=== PATIENT | female | born 1950 | race Caucasian/White ===

== ENCOUNTER 2020-05-22 14:35 | Inpatient (IN) | payer MEDICARE, BC ==
[2020-05-22] MEDS ORDERED: BENZOCAINE BUCCAL PRN (15:21)
[2020-05-22] MEDS ORDERED: Magnesium Hydroxide 400 MG/5 ML Susp 30 ML Cup PO PRN (15:21)
[2020-05-22] MEDS ORDERED: Bisacodyl 10 MG Supp RECTAL PRN (15:21)
[2020-05-22] MEDS ORDERED: LORazepam 0.5 MG Tab PO PRN (15:21)
[2020-05-22] MEDS ORDERED: MENTHOL BUCCAL PRN (15:21)
[2020-05-22] MEDS ORDERED: Cyclobenzaprine 10 MG Tab PO PRN (15:21)
[2020-05-22] MEDS ORDERED: Erythromycin Base 0.5% Ophth Oint 3.5 GM Tube EYEBOTH PRN (15:21)
[2020-05-22] MEDS ORDERED: Clobetasol 0.05% Crm 15 GM Tube TOP PRN (15:21)
[2020-05-22] MEDS ORDERED: oxyCODONE 5 MG Tab PO PRN (15:21)
[2020-05-22] MEDS ORDERED: Ondansetron 4 MG Tab.DIS PO PRN (15:21)
[2020-05-22] MEDS ORDERED: BETAMETHASONE DIPROPIONATE TOP PRN (15:21)
--- NOTE | 2020-05-22 17:13 | PCM.HP.2 ---
H&P History of Present Illness - General Date of Service: 05/22/20 Admit Problem/Dx: Admission Diagnosis/Problem Admission Diagnosis/Problem Weakness Source of Information: Patient, Old Records ([facility] chart/EMR), Other ([facility] EMR) History Limitations: Reports: Other (Severe presbycusis) - History of Present Illness Initial Comments - Free Text/Narative: The patient was brought to this facility by her daughter via private automobile for direct admission into our swing bed unit [facility] [place]. 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 Patient is an extremely poor historian secondary to her severe presbycusis. She denies any significant pain at this time. The patient denies any chest pain/pressure, heart flutter, dizziness, orthostasis, orthopnea, diaphoresis, paresthesias, recent decreased exercise tolerance, or any other anginal-type symptoms. No recent history of abdominal pain, heartburn, nausea, diarrhea, melena, gross hematochezia, or any food intolerance, including fatty foods, etc.. The patient also denies any recent fever, cough, wheezing, dyspnea, etc.. She denies any gross hematuria, colic, or other current UTI symptoms. No significant pain at this time. Onset of Symptoms: Reports: Other (As above) Duration of Symptoms: Reports: Other (No significant pain) Location: Reports: Lower Extremity, Left. Denies: Head, Face, Neck, Chest, Abdomen, Back, Pelvis, Upper Extremity, Left, Upper Extremity, Right, Radiates to Quality: Reports: Same as Previous Episode Improves with: Reports: Rest Worsens with: Reports: Movement Context: Reports: Trauma (As above) Associated Symptoms: Reports: Weakness (Mild postoperative). Denies: Confusion, Chest Pain, Cough, Diaphoresis, Fever/Chills, Headaches, Loss of Appetite, Malaise, Nausea/Vomiting, Shortness of Breath, Syncope - Related Data Allergies/Adverse Reactions: Allergies Allergy/AdvReac Type Severity Reaction Status Date / Time No Known Allergies Allergy Verified 05/22/20 11:25 Home Medications: Home Meds Lisinopril [Prinivil] 5 mg PO DAILY #30 tablet 10/15/15 [Rx] Acetaminophen [Tylenol Arthritis Pain] 650 mg PO BID PRN 01/31/20 [History] Betamethasone Dipropionate [Diprosone 0.05% Crm] 0 gm TOP BID PRN 01/31/20 [History] Calcium Carbonate/Vitamin D3 [Caltrate 600 Plus D3 Tablet] 1 tab PO DAILY 01/31/20 [History] Cholecalciferol (Vitamin D3) [Vitamin D3] 2,000 unit PO DAILY 01/31/20 [History] Cyclobenzaprine [Flexeril] 10 mg PO TID PRN 01/31/20 [History] Erythromycin Base [Erythromycin] 1 dose EYEBOTH QID PRN 01/31/20 [History] Multivitamin with Minerals [Multiple Vitamin] 1 each PO DAILY 01/31/20 [History] Gervais-3/DHA/Epa/Fish Oil [Fish Oil 1,000 mg Softgel] 1,000 mg PO DAILY 01/31/20 [History] Sodium Chloride 3 gm PO TID 01/31/20 [History] Urea [Urea 20% Crm] 85 gm .XX BID 01/31/20 [History] cephALEXin [Cephalexin] 500 mg PO TID 01/31/20 [History] Docusate Sodium/Sennosides [Senna Plus] 2 tab PO BID PRN tablet 03/02/20 [Rx] Aspirin 81 mg PO BID 05/22/20 [History] Benzocaine/Menthol [Cepacol Sore Throat Lozenge] 1 each MM Q4HR PRN 05/22/20 [History] Bisacodyl [Laxative Suppository] 10 mg RC DAILY PRN 05/22/20 [History] Clobetasol [Clobetasol Propionate 0.05%] 1 applic TOP BID PRN 05/22/20 [History] Enoxaparin [Lovenox] 40 mg SUBCUT DAILY 05/22/20 [History] LORazepam [Ativan] 0.5 mg PO Q6HR PRN 05/22/20 [History] Magnesium Hydroxide [Dulcolax] 30 ml PO BID PRN 05/22/20 [History] Nicotine [Nicotine Patch] 21 mg TD DAILY 05/22/20 [History] Ondansetron [Zofran ODT] 4 mg PO QID PRN 05/22/20 [History] Polyethylene Glycol [Polyox Wsr-301] 17 gm MC DAILY 05/22/20 [History] oxyCODONE 5 mg PO Q4HR PRN 05/22/20 [History] Past Medical History HEENT History: Reports: Hard of Hearing, Other (See Below) Other HEENT History: Severe bilateral presbycusis with no hearing aid therapy. 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 Cardiovascular History: Reports: High Cholesterol, Hypertension Gastrointestinal History: Reports: Chronic Constipation Musculoskeletal History: Reports: Arthritis, Fracture, Osteoarthritis, Other (See Below) Other Musculoskeletal History: Left pubic ramus fracture on 08/28/2015 with history of recurrent left hip TEP dislocations including in April 2020 with surgeries required as below. Psychiatric History: Reports: Addiction, Anxiety, Depression, Other (See Below) Other Psychiatric History: History of alcohol abuse. Endocrine/Metabolic History: Reports: Hypokalemia, Hypomagnesemia Other Endocrine/Metabolic History: Hyponatremia. Hematologic History: Reports: Anemia, Other (See Below) Other Hematologic History: Thiamine deficiency. 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 Multiple teeth extractions. Musculoskeletal Surgical History: Reports: Hip Replacement, Other (See Below) Other Musculoskeletal Surgeries/Procedures:: Left hip TEP with subsequent multiple left hip TEP revisions on 05/19/2020, 05/11/2020, and 01/28/2020 secondary to recurrent dislocations. Oncologic Surgical History: Reports: Other (See Below) Other Oncologic Surgeries/Procedures: Post ethmoid sinus reconstruction - Past Imaging History Past Imaging History: Reports: CAT Scan (CT of the head on 08/09/2019 and 10/07/2015. CT of the sinuses on 04/20/2018. CT of the left leg on 08/28/2015.), Mammogram (Last on 04/20/2018), MRI (MRI of the brain in 2019.) - History Comment History Comment: The patient is an extremely poor historian secondary to her severe presbycusis. Social & Family History - Family History Family Medical History: No Pertinent Family History (Also unobtainable secondary to her severe presbycusis) - Tobacco Use Tobacco Use Status *Q: Current Some Day Tobacco User Years of Tobacco use: 20 Packs/Tins Daily: 0.5 Used Tobacco, but Quit: No Second Hand Smoke Exposure: No - Caffeine Use Caffeine Use: Reports: Coffee Other Caffeine Use: 1 cup - Recreational Drug Use Recreational Drug Use: No H&P Review of Systems - Review of Systems: Review Of Systems: Comprehensive ROS is negative, except as noted in HPI. Exam - Exam Exam: See Below - Vital Signs Vital Signs: Last Vital Signs Temp 36.7 C 05/22/20 14:40 Pulse 80 05/22/20 14:40 Resp 18 05/22/20 14:40 BP 142/80 H 05/22/20 14:40 Pulse Ox 93 L 05/22/20 14:40 Weight: 67.132 kg - Exam Quality Assessment: DVT Prophylaxis (Lovenox). No: Supplemental Oxygen, Urinary Catheter, Skin Breakdown, Restraints HEENT: EACs Clear, EOMI, Mucosa Moist & [place], Posterior Pharynx Clear, TMs Clear, Other (Moderate to severe midface superior defect secondary to previous ethmoid sinus carcinoma resection involving the nasal region), PERRLA. No: Hearing Intact (Severe presbycusis bilaterally), Nares Patent (Moderate nasal deformity secondary to previous surgery) Neck: Supple, Trachea Midline, Full Range of Motion, Carotid Bruit (Mild bilateral carotid bruits). No: Lymphadenopathy, Thyromegaly Lungs: Clear to Auscultation, Normal Respiratory Effort. No: Rub Cardiovascular: Regular Rate, Regular Rhythm, Normal S1, Normal S2. No: Systolic Murmur, Rubs, Gallop/S3, Gallop/S4 GI/Abdominal Exam: Normal Bowel Sounds, Soft, Non-Tender, No Organomegaly, No Distention, No Abnormal Bruit, No Mass. No: Guarding (Female) Exam: Deferred Rectal (Female) Exam: Deferred Back Exam: Normal Inspection, Full Range of Motion. No: CVA Tenderness (L), CVA Tenderness (R), Muscle Spasm Extremities: No Pedal Edema, Normal Capillary Refill. No: Non-Tender (Normal postoperative pain in the left hip/leg with left leg brace noted), Suzy's Sign Peripheral Pulses: 2+: Radial (L), Radial (R), Dorsalis Pedis (L), Dorsalis Pedis (R) Skin: Wound, Incision (Postoperative with humberto) Neurological: Reflexes Equal Bilateral Neuro Extensive - Mental Status: Alert, Oriented x3, Normal Mood/Affect, Normal Cognition Psychiatric: Alert, Normal Affect, Normal Mood - Patient Data Lab Results Last 24 hrs: To be conducted in the a.m. of 05/23 Sepsis Event Note - Evaluation Sepsis Screening Result: No Definite Risk - Focused Exam Vital Signs: Vital Signs Temp Pulse Resp BP Pulse Ox 05/22/20 14:40 36.7 C 80 18 142/80 H 93 L - Problem List (1) Recurrent dislocation, left hip SNOMED Code(s): 421552153 ICD Code: M24.452 - RECURRENT DISLOCATION, LEFT HIP Status: Acute Priority: High Current Visit: Yes Problem Details: Recurrent dislocation of the left hip with required repeat revision on 05/19/20 as above with surgery complicated by postoperative anemia. PT and OT have been ordered with initiation of standard swing bed orders. Blood work to be updated on 05/23. Note current subcutaneous Lovenox therapy as DVT prophylaxis per transfer orders from [facility]. (2) Osteoarthritis SNOMED Code(s): 899467428 ICD Code: M19.90 - UNSPECIFIED OSTEOARTHRITIS, UNSPECIFIED SITE Status: [facility] Priority: Medium Current Visit: Yes Problem Details: Otherwise stable by history Qualifiers: Osteoarthritis location: multiple joints Osteoarthritis type: primary Qualified Code(s): M89.49 - Other hypertrophic osteoarthropathy, multiple sites (3) Hypertension SNOMED Code(s): 59897027 ICD Code: I10 - ESSENTIAL (PRIMARY) HYPERTENSION Status: Chronic Priority: Medium Current Visit: Yes Problem Details: Continue to observe closely through swing bed care. Qualifiers: Hypertension type: essential hypertension Qualified Code(s): I10 - Essential (primary) hypertension (4) Postoperative anemia SNOMED Code(s): 614155263, 764235651 ICD Code: D64.9 - ANEMIA, UNSPECIFIED Status: Acute Priority: Medium Current Visit: Yes Onset Date: ~05/21/20 Problem Details: Hemoglobin [facility] 8.3 on 05/[facility] at [facility] [place]. Consider iron supplementation depending on her clinical course. (5) Hyperlipidemia SNOMED Code(s): 95004310 ICD Code: E78.5 - HYPERLIPIDEMIA, UNSPECIFIED Status: Chronic Priority: Medium Current Visit: Yes Problem Details: Continue to observe closely by regular providers. Qualifiers: Hyperlipidemia type: other hyperlipidemia Qualified Code(s): E78.49 - Other hyperlipidemia; E78.4 - Other hyperlipidemia (6) Hypomagnesemia SNOMED Code(s): 949269066 ICD Code: E83.42 - HYPOMAGNESEMIA Status: Acute Priority: Medium Current Visit: Yes Problem Details: Blood work on 05/23/2020. (7) Osteomyelitis SNOMED Code(s): 70971200 ICD Code: M86.9 - OSTEOMYELITIS, UNSPECIFIED Status: Chronic Priority: Medium Current Visit: Yes Problem Details: Continue long-term chronic Keflex therapy for chronic osteomyelitis of the facial regions after recent extensive surgery for carcinoma excision. Qualifiers: Osteomyelitis type: other chronic Osteomyelitis location: unspecified site Qualified Code(s): M86.60 - Other chronic osteomyelitis, unspecified site (8) Mixed anxiety depressive disorder SNOMED Code(s): 368433673 ICD Code: F41.8 - OTHER SPECIFIED ANXIETY DISORDERS Status: Chronic Priority: Medium Current Visit: Yes Problem Details: Note history of alcohol abuse. Stable by history. Problem List Initiated/Reviewed/Updated: Yes Orders Last 24hrs: Active Orders 24 hr Category Date Time Status Patient Status [ADT] Routine ADT 05/22/20 15:16 Active Communication Order [RC] ROUTINE Care 05/22/20 15:26 Active Communication Order [RC] ROUTINE Care 05/22/20 15:26 Active Height and Weight [RC] Fr@08 Care 05/22/20 15:18 Active Intake and Output [RC] Care 05/22/20 15:16 Active Notify Provider Vital Signs [RC] PRN Care 05/22/20 15:18 Active Oxygen Therapy [RC] PRN Care 05/22/20 15:16 Active Up With Assistance [RC] ASDIRECTED Care 05/22/20 15:16 Active VTE/DVT Education [RC] PER UNIT ROUTINE Care 05/22/20 15:16 Active Vital Signs [RC] Care 05/22/20 15:16 Active Consult to Case Management/Embedded Case Manager [CONS] Cons 05/22/20 15:16 Active Routine OT Evaluation and Treatment [CONS] Routine Cons 12/04/20 15:16 Active PT Evaluation and Treatment [CONS] Routine Cons 05/22/20 15:16 Active Heart Healthy Diet [DIET] Diet 05/22/20 Lunch Active Acetaminophen [Tylenol Arthritis Pain] Med 05/22/20 15:21 Active 650 mg PO BID PRN Aspirin Med 05/22/20 18:00 Active 81 mg PO BID Benzocaine/Menthol [Cepacol Sore Throat Lozenge] Med 05/22/20 15:21 Pending 1 each MM Q4HR PRN Betamethasone Dipropionate [Diprosone 0.05% Crm] Med 05/22/20 15:21 Pending 1 gm TOP BID PRN Calcium Carbonate/Vitamin D3 [Caltrate 600+D 1500 MG- Med 05/23/20 08:00 Active 400 Units] 1 tab PO DAILY Cholecalciferol (Vitamin D3) [Vitamin D3] Med 05/23/20 08:00 Active 50 mcg PO DAILY Clobetasol [Clobetasol Propionate 0.05%] Med 05/22/20 15:21 Active 0 gm TOP BID PRN Cyclobenzaprine [Flexeril] Med 05/22/20 15:21 Active 10 mg PO TID PRN Docusate Sodium/Sennosides [Senna Plus] Med 05/22/20 15:21 Active 2 tab PO BID PRN Enoxaparin [Lovenox] Med 05/23/20 08:00 Pending 40 mg SUBCUT DAILY Erythromycin Base [Erythromycin 0.5% Ophth Oint] Med 05/22/20 15:21 Pending DOSE gm EYEBOTH QID PRN Fish Oil/Gervais-3 Fatty Acids [Fish Oil] Med 05/23/20 08:00 Active 1 gm PO DAILY LORazepam [Ativan] Med 05/22/20 15:21 Active 0.5 mg PO Q6HR PRN Magnesium Hydroxide [Milk of Magnesia] Med 05/22/20 15:21 Active 30 ml PO BID PRN Multivitamins [Tab-A-Kayla] Med 05/23/20 08:00 Active 1 tab PO DAILY Nicotine [Habitrol] Med 05/23/20 08:00 Active 21 mg TOP DAILY Ondansetron [Zofran ODT] Med 05/22/20 15:21 Active 4 mg PO QID PRN Polyethylene Glycol [Polyox Wsr-301] Med 05/23/20 08:00 Pending 17 gm MC DAILY Sodium Chloride Med 05/22/20 18:00 Active 3 gm PO TID Urea [Urea 20% Crm] Med 05/22/20 18:00 Pending 85 gm .XX BID bisacodyL [Dulcolax] Med 05/22/20 15:21 Active 10 mg RECTAL DAILY PRN cephALEXin [Keflex] Med 05/22/20 18:00 Active 500 mg PO TID lisinopriL [Prinivil] Med 05/23/20 08:00 Active 5 mg PO DAILY oxyCODONE Med 05/22/20 15:21 Active 5 mg PO Q4HR PRN Patient May Not [OM.PC] Click to Edit Oth 05/22/20 15:16 Ordered Resuscitation Status Routine Resus Stat 05/22/20 15:16 Ordered Medication Orders Acetaminophen (Tylenol Arthritis Pain) 650 mg PO BID PRN PRN Reason: Pain Aspirin (Aspirin) 81 mg PO BID [facility] Bisacodyl (Dulcolax) 10 mg RECTAL DAILY PRN PRN Reason: Constipation Calcium Carbonate (Caltrate 600+D 1500 Mg-400 Units) 1 tab PO DAILY [facility] Cephalexin (Keflex) 500 mg PO TID [facility] Cholecalciferol (Vitamin D3) 50 mcg PO DAILY [facility] Clobetasol Propionate (Clobetasol Propionate 0.05%) 0 gm TOP BID PRN PRN Reason: Itching Cyclobenzaprine HCl (Flexeril) 10 mg PO TID PRN PRN Reason: Spasms Enoxaparin Sodium (Lovenox) 40 mg SUBCUT DAILY [facility] Erythromycin (Erythromycin 0.5% Ophth Oint) gm EYEBOTH QID PRN PRN Reason: Other Fish Oil (Fish Oil) 1 gm PO DAILY [facility] Lisinopril (Prinivil) 5 mg PO DAILY [facility] Lorazepam (Ativan) 0.5 mg PO Q6HR PRN PRN Reason: Anxiety Magnesium Hydroxide (Milk Of Magnesia) 30 ml PO BID PRN PRN Reason: Constipation Multivitamins/Minerals/Vitamin C (Tab-A-Kayla) 1 tab PO DAILY [facility] Nicotine (Habitrol) 21 mg TOP DAILY [facility] Non-Formulary Medication (Benzocaine/Menthol [Cepacol Sore Throat Lozenge]) 1 each MM Q4HR PRN PRN Reason: Sore Throat Non-Formulary Medication (Betamethasone Dipropionate [Diprosone 0.05% Crm]) 1 gm TOP BID PRN PRN Reason: Other Non-Formulary Medication (Polyethylene Glycol [Polyox Wsr-301]) 17 gm MC DAILY [facility] Non-Formulary Medication (Urea [Urea 20% Crm]) 85 gm .XX BID [facility] Ondansetron HCl (Zofran Odt) 4 mg PO QID PRN PRN Reason: Nausea Oxycodone HCl (Oxycodone) 5 mg PO Q4HR PRN PRN Reason: Pain Senna/Docusate Sodium (Senna Plus) 2 tab PO BID PRN PRN Reason: Constipation Sodium Chloride (Sodium Chloride) 3 gm PO TID [facility] Assessment/Plan Comment:: As above. Extensive precautions were given to the patient, who is in agreement with the treatment plan. - Mortality Measure Prognosis:: Good
[2020-05-22] MEDS: Acetaminophen 650 MG Tab.ER PO PRN (17:37)
[2020-05-22] MEDS: Cephalexin 250 MG Cap PO SCH (17:37)
[2020-05-22] MEDS: Aspirin 81 MG Tab.Chew PO SCH (17:38)
[2020-05-22] MEDS: Sodium Chloride 1 GM Tab PO SCH (17:38)
[2020-05-22] MEDS ORDERED: UREA SCH (18:00)
[2020-05-23] MEDS: Sodium Chloride 1 GM Tab PO SCH ×3 (07:50→17:54)
[2020-05-23] MEDS: Fish Oil/Omega-3 Fatty Acids 1 Gm Cap PO SCH (07:51)
[2020-05-23] MEDS: Cholecalciferol (Vitamin D3) 25 MCG Tab PO SCH (07:51)
[2020-05-23] MEDS: Cephalexin 250 MG Cap PO SCH ×3 (07:52→17:53)
[2020-05-23] MEDS: Aspirin 81 MG Tab.Chew PO SCH ×2 (07:52→17:53)
[2020-05-23] MEDS: Calcium Carbonate/Vitamin D3 1500 MG-400 Units Tab PO SCH (07:52)
[2020-05-23] MEDS: Multivitamin Tab PO SCH (07:52)
[2020-05-23] MEDS: Enoxaparin 40 MG/0.4 ML Syringe SUBCUT SCH (07:58)
[2020-05-23] MEDS: Lisinopril 5 MG Tab PO SCH (07:58)
[2020-05-23] MEDS: Polyethylene Glycol 3350 Powder 17 GM Packet PO SCH (07:59)
[2020-05-23] MEDS: Nicotine 21 MG/24 Hr Patch TOP SCH (07:59)
[2020-05-23 08:01] LABS: PTT,PARTIAL THROMBOPLSTIN TIME 30.1 SEC (24.5-32.8)
[2020-05-23 09:23] LABS: CHLORIDE,CL 97 mmol/L (98-107); SODIUM,NA 132 mmol/L (136-145)
--- NOTE | 2020-05-23 10:37 | PCM.SN.2 ---
- Free Text/Narrative Note: Blood work and EKG reviewed today. EKG shows a normal sinus rhythm of 84, FL interval of 0.16 seconds, and QRS interval of 0.08 seconds. T wave inversion lead V1 with mild diffuse biphasic P waves consistent with possible left atrial enlargement. No acute ischemic changes. Blood work shows improvement of patient's previous postoperative anemia with hemoglobin of 9.3 on 05/23 in comparison to 8.3 on 05/[address] [facility]. Iron sulfate therapy initiated on 05/23 with consideration of iron studies, vitamin B12 level, etc. in about 4 weeks. Note history of thiamine deficiency, which is currently under therapy. Persistent hyponatremia with elevated BNP likely secondary to some CHF. Initiate oral Lasix and potassium therapy with additional lisinopril therapy secondary to her elevated blood pressures during initial phases of her swing bed care. Note artifactually elevated CK index with mild change in troponin secondary to her CHF as above. Mild hypocalcemia and hypoalbuminemia, which will be observed for now. Chest x-ray and repeat blood work on 05/25. Vital signs are stable. Consider echocardiogram, cardiology referral/work-up, etc. on an outpatient basis after discharge.
[2020-05-23] MEDS: Potassium Chloride 20 MEQ Tab.ER PO SCH ×2 (11:46→17:53)
[2020-05-23] MEDS: Furosemide 20 MG Tab PO SCH ×2 (11:47→13:29)
[2020-05-23] MEDS: Acetaminophen 650 MG Tab.ER PO PRN ×2 (15:08→19:17)
[2020-05-23] MEDS: Ferrous Sulfate 325 MG Tab PO SCH (17:53)
[2020-05-24] MEDS: Lisinopril 5 MG Tab PO SCH (08:04)
[2020-05-24] MEDS: Cephalexin 250 MG Cap PO SCH ×3 (08:04→17:34)
[2020-05-24] MEDS: Aspirin 81 MG Tab.Chew PO SCH ×2 (08:04→17:34)
[2020-05-24] MEDS: Citalopram 20 MG Tab PO SCH (08:04)
[2020-05-24] MEDS: Fish Oil/Omega-3 Fatty Acids 1 Gm Cap PO SCH (08:04)
[2020-05-24] MEDS: Calcium Carbonate/Vitamin D3 1500 MG-400 Units Tab PO SCH (08:04)
[2020-05-24] MEDS: Sodium Chloride 1 GM Tab PO SCH ×3 (08:04→17:34)
[2020-05-24] MEDS: Ferrous Sulfate 325 MG Tab PO SCH ×2 (08:04→17:34)
[2020-05-24] MEDS: Cholecalciferol (Vitamin D3) 25 MCG Tab PO SCH (08:04)
[2020-05-24] MEDS: Potassium Chloride 20 MEQ Tab.ER PO SCH ×2 (08:07→17:34)
[2020-05-24] MEDS: Multivitamin Tab PO SCH (08:07)
[2020-05-24] MEDS: Furosemide 20 MG Tab PO SCH ×2 (08:07→11:53)
[2020-05-24] MEDS: Nicotine 21 MG/24 Hr Patch TOP SCH (08:08)
[2020-05-24] MEDS: Enoxaparin 40 MG/0.4 ML Syringe SUBCUT SCH (08:08)
[2020-05-24] MEDS: Polyethylene Glycol 3350 Powder 17 GM Packet PO SCH (08:09)
[2020-05-25] MEDS: Ferrous Sulfate 325 MG Tab PO SCH ×2 (08:36→18:21)
[2020-05-25] MEDS: Potassium Chloride 20 MEQ Tab.ER PO SCH ×2 (08:36→18:21)
[2020-05-25] MEDS: Aspirin 81 MG Tab.Chew PO SCH ×2 (08:37→18:21)
[2020-05-25] MEDS: Acetaminophen 650 MG Tab.ER PO PRN (08:37)
[2020-05-25] MEDS: Calcium Carbonate/Vitamin D3 1500 MG-400 Units Tab PO SCH (08:37)
[2020-05-25 08:38] LABS: CHLORIDE,CL 92 mmol/L (98-107); SODIUM,NA 127 mmol/L (136-145)
[2020-05-25] MEDS: Furosemide 20 MG Tab PO SCH ×2 (08:38→13:17)
[2020-05-25] MEDS: Lisinopril 5 MG Tab PO SCH (08:40)
[2020-05-25] MEDS: Multivitamin Tab PO SCH (08:41)
[2020-05-25] MEDS: Citalopram 20 MG Tab PO SCH (08:41)
[2020-05-25] MEDS: Sodium Chloride 1 GM Tab PO SCH ×3 (08:42→18:20)
[2020-05-25] MEDS: Cephalexin 250 MG Cap PO SCH ×3 (08:42→18:21)
[2020-05-25] MEDS: Fish Oil/Omega-3 Fatty Acids 1 Gm Cap PO SCH (08:43)
[2020-05-25] MEDS: Cholecalciferol (Vitamin D3) 25 MCG Tab PO SCH (08:43)
[2020-05-25] MEDS: Nicotine 21 MG/24 Hr Patch TOP SCH (08:44)
[2020-05-25] MEDS: Enoxaparin 40 MG/0.4 ML Syringe SUBCUT SCH (08:44)
[2020-05-25] MEDS: Polyethylene Glycol 3350 Powder 17 GM Packet PO SCH (08:45)
[2020-05-25] MEDS ORDERED: Iopamidol 612 MG/ML 100 ML Bottle IVPUSH ONE (11:14)
--- OUTSIDE RECORDS SUMMARY | 2020-05-25 11:14 | XMSREPORT ---
:1950 Author Organization [facility] and [facility] s Address [address] [place] [address] [address] [place] [address] Care Team Providers Name Role Phone LOLIS Bonilla Unavailable HUI Huynh Primary Care Provider MD Verónica Unavailable MD Aidan Unavailable MED Huynh-MILENA Attributed Provider Reason for Visit Reason Comments Auth/Cert Status Reason Specialty Diagnoses / Procedures Referred By Geo prakash Referred To Contact Encounter Details Date Type Department Care Team Description 05/15/2020 [facility] [address] [place], [place] [phone] Recurrent 05/22/2020 [facility] Param Engle MD [address] [place], [place] [phone] dislocation of hip [address] [place], [place] [id number] Allergies Active Allergy Reactions Severity Noted Date Comments Adhesives Unknown/Not Verified 06/13/2013 Metals Unknown/Not Verified 06/13/2013 Nickel Rash 03/18/2020 documented as of this encounter (statuses as of 05/22/2020) Medications Medication Sig Dispensed Refills Start Date End Date Status vitamin D3, Take 2 tablets 30 tablet 0 09/01/2015 Ac tive cholecalciferol, 1000 (2,000 Units unit tablet total) by mouth 1 time per day Additional Information Patient taking differently: 1,000 Units Oral DAILY, Reported on 02/22/2017 11:16 AM Calcium Carbonate-Vit Take 1 tablet by 0 Active D-Min (CALTRATE PLUS mouth 1 time per day PO) ondansetron (ZOFRAN Take 1 tablet (4 mg) 20 tablet 0 25/ Active ODT) 4 mg dispersible by mouth 4 times a 2019 tabletIndications: day as needed for S/P revision of total nausea or vomiting hip aspirin 81 mg Take 1 tablet (81 84 tablet 0 05/13/ Active chewable mg) by mouth 2 times 2019 tabletIndications: a day S/P revision of total hip senna-docusate sodium Take 2 tablets by 0 05/13/ Active (SENOKOT-S;PERICOLACE mouth 2 times a day 2019 ) 8.6-50 MG Dx: constipation tabletIndications: Dislocation of internal left hip prosthesis, initial encounter (FORMERLY [facility] [place]), S/P revision of total hip polyethylene glycol Take 1 packet by 0 05/13/ Active (MIRALAX) 17 g mouth 1 time per day 2019 packetIndications: Dissolve in 4 to 8 Dislocation of ounces of water, internal left hip juice, soda, coffee, prosthesis, initial tea. encounter (FORM[facility]LY [facility] [place]), S/P revision of total hip cephalexin (KEFLEX) Take 1 capsule (500 0 05/13/ Active 500 mg mg) by mouth 3 times 2019 capsuleIndications: a day History of sinus cancer acetaminophen Take 2 tablets (650 0 05/13/ Active (TYLENOL) 325 mg mg) by mouth Every 4 2019 tabletIndications: hours as needed for Dislocation of mild pain (fever internal left hip >99F) Dx: left hip prosthesis, initial pain encounter (FORM[facility]LY [facility] [place]), S/P revision of total hip LORazepam (ATIVAN) Take 1 tablet (0.5 30 tablet 0 05/13/ Active 0.5 mg mg) by mouth every 6 2019 tabletIndications: hours as needed for Dislocation of anxiety internal left hip prosthesis, initial encounter ([facility] [place]), S/P revision of total hip nicotine (NICODERM) Apply 1 patch (21 90 patch 4 05/13/ Active 21 mg/24hr mg) to the skin 2019 [id number]: time per day Tobacco use omega-3 fatty acids Take 1 capsule 100 capsule 0 05/13/ Active (FISH OIL) 1000 mg (1,000 mg) by mouth 2020 capsule 1 time per day Multiple Take 1 tablet by 30 tablet 0 05/13/ Act colt Vitamins-Minerals mouth 1 time per day 2020 (MULTIVITAMIN THERAPEUTIC WITH MINERALS) tablet lisinopril (PRINIVIL, Take 1 tablet (5 mg) 0 05/13/ Active ZESTRIL) 5 mg by mouth 1 time per 2020 tabletIndications: day Essential hypertension with goal blood pressure less than 140/90 cyclobenzaprine Take 1 tablet (10 0 05/13/ Active (FLEXERIL) 10 mg mg) by mouth 3 times 2020 tabletIndications: a day as needed Back muscle spasm betamethasone Apply to affected 0 05/13/ Active dipropionate area 2 times a day 2019 (DIPROSONE) 0.05 % as needed for creamIndications: itching or rash Dermatitis Apply twice daily for up to 2 weeks to affected skin clobetasol propionate Apply to affected 0 05/13/ Active (TEMOVATE) 0.05 % area 2 times a day 2019 creamIndications: as needed for Rash itching or rash erythromycin 5 mg/gm Place into both eyes 0 05/13/ Active ophthalmic 4 times a day as 2020 ointmentIndications: needed Eye infection, bilateral urea (CARMOL-20) 20 % Apply to affected 0 05/13/ Active creamIndications: Dry area 2 times a day 2020 skin as needed for itching sodium chloride 1 gm Take 3 tablets (3 g) 180 tablet 1 05/13/ Active tabletIndications: by mouth 3 times a 2019 Hyponatremia day Dx: chronic hyponatremia oxyCODONE (OXY-IR) 5 Take 1 tablet (5 mg) 30 tablet 0 05/22/ Active mg tablet (immediate by mouth Every 4 2019 release)Indications: hours as needed for S/P revision of total moderate pain or hip severe pain enoxaparin (LOVENOX) Inject 40 mg 10 mL 0 05/23/ 06/15 Active 40 mg syringe (100 subcutaneously 1 2019 0 mg/mL) subcutaneous time per day for 23 injection days solutionIndications: S/P revision of total hip bisacodyl (DULCOLAX) Insert 1 suppository 5 suppository 0 / Active 10 mg (10 mg) rectally 2019 suppositoryIndication time a day as needed s: Constipation, for constipation unspecified Unwrap before constipation type inserting. Do not swallow. magnesium hydroxide Take 30 mL by mouth 118 mL 0 05/22/ Active (MILK OF MAGNESIA) 2 times a day as 2019 400 mg/5 mL oral needed for suspensionIndications constipation : Constipation, unspecified constipation type benzocaine-menthol Place 1 lozenge into 30 lozenge 0 05/22/ Active (CEPACOL W/ mouth Every 4 hours 2019 BENZOCAINE) 15-3.6 MG as needed for sore LOZGIndications: throat or other Sorethroat (Specify) (throat irritation) HYDROcodone-acetamino Take 1 tablet by 42 tablet 0 07/23 Discontinued phen (NORCO) 5-325 mg mouth Every 4 hours 2019 (Stop Taking at tabletIndications: as needed for Discharge) S/P revision of total moderate pain hip documented as of this encounter (statuses as of 05/22/2020) Active Problems Problem Noted Date Recurrent dislocation of hip 05/15/2020 History of general anesthesia 05/11/2020 History of cancer 05/11/2020 Hip dislocation, left, initial encounter 05/07/2020 Combined forms of age-related cataract 03/20/2020 Overview: Added automatically from request for tristen scott [id number] Postoperative visit 02/28/2020 S/P revision of total hip 02/28/2020 Overview: Left DREW revision 02/03/[address] Vaishnavi page Closed dislocation of left hip 01/26/2020 Benign hypertension 07/28/2016 Hyponatremia 02/28/2012 Overview: with poor followup and pt. refusing cons ultations Hearing loss Visual disturbance Overview: Related to prior surgery Psoriasis Nicotine addiction Lesion of skin of face Rhinitis, chronic Overview: Related to pts. 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 documented as of this encounter (statuses as of 05/22/2020) Resolved Problems Problem Noted Date Resolved Date Left hip pain 02/28/2020 05/08/2020 Altered mental status 07/28/2016 05/08/2020 Fracture of single pubic ramus 07/28/2016 0 Hypokalemia 07/28/2016 05/08/2020 Hypomagnesemia 07/28/2016 05/08/2020 Pelvis fracture 08/28/2015 05/08/2020 Menopause 04/01/2015 Fatigue 04/01/2015 Overview: Chronic Osteomyelitis 04/01/2015 Overview: chronic Hyperlipidemia 04/01/2015 documented as of this encounter (statuses as of 05/22/2020) Immunizations Name Administration Dates Next Due FLU VACCINE HIGH DOSE 65YR+(Fluzone) 05/31/2018, 04/01/2015 Influenza Vaccine 03/14/2013 Influenza Vaccine,unspecified 03/14/2013, 06/20/2012 Pneumococcal Conj PCV13 04/01/2015 Zoster Live(Zostavax) 06/20/2012 documented as of this encounter Social History Tobacco Use Types Packs/Day Years Used Date Current Every Day Smoker Cigarettes 0.25 45 Smokeless Tobacco: Never Used Comments: Pt states it's been "not quite a year" since she has quit. Alcohol Use Drinks/Week oz/Week Comments Yes 0-2 Glasses of wine 0.0 - 4.0 0-2 Cans of beer Financial Resource Strain Answer Date Recorded How hard is it for you to pay for the very basics like Not h adrien at all 08/28/2019 food, housing, medical care, and heating? Food Insecurity Answer Date Recorded Within the past 12 months, you worried that your food would Never true 08/28/2019 run out before you got money to buy more. Within the past 12 months, the food you bought just didn't N ever true 08/28/2019 last and you didn't have money to get more. Transportation Needs Answer Date Recorded In the past 12 months, has lack of transportation kept you f rom No 08/28/2019 medical appointments or from getting medications? In the past 12 months, has lack of transportation kept you f rom No 08/28/2019 meetings, work, or getting things needed for daily living? Sexually Active Control Partners Comments Never Sex Assigned at Date Recorded Not on file documented as of this encounter Last Filed Vital Signs Vital Sign Reading Time Taken Comments Blood Pressure 138/87 05/22/2020 7:48 AM PLAYGROUND DIRECTOR Pulse 79 05/22/2020 7:48 AM PLAYGROUND DIRECTOR Temperature 36.7 C (98.1 F) 05/22/2020 7:48 AM PLAYGROUND DIRECTOR Respiratory Rate 16 05/22/2020 7:48 AM PLAYGROUND DIRECTOR Oxygen Saturation 94% 05/22/2020 7:48 AM PLAYGROUND DIRECTOR Inhaled Oxygen Concentration - - Weight 65.8 kg (145 lb) 05/15/2020 9:00 PM PLAYGROUND DIRECTOR Height 162.6 cm (5' 4") 05/15/2020 9:00 PM PLAYGROUND DIRECTOR Body Mass Index 24.89 05/15/2020 9:00 PM PLAYGROUND DIRECTOR documented in this encounter Functional Status Functional Status Response Date of Assessment Is the person deaf or does he/she have serious difficulty Ye s 01/26/2020 hearing? Do you have difficulty with walking, balance, climbing No 01/26/2020 stairs, or had a fall in the last 3 months? Does the patient have difficulty dressing or bathing? Yes 01/26/2020 Because of a physical, mental, or emotional condition; Yes 01/26/2020 does this person have difficulty doing errands alone such as visiting a doctor's office or shopping? Cognitive Status Response Date of Assessment Because of a physical, mental, or emotional condition; No 01/26/2020 does this person have serious difficulty concentrating, remembering, or making decisions? documented as of this encounter Discharge Summaries Not on filedocumented in this encounter Discharge Instructions Eli Dey PA - 05/20/2020 documented in this encounter Medications at Time of Discharge Medication Sig Dispensed Refills Start Date End Date oxyCODONE (OXY-IR) 5 Take 1 tablet (5 mg) 30 tablet 0 05/22 mg tablet (immediate by mouth Every 4 release)Indications: hours as needed for S/P revision of total moderate pain or hip severe pain enoxaparin (LOVENOX) Inject 40 mg 10 mL 0 05/23/2020 40 mg syringe (100 subcutaneously 1 mg/mL) subcutaneous time per day for 23 injection days solutionIndications: S/P revision of total hip bisacodyl (DULCOLAX) Insert 1 suppository 5 suppository 0 10 mg (10 mg) rectally 1 suppositoryIndications time a day as needed : Constipation, for constipation unspecified Unwrap before constipation type inserting. Do not swallow. magnesium hydroxide Take 30 mL by mouth 118 mL 0 020 (MILK OF MAGNESIA) 400 2 times a day as mg/5 mL oral needed for suspensionIndications: constipation Constipation, unspecified constipation type benzocaine-menthol Place 1 lozenge into 30 lozenge 0 05/22/ 020 (CEPACOL W/ mouth Every 4 hours BENZOCAINE) 15-3.6 MG as needed for sore LOZGIndications: throat or other Sorethroat (Specify) (throat irritation) ondansetron (ZOFRAN Take 1 tablet (4 mg) 20 tablet 0 2019 ODT) 4 mg dispersible by mouth 4 times a tabletIndications: S/P day as needed for revision of total hip nausea or vomiting aspirin 81 mg chewable Take 1 tablet (81 84 tablet 0 2019 tabletIndications: S/P mg) by mouth 2 times revision of total hip a day senna-docusate sodium Take 2 tablets by 0 020 (SENOKOT-S;PERICOLACE) mouth 2 times a day 8.6-50 MG Dx: constipation tabletIndications: Dislocation of internal left hip prosthesis, initial encounter (FORM[facility] [place]), S/P revision of total hip polyethylene glycol Take 1 packet by 0 05/13/2020 (MIRALAX) 17 g mouth 1 time per day packetIndications: Dissolve in 4 to 8 Dislocation of ounces of water, internal left hip juice, soda, coffee, prosthesis, initial tea. encounter ([facility] [place]), S/P revision of total hip cephalexin (KEFLEX) Take 1 capsule (500 0 020 500 mg mg) by mouth 3 times capsuleIndications: a day History of sinus cancer acetaminophen Take 2 tablets (650 0 05/13/2020 (TYLENOL) 325 mg mg) by mouth Every 4 tabletIndications: hours as needed for Dislocation of mild pain (fever internal left hip >99F) Dx: left hip prosthesis, initial pain encounter ([facility] [place]), S/P revision of total hip LORazepam (ATIVAN) 0.5 Take 1 tablet (0.5 30 tablet 0 05/13 mg tabletIndications: mg) by mouth every 6 Dislocation of hours as needed for internal left hip anxiety prosthesis, initial encounter ([facility] [place]), S/P revision of total hip nicotine (NICODERM) 21 Apply 1 patch (21 90 patch 4 2019 mg/24hr mg) to the skin 1 [id number]: time per day Tobacco use omega-3 fatty acids Take 1 capsule 100 capsule 0 05/13/2020 (FISH OIL) 1000 mg (1,000 mg) by mouth capsule 1 time per day Multiple Take 1 tablet by 30 tablet 0 05/13/2020 Vitamins-Minerals mouth 1 time per day (MULTIVITAMIN THERAPEUTIC WITH MINERALS) tablet lisinopril (PRINIVIL, Take 1 tablet (5 mg) 0 04/20 ZESTRIL) 5 mg by mouth 1 time per tabletIndications: day Essential hypertension with goal blood pressure less than 140/90 cyclobenzaprine Take 1 tablet (10 0 05/13/2020 (FLEXERIL) 10 mg mg) by mouth 3 times tabletIndications: a day as needed Back muscle spasm betamethasone Apply to affected 0 05/13/2020 dipropionate area 2 times a day (DIPROSONE) 0.05 % as needed for creamIndications: itching or rash Dermatitis Apply twice daily for up to 2 weeks to affected skin clobetasol propionate Apply to affected 0 020 (TEMOVATE) 0.05 % area 2 times a day creamIndications: Rash as needed for itching or rash erythromycin 5 mg/gm Place into both eyes 0 05/13 ophthalmic 4 times a day as ointmentIndications: needed Eye infection, bilateral urea (CARMOL-20) 20 % Apply to affected 0 020 creamIndications: Dry area 2 times a day skin as needed for itching sodium chloride 1 gm Take 3 tablets (3 g) 180 tablet 1 05/13 tabletIndications: by mouth 3 times a Hyponatremia day Dx: chronic hyponatremia Calcium Carbonate-Vit Take 1 tablet by 0 D-Min (CALTRATE PLUS mouth 1 time per day PO) vitamin D3, Take 2 tablets 30 tablet 0 09/01/2015 cholecalciferol, 1000 (2,000 Units total) unit tablet by mouth 1 time per day documented as of this encounter Progress Notes Damian Hill PA - 05/21/2020 1:24 PM CST Orthopedic Progress Note Magda D Shawnee is a 69yr old female admitted on 05/15/2020 8:08 PM. S: continues to do well, pain has been controlled. Ambulating 25' with PT. Awaiting NH placement { Lab Results Component Value Date HEMOGLOBIN 8.3 (L) 05/21/2020 O: Vital Signs: Temp: 97.1 F (36.2 C) | BP: 119/67 | Pulse: 87 | Resp: 18 | Pain Ratin (out of 10) | Weight: 65.8 kg (145 lb) | O2 Device: Room Air | SpO2: 96 % Maximum Temperatures (last 24 hours) Temperature Maximum Max Temp 98.7 F (37.1 C) Exam: alert up to chair Bandage is dry, moderate thigh swelling Immobilizer in place, able to DF/PF ankle Distal NVI A: 2 Days Post-Op Status Post: Procedure(s): LEFT TOTAL HIP ARTHROPLASTY REVISION P: continue medical management, therapies, awaiting SNF placement, on lovenox for DVT prophylaxis Damian Hill PA-C ' Param Islas MD - 05/21/2020 12:46 PM CST DAILY PROGRESS NOTE Magda Reyes is a 69yr old female admitted on 05/15/2020 8:08 PM. Impression / Plan Active Problems: Recurrent dislocation of hip Resolved Problems: * No resolved hospital problems. * Plan: # Recurrent left hip dislocation s/p complex left DREW revision (05/11/20) now with recurrent dislocation (05/15/20) Underwent Left total hip arthroplasty revision (05/19/2020) - Continue pain management - Continue bowel regimen; add on lactulose as there has been no BM since surgery though she had someprior to surgery - ct PT/OT - recommend dc to rehab # Chronic hyponatremia, secondary to SIADH Na 134 (baseline Na 125-130 since 2013). Urine studies completed 01/2020 suggestive of SIADH - Continue NaCl tablets (3 gm TID) # Acute on chronic anemia, secondary to recent operative blood loss - Hgb stable. No evidence of further blood loss. Continue to monitor. # Dysphagia - SLT input appreciated. No concerns for now Chronic Conditions - HTN:ct to hold Lisinopril as BP is acceptable - Anxiety: continue Ativan prn - h/o facial squamous cell carcinoma: continue chronic Keflex prophylaxis, PO benadryl PRN for itching. Daughter voiced concerns of increased drainage from facial wound to RN yesterday but patient at bedside today does not share those concerns and says she wants no intervention as wound is stable. WBCis normal and there is no evidence of infection DVT Prophylaxis - sq Lovenox on hold for surgery, SCDs Code status - FC Discharge planning - Patient is medically stable to be discharged to rehab when placement is found. CM following Interval History HPI Admitted for spontaneous recurrent left hip dislocation. S/p surgery. Seen at bedside in no distresson room air. Says pain is controlled. Review of Systems Constitutional: Negative for fatigue and fever. HENT: Negative. Eyes: Negative for discharge and redness. Respiratory: Negative for cough, chest tightness, shortness of breath, wheezing and stridor. Cardiovascular: Negative for chest pain, palpitations and leg swelling. Gastrointestinal: Negative for abdominal distention, abdominal pain and diarrhea. Endocrine: Negative. Genitourinary: Negative. Musculoskeletal: Negative for back pain, joint swelling or gait problem Neurological: Negative for dizziness and headaches. Physical Exam Vital Signs: Temp: 97.1 F (36.2 C) | BP: 119/67 | Pulse: 87 | Resp: 18 | Pain Ratin (out of 10) | Weight: 65.8 kg (145 lb) | O2 Device: Room Air | SpO2: 96 % Maximum Temperatures (last 24 hours) Temperature Maximum Max Temp 98.7 F (37.1 C) Intake and Output: / 0700 - 05/21 0659 In: 800 [Oral:800] Out: 350 [Urine:350] Physical Exam Constitutional: Patient is oriented to person, place, and time. Patient appears well-developed and well-nourished. No obvious distress Head: Normocephalic and atraumatic. Eyes: Pupils are equal, round, and reactive to light. Conjunctivae and EOM are normal. Neck: Normal range of motion. Neck supple. Cardiovascular: Regular rhythm, rate, normal heart sounds and intact distal pulses. Pulmonary/Chest: Effort normal and breath sounds normal. Abdominal: Soft. Bowel sounds are normal. Musculoskeletal: clean dressing on L hip Neurological: Patient is alert and oriented to person, place, and time. Skin: Deep clean chronic lesion on center of face Psychiatric: Patient has a normal mood and affect. Labs Labs (Last day) 05/21/20545 - 05/21/20545 CBC 05/21/20545 CBC WBC 4.0-11.0 (K/uL) 10.1 RBC 3.80-5.30 (M/uL) 3.01 Hemoglobin 11.5-15.8 (g/dL) 8.3 Hematocrit 35.0-45.0 (%) 26.6 MCV 80.0-98.0 (fL) 88.4 MCH 25.5-34.0 (pg) 27.6 MCHC 31.5-36.5 (g/dL) 31.2 RDW-CV 11.5-15.5 (%) 14.4 RDW-SD 35.5-50.0 (fl) 45.1 Platelet Count 140-400 (K/uL) 681 MPV 8.5-12.0 (fL) 8.3 05/21/20545 - 05/21/20545 CHEMISTRY 05/21/20545 CHEMISTRY Glucose 70-100 (mg/dL) 72 Sodium 135-145 (meq/L) 134 Potassium 3.5-5.3 (meq/L) 4.6 Chloride 99-110 (meq/L) 101 CO2 20-29 (meq/L) 26 Anion Gap with K 6-20 (meq/L) 12 BUN 6-22 (mg/dL) 25 Creatinine 0.60-1.10 (mg/dL) 0.72 BUN/Creatinine Ratio 10.0-25.0 34.7 Calcium 8.5-10.5 (mg/dL) 8.0 eGFR >=60 (mL/min/1.73m2) >90 eGFR Non- >=60 (mL/min/1.73m2) 80 05/21/20545 - 05/21/20545 DIFFERENTIAL 05/21/20545 DIFFERENTIAL Seg Neut Absolute 1.8-8.0 (K/uL) 5.9 Lymphocytes Absolute 0.8-4.1 (K/uL) 2.9 Monocytes Absolute 0.0-1.0 (K/uL) 1.1 Eosinophils Absolute 0.0-0.7 (K/uL) 0.1 Basophil Absolute 0.0-0.2 (K/uL) 0.0 Neutrophils Percent (%) 58.5 Neutrophils Abs. (Segs and Bands) (/uL) 5,900 Lymphocytes Percent (%) 28.9 Monocytes Percent (%) 10.6 Eosinophils Percent (%) 1.4 Basophil Percent (%) 0.4 05/21/20 0546 - 05/21/20 0546 OTHER 05/21/20 0546 OTHER Age (Years) 69 Medical Decision making Medical Decision Making aram Engle MD - 05/20/2020 4:33 PM CST DAILY PROGRESS NOTE Magda Reyes is a 69yr old female admitted on 05/15/2020 8:08 PM. Impression / Plan Active Problems: Recurrent dislocation of hip Resolved Problems: * No resolved hospital problems. * Plan: # Recurrent left hip dislocation s/p complex left DREW revision (05/11/20) now with recurrent dislocation (05/15/20) Underwent Left total hip arthroplasty revision (05/19/2020) - Continue pain management - Continue bowel regimen - PT/OT following surgical intervention # Chronic hyponatremia, secondary to SIADH Na 130 (baseline Na 125-130 since 2013). Urine studies completed 01/2020 suggestive of SIADH - Continue NaCl tablets (3 gm TID) - dc LR # Acute on chronic anemia, secondary to recent operative blood loss - Hgb stable. No evidence of further blood loss. Continue to monitor. # Dysphagia - SLT input appreciated. No concerns for now Chronic Conditions - HTN:ct to hold Lisinopril as BP is acceptable - Anxiety: continue Ativan prn - h/o facial squamous cell carcinoma: continue chronic Keflex prophylaxis, PO benadryl PRN for ithcing DVT Prophylaxis - sq Lovenox on hold for surgery, SCDs Code status - FC Discharge planning - pending OT eval. Likely to rehab when cleared Interval History HPI Admitted for spontaneous recurrent left hip dislocation. S/p surgery. Seen at bedside in no distresson room air. Says pain is controlled. 1 BM noted since surgery Review of Systems Constitutional: Negative for fatigue and fever. HENT: Negative. Eyes: Negative for discharge and redness. Respiratory: Negative for cough, chest tightness, shortness of breath, wheezing and stridor. Cardiovascular: Negative for chest pain, palpitations and leg swelling. Gastrointestinal: Negative for abdominal distention, abdominal pain and diarrhea. Endocrine: Negative. Genitourinary: Negative. Musculoskeletal: Negative for back pain, joint swelling or gait problem Neurological: Negative for dizziness and headaches. Physical Exam Vital Signs: Temp: 98.2 F (36.8 C) | BP: 118/71 | Pulse: 88 | Resp: 16 | Pain Ratin (out of 10) | Weight: 65.8 kg (145 lb) | O2 Device: Room Air | SpO2: 96 % Maximum Temperatures (last 24 hours) Temperature Maximum Max Temp 98.2 F (36.8 C) Intake and Output: 05/19 0700 - 05/20 0659 In: 2350 [Oral:510] Out: 850 [Urine:800] Physical Exam Constitutional: Patient is oriented to person, place, and time. Patient appears well-developed and well-nourished. No obvious distress Head: Normocephalic and atraumatic. Eyes: Pupils are equal, round, and reactive to light. Conjunctivae and EOM are normal. Neck: Normal range of motion. Neck supple. Cardiovascular: Regular rhythm, rate, normal heart sounds and intact distal pulses. Pulmonary/Chest: Effort normal and breath sounds normal. Abdominal: Soft. Bowel sounds are normal. Musculoskeletal: clean dressing on L hip Neurological: Patient is alert and oriented to person, place, and time. Skin: Deep chronic lesion on center of face Psychiatric: Patient has a normal mood and affect. Labs Labs (Last day) 05/20/20531 - 05/20/20 05 CBC 05/20/20531 CBC Hemoglobin 11.5-15.8 (g/dL) 9.0 05/20/20531 - 05/20/20 05 CHEMISTRY 05/20/20531 CHEMISTRY Glucose 70-100 (mg/dL) 103 Sodium 135-145 (meq/L) 130 Potassium 3.5-5.3 (meq/L) 4.2 Chloride 99-110 (meq/L) 97 CO2 20-29 (meq/L) 24 Anion Gap with K 6-20 (meq/L) 13 BUN 6-22 (mg/dL) 14 Creatinine 0.60-1.10 (mg/dL) 0.65 BUN/Creatinine Ratio 10.0-25.0 21.5 Calcium 8.5-10.5 (mg/dL) 8.6 eGFR >=60 (mL/min/1.73m2) >90 eGFR Non- >=60 (mL/min/1.73m2) 90 05/20/20 0532 - 05/20/20 0532 OTHER 05/20/20 0532 OTHER Age (Years) 69 Medical Decision making Medical Decision Making amian Hill PA - 05/20/2020 2:38 PM CST Orthopedic Progress Note Magda Reyes is a 69yr old female admitted on 05/15/2020 8:08 PM. S: stable overnight, pain has been controlled. Up to chair { Lab Results Component Value Date HEMOGLOBIN 9.0 (L) 05/20/2020 O: Vital Signs: Temp: 97.4 F (36.3 C) | BP: 125/72 | Pulse: 84 | Resp: 16 | Pain Ratin (out of 10) | Weight: 65.8 kg (145 lb) | O2 Device: Room Air | SpO2: 95 % Maximum Temperatures (last 24 hours) Temperature Maximum Max Temp 98 F (36.7 C) Exam: alert, hard of hearing Bandage is dry, no significant thigh swelling Knee immobilizer in place and tolerating No calf pain, distal NVI A: 1 Day Post-Op Status Post: Procedure(s): LEFT TOTAL HIP ARTHROPLASTY REVISION P: continue therapies, october d/c to SNF when medically stable. Damian Hill PA-C Param Islas MD - 05/19/2020 7:43 PM CST DAILY PROGRESS NOTE Magda Reyes is a 69yr old female admitted on 05/15/2020 8:08 PM. Impression / Plan Active Problems: Recurrent dislocation of hip Resolved Problems: * No resolved hospital problems. * Plan: # Recurrent left hip dislocation s/p complex left DREW revision (05/11/20) now with recurrent dislocation (05/15/20) Underwent Left total hip arthroplasty revision (05/19/2020) - Continue pain management - Continue bowel regimen - PT/OT following surgical intervention # Chronic hyponatremia, secondary to SIADH Na stable at 133 (baseline Na 125-130 since 2013). Urine studies completed 01/2020 suggestive of SIADH - Continue NaCl tablets (3 gm TID) # Acute on chronic anemia, secondary to recent operative blood loss - Hgb stable. No evidence of further blood loss. Continue to monitor. # Dysphagia - SLT consulted Chronic Conditions - HTN:ct to hold Lisinopril as BP is acceptable - Anxiety: continue Ativan prn - h/o facial squamous cell carcinoma: continue chronic Keflex prophylaxis DVT Prophylaxis - sq Lovenox on hold for surgery, SCDs Code status - FC Discharge planning - pending PT/OT eval Interval History HPI Admitted for spontaneous recurrent left hip dislocation. S/p surgery. Seen at bedside in no distresson room air. Says pain is controlled Review of Systems Constitutional: Negative for fatigue and fever. HENT: Negative. Eyes: Negative for discharge and redness. Respiratory: Negative for cough, chest tightness, shortness of breath, wheezing and stridor. Cardiovascular: Negative for chest pain, palpitations and leg swelling. Gastrointestinal: Negative for abdominal distention, abdominal pain and diarrhea. Endocrine: Negative. Genitourinary: Negative. Musculoskeletal: Negative for back pain, joint swelling or gait problem Neurological: Negative for dizziness and headaches. Physical Exam Vital Signs: Temp: 98 F (36.7 C) | BP: 135/76 | Pulse: 100 | Resp: 16 | Pain Ratin (out of 10) | Weight: 65.8 kg (145 lb) | O2 Device: Room Air | SpO2: 91 % Maximum Temperatures (last 24 hours) Temperature Maximum Max Temp 98.8 F (37.1 C) Intake and Output: 05/18 0700 - 05/19 0659 In: 180 [Oral:180] Out: 1200 [Urine:1200] Physical Exam Constitutional: Patient is oriented to person, place, and time. Patient appears well-developed and well-nourished. No obvious distress Head: Normocephalic and atraumatic. Eyes: Pupils are equal, round, and reactive to light. Conjunctivae and EOM are normal. Neck: Normal range of motion. Neck supple. Cardiovascular: Regular rhythm, rate, normal heart sounds and intact distal pulses. Pulmonary/Chest: Effort normal and breath sounds normal. Abdominal: Soft. Bowel sounds are normal. Musculoskeletal: clean dressing on L hip Neurological: Patient is alert and oriented to person, place, and time. Skin: Deep chronic lesion on center of face Psychiatric: Patient has a normal mood and affect. Labs Labs (Last day) 05/19/20 0934 - 05/19/20 0934 MISCELLANEOUS MICRO 05/19/20 0934 05/19/20 0934 05/19/20 0934 MISCELLANEOUS MICRO Gram Stain Moderate (10 to 25/LPF) WBC's No epithelial cells seen No organisms seen Medical Decision making Medical Decision Making aram Engle MD - 05/18/2020 4:36 PM CST DAILY PROGRESS NOTE Magda Reyes is a 69yr old female admitted on 05/15/2020 8:08 PM. Impression / Plan Active Problems: Recurrent dislocation of hip Resolved Problems: * No resolved hospital problems. * Plan: # Recurrent left hip dislocation s/p complex left DREW revision (05/11/20) now with recurrent dislocation (05/15/20) Pending surgical treatment - Continue pain management - Continue bowel regimen - Changed plan for OR tomorrow; surgery by Dr. Cruz - NPO after midnight. - PT/OT following surgical intervention # Chronic hyponatremia, secondary to SIADH Na stable at 133 (baseline Na 125-130 since 2013). Urine studies completed 01/2020 suggestive of SIADH - Continue NaCl tablets (3 gm TID) # Acute on chronic anemia, secondary to recent operative blood loss - Hgb stable. No evidence of further blood loss. Continue to monitor. Chronic Conditions - HTN:hold Lisinopril in anticipation of orthopedic intervention - Anxiety: continue Ativan prn - h/o facial squamous cell carcinoma: continue chronic Keflex prophylaxis DVT Prophylaxis - sq Lovenox on hold for surgery, SCDs Code status - FC Discharge planning - pending Interval History HPI Admitted for spontaneous recurrent left hip dislocation No acute events overnight. Seen at bedside in no distress on room air. Reports hunger. Says pain is controlled Review of Systems Constitutional: Negative for fatigue and fever. HENT: Negative. Eyes: Negative for discharge and redness. Respiratory: Negative for cough, chest tightness, shortness of breath, wheezing and stridor. Cardiovascular: Negative for chest pain, palpitations and leg swelling. Gastrointestinal: Negative for abdominal distention, abdominal pain and diarrhea. Endocrine: Negative. Genitourinary: Negative. Musculoskeletal: Negative for back pain, joint swelling or gait problem Neurological: Negative for dizziness and headaches. Physical Exam Vital Signs: Temp: 98 F (36.7 C) | BP: 144/99 | Pulse: 94 | Resp: 16 | Pain Ratin (out of 10) | Weight: 65.8 kg (145 lb) | O2 Device: Room Air | SpO2: 95 % Maximum Temperatures (last 24 hours) Temperature Maximum Max Temp 99.2 F (37.3 C) Intake and Output: 05/17 0700 - 05/18 0659 In: 1180 [Oral:1180] Out: 900 [Urine:900] Physical Exam Constitutional: Patient is oriented to person, place, and time. Patient appears well-developed and well-nourished. No obvious distress Head: Normocephalic and atraumatic. Eyes: Pupils are equal, round, and reactive to light. Conjunctivae and EOM are normal. Neck: Normal range of motion. Neck supple. Cardiovascular: Regular rhythm, rate, normal heart sounds and intact distal pulses. Pulmonary/Chest: Effort normal and breath sounds normal. Abdominal: Soft. Bowel sounds are normal. Musculoskeletal: Normal range of motion, no edema or tenderness Neurological: Patient is alert and oriented to person, place, and time. Skin: Deep chronic lesion on center of face Psychiatric: Patient has a normal mood and affect. Labs Labs (Last day) 05/18/20 1206 - 05/18/20 1206 BLOOD BANK 05/18/20 1206 BLOOD BANK ABO Type O Rh Type Positive Antibody Screen Negative Expiration Date 05/21/2020 23:59 05/18/20 0532 - 05/18/20 0532 CHEMISTRY 05/18/20 0532 CHEMISTRY Glucose 70-100 (mg/dL) 77 Sodium 135-145 (meq/L) 133 Potassium 3.5-5.3 (meq/L) 3.8 Chloride 99-110 (meq/L) 98 CO2 20-29 (meq/L) 27 Anion Gap with K 6-20 (meq/L) 12 BUN 6-22 (mg/dL) 10 Creatinine 0.60-1.10 (mg/dL) 0.62 BUN/Creatinine Ratio 10.0-25.0 16.1 Calcium 8.5-10.5 (mg/dL) 8.2 Corrected Calcium 8.5-10.5 (mg/dL) 9.2 Phosphorus 2.5-4.5 (mg/dL) 3.6 Albumin 3.5-5.0 (g/dL) 2.7 eGFR >=60 (mL/min/1.73m2) >90 eGFR Non- >=60 (mL/min/1.73m2) >90 05/18/20 0532 - 05/18/20 0532 OTHER 05/18/20 0532 OTHER Age (Years) 69 Medical Decision making Medical Decision Making li Snowden PA - 05/17/2020 4:38 PM CST Orthopedic Daily Progress Note Assessment: Magda Reyes is a 69yr old female 1. Recurrent dislocation left hip 2.Status post left total hip arthroplasty revision secondary to recurrent left hip dislocations/failed left DREW revision 05/11/2020, status post complex left DREW revision 02/03/[address] Alegre secondary to failed/unstable left total hip arthroplasty with chronic non-union/displaced left acetabular fracture 3. PMH elective left DREW 09/20/[address] Mariano Bermudez 4. 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 Takes oral suppressive Keflex for chronic osteo 6. Chronic hyponatremia, baseline ~125 7. HTN 8. Physical deconditioning, mostly mobilizes with a wheelchair at home (lives alone, ). Stands for pivot transfers 9. Chronic left hip adductor contracture 10. Chronic tobacco abuse, smokes 3-4 cigarettes/day 11. Presbycusis, L worse than R 12. Cataract 13. Acute post-op blood loss anemia 14. Osteopenia/osteoporosis Plan: 1. Pain control 2. DVT Chemoprophylaxis: Lovenox 40mg SQ daily, on hold for OR Monday. 3. PT/OT: NWB left LE 4. Surgical plans per Dr. Cruz who will see Magda tomorrow. Subjective: Patient is comfortable at rest. I discussed potential surgical plans with Magda and her daughter. No acute overnight events. Objective: BP 141/82 | Pulse 83 | Temp 99.3 F (37.4 C) | Resp 16 | Ht 1.626 m (5' 4") | Wt 65.8 kg (145 lb) | SpO2 95% | BMI 24.89 kg/m Maximum Temperatures (last 24 hours) Temperature Maximum Max Temp 99.3 F (37.4 C) Intake and Output: 05/16 0700 - 05/17 0659 In: 540 [Oral:540] Out: 100 [Urine:100] General: AOx3, NAD. Respirations unlabored. Exam: left lower extremity. Left hip dressing remains C/D/I. left leg is shortened and rotated. Wound was dry. Dressing was not changed. Neurovascular intact. No calf tenderness noted in left lower extremity. EHL/FHL 10/21. Lab Results Component Value Date WBC 9.1 05/16/2020 NUCRBC 0 01/26/2020 RBC 3.37 (L) 05/16/2020 HEMOGLOBIN 9.3 (L) 05/16/2020 HEMATOCRIT 29.0 (L) 05/16/2020 MCV 86.1 05/16/2020 MCH 27.6 05/16/2020 MCHC 32.1 05/16/2020 PLTCOUNT 715 (H) 05/16/2020 NEUTROPCT 60.0 05/16/2020 LYMPHSPCT 20.9 05/16/2020 MONOSPCT 15.4 05/16/2020 EOSPCT 3.2 05/16/2020 BASOPHILPCT 0.2 05/16/2020 Lab Results Component Value Date PT 14.1 05/07/2020 INR 1.1 (L) 05/07/2020 Micro: 05/11/2020 OR cx: NGTD Labs and xrays were reviewed. erKatie mccall MD - 05/17/2020 8:12 AM PLAYGROUND DIRECTOR Hospital Progress Note Magda Reyes is a 69yr old female admitted on 05/15/2020. Assessment / Plan 1. Recurrent left hip dislocation s/p complex left DREW revision (05/11/20) now with recurrent dislocation (05/15/20) - Continue pain management - Continue bowel regimen - Orthopedics consulted; plan for Dr. Cruz to evaluate patient on Monday (as Dr. Alegre is out oftown). NPO after midnight. - PT/OT following surgical intervention 2. Chronic hyponatremia, secondary to SIADH - Na stable at 133 yesterday; baseline Na 125-130 since 2013 - Urine studies completed 01/2020 suggestive of SIADH - Continue NaCl tablets (3 gm TID) 3. Acute on chronic anemia, secondary to recent operative blood loss - Hgb stable. No evidence of further blood loss. Continue to monitor. Chronic Conditions - HTN: hold Lisinopril in anticipation of orthopedic intervention - Anxiety: continue Ativan prn - h/o facial squamous cell carcinoma: continue chronic Keflex prophylaxis Health Maintenance - Code status: Full - DVT prophylaxis: hold Lovenox tonight in anticipation of possible surgery tomorrow. Start SCDs - Disposition: awaiting medical stability following surgery and further recommendations from PT/OT HPI / History / ROS HPI No acute events overnight. Afebrile. Vital signs stable. Room air. Today, patient reports that she is feeling pretty good. She is satisfied with current pain regimen. Denies any acute complaints. Review of Systems Respiratory: Negative for shortness of breath. Cardiovascular: Negative for chest pain and leg swelling. Gastrointestinal: Negative for constipation. Genitourinary: Negative for difficulty urinating. Musculoskeletal: Positive for arthralgias. Psychiatric/Behavioral: Negative for confusion. Physical / Results Current Vital Signs Temp: 98.7 F (37.1 C) BP: 145/93 Pulse: 85 O2 Device: Room Air Resp: 16 Pain Ratin (out of 10) Weight: 65.8 kg (145 lb) SpO2: 92 % Physical Exam Vitals signs reviewed. Constitutional: General: She is not in acute distress. Appearance: She is not diaphoretic. HENT: Head: Comments: Large central defect from previous resection of squamous cell carcinoma - no surrounding erythema Cardiovascular: Rate and Rhythm: Normal rate and regular rhythm. Pulmonary: Effort: Pulmonary effort is normal. No respiratory distress. Breath sounds: No wheezing or rales. Musculoskeletal: Right lower leg: No edema. Left lower leg: No edema. Skin: General: Skin is warm and dry. Neurological: Mental Status: She is alert and oriented to person, place, and time. Katie Portillo MD, MPH Internal Medicine - Hospitalist Pager [phone] GROUND DIRECTOR Tarah Cee APRN-PAIRER INSPECTOR - 05/16/2020 11:24 AM CST ORTHOPEDIC PROGRESS NOTE May 16, 2020 Recurrent left prosthetic hip dislocation s/p left hip arthroplasty revision on 05/11/[address] Alegre S: Magda Reyes is a 69yr female recovering from surgery with Dr. Alegre. She was previouslyadmitted on 05/07/2020 for a left total hip arthroplasty revision that was done on 05/11/[address] Alegre due to a recurrent left prosthetic hip dislocation. She was doing well post-operatively a nd subsequently discharged to a facility on post-op day #2. She was re-admitted last night for a left hip dislocation at the facility she was staying at post- operatively. The mechanism of dislocation at the facility is unknown and the patient denies any falls or injuries at this time. Pain: Minimal pain per patient O: Temp Readings from Last 1 Encounters: 05/16/20 98 F (36.7 C) BP Readings from Last 1 Encounters: 05/16/20 152/86 Pulse Readings from Last 1 Encounters: 05/16/20 87 Gen: Sitting up in bed, alert and orientated, no apparent distress Incision: no drainage. Dressing clean, dry, and intact. left HIP: Dislocation noted on x-ray. Warm, well perfused. Brisk capillary refill noted. Sensation intact to light touch distally. Homans negative, no calf pain bilaterally. Compartments soft and compressible. DP and PT pulses are palpable. Motor grossly intact, able to PF/DF ankle and wiggle to es. Lab Results Component Value Date WBC 9.1 05/16/2020 NUCRBC 0 01/26/2020 RBC 3.37 (L) 05/16/2020 HEMOGLOBIN 9.3 (L) 05/16/2020 HEMATOCRIT 29.0 (L) 05/16/2020 MCV 86.1 05/16/2020 MCH 27.6 05/16/2020 MCHC 32.1 05/16/2020 PLTCOUNT 715 (H) 05/16/2020 NEUTROPCT 60.0 05/16/2020 LYMPHSPCT 20.9 05/16/2020 MONOSPCT 15.4 05/16/2020 EOSPCT 3.2 05/16/2020 BASOPHILPCT 0.2 05/16/2020 Lab Results Component Value Date INR 1.1 (L) 05/07/2020 A/P: 1. Recurrent left prosthetic hip dislocation s/p left hip arthroplasty revision DVT prophylaxis: Lovenox managed per primary Pain control: Continue current regimen Activity: as tolerated; NWB to LLE Disposition/planning: continue cares; Dr. Cruz plans to evaluate patient on Monday Tarah Cee APRN, AUTOMATION QA ANALYST-C Orthopedic Surgery GROUND DIRECTOR Katie Portillo MD - 05/16/2020 8:28 AM CST Hospital Progress Note Magda Reyes is a 69yr old female admitted on 05/15/2020. Assessment / Plan 1. Recurrent left hip dislocation s/p complex left DREW revision (05/11/20) now with recurrent dislocation (05/15/20) - Continue pain management - Continue bowel regimen - Orthopedics consulted; plan for Dr. Cruz to evaluate patient on Monday (as Dr. Alegre is out [facility]). Case reviewed with on-call ortho PA. - PT/OT following surgical intervention 2. Chronic hyponatremia, secondary to SIADH - Na stable at 133; baseline Na 125-130 since 2013 - Urine studies completed 01/2020 suggestive of SIADH - Continue NaCl tablets (3 gm TID) 3. Acute on chronic anemia, secondary to recent operative blood loss - Hgb stable at 9.3. No evidence of further blood loss. Continue to monitor. Chronic Conditions - HTN: hold Lisinopril in anticipation of orthopedic intervention - Anxiety: continue Ativan prn - h/o facial squamous cell carcinoma: continue chronic Keflex prophylaxis Health Maintenance - Code status: Full - DVT prophylaxis: Lovenox - Disposition: awaiting medical stability and further recommendations from PT/OT HPI / History / ROS HPI No acute events overnight. Afebrile. Vital signs stable. Hemoglobin low, but stable, at 9.3. Sodium has improved to 133. Serum creatinine stable at 0.56. Today, patient reports pain in her left hip, but states that it is tolerable with current regimen. She denies any other acute complaints. Review of Systems Constitutional: Negative for fever. Respiratory: Negative for shortness of breath. Cardiovascular: Negative for chest pain and leg swelling. Genitourinary: Negative for difficulty urinating. Musculoskeletal: Positive for arthralgias. Physical / Results Current Vital Signs Temp: 98.3 F (36.8 C) BP: 141/85 Pulse: 97 O2 Device: Room Air Resp: 16 Pain Ratin (out of 10) Weight: 65.8 kg (145 lb) SpO2: 97 % Physical Exam Vitals signs reviewed. Constitutional: General: She is not in acute distress. Appearance: She is not diaphoretic. HENT: Head: Comments: Large central defect from previous resection of squamous cell carcinoma - no surrounding erythema, no purulent discharge Cardiovascular: Rate and Rhythm: Normal rate and regular rhythm. Pulmonary: Effort: Pulmonary effort is normal. No respiratory distress. Breath sounds: No wheezing or rales. Musculoskeletal: Right lower leg: No edema. Left lower leg: No edema. Skin: General: Skin is warm and dry. Neurological: Mental Status: She is alert and oriented to person, place, and time. Katie Portillo MD, MPH Internal Medicine - Hospitalist Pager [phone] GROUND DIRECTOR documented in this encounter H&P Notes Darwin Donato MD - 05/15/2020 8:17 PM CST ADMISSION HISTORY AND PHYSICAL NOTE Patient ID: Magda Reyes is a 69yr female. PCP: Viridiana Huynh APRN-PAIRER INSPECTOR Attending Provider: Katie Portillo MD ESTRADA: [phone] Impression / Plan 1.Status post left total hip arthroplasty revision secondary to recurrent dislocation on 05/11 now with further dislocation. She endorsing pain with movement. At this time will continue pain medication. Orthopedic likely will do surgery on Monday. Will place Lovenox in form of DVT prophylaxis. 2.Chronic hyponatremia secondary to SIADH. Continue sodium tablets. Will do labs tomorrow. 3.Hypertension.continue lisinopril with holding parameters in place 4.Anxiety continue as needed Ativan 5.History of SCC of face. Continue chronic Keflex prophylaxis. 6.CODE STATUS. Full code 7.DVT prophylaxis. Lovenox Plan of care was discussed with patient. She verbalized understanding and agree with plan. All question answered. Chief Complaint / HPI HPI 69-year-old female with past medical history of recurrent left hip dislocation who was recently admitted to hospital and underwent arthroplasty revision on 05/[address] Valencia. [facility] Today she heard popping sound and she started complaining of hip pain with movement. She denies history of fall or trauma. No GI or genitourinary symptoms. No dizziness lightheadedness and syncopal episode. She presented to outside facility in [place].She was afebrile and blood pressure holding okay. She was slightly tachycardic with pulse around 100. X-ray revealed increased distraction of the acetabular fracture. Femoral component of prosthesis dislocated. Case was discussed with orthopedic surgeon and patient was transferred here. On my evaluation patient is resting comfortably in the bed. She is saturating well on room air. She denies any other symptoms. Medications Prior to Admission Medications Prescriptions Last Dose Informant Patient Reported? Taking? Calcium Carbonate-Vit D-Min (CALTRATE PLUS PO) Yes No Sig: Take 1 tablet by mouth 1 time per day HYDROcodone-acetaminophen (NORCO) 5-325 mg tablet No No Sig: Take 1 tablet by mouth Every 4 hours as needed for moderate pain LORazepam (ATIVAN) 0.5 mg tablet Yes No Sig: Take 1 tablet (0.5 mg) by mouth every 6 hours as needed for anxiety Multiple Vitamins-Minerals (MULTIVITAMIN THERAPEUTIC WITH MINERALS) tablet Yes No Sig: Take 1 tablet by mouth 1 time per day acetaminophen (TYLENOL) 325 mg tablet Yes No Sig: Take 2 tablets (650 mg) by mouth Every 4 hours as needed for mild pain (fever >99F) Dx: lefthip pain aspirin 81 mg chewable tablet No No Sig: Take 1 tablet (81 mg) by mouth 2 times a day betamethasone dipropionate (DIPROSONE) 0.05 % cream Yes No Sig: Apply to affected area 2 times a day as needed for itching or rash Apply twice daily for up to 2 weeks to affected skin cephalexin (KEFLEX) 500 mg capsule Yes No Sig: Take 1 capsule (500 mg) by mouth 3 times a day clobetasol propionate (TEMOVATE) 0.05 % cream Yes No Sig: Apply to affected area 2 times a day as needed for itching or rash cyclobenzaprine (FLEXERIL) 10 mg tablet Yes No Sig: Take 1 tablet (10 mg) by mouth 3 times a day as needed erythromycin 5 mg/gm ophthalmic ointment Yes No Sig: Place into both eyes 4 times a day as needed lisinopril (PRINIVIL, ZESTRIL) 5 mg tablet Yes No Sig: Take 1 tablet (5 mg) by mouth 1 time per day nicotine (NICODERM) 21 mg/24hr PT24 Yes No Sig: Apply 1 patch (21 mg) to the skin 1 time per day omega-3 fatty acids (FISH OIL) 1000 mg capsule Yes No Sig: Take 1 capsule (1,000 mg) by mouth 1 time per day ondansetron (ZOFRAN ODT) 4 mg dispersible tablet No No Sig: Take 1 tablet (4 mg) by mouth 4 times a day as needed for nausea or vomiting polyethylene glycol (MIRALAX) 17 g packet Yes No Sig: Take 1 packet by mouth 1 time per day Dissolve in 4 to 8 ounces of water, juice, soda, coffee, tea. senna-docusate sodium (SENOKOT-S;PERICOLACE) 8.6-50 MG tablet Yes No Sig: Take 2 tablets by mouth 2 times a day Dx: constipation sodium chloride 1 gm tablet No No Sig: Take 3 tablets (3 g) by mouth 3 times a day Dx: chronic hyponatremia urea (CARMOL-20) 20 % cream Yes No Sig: Apply to affected area 2 times a day as needed for itching vitamin D3, cholecalciferol, 1000 unit tablet No No Sig: Take 2 tablets (2,000 Units total) by mouth 1 time per day Patient taking differently: Take 1,000 Units by mouth 1 time per day Facility-Administered Medications: None Allergies Allergies Allergen Reactions Adhesives Unknown/Not Verified Metals Unknown/Not Verified Nickel Rash Medical / Surgical / Family History Past Medical History: Diagnosis Date Cancer of sinus (HCC) DX 04/1998 with status post resection. This carcinoma involved the ethmoid sinus. Fatigue Chronic Hearing loss Left ear Hyperlipidemia Hyponatremia 02/28/12 with poor followup and pt. refusing consultations Lesion of skin of face Menopause Nicotine addiction Osteomyelitis (HCC) chronic Psoriasis Rhinitis, chronic Related to pts. altered nasal passage Visual disturbance Related to prior surgery Past Surgical History: Procedure Laterality Date SINUS SURGERY 04/1998 resection of squamous cell carcinoma of the ethmoid sinus TONSILLECTOMY & ADENOIDECTOMY < AGE 10 At age 5 TOTAL HIP Left TOTAL HIP REVISION Left 01/28/2020 Procedure: COMPLEX LEFT TOTAL HIP REVISION, POSSIBLE LEFT ADDUCTOR HIP TENOTOMY;; Surgeon: Juanjose Alegre MD TOTAL HIP REVISION Left 05/11/2020 Procedure: LEFT TOTAL HIP ARTHROPLASTY REVISION;; Surgeon: Juanjose Alegre MD Family History Problem Relation Age of Onset Lung Cancer Mother Diabetes Mother Heart Mother CABG x3 Arthritis Mother Negative Daughter Negative Grandchild x4 Social History Social History Tobacco Use Smoking status: Current Every Day Smoker Packs/day: 0.25 Years: 45.00 Pack years: 11.25 Types: Cigarettes Smokeless tobacco: Never Used Tobacco comment: Pt states it's been "not quite a year" since she has quit. Substance Use Topics Alcohol use: Yes Alcohol/week: 0.0 - 4.0 standard drinks Drug use: No ROS Review of Systems Constitutional: Negative for chills and fever. HENT: Negative for congestion, drooling and ear discharge. Respiratory: Negative for cough and shortness of breath. Cardiovascular: Negative for chest pain and leg swelling. Gastrointestinal: Negative for abdominal distention, abdominal pain, nausea and vomiting. Genitourinary: Negative for difficulty urinating, dysuria, flank pain and frequency. Musculoskeletal: Positive for arthralgias and gait problem. Neurological: Negative for dizziness, light-headedness and headaches. Psychiatric/Behavioral: Negative for agitation, behavioral problems and confusion. Physical Exam BP 143/88 | Pulse 99 | Temp 98.9 F (37.2 C) | Resp 16 | SpO2 94% Physical Exam Constitutional: General: She is not in acute distress. Appearance: She is not ill-appearing. HENT: Head: Normocephalic and atraumatic. 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 Cardiovascular: Rate and Rhythm: Normal rate. Pulmonary: Effort: Pulmonary effort is normal. Breath sounds: Normal breath sounds. Abdominal: General: Abdomen is flat. Bowel sounds are normal. Palpations: Abdomen is soft. Musculoskeletal: Comments: ROM limited at hip joint Skin: General: Skin is warm and dry. Neurological: General: No focal deficit present. Psychiatric: Mood and Affect: Mood normal. Labs Labs (Last day) No results found within the past day. Procedures Procedures Medical Decision Making Medical Decision Making documented in this encounter Consult Notes Deric Cruz MD - 05/18/2020 4:08 PM CSTAssociated Order(s): CONSULT ORTHOPEDICSCHIEF COMPLAINT: Dislocation of the left hip. 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 Last surgery was done on 05/[address] Alegre and [facility] Patient heard a popping sound while she was trying to get up from a low chair and started having pain in the hip with movement. The patient was shifted to emergency room and x-rays obtained which shows the dislocation of the hip, along with the constrained liner. The patient was referred for further management. PHYSICAL EXAMINATION: GENERAL: The patient is alert, awake, oriented to time, place and person. She is in no apparent distress. Patient is well built and fairly nourished. MUSCULOSKELETAL: Examination of the left hip, the incision is clean, dry, and intact. The hip joint range of movement was not assessed due to presence of dislocation. No distal neurovascular deficit. Negative calf tenderness. Negative Homans' sign. IMAGING: X-rays obtained were reviewed, show a dislocation of the head and liner along with the [place] constrained liner. The dislocation is posterior in nature. There is also a fracture in the acetabulum, which was present during the last postoperative x-ray as well. ASSESSMENT AND PLAN: I discussed clinical and radiological features and diagnosis with the patient. I also discussed the treatment plan with her daughter on the phone. Patient has a dislocation of the constrained liner and at this point the best treatment option is to replace the constrained liner with another constrained liner and cement the liner inside the cup in order to provide better stability. The goal of the procedure is to reduce the hip and prevent further dislocations. Complications of the procedure include, but are not limited to anemia, blood loss, infection, wound dehiscence, rare cardiopulmonary anesthesia related complications, deep vein thrombosis, pulmonary embolism or even . I also explained to the patient and daughter that there are chances of further dislocations, failure of hip replacement, requirement of future surgical procedures including revision hip replacement. The patient and daughter understood and agreed with the plan. I will put the patient on schedule and perform the necessary work. Receipt: [id number] Trans ID: [id number]/[facility] PLAYGROUND DIRECTOR PLAYGROUND DIRECTOR documented in this encounter Miscellaneous Notes Care Planning - Debbie Garibay RN - 05/22/2020 11:16 AM PLAYGROUND DIRECTOR Problem: RISK FOR FALLS Goal: FALL PREVENTION BEHAVIOR Description: DEFINITION: Personal or family rn wound care actions to minimize risk factors that might precipitate falls in the personal environment. 1=Never demonstrated, 2=Rarely demonstrated, 3=Sometimes demonstrated, 4=Often demonstrated, 5=Consistently demonstrated. Outcome: Outcome acceptable for discharge Problem: IMPAIRED PHYSICAL MOBILITY Goal: MOBILITY Description: DEFINITION: Ability to move purposefully in own environment independently with or without assistive device. 1=Severely compromised / Total assistance: Performs less than 25% of activity; 2=Substantially compromised / Maximal assistance: Performs 25-49% of activity; 3=Moderately compromised / Moderate assistance: Performs 50-74% of activity; 4=Mildly compromised / Modified independence: Needs assistive device, supervision, minimal contact,or safety is a concern; 5=Not compromised / Complete independence. Outcome: Outcome acceptable for discharge Problem: ACUTE PAIN Goal: CLIENT SATISFACTION: PAIN MANAGEMENT Description: DEFINITION: Extent of positive perception of nursing care to relieve pain. 1=Not at all satisfied, 2=Somewhat satisfied, 3=Moderately satisfied, 4=Very satisfied, 5=Completely satisfied. Outcome: Outcome acceptable for discharge Problem: SPIRITUAL DISTRESS Goal: SPIRITUAL HEALTH Description: DEFINITION: Connectedness with self, others, higher power, all life, nature, and the universe that transcends and empowers the self. 1=Severely compromised, 2= Substantially compromised, 3=Moderately compromised, 4=Mildly compromised, 5=Not compromised. Outcome: Outcome acceptable for discharge Problem: IMPAIRED SKIN INTEGRITY Goal: WOUND HEALING: PRIMARY INTENTION Description: DEFINITION: Extent of regeneration of cells and tissues following intentional closure. 1=None, 2=Limited, 3=Moderate, 4=Substantial, 5=Extensive (rate granulation, scar formation, decreased wound size). Outcome: Outcome acceptable for [facility] Sh[facility] Jaimes LSW - 05/22/2020 8:16 AM [facility] MANAGEMENT / SOCIAL SERVICE FINAL TRANSITION PLAN TRANSITION DATE: 05/22/2020 TRANSITION TIME: 1100 INTENDED PAYER SOURCE FOR AGENCY: Medicare TRANSITION DESTINATION: Where: [facility] Swing Bed When: 05/22/2020 Time: 1100 Nurse to Nurse: [phone] Fax for Orders: [phone] DOES ACCEPTING FACILITY REQUIRE COVID TESTING BEFORE DISCHARGE: Needs one negative test within 24-48 hours TRANSITION TRANSPORTATION: Family Car TRANSPORTATION PAYMENT: Not applicable TRANSITION CHOICES OFFERED: Home Health: Home Safety Evaluation, Occupational Therapy and Physical Therapy Home: Family/Friend Support Outpatient Therapy: Occupational Therapy and Physical Therapy Swing Bed Transitional Care All discharge options were discussed. DOES THE PATIENT HAVE A PRIMARY CARE PHYSICIAN? Yes HUI Strange PATIENT / SUBSTITUTE DECISION MAKER GOAL UPON TRANSITION: First Choice: Swing Bed PATIENT CHOICE EDUCATION: Choice form completed in Case Management note and copy given to patient/family MEDICARE 3 IP MIDNIGHT CRITERIA MET: Yes: Admitted on 05/15/2020 RESOURCE(S) PROVIDED: Placement DOES PATIENT HAVE CLOTHING TO WEAR AT DISCHARGE? Yes ANTICIPATED MODE OF TRANSPORT TO AND FROM FOLLOW UP APPOINTMENTS: As arranged by accepting facility VERIFIED CORRECT PHARMACY IS ENTERED FOR DISCHARGE: Reconcile medications as Patient Transfer ("65 button") METHOD OF PRESCRIBING MEDICATIONS: Reconcile medications as Patient Transfer ("65 button") TRANSITION ROUNDING COMPLETED WITH THE FOLLOWING: Event Executive coating and baking operator Discussed in person COMMENTS / PATIENT AND FAMILY RESPONSE TO PLAN: Chart review was completed. Director Of Manufacturing met with patient at bedside; introduced self, case management role and discharge planning. Patient stated that she is comfortable discharging on this date and going to [facility] Swing Bed. Patient's daughter will be her source of transportation. Director Of Manufacturing was told that she did not need to contact family at this time. Patient did not have any other questions or concerns at this time. Director Of Manufacturing will continue to follow to ensure a safe discharge plan and assess any needs that may arise. SPECIAL TRANSITION DAY INSTRUCTIONS TO NURSE / MD: Discharge to swing bed. Please place interagency orders per unit policy. Bedside RN: please call report to: [phone] DISSOLVER OPERATOR: please fax interagency orders to: [phone] Pharmacy: medication reconciliation/hospital transfer (swing bed will order all medications through their pharmacy) CURRENT READMISSION RISK SCORE / HANDOFF: Predictive Risk Score Risk of Unplanned Readmission: 25.5 Handoff given: N/A SIGNED: JUANJO Coley Case Management P: [phone] F: [phone] signed by Shanna Jaimes LSW at 05/22/2020 8:22 AM CSTCare Planning - Annmarie Cooper RN - 05/22/2020 4:37 AM PLAYGROUND DIRECTOR Problem: IMPAIRED PHYSICAL MOBILITY Goal: MOBILITY Description: DEFINITION: Ability to move purposefully in own environment independently with or without assistive device. 1=Severely compromised / Total assistance: Performs less than 25% of activity; 2=Substantially compromised / Maximal assistance: Performs 25-49% of activity; 3=Moderately compromised / Moderate assistance: Performs 50-74% of activity; 4=Mildly compromised / Modified independence: Needs assistive device, supervision, minimal contact,or safety is a concern; 5=Not compromised / Complete independence. Outcome: NOC Rating 2 Flowsheets (Taken 05/22/2020430) Patient Progress: On bedrest for noc. Turn, boost and repos with TAPS and 2 assist. Resume PT in am. Problem: RISK FOR FALLS Goal: FALL PREVENTION BEHAVIOR Description: DEFINITION: Personal or family rn wound care actions to minimize risk factors that might precipitate falls in the personal environment. 1=Never demonstrated, 2=Rarely demonstrated, 3=Sometimes demonstrated, 4=Often demonstrated, 5=Consistently demonstrated. 05/22/2020430 by Annmarie Cooper RN Outcome: NOC Rating 3 Flowsheets (Taken 05/22/2020430) Patient Progress: Bed in lowest pos. Siderails up X2. Call light within reach. Room is near ns station. Cont care rounding, frequent checks. SAVOONGA-allowed extra time to voice any needs. 05/22/2020427 by Annmarie Cooper RN Outcome: NOC Rating 3 Flowsheets (Taken 05/22/2020427) Patient Progress: Bed in lowest pos. Siderails up X2. Call light within reach. Room is near ns station. Cont care rounding, frequent checks. SAVOONGA-allowed exta time to voice any needs. Problem: ACUTE PAIN Goal: CLIENT SATISFACTION: PAIN MANAGEMENT Description: DEFINITION: Extent of positive perception of nursing care to relieve pain. 1=Not at all satisfied, 2=Somewhat satisfied, 3=Moderately satisfied, 4=Very satisfied, 5=Completely satisfied. Outcome: NOC Rating 3 Flowsheets (Taken 05/22/2020430) Patient Progress: Declines offer for additional analgesics. See MAR. Noted increased pain with repos then resolves with rest. Resting quietly upon hourly checks. are Planning - Annette Castañeda RN - 05/21/2020 10:30 PM PLAYGROUND DIRECTOR Problem: RISK FOR FALLS Goal: FALL PREVENTION BEHAVIOR Description: DEFINITION: Personal or family rn wound care actions to minimize risk factors that might precipitate falls in the personal environment. 1=Never demonstrated, 2=Rarely demonstrated, 3=Sometimes demonstrated, 4=Often demonstrated, 5=Consistently demonstrated. 05/21/20202234 by Annette Castañeda RN Outcome: NOC Rating 3 Flowsheets (Taken 05/21/20202234) Plan of care reviewed with: Patient Patient specific goal for the day: Patient will use call light appropriately. Patient specific goal for the stay: Patient will have no falls this hospitalization. Achieve goal for stay: By discharge Patient Progress: Patient has been using call light appropriately. Patient is ambulating with assistx2, gait belt, and platform walker to the commode. No falls this shift. Problem: IMPAIRED PHYSICAL MOBILITY Goal: MOBILITY Description: DEFINITION: Ability to move purposefully in own environment independently with or without assistive device. 1=Severely compromised / Total assistance: Performs less than 25% of activity; 2=Substantially compromised / Maximal assistance: Performs 25-49% of activity; 3=Moderately compromised / Moderate assistance: Performs 50-74% of activity; 4=Mildly compromised / Modified independence: Needs assistive device, supervision, minimal contact,or safety is a concern; 5=Not compromised / Complete independence. Outcome: NOC Rating 3 Flowsheets (Taken 05/21/20202234) Plan of care reviewed with: Patient Patient specific goal for the day: Patient will ambulate with staff. Patient specific goal for the stay: Patient will physical and occupational therapy goals for mobility safe for discharge. Achieve goal for stay: By discharge Patient Progress: Patient is ambulating with assist x2, gait belt, and platform walker. Patient ambulated with PT during this shift and got up to the commode x3. Patient repositioned every 2 hours withTAPS system. Problem: ACUTE PAIN Goal: CLIENT SATISFACTION: PAIN MANAGEMENT Description: DEFINITION: Extent of positive perception of nursing care to relieve pain. 1=Not at all satisfied, 2=Somewhat satisfied, 3=Moderately satisfied, 4=Very satisfied, 5=Completely satisfied. Outcome: NOC Rating 3 Flowsheets (Taken 05/21/20202234) Plan of care reviewed with: Patient Patient specific goal for the day: Patient will maintain a tolerable pain level with scheduled and PRN pain medications and nursing interventions. Patient specific goal for the stay: Patient will maintain a tolerbale pain level with oral pain medications. Achieve goal for stay: By discharge Patient Progress: Patient is rating pain a 0/10 on a scale of 0 to 10. Patient received scheduled pain medications. See MAR. Ice is applied to left hip. Patient was able to transfer to commode and ambulate with therapy today. GROUND DIRECTOR Physical Therapy - Magi Sim, PT - 05/21/2020 4:18 PM CSTPhysical Therapy Orthopedic Treatment Note Date: 05/21/2020 PM Assessment: Patient tolerated treatment fairly well. Patient ambulated 50" with platform FWW min assist of 1 plus recliner follow. Patient's mobility is improving. Does well with encouragement. Anticipate that patient will be ready to go to Swing Bed when medically stable. Subjective: Alert and Oriented. Very hard of hearing. Pt agreeable to PT. Objective: Supine to/from sit: NA Sit to/from stand: Min assist 2 from commode up to platform FWW. Patient able to maintain standing with platform walker with contact guard assist while getting cleaned up after BM. Sitting Balance: Fair Standing Balance: Fair -- steadiness much improved, less anxiety with moving Gait: Pt amb 50" With platform FWW, min assist of 1 and recliner follow. Improved activity tolerance noted. Observation: L knee immobilizer Exercises: Held as patient preferred to remain seated on EOB at end of PT session. Education: Reviewed precautions, exercise progression, transfer techniques, gait and mobility progression. Plan: Continue with PT Plan of Care. Time Treatment Occurred: 1520 Gait: 10 minutes Exercise: 0 minutes Therapeutic Activity: 10 minutes TOTAL TIMED CODES:20 minutes TREATMENT TOTAL TIME: 20 Minutes are Planning - Erendira Jiménez CHAPLAIN - 05/21/2020 3:19 PM CSTChaplain follow-up with Rosy from Environmental [employer]ist Chase This filing writer introduced self and role of electric motor control assembler to Rosy, who was just taking pain medication. Chase talked about her family. She also identified herself as wanting to remain as independent as possible. Rosy gave brief medical history and stated this was the fourth surgery on the same hip. She stated her daughter, Blaine, wants her to go into a transitional type care setting in order for her toget help and heal. Rosy expressed concern about this as she "wants to do things for herself and not on other people's schedules". Rosy identified her family and their support as main source of spiritual support. She requested prayer. This filing writer provided spiritual support through non-anxious presence, active listening and prayer. Please page #[phone] for electric motor control assembler as spiritual needs/concerns are identified. GROUND DIRECTOR Case Mgmt - Shanna Jaimes Homero, SOCIAL MEDIA INTERN - 05/21/2020 3:14 PM CSTCASE MANAGEMENT / SOCIAL SERVICE TRANSITION PLAN - PROGRESS NOTE PLAN: [facility] Bed on 05/22/20 at 1100 Awaiting Medical Doctor Recommendations for Transition Transition Options Being Explored Will Continue to Follow for Support and Progression Towards Final Transition Plan BARRIERS TO TRANSITION: Awaiting Placement: [facility]/Swing Bed/TCU Awaiting Therapy Recommendations Discharge Needs to be Determined DOES ACCEPTING FACILITY REQUIRE COVID TESTING BEFORE DISCHARGE: Needs one negative test within 24-48 hours COMMENTS / PATIENT AND FAMILY RESPONSE TO PLAN: Chart review was completed. Director Of Manufacturing met with patient at bedside; introduced self, case management role and discharge planning. Director Of Manufacturing explained to patient that there was a bed offer from [facility] (filing writer was given permission to reach out). Patient stated that she would like to accept the bed offer. Director Of Manufacturing also spoke with patient's daughter via phone call who stated that she is agreeable with the discharge plan and will transport patient to the facility. Patient and patient's daughter did not have any other questions or concerns at this time. Director Of Manufacturing will continue to follow to ensure a safe discharge plan and assess any needs that may arise. Where: [facility] Bed When: 05/22/2020 Time: 1100 Nurse to Nurse: [phone] Fax for Orders: [phone] IS PATIENT'S ADMISSION ASSOCIATED WITH TIA, ISCHEMIC, OR HEMORRHAGIC STROKE?: No PATIENT / SUBSTITUTE DECISION MAKER GOAL UPON TRANSITION: First Choice: [facility] Facility ANTICIPATED NEEDS UPON TRANSITION: Home Health: Home Safety Evaluation, Occupational Therapy and Physical Therapy Home: Family/Friend Support Outpatient Therapy: Occupational Therapy and Physical Therapy Swing Bed Transitional Care All discharge options were discussed. RESOURCE(S) PROVIDED: Placement ANTICIPATED MODE OF TRANSPORT UPON TRANSITION: Family Car ANTICIPATED MODE OF TRANSPORT TO AND FROM FOLLOW UP APPOINTMENTS: As arranged by accepting facility VERIFIED CORRECT PHARMACY IS ENTERED FOR DISCHARGE: "65" Button TRANSITION ROUNDING COMPLETED WITH THE FOLLOWING: Event Executive coating and baking operator Discussed in person SIGNED: JUANJO Coley Case Management P: [phone] F: [phone] signed by Shanna Jaimes LSW at 05/21/2020 3:59 PM CSTPhysical Therapy - Lana Silva, SPT - 05/21/2020 11:29 AM PLAYGROUND DIRECTOR Physical Therapy Orthopedic Treatment Note Date: 05/21/2020 AM Assessment: Patient tolerated treatment fairly. Patient ambulated 25" with platform FWW min assist of 2. Patient's mobility is improving -- patient anxiety with moving very much improved. Patient performs better with a lot of encouragement to move. Anticipate that patient will be ready to go to [facility] Bed when medically stable and placement is found. Subjective: Alert and Oriented. Very hard of hearing. Pt agreeable to PT. Objective: Supine to/from sit: Mod-max assist 2 for supine in bed to sitting EOB. Sit to/from stand: Min assist 2 from recliner up to platform FWW. Sitting Balance: Fair Standing Balance: Fair -- steadiness much improved, less anxiety with moving Gait: Pt amb 25" in room with FWW min assist of 2, WBAT on L side. Recliner behind for safety. Tolerated fairly. Observation: L knee immobilizer Exercises: Patient completes ankle pumps, quad/ham sets exercises times 10 repetitions each on L side with no assistance. Also completed SLR, hip abd, and SAQ 10 repetitions each on R side with steadying/contact assist for strengthening. Fair strength with L side isometric exercises, Good with R side active exercises. Education: Reviewed precautions, exercise progression, transfer techniques, gait and mobility progression. Plan: Continue with PT Plan of Care. Time Treatment Occurred: 1030 Gait: 15 minutes Exercise: 20 minutes Therapeutic Activity: 0 minutes TOTAL TIMED CODES: 35 minutes TREATMENT TOTAL TIME: 35 Minutes GROUND DIRECTOR Occupational Therapy - Emily Hernandez OTR/L - 05/21/2020 11:06 AM CSTOccupational Therapy Orthopedic Progress Note Treatment Today's Treatment Therapeutic exercise: 15 minutes Start Time: 0930 Total for time-based codes: 15 minutes Total treatment time: 15 minutes Impression/Plan: Patient showing a decrease in ADL/transfer performance and will benefit from continued OT See daily M-F for ADL/transfer training/education, assess adpative equipment needs. Recommend: Short term SNF Pt is slowly progressing towards goals Pain: Pt did not give number on pain scale during session however reports no OOB activity this session due to discomfort. Treatment provided: Pt participated in dowel warmup exercises tolerating 10 reps in all planes with rest between each set. Pt reports "more stiffness in my right shoulder" and unable to tolerate use ofweight for right shoulder flexion this date. Pt completed elbow distal bilateral with 1# and much encouragement. Pt declined all out of bed activity this session. Nursing aware. Adaptive Equipment Recommended: To further assess. Assessment: Patient showing a decrease in ADL/transfer performance and will benefit from continued OT. Goals by discharge: Patient will be min assist with bed, chair, toilet, car transfers with adaptive equipment as needed. Patient will be min assist with tub/shower transfer with adaptive equipment as needed. Patient will be min assist with self care skills with adaptive equipment as needed. Therapist pager #: [phone] Certification Dates: 05/20/2020 to 06/20/2020 CERTIFICATION I certify that the services as described in the above note are furnished while the patient is under my care; a plan for furnishing these services has been established and will be periodically reviewed;the services are required for the patient; and the services are subject to established guidelines utrition Team - Marta Silva RD - 05/21/2020 9:57 AM CST Nutrition Note Patient admitted on 05/15/2020 8:08 PM for Active Problems: Recurrent dislocation of hip Per EMR Malnutrition Screening Tool completed at admission, pt does not meet screening criteria for an increased potential for developing malnutrition with an MST Score of 0 (Score > 2 considered positive for nutrition risk). Nutrition screening revealed no difficulty eating or significant unintentional weight loss prior to admission. Past medical history noted and is not currently placing pt at increased nutrition risk. Height: 162.6 cm (5' 4") Weight: 65.8 kg (145 lb) BMI: Body mass index is 24.89 kg/m. Nutrition (From admission, onward) Start Ordered 05/19/20 1255 ADVANCE DIET TOLERATED ONCE 05/19/20 1254 05/19/20 1255 Diet - Regular Now Question: Standard Diets Answer: Regular 05/19/20 1254 Pt has been ordering, consuming po and tolerating well. Consuming 75-100% of meals/snacks. Plan to monitor po intake adequacy during admission. If provider feels pt has nutritional concerns,please send Inpatient Dietitian consult with indication for referral. Kady Silva RDN, LRD [facility] Pager #[phone] are Planning - Vika Rivas RN - 05/21/2020 9:32 AM PLAYGROUND DIRECTOR Problem: ACUTE PAIN Goal: CLIENT SATISFACTION: PAIN MANAGEMENT Description: DEFINITION: Extent of positive perception of nursing care to relieve pain. 1=Not at all satisfied, 2=Somewhat satisfied, 3=Moderately satisfied, 4=Very satisfied, 5=Completely satisfied. Outcome: NOC Rating 3 Flowsheets (Taken 05/21/2020925) Initial Score: 2 Target Score: 4 Plan of care reviewed with: Patient Patient specific goal for the day: Pt will have tolerable pain throughout the shift and manage theirpain with PO pain medications. Patient Progress: Pt rates their pain 0-1/10 to the L) hip. Patient's pain is controled with PRN andSchedule pain PO meds (see MAR). Ice is applied to the L) hip. Repositioning is tolerated well. Problem: IMPAIRED SKIN INTEGRITY Goal: WOUND HEALING: PRIMARY INTENTION Description: DEFINITION: Extent of regeneration of cells and tissues following intentional closure. 1=None, 2=Limited, 3=Moderate, 4=Substantial, 5=Extensive (rate granulation, scar formation, decreased wound size). Outcome: NOC Rating 3 Flowsheets (Taken 05/21/2020925) Initial Score: 2 Target Score: 4 Plan of care reviewed with: Patient Patient specific goal for the day: Pt will not have any new open areas or areas of concern to their skin. Patient specific goal for the stay: Throughout the patient's stay at the hospital the pt will not have any new open cathryn of the skin. Achieve goal for stay: By discharge Patient Progress: Dryness noted to the L) heel. Lotion applied to both heels. Prevalon boots were applied. Pt has sacral mepilex on for prevention. Pt is turned every 2 hours. Will continue to monitor skin integrity. OCN / Skin Team - Daniela Frias RN - 05/21/2020 8:37 AM CSTWound nurse consult regarding left heel. Documentation says blanchable redness. Reached out to bedside nurse and there was a small spot that was blanchable, and she has dry feet. They will ensure she has prevalon boots on. Wound care will sign off. peech Therapy - Melvi Almonte SLP - 05/21/2020 8:28 AM CSTSLP f/u for diet tolerance completed via chart review. Per EMR, oxygen needs, lung sounds and temps are stable, suggesting diet tolerance. No concerns with tolerance per nsg documentation. CROZE MACHINE OPERATOR will continue to f/u for diet tolerance. Contact dept with concerns. Melvi Almonte M.S., [facility]CROZE MACHINE OPERATOR Speech Language Pathology [phone] are Planning - Lion Flores RN - 05/20/2020 10:57 PM PLAYGROUND DIRECTOR Problem: ACUTE PAIN Goal: CLIENT SATISFACTION: PAIN MANAGEMENT Description: DEFINITION: Extent of positive perception of nursing care to relieve pain. 1=Not at all satisfied, 2=Somewhat satisfied, 3=Moderately satisfied, 4=Very satisfied, 5=Completely satisfied. Outcome: NOC Rating 3 Flowsheets (Taken 05/20/2020 0270) Plan of care reviewed with: Patient Patient specific goal for the day: Pt will have tolerable pain throughout the shift and manage theirpain with PO pain medications. Patient specific goal for the stay: Pt pain will be controlled with oral medications only Achieve goal for stay: By discharge Patient Progress: pt rates pain minimal. see mar are Planning - Betty Trejo RN - 05/20/2020 5:10 PM PLAYGROUND DIRECTOR Problem: RISK FOR FALLS Goal: FALL PREVENTION BEHAVIOR Description: DEFINITION: Personal or family rn wound care actions to minimize risk factors that might precipitate falls in the personal environment. 1=Never demonstrated, 2=Rarely demonstrated, 3=Sometimes demonstrated, 4=Often demonstrated, 5=Consistently demonstrated. Outcome: NOC Rating 3 Flowsheets (Taken 05/20/20201707) Patient specific goal for the day: use call light appropriately Patient specific goal for the stay: no falls Patient Progress: pt uses call light appropriately and has not tried to get up by herself. chair locked. will cont to monitor Problem: ACUTE PAIN Goal: CLIENT SATISFACTION: PAIN MANAGEMENT Description: DEFINITION: Extent of positive perception of nursing care to relieve pain. 1=Not at all satisfied, 2=Somewhat satisfied, 3=Moderately satisfied, 4=Very satisfied, 5=Completely satisfied. Outcome: NOC Rating 3 Flowsheets (Taken 05/20/20201707) Patient specific goal for the day: Pt will have tolerable pain throughout the shift and manage theirpain with PO pain medications. Patient specific goal for the stay: Pt pain will be controlled with oral medications only Patient Progress: pt rating pain 5/10. ice packs to left hip and resting for comfort. see MAR. will cont to monitor linical Team - Elizabeth Mcneal RN - 05/20/2020 4:51 PM CSTPt's daughter reported that the area around her ethmoid sinus has a crack opened. She voiced concernabout infection. Dr. Engle notified and will evaluate later. No order received at this time. This filing writer checked with the pt and the pt is aware of it and has no concern at this time. The pt stated that "you are not going to do anything. I am fine. Just leave it alone". The pt also touched an opened area with her bare hand and said "It's just a little of blood. I clean it at home all the time. " ccupational Therapy - Pura Rodriguez OTR/L - 05/20/2020 3:15 PM CST Occupational Therapy Orthopedic Evaluation Admitting Diagnosis: ICD-10-CM 1. 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 Fatigue Chronic Hearing loss Left ear Hyperlipidemia Hyponatremia 02/28/12 with poor followup and pt. refusing consultations Lesion of skin of face Menopause Nicotine addiction Osteomyelitis (HCC) chronic Psoriasis Rhinitis, chronic Related to pts. altered nasal passage Visual disturbance Related to prior surgery Precautions: Standard DREW, L knee immobilizer, no hip abduction strengthening Weight bearing status: WBAT SOCIAL/HOME ENVIRONMENT House: Pt arrives from SNF at [place], [place] Lives Alone: 09/01 staff available at SNF Prior Level of Functioning: max assist for ADLs. Adaptive Equipment Available: Pt was using a FWW and wheelchair at SNF ADLs Dressing: total assist for LE dressing without AE TRANSFERS Chair: moderate assist of 2 with platform walker UE FUNCTION: WFL COGNITION: Alert and orientated, Pt is very [place], requires frequent repetition Pain Level at Rest: 1/10 Pain Level with Activity: /10 PATIENT/FAMILY EDUCATION: Transfers Self Halfway safety Role of OT Adaptive Equipment Recommended: to further assess at next level of care Plan to obtain adaptive equipment: To further assess. Assessment: Patient showing a decrease in ADL/transfer performance and will benefit from continued OT. Plan: See daily 2-3 days a week for ADL/transfer training/education, assess adpative equipment needs. Recommend: Short term SNF via wheelchair Goals by discharge: Patient will be min assist with bed, chair, toilet, car transfers with adaptive equipment as needed. Patient will be min assist with tub/shower transfer with adaptive equipment as needed. Patient will be min assist with self care skills with adaptive equipment as needed. Occupational Therapy Orthopedic Progress Note Treatment Today's Treatment Evaluation Therapeutic exercise: 10 minutes Total for time-based codes: 10 minutes Total treatment time: 20 minutes Evaluation Complexity PMH/Comorbidities that affect Occupational Performance: see PMH up above Occupational Profile/Medical and Therapy History: LOW - Brief history relating to presenting problem Patient Assessment: LOW - 1-3 performance deficits relating to physical, cognitive, psychosocial limitations/restrictions Clinical Decision Making: LOW - Low complexity, limited amount of treatment options, no assessment modification, no comorbidities Evaluation Complexity: Low Treatment provided: TE: performed bilateral UE strengthening exercises using 1lb weight. Performed exercises in all planes, 1 set of 10. Then performed AROM exercises with bilateral UE to build endurance, 2 sets of 10 forshoulder flexion and rows. Tolerated well with frequent rest breaks and encouragement. Therapist pager #: [phone] Certification Dates: 05/20/2020 to 06/20/2020 CERTIFICATION I certify that the services as described in the above note are furnished while the patient is under my care; a plan for furnishing these services has been established and will be periodically reviewed;the services are required for the patient; and the services are subject to established guidelines ase Mgmt - Shanna Jaimes LSW - 05/20/2020 2:51 PM CSTCASE MANAGEMENT / SOCIAL SERVICE TRANSITION PLAN - PROGRESS NOTE PLAN: Awaiting Medical Doctor Recommendations for Transition Transition Options Being Explored Will Continue to Follow for Support and Progression Towards Final Transition Plan BARRIERS TO TRANSITION: Awaiting Placement: [facility]/Swing Bed/TCU Awaiting Therapy Recommendations Discharge Needs to be Determined DOES ACCEPTING FACILITY REQUIRE COVID TESTING BEFORE DISCHARGE: Needs one negative test within 24-48 hours COMMENTS / PATIENT AND FAMILY RESPONSE TO PLAN: Chart review was completed. Director Of Manufacturing met with patient at bedside; introduced self, case management role and discharge planning. Patient gave filing writer permission to profile her to the [facility], but expressed that it was the only place she would be agreeable to. Patient stated that she is unsure of any other place at this time. Director Of Manufacturing profiled patient via [employer] to the approved of facility. Patient did not have any other questions or concerns at this time. Director Of Manufacturing will continue to follow to ensure a safe discharge plan and assess any needs that may arise. IS PATIENT'S ADMISSION ASSOCIATED WITH TIA, ISCHEMIC, OR HEMORRHAGIC STROKE?: No PATIENT / SUBSTITUTE DECISION MAKER GOAL UPON TRANSITION: First Choice: [facility] Facility ANTICIPATED NEEDS UPON TRANSITION: Home Health: Home Safety Evaluation, Occupational Therapy and Physical Therapy Home: Family/Friend Support Outpatient Therapy: Occupational Therapy and Physical Therapy Swing Bed Transitional Care All discharge options were discussed. RESOURCE(S) PROVIDED: 24 hour supervision ANTICIPATED MODE OF TRANSPORT UPON TRANSITION: Family Car ANTICIPATED MODE OF TRANSPORT TO AND FROM FOLLOW UP APPOINTMENTS: As arranged by accepting facility VERIFIED CORRECT PHARMACY IS ENTERED FOR DISCHARGE: No TRANSITION ROUNDING COMPLETED WITH THE FOLLOWING: Event Executive coating and baking operator Discussed in person SIGNED: JUANJO Coley Case Management P: [phone] F: [phone] signed by Shanna Jaimes LSW at 05/20/2020 2:55 PM CSTPhysical Therapy - Lana Silva, KAITLIN - 05/20/2020 2:36 PM PLAYGROUND DIRECTOR Physical Therapy Orthopedic Treatment Note Date: 05/20/2020 PM Assessment: Patient tolerated treatment fairly. Patient ambulated 15" with FWW min-mod assist of 2. Patient's mobility is improving -- patient is still very anxious about moving. Requires a lot of encouragement to move. Anticipate that patient will be ready to go to [facility] when medically stable and placement is found. Subjective: Alert and Oriented. Very hard of hearing. Anxious about getting up and moving. Objective: Supine to/from sit: NA. Arrived to find pt sitting in recliner, just finished lunch. Sit to/from stand: Mod assist 2 from recliner up to platform FWW. Sitting Balance: Fair Standing Balance: Poor -- anxiety with movement and bearing weight on L side causes some shakiness Gait: Pt amb 15" in room with FWW min-mod assist of 2, WBAT on L side. Recliner behind for safety. Daughter observed. Tolerated fairly. Pt was very hard on self about quality of movement with up and walking, but was encouraged by PT that she had done well and is showing improvement. Observation: L knee immobilizer Exercises: Patient completes ankle pumps, quad/ham sets exercises times 5 repetitions each with no assistance. Fair strength with isometric exercises. Education: Reviewed precautions, exercise progression, transfer techniques, gait and mobility progression. Plan: Continue with PT Plan of Care. Time Treatment Occurred: 1330 Gait: 15 minutes Exercise: 15 minutes Therapeutic Activity: 0 minutes TOTAL TIMED CODES: 30 minutes TREATMENT TOTAL TIME: 30 Minutes GROUND DIRECTOR Occupational Therapy - Gabbi Castellanos OTR/Patricia - 05/20/2020 12:22 PM CSTOT orders received and acknowledged. Attempted x 3, patient declined on first attempts despite encouragement and then busy with other disciplines. Will follow up as able/ appropriate. SU Severino Alpha pager: [phone] peech Therapy - Fartun Everett, CROZE MACHINE OPERATOR - 05/20/2020 11:18 AM CST Speech Therapy Acute Care Clinical Dysphagia/ Swallow Evaluation Assessment/ Impression Patient was seen today for a dysphagia evaluation due to concerns from pt's daughter. Her daughter reported that sometimes pt coughs heavily after drinking liquids (coffee/water) and she "thinks she isaspirating". Pt appeared to be impulsive with bite speed and size unless verbally cued by CROZE MACHINE OPERATOR. Despite these concerns, pt did not show any overt signs of aspiration and may be kept on a regular diet with thin liquids with monitoring. If ongoing concerns are noted, VFSS may be indicated to further assess. Oral phase of swallow: Within functional limits characterized by timely coordination of bolus, rotary pattern of mastication, and no significant oral stasis post-swallow. Pharyngeal phase of swallow: Within functional limits characterized by single swallows, appropriatelaryngeal elevation/excursion on digital palpation. No overt s/s of aspiration noted. Clear vocal quality without coughing or throat clearing swallowing trials. Plan/ Recommendations Diet textures: regular solids as tolerated and thin Liquids Feeding: self feed Positioning: sitting upright 90 degrees, chair is preferable Strategies: small bites/sips, straws are ok, reduce distractions Medications: whole with 4 Pureed (Dysphagia Pureed NDD1) Problems signs to watch for: throat clearing, coughing, choking and pneumonia Speech-Language Pathology will follow the patient 3-5 times a week for dysphagia treatment as needed. Speech-Language Pathology will follow up for: diet tolerance/adjustments as needed; VFSS if pt is not tolerating diet to further assess. These recommendations are based upon todays assessment and may reduce, but cannot entirely eliminate this patients risk of aspiration. 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 History of cancer Recurrent dislocation of hip Social History: Social History Socioeconomic History Marital status: Spouse name: Not on file Number of children: Not on file Years of education: Not on file Highest education level: Not on file Occupational History Occupation: disabled due to open facial area-increased chance of infection 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 Substance and Sexual Activity Alcohol use: Yes Alcohol/week: 0.0 - 4.0 standard drinks Drug use: No Sexual activity: Never Lifestyle Physical activity Days per week: Not on file Minutes per session: Not on file Stress: Not on file Relationships Social connections Talks on phone: Not on file Gets together: Not on file Attends episcopal service: Not on file Active member of club or organization: Not on file Attends meetings of clubs or organizations: Not on file Relationship status: Not on file Intimate partner violence Fear of current or ex partner: Not on file Emotionally abused: Not on file Physically abused: Not on file Forced sexual activity: Not on file Other Topics Concern Service No Blood Transfusions No Caffeine Concern No Occupational Exposure No Hobby Hazards Not Asked Sleep Concern No Stress Concern No Weight Concern Not Asked Special Diet Yes Comment: attempts healthy diet Back Care Not Asked Exercise Yes Bike Helmet Not Asked Seat Belt Yes Self-Exams Yes Transportation Not Asked Stress in your marriage Not Asked Stress with your relationship Not Asked Stress with your family Not Asked Parenting/Being a parent Not Asked Daycare concerns Not Asked Not enough social support Not Asked Housing problems Not Asked Financial stress Not Asked Safety/danger Not Asked Work/job stress Not Asked Legal stress Not Asked Time conflicts (feeling too busy) Yes Academic/school stress Not Asked Language difficulties Not Asked Spiritual concerns Not Asked Insurance problems Not Asked The cost of having to take medication Not Asked The costs of buying food/groceries Not Asked Illness of family member/friend/relative Not Asked of a family member/friend/relative Not Asked Violence in your relationship Not Asked Abuse/neglect Not Asked Community stress Not Asked Cultural barriers Not Asked Ability to do self cares Yes Social History Narrative with one daughterBlaine Villafana- [phone] Disabled Four grandchildren Spouse within one yr/07/2019/ck Deaf in left ear. Declines further investigation into her sinus cavity site that is deepened and gapping more each time she comes into clinic.11/2019 Patient lives: [id number] [address] [facility] [address] CROZE MACHINE OPERATOR Diagnosis: Referred for dysphagia concerns Indication/reason for referral: frequent coughing during swallowing per family (liquids) Dysphagia history: Pt denies significant changes with swallowing however, her daughter reports that she has frequent coughing with liquids I.e. coffee, water. She is worried about her aspirating. Shedenies any hx of aspiration pneumonia. She has a hx of sinus cancer with a large defect noted in her forehead (~20 years ago had surgery to remove sinuses) with radiation. Subjective Patient was admitted for a hip dislocation on 05/15/2020. She underwent surgery for this problem on 05/11/2020 and it went back out of place. MD planning additional surgery. PLOF: Pt denies issues with swallowing prior to admittance into the hospital; however, her daughter reported that she frequently coughs after swallowing and that it has been worsening over the years. She lives alone with her dog and gets meals from the senior center. Pt was seen while sitting upright in her chair with her daughter present. Her daughter reported thatpt was becoming "ornery" due to frustration with her health. Patient reported pain on her hand whileshe was icing it at the beginning of the evalution; however, she voluntarily used the hand to eat throughout the session. Objective CURRENT NUTRITION: Regular/Thin Liquids RESPIRATORY: Pt tolerating RA with no SOB noted, she is also afebrile CONTEXTUAL FACTORS (POSITIONING, ENVIRONMENT, ETC): Pt was upright in her chair for the duration ofthe evaluation. Her daughter was present. ORAL MOTOR EXAMINATION: Dentition: natural Lips: WFL Tongue: WFL Facies: Pt has a large defect in between her eyes due to radiation/prior surgery; however, this doesnot appear to affect swallowing significantly Speech is somewhat hypernasal which would be expected given large defect. TEXTURES TRIALED: Thin water, puree, mixed fruit, and rashad cracker ORAL PHASE: Lip seal: within functional limits Mastication: within functional limits Bolus formation: within functional limits Bolus transit: within functional limits Oral clearance: within normal lmits PHARYNGEAL PHASE: Pharyngeal swallow: timely Laryngeal elevation/excursion: within functional limits Pharyngeal clearance: single swallow Vocal quality: clear and strong Aspiration: none suspected Laryngeal sensation: Could not be assessed per clinical exam Pt did well during this exam however is frustrated as she "just wants to go home." She required encouragement and support as she feels the ongoing effects of radiation and that she has had so many issues. Pt/daughter updated on plan to monitor for tolerance of current diet. Goals/Education Patient/family goal: To go home Goals: Caramel Coloring Operator Goals: Patient will tolerate the least restrictive diet with no signs/symptoms of aspiration. Short Term Goals: Patient will participate in instrumental swallow assessment (FEES exam or VFSS) if clinically indicated or as recommended by CROZE MACHINE OPERATOR. VFSS and FEES not recommended at this time. Education: Education regarding the results and recommendations of todays evaluation provided to: patient andfamily Understanding and agreement expressed by: patient and family Education Interventions: Results were documented in the patient care notes section of the patient's inpatient chart and nursing updated. Charges Total Time: 30 minutes Dysphagia Evaluation Alpha Pager [phone] Thelma: [facility]: [phone] signed by Fartun Everett, TONYA at 05/20/2020 12:07 PM PLAYGROUND DIRECTOR Physical Therapy - Lana Silva SPT - 05/20/2020 11:00 AM CSTPhysical Therapy Orthopedic Evaluation Date: 05/20/2020 AM Referring Physician: Anthony Diagnosis/Surgical Procedure and Date: L hip dislocation (05/15) -- L DREW revision (05/19) Significant PMH: L DREW revision (05/11) by Dr. Alegre Physician Orders: Evaluate and treat Weight Bearing Status: WBAT Precautions: Standard DREW, L knee immobilizer, no hip abduction strengthening Status Prior to Hospitalization/Surgical Procedure: Current Living Environment: [facility] in [place], [place] Stairs to Enter Home: NA Railing: NA Stairs to Bedroom or Bathroom: NA Railing: NA Lives: With assistance from staff at SNF Ambulation Status: One week ago when last saw pt observed her walk 90" with FWW CGA. Per patient states while at SNF she was using a wheelchair and FWW. Equipment Owned: Wheelchair Patient/Family Concerns: Daughter was concerned about dark purple coloring on L hand of patient --Zaria PT explained most likely due to IV yesterday Patient Goals: Pt prefers to go home, however while daughter was present at session and pt stated she open to [facility] and also open to [facility] (per daughter's suggestion). Other: None Current Status: Cognition: Alert and Orientated. Very hard of hearing. Patient anxious about moving, requiring a lot of encouragement to move, but agreed to PT. Mentioned that her scalp, back, and eyes were very itchy -- kept scratching skin and rubbing eyes (daughter applied tear drops and eye itchiness resolved). Observation: Immobilizer: Left knee (to assist with alignment) ROM: NM Transfers: Supine to/from Sit: Max assist 2 from supine to sitting EOB. Pt told PT to "let go of my leg!" so she could bring it down independently to the floor Sit to/from Stand: Mod assist 2 from sitting elevated EOB up to platform FWW Balance: Sitting: Fair Standing: Fair Gait: Pt pivoted from standing EOB to recliner with FWW Min assist 2, WBAT on L side. Tolerated fairly. Very anxious about loose platforms on platform FWW -- PT and PT student tightened and patient was still very anxious. Stairs: NA Exercises: Patient completes 10 repetitions of Ankle pumps, quad/ham sets exercises with cuing to continue movement but performed with no assistance. Fair strength with isometric exercises. Pain Level: (0-10 scale) At rest: 5 With Activity: Patient did not report a number, but moved without expressing pain during exercises and ambulation. Comments: Patient/Family Education: Reviewed precautions, role of the physical therapist, and discussed anticipated outcome goals. Other: Discussed SNF discharge location with daughter Ella Family Present during Evaluation: Ella (daughter) Treatment: Time Treatment Occurred: 1014 Evaluation: X Gait: 0 minutes Exercise: 15 minutes Therapeutic Activity: 20 minutes TOTAL TIMED CODES: 35 minutes TREATMENT TOTAL TIME: 45 minutes Assessment: Patient may require post acute inpatient recovery at: [place], [place], [facility]. Plan: Follow daily for gait traning, therapeutic exercise, therapeutic activity, and education. Goals: By hospital discharge or within 2-3 days. Patient involved in developing/progressing goals and treatment plan. Supine to sit with mod assist. Sit to stand with min assist. Ambulate 20 feet on level surfaces with min assist and appropriate assistive device. Follow precautions during functional mobility. are Planning - Vika Rivas RN - 05/20/2020 10:58 AM PLAYGROUND DIRECTOR Problem: IMPAIRED PHYSICAL MOBILITY Goal: MOBILITY Description: DEFINITION: Ability to move purposefully in own environment independently with or without assistive device. 1=Severely compromised / Total assistance: Performs less than 25% of activity; 2=Substantially compromised / Maximal assistance: Performs 25-49% of activity; 3=Moderately compromised / Moderate assistance: Performs 50-74% of activity; 4=Mildly compromised / Modified independence: Needs assistive device, supervision, minimal contact,or safety is a concern; 5=Not compromised / Complete independence. Outcome: NOC Rating 3 Flowsheets (Taken 05/20/2020 1053) Initial Score: 2 Target Score: 4 Plan of care reviewed with: Patient Patient specific goal for the day: Pt will ambulate to the chair with staff and therapy during the shift. Patient Progress: Pt is up with 2 assist, gait belt and FWW. Pt refused OT today. q2 turns completedwith refusels at times. Problem: ACUTE PAIN Goal: CLIENT SATISFACTION: PAIN MANAGEMENT Description: DEFINITION: Extent of positive perception of nursing care to relieve pain. 1=Not at all satisfied, 2=Somewhat satisfied, 3=Moderately satisfied, 4=Very satisfied, 5=Completely satisfied. Outcome: NOC Rating 4 Flowsheets (Taken 05/20/2020 1053) Initial Score: 3 Target Score: 4 Plan of care reviewed with: Patient Patient specific goal for the day: Pt will have tolerable pain throughout the shift and manage theirpain with PO pain medications. Patient Progress: Pt has pain control with schedule pain meds. Ice is applied to the L) hip. Pt was educated to on letting staff know when pain increases. are Planning - Annette Cool RN - 05/20/2020 4:28 AM PLAYGROUND DIRECTOR Problem: IMPAIRED PHYSICAL MOBILITY Goal: MOBILITY Description: DEFINITION: Ability to move purposefully in own environment independently with or without assistive device. 1=Severely compromised / Total assistance: Performs less than 25% of activity; 2=Substantially compromised / Maximal assistance: Performs 25-49% of activity; 3=Moderately compromised / Moderate assistance: Performs 50-74% of activity; 4=Mildly compromised / Modified independence: Needs assistive device, supervision, minimal contact,or safety is a concern; 5=Not compromised / Complete independence. Outcome: NOC Rating 2 Flowsheets (Taken 05/20/2020425) Initial Score: 2 Target Score: 4 Plan of care reviewed with: Patient Patient specific goal for the day: Pt will dangle within four hours of arriving back to unit from surgery Patient specific goal for the stay: Pt will meet criteria for safe d/c Achieve goal for stay: By discharge Patient Progress: Patient refusing to get out of bed, refused therapies yestrday. Turn q2h- sometimes refuses. Problem: ACUTE PAIN Goal: CLIENT SATISFACTION: PAIN MANAGEMENT Description: DEFINITION: Extent of positive perception of nursing care to relieve pain. 1=Not at all satisfied, 2=Somewhat satisfied, 3=Moderately satisfied, 4=Very satisfied, 5=Completely satisfied. Outcome: NOC Rating 3 Flowsheets (Taken 05/20/2020425) Initial Score: 3 Target Score: 4 Plan of care reviewed with: Patient Patient specific goal for the day: Pt pain will be controlled well enough to participate in therapies and ADLs Patient specific goal for the stay: Pt pain will be controlled with oral medications only Patient Progress: Patients pain has been well controlled with scheduled pain meds. also repositioning for comfort. are Planning - Kenya Alves RN - 05/19/2020 7:31 PM PLAYGROUND DIRECTOR Problem: IMPAIRED PHYSICAL MOBILITY Goal: MOBILITY Description: DEFINITION: Ability to move purposefully in own environment independently with or without assistive device. 1=Severely compromised / Total assistance: Performs less than 25% of activity; 2=Substantially compromised / Maximal assistance: Performs 25-49% of activity; 3=Moderately compromised / Moderate assistance: Performs 50-74% of activity; 4=Mildly compromised / Modified independence: Needs assistive device, supervision, minimal contact,or safety is a concern; 5=Not compromised / Complete independence. Flowsheets (Taken 05/19/2020 1925) Initial Score: 2 Target Score: 4 Plan of care reviewed with: Patient Patient specific goal for the day: Pt will dangle within four hours of arriving back to unit from surgery Patient specific goal for the stay: Pt will meet criteria for safe d/c Achieve goal for stay: By discharge Patient Progress: Patient refused to dangle with staff and also refused to work with therapies aftersurgery today. currently on turn Q2 hour repo schedule d/t poor mobility and risk for skin breakdown. tolerating turns well. Problem: ACUTE PAIN Goal: CLIENT SATISFACTION: PAIN MANAGEMENT Description: DEFINITION: Extent of positive perception of nursing care to relieve pain. 1=Not at all satisfied, 2=Somewhat satisfied, 3=Moderately satisfied, 4=Very satisfied, 5=Completely satisfied. Flowsheets (Taken 05/19/20201924) Initial Score: 2 Target Score: 4 Plan of care reviewed with: Patient Patient specific goal for the day: Pt pain will be controlled well enough to participate in therapies and ADLs Patient specific goal for the stay: Pt pain will be controlled with oral medications only Achieve goal for stay: By discharge Patient Progress: Pt has rated pain this shift 8/10 at worst. PRN and scheduled medications administered as ordered, see MAR. repositioned for comfort following Q2 hour turn schedule. hysical Therapy - Lana Silva SPT - 05/19/2020 4:23 PM CSTAttempted to see pt this PM. Pt declined due to fear of moving too soon (dislocated following revision last week). Tito 05/19/2020 ase Mgmt - Shanna Jaimes LSW - 05/19/2020 2:07 PM CSTCASE MANAGEMENT / SOCIAL SERVICE TRANSITION PLAN - PROGRESS NOTE PLAN: Awaiting Medical Doctor Recommendations for Transition Transition Options Being Explored Will Continue to Follow for Support and Progression Towards Final Transition Plan BARRIERS TO TRANSITION: Awaiting Placement: [facility]/Swing Bed/TCU Awaiting Therapy Recommendations Discharge Needs to be Determined DOES ACCEPTING FACILITY REQUIRE COVID TESTING BEFORE DISCHARGE: Needs one negative test within 24-48 hours COMMENTS / PATIENT AND FAMILY RESPONSE TO PLAN: Chart review was completed. Director Of Manufacturing met with patient and patient's daughter at bedside; introduced self, case management role anddischarge planning. Patient stated that she would like to work with therapy before making a decision on placement or other options for discharge. Patient's daughter stated that they have been discussing returning to [facility]. Patient and patient's daughter did not have any other questions or concerns at this time. Director Of Manufacturing will continue to follow to ensure a safe discharge plan and assess any needs that may arise. IS PATIENT'S ADMISSION ASSOCIATED WITH TIA, ISCHEMIC, OR HEMORRHAGIC STROKE?: No PATIENT / SUBSTITUTE DECISION MAKER GOAL UPON TRANSITION: First Choice: [facility] Facility ANTICIPATED NEEDS UPON TRANSITION: Home Health: Home Safety Evaluation, Occupational Therapy and Physical Therapy Home: Family/Friend Support Outpatient Therapy: Occupational Therapy and Physical Therapy Swing Bed Transitional Care All discharge options were discussed. 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 Cruz. Report received. VSS on RA upon arrival, see flowsheets. Four eyes on skin completed with RNMónica. No new skin issues noted, see flowsheets from previous admission. Pt is AOx4. Orientated to call light, room, pain scale, diet, and phone. Pt verbalized understanding; aware of limitations at this time . Denies chest pain/SOB and pain at this time. Case management involved for D/C planning. Will monitor. are Planning - Mar Silva RN - 05/19/2020 11:36 AM PLAYGROUND DIRECTOR Problem: RISK FOR INJURY Goal: SURGICAL RECOVERY: IMMEDIATE POST-OPERATIVE Description: DEFINITION: Extent to which an individual achieves physiological baseline function following major surgery requiring anesthesia. 1=Severe deviation from normal range, 2=Substantial deviation from normal range, 3=Moderate deviation from normal range, 4=Mild deviation from normal range, 5=No deviation from normal range. 05/19/2020 1135 by Mar Silva RN Outcome: NOC Rating 4 Flowsheets (Taken 05/19/2020 1135) Patient Progress: Patient doing well in PACU. VSS. Denies pain or nausea. Spinal L2. Patient appropriate to transfer to floor. 05/19/2020 1038 by Mar Silva RN Outcome: NOC Rating 3 Flowsheets (Taken 05/19/2020 1038) Patient Progress: Patient admitted to PACU from OR. Denies pain. Spinal level T11. Hypotensive at this time. RA. Appropriate fluids infusing. Will continue to monitor. are Planning - Mar Silva RN - 05/19/2020 10:38 AM PLAYGROUND DIRECTOR Problem: RISK FOR INJURY Goal: SURGICAL RECOVERY: IMMEDIATE POST-OPERATIVE Description: DEFINITION: Extent to which an individual achieves physiological baseline function following major surgery requiring anesthesia. 1=Severe deviation from normal range, 2=Substantial deviation from normal range, 3=Moderate deviation from normal range, 4=Mild deviation from normal range, 5=No deviation from normal range. Outcome: NOC Rating 3 Flowsheets (Taken 05/19/2020 1038) Patient Progress: Patient admitted to PACU from OR. Denies pain. Spinal level T11. Hypotensive at this time. RA. Appropriate fluids infusing. Will continue to monitor. ostOp Progress Note - Deric Cruz MD - 05/19/2020 10:14 AM CST Immediate Post-Operative / Post Procedure Progress Note Att. Phys: Param Engle MD Pt. Type: Inpatient Operative Date: 05/19/2020 Surgeon: Surgeon(s) and Role: * Deric Cruz MD - Primary Chief Reservoir Engineering: Food And Beverage Operations Manager : Natividad Garzon RN; Pamela Jaffe RN; Jen Brantley RN Scrub Person : Lana Bender CST; Jennifer Johnson CST; Kenneth Pena, PLAYGROUND DIRECTOR Peer Financial Counselor: Hero Cole PA; Damian Hill PA The skilled assistance of the PA damian Hill was necessary for the successful completion of thiscase. He/She was essential for proper positioning, manipulation of instruments, proper exposure, manipulation of tissue and wound closure. Due to schedule rotations, a qualified resident was not available to assist me in this case. Pre-Operative Diagnosis: Pre-Op Diagnosis Codes: * Dislocated hip, left, initial encounter ([facility]) [S73.005A] Post-Operative Diagnosis: same Anesthesia Type: spinal Operative Procedure: Procedure(s): LEFT TOTAL HIP ARTHROPLASTY REVISION - Wound Class: Clean ID Type Source Tests Collected by Time 1 : left hip synovial fluid Fluid Hip CULTURE, ACID FAST BACILLUS WITH STAIN, CULTURE FUNGAL, OTHER,CULTURE BACTERIAL, ORTHOPEDIC EXTENDED INCUBATION WITH GRAM STAIN Deric Cruz MD 05/19/2020 0934 Implant Name Type Inv. Item Serial No. Talent Acquisition Specialist Lot No. LRB No. Used Action HIP LNR FREEDOM CNSTND 10D 36G N [id number] EA1 - [id number] Total Jt Hip HIP LNR FREEDOM CNSTND 10D 36G N [id number] JUNE [id number] Left 1 Explanted HIP HD FREEDOM MTL12/14 36MM+0 N [id number] EA1 - [id number] Total Jt Hip HIP HD FREEDOM MTL12/14 36MM+0 N [id number] JUNE [id number] Left 1 Explanted Fluids Given: See Anesthesia Record Urine Output: See Anesthesia Record Estimated Blood Loss: 50 mL Drains: none Findings: Hip dislocation Complications: none Postoperative Condition: stable linical Team - Kenya Alves RN - 05/19/2020 8:50 AM CSTPatient left unit for OR at 0848. Consents sent with pt and report given. SCDs sent. No other belongings sent. GROUND DIRECTOR Operative Note - Deric Cruz MD - 05/19/2020 1:00 AM [facility] PATIENT NAME: MAGDA REYES DATE OF SERVICE: 05/19/2020 ESTRADA: [id number] NAME OF OPERATING PHYSICIAN: Deric Cruz MD. NAME OF FLOOR WINDER: Damian Hill PA-C. The skilled assistance of Damian Hill was necessary for the completion of this case because this case required help with positioning, retraction, wound closure and dressing application. Help of a resident doctor was not available due to scheduled rotation elsewhere. PREOPERATIVE DIAGNOSIS: Left hip dislocation. POSTOPERATIVE DIAGNOSIS: Left hip dislocation. ANESTHESIA: Spinal. APPROXIMATE BLOOD LOSS: 50 mL. FLUID GIVEN: Please see anesthesia record. PROCEDURE PERFORMED: Left total hip replacement revision, partial revision of the acetabular component. SPECIMEN SENT FOR CULTURE AND SENSITIVITY: Left hip synovial fluid. IMPLANT USED: Ahmeek constrained liner, 36-mm inner diameter, 10-degree face changing, hip Freedomfemoral head 36 mm -3.5. One batch of June cement with antibiotic. EXPLANTS USED: The liner and head, which were in position. COMPLICATIONS: None. POSTOPERATIVE CONDITION: Stable. INDICATIONS FOR THE PROCEDURE: Ms. Reyes is a 69-year-old female patient who presented with a dislocated hip. 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 The patient had a Ahmeek constrained liner in position and the hip dislocated with the liner along with it.We decided to perform one of the procedures wherein to cement the new liner and reduce the hip again. I explained to the patient that complications of the procedure include but are not limited to anemia, blood loss, infection, wound dehiscence, rare cardiopulmonary anesthesia-related complications, deep vein thrombosis, pulmonary embolism or even . I also explained to the patient that there are chances of damage to surrounding structures, blood vessels, nerves, iatrogenic periprosthetic fracture, requirement of future surgical procedure including revision hip replacement. Recurrent dislocation can also be an issue. The patient understood and agreed with the plan. Duly signed written consents were obtained. DESCRIPTION OF THE PROCEDURE: After identifying the patient in the preoperative waiting area, the operative site was marked with indelible ink in accordance to guideline by [employer]. The patient was taken to the OR. The patient was placed on the operating table inlateral position with the left side up. Painting and draping was performed in the usual manner. Formal timeout was conducted. Ancef was used as preoperative antibiotic prophylaxis. A single 15 cm incision was placed overlying the previous surgical incision. Skin and subcutaneous tissue were divided in the line of incision. Deep fascia was divided. A Charnley retractor was placed deep to the gluteus roni muscle and the hip was internally rotated. The previous head liner was removed with a tamp and mallet. After that, the anterior acetabular retractor was placed. The acetabulum was thoroughly washed and, after that, we took a size 50 outer diameter Ahmeek constrained liner. The backside of the liner was scored with a high-speed bur and made the posterior surface rough for better cement bonding, and then we mixed the cement and we put the cement in the socket and the liner was placedover the cement in appropriate position and it was impacted with a liner impacter. The excessive cement was removed and, once cement was set, we performed a trial reduction with -3.5 head, which had appropriate leg length. After that, the Ahmeek constrained head was applied and impacted in appropriate position and the hip was reduced. Once the hip was reduced, range of movement was assessed again. The liner was stable. We assessed the stability of the liner with a Mara and, after that, thorough wash was given and a gram of vancomycin was sprinkled inside the joint. Closure was done using #1 Vicryl for deep fascia, 2-0 Vicryl for subcutaneous tissue, humberto for skin. A sterile dressing was applied. The patient was shifted out of the OR in stable condition. Deric Cruz MD Receipt: [id number] Trans ID: [id number] PLAYGROUND DIRECTOR CST are Planning - Lisa Miller RN - 05/18/2020 6:35 PM PLAYGROUND DIRECTOR Problem: ACUTE PAIN Goal: CLIENT SATISFACTION: PAIN MANAGEMENT Description: DEFINITION: Extent of positive perception of nursing care to relieve pain. 1=Not at all satisfied, 2=Somewhat satisfied, 3=Moderately satisfied, 4=Very satisfied, 5=Completely satisfied. Flowsheets (Taken 05/18/2020 4286) Plan of care reviewed with: Patient Patient specific goal for the day: Patient will have the understanding to request for PRN pain medications to keep pain under control that is tolerable for the patient. Patient specific goal for the stay: Maintain a tolerable pain level at or below "5"/10 on 0/10 pain scale with the use of PRN pain medications. Patient Progress: Patient rated pain 3-7/10 on Oxycodone given as needed per MD order. Repositioningfor comfort. Patient stated that they were satisfied with pain management. are Planning - Chase Ferrera CHAPLAIN - 05/18/2020 2:56 PM CSTChaplain visited with Magda via referral from RN. Magda shared about her rescheduled surgery, and some of her history of past surgeries. Her daughter was with her for support. She is [place] and has a good relationship with her convenience store manager, a woman. listened and offered empathy. Magda asked for a prayer. said a brief prayer for her. ase Mgmt - Shanna Jaimes LSW - 05/18/2020 1:36 PM CSTCASE MANAGEMENT / SOCIAL SERVICE TRANSITION PLAN - INITIAL ASSESSMENT TRANSITION PLAN: SNF Awaiting Medical Doctor Recommendations for Transition Transition Options Being Explored Will Continue to Follow for Support and Progression Towards Final Transition Plan BARRIERS TO TRANSITION: Awaiting Placement: [facility]ci/Swing Bed/TCU Awaiting Therapy Recommendations Discharge Needs to be Determined Medical barriers:surgery on 05/19/2020 COMMENTS / PATIENT AND FAMILY RESPONSE TO PLAN: Chart review was completed. Director Of Manufacturing met with patient, patient's daughter and granddaughter at bedside; introduced self, case management role and discharge planning. Patient lives at home alone on [address] [facility] in [place], [place]. Patient was receiving home health services through [facility] out of [place]. Patient's daughter stated that prior to admission she was working on getting patient placed to a facility in [place], [place]. Director Of Manufacturing discussed all discharge options per recommendations, possible insurance coverage and other criteria. Patient was understandable to this. Patient stated that she does not want to discuss options for discharge at this time as she has not even had surgery yet. Director Of Manufacturing expressed understanding. Patient and patient's daughter explained that they would discuss options for placement. Patient and patient's daughter did not have any other questions or concerns at this time. Director Of Manufacturing will continue to follow to ensure a safe discharge plan and assess any needs that may arise. ADMISSION DX: No admission diagnoses are documented for this encounter. PATIENT STATUS: Inpatient RELEASE OF INFORMATION: Yes -- verbal for: discharge planning SOURCES OF INFORMATION (See demographics for contact information): Family: Daughter Medical Doctor Medical Record Nurse: Bedside Patient CURRENT LIVING SITUATION / LEVEL OF ASSISTANCE: Lives alone Bath / bedroom on main floor Manual wheelchair Patient was at [facility] prior to this admission COMMUNITY SERVICES: None HEALTHCARE DIRECTIVE: No POWER OF HUMAN RESOURCES BENEFITS ADMINISTRATOR: None FINANCIAL CONCERNS: No Concerns PRIMARY CARE PHYSICIAN: Yes HUI Strange : No IS PATIENT'S ADMISSION ASSOCIATED WITH TIA, ISCHEMIC, OR HEMORRHAGIC STROKE?: No LANGUAGE / COMMUNICATION BARRIERS: No PATIENT / SUBSTITUTE DECISION MAKER GOAL UPON TRANSITION: First Choice: [facility] Facility ANTICIPATED NEEDS, TRANSITION CHOICES OFFERED: Home Health: Home Safety Evaluation, Occupational Therapy and Physical Therapy Home: Family/Friend Support Outpatient Therapy: Occupational Therapy and Physical Therapy Swing Bed Transitional Care All discharge options were discussed. RESOURCE(S) PROVIDED: nothing needed at this time DOES PATIENT HAVE CLOTHING TO WEAR AT DISCHARGE? Yes ANTICIPATED MODE OF TRANSPORT UPON DISCHARGE: [facility] Wheelchair (P:[phone]) Family Car VERIFIED CORRECT PHARMACY IS ENTERED FOR DISCHARGE: No CURRENT READMISSION RISK SCORE Predictive Risk Score Risk of Unplanned Readmission: 24.6 Please refer to readmission risk assessment flowsheet for further details. SIGNED: JUANJO Coley Case Management P: [phone] F: [phone] signed by Shanna Jaimes LSW at 05/18/2020 1:38 PM CSTClinical Team - Roxanne Mas, RN - 05/18/2020 1:30 AM CSTI have read and validate the accuracy of the student nurse Kina Guevara's documentation for Abigail Reyes for 05/18/2020. are Planning - Kian Guevara STUDENT - 05/17/2020 11:08 PM PLAYGROUND DIRECTOR Problem: IMPAIRED PHYSICAL MOBILITY Goal: MOBILITY Description: DEFINITION: Ability to move purposefully in own environment independently with or without assistive device. 1=Severely compromised / Total assistance: Performs less than 25% of activity; 2=Substantially compromised / Maximal assistance: Performs 25-49% of activity; 3=Moderately compromised / Moderate assistance: Performs 50-74% of activity; 4=Mildly compromised / Modified independence: Needs assistive device, supervision, minimal contact,or safety is a concern; 5=Not compromised / Complete independence. Outcome: NOC Rating 3 Flowsheets (Taken 05/17/20202258) Initial Score: 3 Target Score: 4 Plan of care reviewed with: Patient Patient specific goal for the day: Pt will tolerate being turned and repositioned every 2 hrs. Patient specific goal for the stay: Pt will eventually assist in turning and repositioning. Achieve goal for stay: By discharge Patient Progress: Pt tolerated being repositioned fairly well. Currently, pt has prevalon boots and a sacral mepilex on. Pt has also been able to shift their own weight. Problem: ACUTE PAIN Goal: CLIENT SATISFACTION: PAIN MANAGEMENT Description: DEFINITION: Extent of positive perception of nursing care to relieve pain. 1=Not at all satisfied, 2=Somewhat satisfied, 3=Moderately satisfied, 4=Very satisfied, 5=Completely satisfied. Outcome: NOC Rating 3 Flowsheets (Taken 05/17/20202258) Initial Score: 4 Target Score: 5 Plan of care reviewed with: Patient Patient specific goal for the day: Pt will report having less pain throughout the shift. Patient specific goal for the stay: Pts pain will be managed with PRN meds. Achieve goal for stay: By discharge Patient Progress: Pt reported having no pain. Pt did show discomfort with putting pillow inbetween legs. Pt recieved pain meds at night and had no further complaints. Will continue to monitor. GROUND DIRECTOR Clinical Team - Kina Guevara STUDENT - 05/17/2020 10:48 PM CSTPt is vitally stable on RA. Pt is A&O x4. Pt reported having no pain except for when repositioned. Pt was given PRN pain medication. Pt was repositioned every 2 hrs. NPO since midnight for surgicalconsult in morning. External catheter is in place. Call light is within reach. Will continue to monitor. are Planning - Raven Gomes RN - 05/17/2020 11:27 AM PLAYGROUND DIRECTOR Problem: RISK FOR FALLS Goal: FALL PREVENTION BEHAVIOR Description: DEFINITION: Personal or family rn wound care actions to minimize risk factors that might precipitate falls in the personal environment. 1=Never demonstrated, 2=Rarely demonstrated, 3=Sometimes demonstrated, 4=Often demonstrated, 5=Consistently demonstrated. Outcome: NOC Rating 4 Problem: IMPAIRED PHYSICAL MOBILITY Goal: MOBILITY Description: DEFINITION: Ability to move purposefully in own environment independently with or without assistive device. 1=Severely compromised / Total assistance: Performs less than 25% of activity; 2=Substantially compromised / Maximal assistance: Performs 25-49% of activity; 3=Moderately compromised / Moderate assistance: Performs 50-74% of activity; 4=Mildly compromised / Modified independence: Needs assistive device, supervision, minimal contact,or safety is a concern; 5=Not compromised / Complete independence. Outcome: NOC Rating 4 Flowsheets (Taken 05/17/2020 1126) Initial Score: 3 Target Score: 4 Plan of care reviewed with: Patient Patient specific goal for the day: Pt will tolerate turns and repositioning every 2 hours. Patient specific goal for the stay: Throughout the pt stay the pt will tolerate repositioning. Achieve goal for stay: By discharge Patient Progress: pt remains on NWB to LLE. pt repositioned when awake but requested not to be awakened. pt is able to shift weight to relieve pressure. has prevalon boots & sacral mepilex. Problem: ACUTE PAIN Goal: CLIENT SATISFACTION: PAIN MANAGEMENT Description: DEFINITION: Extent of positive perception of nursing care to relieve pain. 1=Not at all satisfied, 2=Somewhat satisfied, 3=Moderately satisfied, 4=Very satisfied, 5=Completely satisfied. Outcome: NOC Rating 4 Flowsheets (Taken 05/17/2020 112) Initial Score: 4 Target Score: 4 Plan of care reviewed with: Patient Patient specific goal for the day: Pt will have tolerable pain throughout the shift. Patient specific goal for the stay: Throughout the patient's stay the pt will manage their pain withPO pain meds. Achieve goal for stay: By discharge Patient Progress: pt reports zero pain to hip but having arthritic pain to L wrist. pain relieved using prn analgesia & elevate Lt arm. will continue to monitor. are Planning - Marielle Fuentes RN - 05/17/2020 2:34 AM PLAYGROUND DIRECTOR Problem: IMPAIRED PHYSICAL MOBILITY Goal: MOBILITY Description: DEFINITION: Ability to move purposefully in own environment independently with or without assistive device. 1=Severely compromised / Total assistance: Performs less than 25% of activity; 2=Substantially compromised / Maximal assistance: Performs 25-49% of activity; 3=Moderately compromised / Moderate assistance: Performs 50-74% of activity; 4=Mildly compromised / Modified independence: Needs assistive device, supervision, minimal contact,or safety is a concern; 5=Not compromised / Complete independence. Flowsheets (Taken 05/17/2020 0231) Patient Progress: pt remains on NWB to LLE. pt repositioned when awake but requested not to be awakened. pt is able to shift weight to relieve pressure. has prevalon boots & sacral mepilex. Problem: ACUTE PAIN Goal: CLIENT SATISFACTION: PAIN MANAGEMENT Description: DEFINITION: Extent of positive perception of nursing care to relieve pain. 1=Not at all satisfied, 2=Somewhat satisfied, 3=Moderately satisfied, 4=Very satisfied, 5=Completely satisfied. Flowsheets (Taken 05/17/2020 0232) Patient Progress: pt reports zero pain to hip but having arthritic pain to L wrist. pain relieved using prn analgesia & elevate Lt arm. will continue to monitor. linical Team - Marielle Fuentes RN - 05/16/2020 10:19 PM CSTPt refused to reposition. Pt reports is very comfortable & does not want to be awakened for repos itioning. Reminded pt on pressure reduction. Pt has sacral mepilex for preventative & prevalon boots. Pt able to shift weight in bed. Will continue to monitor. are Planning - Derrick Haas RN - 05/16/2020 4:40 PM PLAYGROUND DIRECTOR Problem: IMPAIRED PHYSICAL MOBILITY Goal: MOBILITY Description: DEFINITION: Ability to move purposefully in own environment independently with or without assistive device. 1=Severely compromised / Total assistance: Performs less than 25% of activity; 2=Substantially compromised / Maximal assistance: Performs 25-49% of activity; 3=Moderately compromised / Moderate assistance: Performs 50-74% of activity; 4=Mildly compromised / Modified independence: Needs assistive device, supervision, minimal contact,or safety is a concern; 5=Not compromised / Complete independence. Flowsheets (Taken 05/16/2020 5974) Initial Score: 2 Target Score: 4 Plan of care reviewed with: Patient Patient specific goal for the day: Pt will tolerate turns and repositioning every 2 hours. Patient specific goal for the stay: Throughout the pt stay the pt will tolerate repositioning. Achieve goal for stay: By discharge Patient Progress: Pt has TAPS positioned under the pt. Pt tolerates repos fairly well. Bed alarm is on as a precaution. Will continue to monitor. Problem: ACUTE PAIN Goal: CLIENT SATISFACTION: PAIN MANAGEMENT Description: DEFINITION: Extent of positive perception of nursing care to relieve pain. 1=Not at all satisfied, 2=Somewhat satisfied, 3=Moderately satisfied, 4=Very satisfied, 5=Completely satisfied. Flowsheets (Taken 05/16/2020 4001) Initial Score: 3 Target Score: 4 Plan of care reviewed with: Patient Patient specific goal for the day: Pt will have tolerable pain throughout the shift. Patient specific goal for the stay: Throughout the patient's stay the pt will manage their pain withPO pain meds. Achieve goal for stay: By discharge Patient Progress: Pt reports no pain with rest. Pain increased with movment. Pt resting in bed comfortably. Will continue to monitor and assess. linical Team - Mary Hui RN - 05/16/2020 3:17 PM CSTPt A/O x4, pleasant. Pt has refused repositioning this shift. Pt stated 'I am comfortable.' This filing writer educated pt the importance of repositioning. Pt did request to be repositioned at 1500. Pt c/omod pain to LLE. Oral analgesics given, refer to MAR for specifics. Pt repositioned on right side.TAPS system in place. Side rails up x3. Bed alarm on. are Planning - Mary Hui RN - 05/16/2020 3:00 PM PLAYGROUND DIRECTOR Problem: IMPAIRED PHYSICAL MOBILITY Goal: MOBILITY Description: DEFINITION: Ability to move purposefully in own environment independently with or without assistive device. 1=Severely compromised / Total assistance: Performs less than 25% of activity; 2=Substantially compromised / Maximal assistance: Performs 25-49% of activity; 3=Moderately compromised / Moderate assistance: Performs 50-74% of activity; 4=Mildly compromised / Modified independence: Needs assistive device, supervision, minimal contact,or safety is a concern; 5=Not compromised / Complete independence. Outcome: NOC Rating 3 Flowsheets (Taken 05/16/2020 1524) Plan of care reviewed with: Patient Patient Progress: Pt has TAPS positioned under the pt. Pt tolerates repos fairly well. Bed alarm is on as a precaution. Will continue to monitor. Problem: ACUTE PAIN Goal: CLIENT SATISFACTION: PAIN MANAGEMENT Description: DEFINITION: Extent of positive perception of nursing care to relieve pain. 1=Not at all satisfied, 2=Somewhat satisfied, 3=Moderately satisfied, 4=Very satisfied, 5=Completely satisfied. Outcome: NOC Rating 3 Flowsheets (Taken 05/16/2020 1524) Plan of care reviewed with: Patient Achieve goal for stay: By discharge Patient Progress: Pt reports no pain with rest. Pain increased with movment. Oxy given x1 (see MAR).Pt resting in bed comfortably. Will continue to monitor and assess. GROUND DIRECTOR Supplemental Progress Note - Eli Snowden PA - 05/16/2020 11:40 AM CSTI spoke with Magda Valladares's daughter, to inform her on the dislocation and surgical plan. I did inform her that Dr. Alegre is out of the office at this time. Dr. Cruz is one of Dr. Alegre's partner who will be seeing Magda Monday to discuss revision left hip arthroplasty plans further. I noted Magda is comfortable and I will plan to see her again tomorrow. are Planning - Vika Rivas RN - 05/15/2020 10:24 PM PLAYGROUND DIRECTOR Problem: IMPAIRED PHYSICAL MOBILITY Goal: MOBILITY Description: DEFINITION: Ability to move purposefully in own environment independently with or without assistive device. 1=Severely compromised / Total assistance: Performs less than 25% of activity; 2=Substantially compromised / Maximal assistance: Performs 25-49% of activity; 3=Moderately compromised / Moderate assistance: Performs 50-74% of activity; 4=Mildly compromised / Modified independence: Needs assistive device, supervision, minimal contact,or safety is a concern; 5=Not compromised / Complete independence. Outcome: NOC Rating 3 Flowsheets (Taken 05/15/20202219) Initial Score: 2 Target Score: 4 Plan of care reviewed with: Patient Patient specific goal for the day: Pt will tolerate turns and repositioning every 2 hours. Patient specific goal for the stay: Throughout the pt stay the pt will tolerate repositioning. Achieve goal for stay: By discharge Patient Progress: Pt has TAPS positioned under the pt. Pt tolerates repos fairly well. Bed alarm is on as a precaution. Will continue to monitor. Problem: ACUTE PAIN Goal: CLIENT SATISFACTION: PAIN MANAGEMENT Description: DEFINITION: Extent of positive perception of nursing care to relieve pain. 1=Not at all satisfied, 2=Somewhat satisfied, 3=Moderately satisfied, 4=Very satisfied, 5=Completely satisfied. Outcome: NOC Rating 3 Flowsheets (Taken 05/15/20202219) Initial Score: 2 Target Score: 4 Plan of care reviewed with: Patient Patient specific goal for the day: Pt will have tolerable pain throughout the shift. Patient specific goal for the stay: Throughout the patient's stay the pt will manage their pain withPO pain meds. Achieve goal for stay: By discharge Patient Progress: Pt reports no pain with rest. Pain increased with movment. Oxy given x1 (see MAR).Pt resting in bed comfortably. Will continue to monitor and assess. GROUND DIRECTOR Clinical Team - Tequila Delgado RN - 05/15/2020 9:07 PM CSTDual skin assessment completed with Sherwin Rivas RN. All pressure points and skin folds assessed. Pt has small scabs to her left escoto, as well as a large scab and area of abrasion to her forehead. She has an incision to her left hip which is currently Clean, dry, and intact. No other areas of redness noted. Interventions: External Catheter in place to manage moisture. Preventative sacral mepliex and Turn Assist Positionin place for Pressure Injury Prevention. linical Team - Vika Rivas RN - 05/15/2020 9:00 PM CSTReport received from Raya Person RN. Pt arrived via EMS. Pt is alert and orientated X4. Pain increased with movement to the L) hip. Pt orientated to room and educated to the call light. Bed alarm is on as a precaution. Will continue to monitor and assess. documented in this encounter Plan of Treatment Date Type Specialty Care Team Description 06/15/2020 Office Visit Orthopedics Deric Cruz M D [address] [place] [address] [id number] Name Type Priority Associated Date/Time Diagnoses CULTURE, ACID FAST MICROBIOLOGY REPORT Routine Dislocated hip, 05/19/2020 9:34 BACILLUS WITH STAIN left, initial AM PLAYGROUND DIRECTOR encounter ([facility]) CULTURE FUNGAL, MICROBIOLOGY REPORT Routine Dislocated hip, 9:34 OTHER left, initial AM PLAYGROUND DIRECTOR encounter ([facility]) CULTURE BACTERIAL, MICROBIOLOGY REPORT Routine Dislocated hip, 05/19/2020 9:34 ORTHOPEDIC EXTENDED left, initial AM PLAYGROUND DIRECTOR INCUBATION WITH encounter ([facility]) GRAM STAIN Name Type Priority Associated Order Schedule Diagnoses CULTURE FUNGAL, MICROBIOLOGY REPORT Routine Dislocated hip, Re lease Upon OTHER left, initial Ordering for 1 encounter ([facility]) Occurrences starting 05/19/2020 documented as of this encounter Implants Implanted Type Area Talent Acquisition Specialist Device Shelf Model / Identifier Expiration Serial / Lot Date Cmnt Bone Cmnt-R W Gentamicin N [id number] Ea1 - [id number] Tissue Left: JUNE 10/16/2021 [id number] / Implanted: Qty: 1 on 05/19/2020 by Deric Cruz MD at [facility] Synthetic HIP / [id number] Hip Shell [place]se[place] Mult G 58mm N [id number] Ea1 - [id number] Total Jt Hip Left: JUNE 09/04/2029 [id number] / Implanted: 01/28/2020 by Juanjose Alegre MD at [facility] (Quantity not on file) HIP / [id number] Hip Aug Col Btrs Lftpstr Rtant N [id number] Ea1 - [id number] Total Jt Hip Left: JUNE 04/18/202410-6813-700- / Implanted: 01/28/2020 by Juanjose Alegre MD at [facility] (Quantity not on file) HIP / [id number] Hip Screw G7 Loprodome6.5x60mm N [id number] Ea1 - [id number] Tota l Jt Hip Left: JUNE 03/19/2023156805893 / Implanted: 01/28/2020 by Juanjose Alegre MD at [facility] (Quantity not on file) HIP / [id number] Hip Screw G7 Loprodome6.5x60mm N [id number] Ea1 - [id number] Tota l Jt Hip Left: JUNE 01/17/2023081213101 / Implanted: 01/28/2020 by Juanjose Alegre MD at [facility] (Quantity not on file) HIP / [id number] Hip Screw Bone Hgpii 6.5x35mm N [id number] Ea1 - [id number] Total Jt Hip Left: JUNE 09/16/202953-5108-331-35 / Implanted: 01/28/2020 by Juanjose Alegre MD at [facility] (Quantity not on file) HIP / [id number] Hip Screw Bone Hgpii 6.5x40mm N [id number] Ea1 - [id number] Total Jt Hip Left: JUNE 12/16/202829-2006-175-40 / Implanted: 01/28/2020 by Juanjose Alegre MD at [facility] (Quantity not on file) HIP / [id number] Hip Hd Ahmeek Mtl12/14 36mm-3 N [id number] Ea1 - [id number] Tota l Jt Hip Left: JUNE 11/16/2029 [id number] / Implanted: Qty: 1 on 05/19/2020 by Deric Cruz MD at [facility] HIP / [id number] Hip Lnr Ahmeek G7 10d D *Nlu* N [id number] Ea1 - [id number] Tota l Jt Hip Left: JUNE 08/21/2023 [id number] / Implanted: Qty: 1 on 05/19/2020 by Deric Cruz MD at [facility] HIP / [id number] Cmnt Bone Cmnt-R W Gentamicin N [id number] Ea1 - [id number] Left: JUNE 09/16/2021 [id number] / Implanted: 01/28/2020 by Juanjose Alegre MD at [facility] (Quantity not on file) HIP / [id number] Explanted Type Area Talent Acquisition Specialist Device Shelf Model / Identifier Expiration Serial / Lot Date Hip Hd Ahmeek Mtl/14 36mm+0 N [id number] Ea1 - [id number] Tota l Jt Left: JUNE 11/16/2029 [id number] / Implanted: Qty: 1 on 05/11/2020 by Juanjose Gould MD at [facility] Hip HIP / Explanted: Qty: 1 on 05/19/2020 by Deric Cruz MD at [facility] [id number] Hip Lnr Ahmeek Cnstnd 10d 36g N [id number] Ea1 - [id number] To katy Jt Left: JUNE 08/21/2023 [id number] / Implanted: Qty: 1 on 05/11/2020 by Juanjose Gould MD at [facility] Hip HIP / Explanted: Qty: 1 on 05/19/2020 by Deric Cruz MD at [facility] [id number] documented as of this encounter Procedures Procedure Name Priority Date/Time Associated Comments Diagnosis SARS-COV-2, INFLUENZA STAT 05/21/2020 4:19 Re sults for this A+B, AND/OR RSV PM PLAYGROUND DIRECTOR procedure ar e in NUCLEIC ACID TESTING the res ults PANEL section. LAB ONLY-COMPLETE Routine 05/21/2020 5:46 Result s for this BLOOD COUNT WITH AM PLAYGROUND DIRECTOR procedure a re in DIFFERENTIAL the results section. BASIC METABOLIC PANEL Routine 05/21/2020 5:46 Re sults for this AM PLAYGROUND DIRECTOR procedure are i n the results section. LAB ONLY-COMPLETE Routine 05/21/2020 5:46 Result s for this BLOOD COUNT WITH AM PLAYGROUND DIRECTOR procedure a re in DIFFERENTIAL the results section. HEMOGLOBIN Routine 05/20/2020 5:32 Results for this AM PLAYGROUND DIRECTOR procedure are i n the results section. BASIC METABOLIC PANEL Routine 05/20/2020 5:32 Re sults for this AM PLAYGROUND DIRECTOR procedure are i n the results section. XRAY PELVIS 1 OR 2 Routine 05/19/2020 11:12 Resul ts for this VIEWS AM PLAYGROUND DIRECTOR procedure are i n the results section. CULTURE BACTERIAL, Routine 05/19/2020 9:34 Dislocated hip, ORTHOPEDIC EXTENDED AM PLAYGROUND DIRECTOR left, initial INCUBATION WITH GRAM encounter ([facility]) STAIN CULTURE, ACID FAST Routine 05/19/2020 9:34 Dislocated hip, BACILLUS WITH STAIN AM PLAYGROUND DIRECTOR left, initial encounter ([facility]) ARTHROPLASTY HIP 05/19/2020 8:28 Dislocated hip, REVISION AM PLAYGROUND DIRECTOR left, initial encounter ([facility]) Special Needs *X* Hero said he would cont act June rep/ Cell Saver TYPE AND SCREEN STAT 05/18/2020 12:06 PM PLAYGROUND DIRECTOR R esults for this procedure are i n the results section . RENAL FUNCTION PANEL Routine 05/18/2020 5:32 AM PLAYGROUND DIRECTOR Results for this procedure are i n the results section . LAB ONLY-COMPLETE BLOOD Routine 05/16/2020 6:00 AM PLAYGROUND DIRECTOR Results for this COUNT WITH DIFFERENTIAL proc edure are in the results section . BASIC METABOLIC PANEL Routine 05/16/2020 6:00 AM PLAYGROUND DIRECTOR Results for this procedure are i n the results section . LAB ONLY-COMPLETE BLOOD Routine 05/16/2020 6:00 AM PLAYGROUND DIRECTOR Results for this COUNT WITH DIFFERENTIAL proc edure are in the results section . documented in this encounter Results SARS-COV-2, INFLUENZA A+B, AND/OR RSV NUCLEIC ACID TESTING PANEL (05/21/2020 4:19 PM PLAYGROUND DIRECTOR) Pathologist Sig nature SARS-CoV-2 Not Detected Not Detected [facility] Specimen Respiratory - Entire nasopharynx (body s tructure) Narrative Performed At Please read entire report. Results for Influenza A and B or [facility] RSV may also be available depending on which viruses y our provider selected for testing. Your Covid-19 test is negative: 1)Avoiding close contact is s till recommended. 2)Cover your coughs and snee zes. 3)Wash your hands often with soap and wate r for at least 20 seconds or use an alcohol-based ending machine operator containing over 60% alcohol. Avoid touch ing your face. 4)Avoid sharing personal household items, including dishes, cups, utensils, towels, clothing, or bedding. These items should be cleaned thoroughly with soap and water after use. Clean all "high touch" surfaces i n your home daily. 5) Monitor your symptoms. Contact your provider if you are feeling worse. If you have shortness of breath or difficulty breathing, call 911. This assay is for in vitro diagnostic use under FDA Emergency Use Authorization only. Optimal performance of this test requires appropriate specimen collection, storage, and transport to the [facility]. Detection of SARS-CoV-2 RNA may be affected by sample collection methods, patient factors (eg, presence of symptoms), and/or stage of infection. False-negative results may arise from degradation of v iral RNA during shipping/storage. Results should be interpreted by a trained professiona l in conjunction with the patient s history and clinical signs and symptoms, and epidemiological risk factors. Negative (Not Detected) results do not preclude infect ion with the SARS-CoV-2 virus and should not be the sole b asis of patient treatment/management or public health decis ion. Follow up testing should be performed according to the current CDC recommendations. This test was performed by polymerase chain reaction ( PCR) on the GeneXpert instrument. Performing Organization Address City/State/Zipcode Phone Number [facility] [address] [place] [address] [phone] LAB ONLY-COMPLETE BLOOD COUNT WITH DIFFERENTIAL (05/21/2020 5:46 AM PLAYGROUND DIRECTOR) WBC 10.1 4.0 - 11.0 K/uL [facility] RBC 3.01 (L) 3.80 - 5.30 [facility] Hemoglobin 8.3 (L) 11.5 - 15.8 [facility] g/dL [place] Hematocrit 26.6 (L) 35.0 - 45.0 % [facility] MCV 88.4 80.0 - 98.0 fL [facility] MCH 27.6 25.5 - 34.0 pg [facility] MCHC 31.2 (L) 31.5 - 36.5 [facility] g/dL [place] RDW-CV 14.4 11.5 - 15.5 % [facility] RDW-SD 45.1 35.5 - 50.0 fl [facility] Platelet Count 681 (H) 140 - 400 K/uL [facility] MPV 8.3 (L) 8.5 - 12.0 fL [facility] Seg Neut Absolute 5.9 1.8 - 8.0 K/uL [facility] Lymphocytes Absolute 2.9 0.8 - 4.1 K/uL [facility] Monocytes Absolute 1.1 (H) 0.0 - 1.0 K/uL [facility] Eosinophils Absolute 0.1 0.0 - 0.7 K/uL [facility] Basophil Absolute 0.0 0.0 - 0.2 K/uL [facility] Neutrophils Abs. 5,900 /uL [facility] (Segs and Bands) [place] Neutrophils Percent 58.5 % [facility] Lymphocytes Percent 28.9 % [facility] Monocytes Percent 10.6 % [facility] Eosinophils Percent 1.4 % [facility] Basophil Percent 0.4 % [facility] Specimen Blood - Blood specimen (specimen) Performing Organization Address City/State/Zipcode Phone Number [facility] [address] [place] [address] [phone] BASIC METABOLIC PANEL (05/21/2020 5:46 AM PLAYGROUND DIRECTOR) [facility] Glucose 72 70 - 100 mg/dL [facility] BUN 25 (H) 6 - 22 mg/dL [facility] Creatinine 0.72 0.60 - 1.10 [facility]/dL [place] BUN/Creatinine Ratio 34.7 (H) 10.0 - 25.0 [facility] Sodium 134 (L) 135 - 145 meq/L [facility] Potassium 4.6 3.5 - 5.3 meq/L [facility] Chloride 101 99 - 110 meq/L [facility] CO2 26 20 - 29 meq/L [facility] Anion Gap with K 12 6 - 20 meq/L [facility] Calcium 8.0 (L) 8.5 - 10.5 [facility] mg/dL [place] Age 69 Years [facility] eGFR Non- 80 >=60 [place] mL/min/1.73m2 [place] eGFR >90 >=60 [place] mL/min/1.73m2 [place] Specimen Blood - Blood specimen (specimen) Performing Organization Address [facility] Phone Number [facility] [address] [place] [address] HEMOGLOBIN (05/20/2020 5:32 AM PLAYGROUND DIRECTOR) Pathologist Sig nature Hemoglobin 9.0 (L) 11.5 - 15.8 g/dL [facility] Specimen Blood - Blood specimen (specimen) Performing Organization Address [facility] Phone Number [facility] [address] [place] [address] BASIC METABOLIC PANEL (05/20/2020 5:32 AM PLAYGROUND DIRECTOR) Pathologist Sig [facility] Glucose 103 (H) 70 - 100 mg/dL [facility] BUN 14 6 - 22 mg/dL [facility] Creatinine 0.65 0.60 - 1.10 [facility] mg/[facility] BUN/Creatinine Ratio 21.5 10.0 - 25.0 [facility] Sodium 130 (L) 135 - 145 meq/L [facility] Potassium 4.2 3.5 - 5.3 meq/L [facility] Chloride 97 (L) 99 - 110 meq/L [facility] CO2 24 20 - 29 meq/L [facility] Anion Gap with K 13 6 - 20 meq/L [facility] Calcium 8.6 8.5 - 10.5 [facility] mg/dL [place] Age 69 Years [facility] eGFR Non- 90 >=60 [place] mL/min/1.73m2 [place] eGFR >90 >=60 [place] mL/min/1.73m2 [place] Specimen Blood - Blood specimen (specimen) Performing Organization Address [facility] Phone Number [facility] [address] [place] [phone] XRAY PELVIS 1 OR 2 VIEWS (05/19/2020 11:12 AM PLAYGROUND DIRECTOR) Specimen Narrative Performed At [facility] Patient Name: MAGDA REYES Date of : 1950 Procedure: XRAY PELVIS 1 OR 2 VIEWS Date of Service: 05/19/2020 EXAM: XRAY PELVIS 1 OR 2 VIEWS INDICATION: s/p drew revision COMPARISON(S): X-ray of the pelvis from 05/15/2020 FINDINGS/IMPRESSION: There has been relocation of the femoral component of the left hip arthroplasty into the acetabular compo nent with postoperative changes in the surrounding soft tissues. 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 Finalized by: Yaw Falcon MD on 0 12:19 PM PLAYGROUND DIRECTOR Patient/Procedure Information: [facility] MRN/ESTRADA: [id number] Order Number: [id number] Accession Number: [id number] Ordering Provider: DAMIAN HILL Authorizing Provider: DAMIAN HILL Procedure Note Interface, [facility] - 05/19/2020 12:21 PM PLAYGROUND DIRECTOR Patient Name: MAGDA REYES Date of : 1950 Procedure: XRAY PELVIS 1 OR 2 VIEWS Date of Service: 05/19/2020 EXAM: XRAY PELVIS 1 OR 2 VIEWS INDICATION: s/p drew revision COMPARISON(S): X-ray of the pelvis from 05/15/2020 FINDINGS/IMPRESSION: There has been relo cation of the femoral component of the left hip arthroplasty into the acetabular component with postoperative changes in the surrounding soft tissues. There remains chronic post traumatic deformities of the left acetab ulum as well as chronic widening of the left SI joint and remote fracture deformities of the right obturator ring. Finalized by: Yaw Falcon MD on 0 12:19 PM PLAYGROUND DIRECTOR Patient/Procedure Information: [facility] MRN/ESTRADA: [id number] Order Number: [id number] Accession Number: [id number] Ordering Provider: DAMIAN HILL Authorizing Provider: DAMIAN HILL Performing Organization Address City/State/Zipcode Phone Number [id number] TYPE AND SCREEN (05/18/2020 12:06 PM PLAYGROUND DIRECTOR) Pathologist Sig nature ABO Type O [facility] Rh Type Positive [facility] Antibody Screen Negative [facility] Comment: [facility] 05/19/20 Allogenic Red Cells Available Expiration Date 05/21/2020 23:59 [facility] Specimen Blood - Blood specimen (specimen) Performing Organization Address City/[facility] Phone Number [facility] [phone], [place] [phone] RENAL FUNCTION PANEL (05/18/2020 5:32 AM PLAYGROUND DIRECTOR) Pathologist Sig nature Glucose 77 70 - 100 mg/dL [facility] BUN 10 6 - 22 mg/dL [facility] Creatinine 0.62 0.60 - 1.10 [facility] mg/[facility] BUN/Creatinine Ratio 16.1 10.0 - 25.0 [facility] Sodium 133 (L) 135 - 145 meq/L [facility] Potassium 3.8 3.5 - 5.3 meq/L [facility] Chloride 98 (L) 99 - 110 meq/L [facility] CO2 27 20 - 29 meq/L [facility] Anion Gap with K 12 6 - 20 meq/L [facility] Calcium 8.2 (L) 8.5 - 10.5 [facility] mg/dL [place] Phosphorus 3.6 2.5 - 4.5 mg/dL [facility] Albumin 2.7 (L) 3.5 - 5.0 g/dL [facility] Corrected Calcium 9.2 8.5 - 10.5 [facility] mg/dL [place] Age 69 Years [facility] eGFR Non- >90 >=60 [facility] [place] mL/min/1.73m2 [place] eGFR >90 >=60 [facility] mL/min/1.73m2 [place] Specimen Blood - Blood specimen (specimen) Performing Organization Address City/[facility]/Zipcode Phone Number [facility] [phone] [facility] [place] [address] [phone] LAB ONLY-COMPLETE BLOOD COUNT WITH DIFFERENTIAL (05/16/2020 6:00 AM PLAYGROUND DIRECTOR) WBC 9.1 4.0 - 11.0 K/uL [facility] RBC 3.37 (L) 3.80 - 5.30 [facility] M/uL [place] Hemoglobin 9.3 (L) 11.5 - 15.8 [facility] g/dL [place] Hematocrit 29.0 (L) 35.0 - 45.0 % [facility] MCV 86.1 80.0 - 98.0 fL [facility] MCH 27.6 25.5 - 34.0 pg [facility] MCHC 32.1 31.5 - 36.5 [facility] g/dL [place] RDW-CV 14.9 11.5 - 15.5 % [facility] RDW-SD 45.4 35.5 - 50.0 fl [facility] Platelet Count 715 (H) 140 - 400 K/uL [facility] MPV 8.4 (L) 8.5 - 12.0 fL [facility] Seg Neut Absolute 5.5 1.8 - 8.0 K/uL [facility] Lymphocytes Absolute 1.9 0.8 - 4.1 K/uL [facility] Monocytes Absolute 1.4 (H) 0.0 - 1.0 K/uL [facility] Eosinophils Absolute 0.3 0.0 - 0.7 K/uL [facility] Basophil Absolute 0.0 0.0 - 0.2 K/uL [facility] Neutrophils Abs. 5,500 /uL [facility] (Segs and Bands) [place] Neutrophils Percent 60.0 % [facility] Lymphocytes Percent 20.9 % [facility] Monocytes Percent 15.4 % [facility] Eosinophils Percent 3.2 % [facility] Basophil Percent 0.2 % [facility] Specimen Blood - Blood specimen (specimen) Performing Organization Address City/State/Zipcode Phone Number [facility] [phone] [facility] [place] [address] BASIC METABOLIC PANEL (05/16/2020 6:00 AM PLAYGROUND DIRECTOR) Pathologist [facility] Glucose 80 70 - 100 mg/dL [facility] BUN 11 6 - 22 mg/dL [facility] Creatinine 0.56 (L) 0.60 - 1.10 [facility] mg/dL [place] BUN/Creatinine Ratio 19.6 10.0 - 25.0 [facility] Sodium 133 (L) 135 - 145 meq/L [facility] Potassium 3.9 3.5 - 5.3 meq/L [facility] Chloride 96 (L) 99 - 110 meq/L [facility] CO2 28 20 - 29 meq/L [facility] Anion Gap with K 13 6 - 20 meq/L [facility] Calcium 8.2 (L) 8.5 - 10.5 [facility] mg/dL [place] Age 69 Years [facility] eGFR Non- >90 >=60 [facility] [place] mL/min/1.73m2 [place] eGFR >90 >=60 [facility] [place] mL/min/1.73m2 [place] Specimen Blood - Blood specimen (specimen) Performing Organization Address City/State/Zipcode Phone Number [facility] [phone] [place], [place] [phone] documented in this encounter Visit Diagnoses Diagnosis 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 If i nadequate response in 60 minutes, may proceed to next choice option or if no ot her options, contact provider. Adult patients: Total dose of acetaminophen from all acetaminophen containing products should not exceed 4 grams (4000 mg) per day. Pediatric Patients 0 - 3 months: Maximum of 60 mg/kg/24 ho urs of acetaminophen. Pediatric Patients older than 3 months: Maximum of 75 mg/kg/24 hours of acetaminophen (Never exceeding 4 grams/day)., acetaminophen (TYLENOL) tablet 650 mg Given 05/22/2020 5:56 AM PLAYGROUND DIRECTOR 650 mg 650 mg, Oral, Every six hours, First dose on Mon05/19/20 at 1800, Until Discontinued, Post - Op, Alternate with tramadol (ULTRAM); Adult patients: Total dose of acetaminophen from all acetaminophen containing products should not exceed 4 grams (4000 mg) per day. Pediatric Patients 0 - 3 months: Maximum of 60 mg/kg/24 hours of acetaminophen. Pediatric Patients older than 3 months: Maximum of 75 mg/kg/24 hours of acetaminophen (Never exceeding 4 grams/day)., Given 05/22/2020 12:43 AM PLAYGROUND DIRECTOR 650 mg Given 05/21/2020 6:21 PM PLAYGROUND DIRECTOR 650 mg celecoxib (celeBREX) capsule 200 mg Given 05/22/2020 8:43 AM PLAYGROUND DIRECTOR 200 mg 200 mg, Oral, Two times a day, 20 doses, First dose on Mon05/20/20 at 2100, Last dose on Mon05/30/20 at 0900, Post - Op Given 05/21/2020 9:11 PM PLAYGROUND DIRECTOR 200 mg Given 05/21/2020 8:45 AM PLAYGROUND DIRECTOR 200 mg cephalexin (KEFLEX) capsule 500 mg Given 05/22/2020 8:43 AM PLAYGROUND DIRECTOR 500 mg 500 mg, Oral, Three times a day, First dose (after last reorder) on Mon05/16/20 at 1500, Until Discontinued Given 05/21/2020 9:11 PM PLAYGROUND DIRECTOR 500 mg Given 05/21/2020 2:40 PM PLAYGROUND DIRECTOR 500 mg diphenhydrAMINE (BENADRYL) capsule 25 mg Given 05/21/2020 6:21 PM PLAYGROUND DIRECTOR 25 mg 25 mg, Oral, Every six hours prn, Starting Mon05/20/20 at 0928, Until Discontinued, insomnia, itching Given 05/21/2020 11:36 AM PLAYGROUND DIRECTOR 25 mg Given 05/21/2020 1:18 AM PLAYGROUND DIRECTOR 25 mg enoxaparin (LOVENOX) subcutaneous injection Given 05/22/2020 8:42 AM PLAYGROUND DIRECTOR 40 mg solution 40 mg 40 mg, Subcutaneous, Daily, 28 doses, First dose on Mon05/20/20 at 0800, Last dose on Mon06/16/20 at 0800, Post - Op, Begin 0800 on first postop day. To avoid the loss of drug when using the 30 mg and 40 mg prefilled syringes, do not expel the air bubble from the syringe before the injection. For ADULT patients: Administration should be alternated between the left and right anterolateral and left and right posterolateral abdominal wall. The whole length of the needle should be introduced into a skin fold held between the thumb and forefinger; the skin fold should be held throughout the injection. To minimize bruising, do not rub the injection site after completion of the injection. For PEDIATRIC patients: Administration should be alternated between appropriate sites for patient age/weight (infants/small children = upper thigh; older children/adolescents = left and right anterolateral and left and right posterolateral abdominal wall). During administration to infants/smaller children sometimes the whole length of the needle is not "introduced" during the injection. Administer injection into a skin fold held between the thumb and forefinger; the skin fold should be held throughout the injection. To minimize bruising, do not rub the injection site after completion of the injection., Given 05/21/2020 8:42 AM PLAYGROUND DIRECTOR 40 mg Given 05/20/2020 8:40 AM PLAYGROUND DIRECTOR 40 mg lactulose oral solution (10 gm/15 mL) 30 mL Given 05/21/2020 1:32 PM PLAYGROUND DIRECTOR 30 mL 30 mL, Oral, Daily, 2 doses, First dose on Mon05/21/20 at 1250, Last dose on Mon05/22/20 at 0900, 30 mL lisinopril (PRINIVIL, ZESTRIL) tablet 5 mg Given 05/22/2020 8:43 AM PLAYGROUND DIRECTOR 5 mg 5 mg, Oral, DAILY, First dose (after last reorder) on Mon05/21/20 at 1015, Until Discontinued, Hold for SBP less than 100, Given 05/21/2020 11:36 AM PLAYGROUND DIRECTOR 5 mg melatonin tablet 3 mg Given 05/19/2020 8:23 PM PLAYGROUND DIRECTOR 3 mg 3 mg, Oral, Bedtime prn, Starting Mon05/15/20 at 2104, Until Discontinued, other (Specify), insomnia, Use FIRST for insomnia. If inadequate response in 60 minutes, may proceed to next choice option or, if no other options, contact provider., metoclopramide (REGLAN) inj soln 5 mg 5 mg, IV, Every six hours prn, Starting Mon05/15/20 at 2011, Until Discontinued, nausea, vomiting, 1 mL, Use SECOND. If ineffective and ondansetron used, call physician for alternative If preference is to further dilute for IV administration: First draw up patient-specific dose, then dilute to 10 mL with 0.9% sodium chloride., oxyCODONE (OXY-IR) tablet 5-10 mg Given 05/19/2020 5:10 PM PLAYGROUND DIRECTOR 10 mg 5-10 mg, Oral, Every four hours prn, Starting Mon05/19/20 at 1254, Until Discontinued, moderate pain, severe pain, Post - Op, For patients with moderate pain, pain rating of 4-6, give Oxycodone 5mg PO every 4 hours PRN. For patients with severe pain, pain rating of 7-10, give Oxycodone 10mg PO every 4 hours PRN., polyethylene glycol (MIRALAX) packet 1 Given 05/21/2020 8:42 AM PLAYGROUND DIRECTOR 1 packet packet 1 packet, Oral, Daily, First dose on Mon05/20/20 at 0900, Until Discontinued, Post - Op, Hold if 2 loose stools occur in the last 24 hours., Given 05/20/2020 8:39 AM PLAYGROUND DIRECTOR 1 packet senna-docusate sodium Given 05/21/2020 8:45 AM PLAYGROUND DIRECTOR 1 tablet (SENOKOT-S;PERICOLACE) tablet 1 tablet 1 tablet, Oral, Two times a day, First dose on Mon05/19/20 at 2100, Until Discontinued, Post - Op, Hold if 2 loose stools occur in the last 24 hours., Given 05/20/2020 8:15 PM PLAYGROUND DIRECTOR 1 tablet Given 05/20/2020 8:41 AM PLAYGROUND DIRECTOR 1 tablet sodium chloride 0.9% flush (adult) 10 mL Given 05/22/2020 8:46 AM PLAYGROUND DIRECTOR 10 mL 10 mL, IV, Two times a day and prn, First dose on Mon05/19/20 at 2100, Until Discontinued, 10 mL, Post - Op, Flush IV line as scheduled and as often as necessary before and after meds., Given 05/21/2020 9:08 PM PLAYGROUND DIRECTOR 10 mL Given 05/21/2020 8:46 AM PLAYGROUND DIRECTOR 10 mL sodium chloride tablet 3 g Given 05/22/2020 8:44 AM PLAYGROUND DIRECTOR 3 g 3 g, Oral, Three times a day, First dose on Mon05/15/20 at 2100, Until Discontinued Given 05/21/2020 9:11 PM PLAYGROUND DIRECTOR 3 g Given 05/21/2020 2:40 PM PLAYGROUND DIRECTOR 3 g traMADol (ULTRAM) tablet 100 mg Given 05/22/2020 8:45 AM PLAYGROUND DIRECTOR 100 mg 100 mg, Oral, Every six hours, First dose on Mon05/19/20 at 1500, Until Discontinued, Post - Op, Alternate with acetaminophen (TYLENOL). Recommended maximum daily dose of traMADol = 400 mg. Recommended maximum daily dose in patients greater than 75 years of age = 300 mg, Given 05/22/2020 3:05 AM PLAYGROUND DIRECTOR 100 mg Given 05/21/2020 9:11 PM PLAYGROUND DIRECTOR 100 mg Medication Order MAR Action Action Date Dose Rate Site acetaminophen (TYLENOL) tablet Given 05/19/2020 7:48 AM PLAYGROUND DIRECTOR 1,0 00 mg 1,000 mg 1,000 mg, Oral, Pre-op, 1 dose, Mon05/19/20 at 0800, Pre - Op, Adult patients: Total dose of acetaminophen from all acetaminophen containing products should not exceed 4 grams (4000 mg) per day. Pediatric Patients 0 - 3 months: Maximum of 60 mg/kg/24 hours of acetaminophen. Pediatric Patients older than 3 months: Maximum of 75 mg/kg/24 hours of acetaminophen (Never exceeding 4 grams/day). , ceFAZolin (ANCEF) 2000 mg/20 mL sterile Given 05/20/2020 12:25 A M PLAYGROUND DIRECTOR 2,000 mg water IV syringe 2,000 mg, IV, Every eight hours, 2 doses, First dose on Mon05/19/20 at 1700, Last dose on Mon05/20/20 at 0100, 20 mL, PACU - Continue Post-Op, Administer as IV push over 4 minutes., Given 05/19/2020 5:08 PM PLAYGROUND DIRECTOR 2,000 mg enoxaparin (LOVENOX) Given 05/16/2020 8:04 PM 40 mg Abdomen Left Lower subcutaneous injection solution PLAYGROUND DIRECTOR TD 40 mg 40 mg, Subcutaneous, Bedtime, First dose on Mon05/15/20 at 2105, Until Discontinued, To avoid the loss of drug when using the 30 mg and 40 mg prefilled syringes, do not expel the air bubble from the syringe before the injection. For ADULT patients: Administration should be alternated between the left and right anterolateral and left and right posterolateral abdominal wall. The whole length of the needle should be introduced into a skin fold held between the thumb and forefinger; the skin fold should be held throughout the injection. To minimize bruising, do not rub the injection site after completion of the injection. For PEDIATRIC patients: Administration should be alternated between appropriate sites for patient age/weight (infants/small children = upper thigh; older children/adolescents = left and right anterolateral and left and right posterolateral abdominal wall). During administration to infants/smaller children sometimes the whole length of the needle is not "introduced" during the injection. Administer injection into a skin fold held between the thumb and forefinger; the skin fold should be held throughout the injection. To minimize bruising, do not rub the injection site after completion of the injection., Given 05/15/2020 9:58 PM PLAYGROUND DIRECTOR 40 mg lactated ringers IV solution Already Infusing 05/19/2020 10:37 AM PLAYGROUND DIRECTOR 125 mL/hr IV, at 125 mL/hr, Continuous, Starting Mon05/19/20 at 1045, Until Mon05/19/20 at 1202, 1,000 mL, PACU, TKO current fluids if patient is going to Day Unit / ARU and tolerating PO fluids without nausea., lactated ringers IV solution New Bag 05/20/2020 3:46 AM PLAYGROUND DIRECTOR 75 mL/hr IV, at 75 mL/hr, Continuous, Starting Mon05/19/20 at 1300, Until Mon05/20/20 at 0928, 1,000 mL, Post - Op New Bag 05/19/2020 2:58 PM PLAYGROUND DIRECTOR 75 mL/hr omega-3 fatty acids (FISH OIL) capsule Given 05/18/2020 9:55 AM PLAYGROUND DIRECTOR 1,000 mg 1,000 mg 1,000 mg, Oral, DAILY, First dose on 05/16/20 at 0900, Until Discontinued Given 05/17/2020 7:46 AM PLAYGROUND DIRECTOR 1,000 mg Given 05/16/2020 9:25 AM PLAYGROUND DIRECTOR 1,000 mg oxyCODONE (OXY-IR) tablet 5 mg Given 05/19/2020 12:33 AM PLAYGROUND DIRECTOR 5 mg 5 mg, Oral, Every four hours prn, Starting Mon05/15/20 at 2011, Until Mon05/19/20 at 1302, moderate pain, for pain Scale 4 to 6 or pain not relieved by medications for Pain Scale 1 - 3, Pain stratification is defined as follows for either analog scale (0-10) or critical care pain observation tool (CPOT, 0-8). a. No pain (0) b. Mild pain level (1-3) c. Moderate pain level (4-6) d. Severe pain level (greater than or equal to 7), Given 05/18/2020 5:49 PM PLAYGROUND DIRECTOR 5 mg Given 05/18/2020 3:07 AM PLAYGROUND DIRECTOR 5 mg polyethylene glycol (MIRALAX) packet 1 Given 05/19/2020 1:07 PM PLAYGROUND DIRECTOR 1 packet packet 1 packet, Oral, DAILY, First dose on 05/16/20 at 0900, Until Discontinued, Dissolve in 8 ounces of water, juice, soda, coffee, tea Do NOT give if patient on thickened liquids. Contact provider for alternative if needed. , Given 05/18/2020 9:55 AM PLAYGROUND DIRECTOR 1 packet Given 05/17/2020 7:46 AM PLAYGROUND DIRECTOR 1 packet senna-docusate sodium Given 05/19/2020 1:06 PM PLAYGROUND DIRECTOR 2 tablets (SENOKOT-S;PERICOLACE) tablet 2 tablet 2 tablet, Oral, Two times a day, First dose on Mon05/15/20 at 2100, Until Discontinued Given 05/17/2020 8:22 PM PLAYGROUND DIRECTOR 2 tablets Given 05/17/2020 7:46 AM PLAYGROUND DIRECTOR 2 tablets sodium chloride 0.9% flush (adult) 10 mL Given 05/18/2020 9:17 PM PLAYGROUND DIRECTOR 10 mL 10 mL, IV, Two times a day and prn, First dose on Mon05/15/20 at 2100, Until Discontinued, 10 mL, Flush IV line as scheduled and as often as necessary before and after meds., Given 05/18/2020 9:55 AM PLAYGROUND DIRECTOR 10 mL Given 05/17/2020 8:31 PM PLAYGROUND DIRECTOR 10 mL documented in this encounter
--- NOTE | 2020-05-25 20:34 | PCM.SN.2 ---
- Free Text/Narrative Note: Consultation with the patient today. Today's blood work was reviewed. Her anemia is stable at this time although somewhat increased leukocytosis. Chest x-ray did indicate some moderate bilateral perihilar prominence with CT scan of the chest recommended. Subsequent CT of the chest with IV contrast did show moderate COPD with additional probable 17 mm left upper lobe pulmonary nodule consistent with possible carcinoma. Various therapeutic options were discussed with the patient, who wishes to delay further referral to oncology for possible biopsy, etc. until she recovers from her recent hip surgery. At a minimum a 3- month CT/PET evaluation of the chest should be conducted. Note mild decrease of her sodium with known previous history of hyponatremia and current oral sodium chloride therapy. No clinical evidence of CHF. Blood work to be repeated on 05/29 with cardiac enzymes, including BNP to be conducted at that time.
[2020-05-26] MEDS: Enoxaparin 40 MG/0.4 ML Syringe SUBCUT SCH (09:05)
[2020-05-26] MEDS: Polyethylene Glycol 3350 Powder 17 GM Packet PO SCH (09:05)
[2020-05-26] MEDS: Sodium Chloride 1 GM Tab PO SCH ×3 (09:06→18:03)
[2020-05-26] MEDS: Ferrous Sulfate 325 MG Tab PO SCH ×2 (09:06→18:04)
[2020-05-26] MEDS: Potassium Chloride 20 MEQ Tab.ER PO SCH ×2 (09:06→18:04)
[2020-05-26] MEDS: Multivitamin Tab PO SCH (09:07)
[2020-05-26] MEDS: Cholecalciferol (Vitamin D3) 25 MCG Tab PO SCH (09:07)
[2020-05-26] MEDS: Cephalexin 250 MG Cap PO SCH ×3 (09:07→18:04)
[2020-05-26] MEDS: Calcium Carbonate/Vitamin D3 1500 MG-400 Units Tab PO SCH (09:07)
[2020-05-26] MEDS: Lisinopril 5 MG Tab PO SCH (09:08)
[2020-05-26] MEDS: Citalopram 20 MG Tab PO SCH (09:08)
[2020-05-26] MEDS: Aspirin 81 MG Tab.Chew PO SCH ×2 (09:09→18:04)
[2020-05-26] MEDS: Furosemide 20 MG Tab PO SCH ×2 (09:09→12:54)
[2020-05-26] MEDS: Fish Oil/Omega-3 Fatty Acids 1 Gm Cap PO SCH (09:09)
[2020-05-26] MEDS: Acetaminophen 650 MG Tab.ER PO PRN (09:10)
[2020-05-26] MEDS: Nicotine 21 MG/24 Hr Patch TOP SCH (10:19)
[2020-05-26 13:54] LABS: CHLORIDE,CL 90 mmol/L (98-107)
[2020-05-26 13:56] LABS: SODIUM,NA 124 mmol/L (136-145)
[2020-05-26] MEDS: Sodium Chloride 3% 500 ML IV SCH (14:18)
--- NOTE | 2020-05-26 17:53 | PCM.SN.2 ---
- Free Text/Narrative Note: Na noted to be 124 this morning. Patient more fatigued today. IV NS hypertonic saline ordered for replacement of NA levels. Diuretics discontinued. Recheck level in AM
[2020-05-27 07:44] LABS: CHLORIDE,CL 99 mmol/L (98-107); SODIUM,NA 132 mmol/L (136-145)
[2020-05-27] MEDS: Sodium Chloride 3% 500 ML IV SCH (09:02)
[2020-05-27] MEDS: Enoxaparin 40 MG/0.4 ML Syringe SUBCUT SCH (09:04)
[2020-05-27] MEDS: Cephalexin 250 MG Cap PO SCH ×3 (09:06→17:55)
[2020-05-27] MEDS: Sodium Chloride 1 GM Tab PO SCH ×3 (09:06→17:56)
[2020-05-27] MEDS: Fish Oil/Omega-3 Fatty Acids 1 Gm Cap PO SCH (09:06)
[2020-05-27] MEDS: Cholecalciferol (Vitamin D3) 25 MCG Tab PO SCH (09:06)
[2020-05-27] MEDS: Calcium Carbonate/Vitamin D3 1500 MG-400 Units Tab PO SCH (09:07)
[2020-05-27] MEDS: Multivitamin Tab PO SCH (09:07)
[2020-05-27] MEDS: Potassium Chloride 20 MEQ Tab.ER PO SCH ×2 (09:07→17:55)
[2020-05-27] MEDS: Lisinopril 5 MG Tab PO SCH (09:07)
[2020-05-27] MEDS: Aspirin 81 MG Tab.Chew PO SCH ×2 (09:07→17:55)
[2020-05-27] MEDS: Ferrous Sulfate 325 MG Tab PO SCH ×2 (09:08→17:55)
[2020-05-27] MEDS: Citalopram 20 MG Tab PO SCH (09:08)
[2020-05-27] MEDS: Polyethylene Glycol 3350 Powder 17 GM Packet PO SCH (09:09)
[2020-05-27] MEDS: Nicotine 21 MG/24 Hr Patch TOP SCH (09:09)
[2020-05-27] MEDS ORDERED: Sodium Chloride 3% 500 ML IV SCH (16:34)
[2020-05-28 08:01] LABS: CHLORIDE,CL 101 mmol/L (98-107); SODIUM,NA 132 mmol/L (136-145)
[2020-05-28] MEDS: Fish Oil/Omega-3 Fatty Acids 1 Gm Cap PO SCH (08:02)
[2020-05-28] MEDS: Lisinopril 5 MG Tab PO SCH (08:02)
[2020-05-28] MEDS: Calcium Carbonate/Vitamin D3 1500 MG-400 Units Tab PO SCH (08:02)
[2020-05-28] MEDS: Citalopram 20 MG Tab PO SCH (08:03)
[2020-05-28] MEDS: Multivitamin Tab PO SCH (08:03)
[2020-05-28] MEDS: Cholecalciferol (Vitamin D3) 25 MCG Tab PO SCH (08:03)
[2020-05-28] MEDS: Aspirin 81 MG Tab.Chew PO SCH ×2 (08:04→17:30)
[2020-05-28] MEDS: Ferrous Sulfate 325 MG Tab PO SCH ×2 (08:04→17:32)
[2020-05-28] MEDS: Cephalexin 250 MG Cap PO SCH ×3 (08:04→17:30)
[2020-05-28] MEDS: Sodium Chloride 1 GM Tab PO SCH ×3 (08:04→17:32)
[2020-05-28] MEDS: Potassium Chloride 20 MEQ Tab.ER PO SCH ×2 (08:04→17:31)
[2020-05-28] MEDS: Nicotine 21 MG/24 Hr Patch TOP SCH (08:05)
[2020-05-28] MEDS: Enoxaparin 40 MG/0.4 ML Syringe SUBCUT SCH (08:06)
[2020-05-28] MEDS: Polyethylene Glycol 3350 Powder 17 GM Packet PO SCH (08:12)
--- NOTE | 2020-05-28 10:54 | PCM.SN.2 ---
- Free Text/Narrative Note: Sodium level has improved to 132. Patient's level of interaction has normalized per family/staff. IV hypertonic saline will be discontinued after current bag has been infused. TID NaCL orally to be continued.
[2020-05-28] MEDS: Oxybutynin 5 MG Tab.ER PO SCH (11:58)
[2020-05-28] MEDS: Acetaminophen 650 MG Tab.ER PO PRN (17:30)
[2020-05-29] MEDS: Acetaminophen 650 MG Tab.ER PO PRN (01:10)
[2020-05-29 07:49] LABS: CHLORIDE,CL 95 mmol/L (98-107); SODIUM,NA 127 mmol/L (136-145)
[2020-05-29] MEDS: Polyethylene Glycol 3350 Powder 17 GM Packet PO SCH (08:43)
[2020-05-29] MEDS: Cephalexin 250 MG Cap PO SCH ×3 (08:44→17:10)
[2020-05-29] MEDS: Cholecalciferol (Vitamin D3) 25 MCG Tab PO SCH (08:44)
[2020-05-29] MEDS: Sodium Chloride 1 GM Tab PO SCH ×3 (08:44→17:09)
[2020-05-29] MEDS: Fish Oil/Omega-3 Fatty Acids 1 Gm Cap PO SCH (08:44)
[2020-05-29] MEDS: Ferrous Sulfate 325 MG Tab PO SCH ×2 (08:45→17:09)
[2020-05-29] MEDS: Potassium Chloride 20 MEQ Tab.ER PO SCH ×2 (08:45→17:10)
[2020-05-29] MEDS: Multivitamin Tab PO SCH (08:45)
[2020-05-29] MEDS: Calcium Carbonate/Vitamin D3 1500 MG-400 Units Tab PO SCH (08:45)
[2020-05-29] MEDS: Citalopram 20 MG Tab PO SCH (08:46)
[2020-05-29] MEDS: Aspirin 81 MG Tab.Chew PO SCH ×2 (08:46→17:10)
[2020-05-29] MEDS: Enoxaparin 40 MG/0.4 ML Syringe SUBCUT SCH (08:46)
[2020-05-29] MEDS: Lisinopril 5 MG Tab PO SCH (08:48)
[2020-05-29] MEDS: Nicotine 21 MG/24 Hr Patch TOP SCH (08:55)
[2020-05-29] MEDS: Oxybutynin 5 MG Tab.ER PO SCH ×2 (09:36→11:44)
--- NOTE | 2020-05-29 14:37 | PCM.PN ---
- General Info Date of Service: 05/29/20 Admission Dx/Problem (Free Text): Admission Diagnosis/Problem Admission Diagnosis/Problem Weakness Functional Status: Reports: Pain Controlled, Tolerating Diet, Ambulating (With assist per PT/OT). Denies: Urinating, New Symptoms, Incentive Spirometry Pain Score: 0 - Review of Systems General: Reports: Weakness (Slowly improving). Denies: Fatigue, Malaise, Chil ls, Night Sweats, Appetite (Good) HEENT: Reports: No Symptoms Pulmonary: Reports: No Symptoms. Denies: Shortness of Breath, Pleuritic Chest Pain, Cough Cardiovascular: Reports: Edema (Stable dependent). Denies: Chest Pain, Palpitations, Dyspnea on Exertion, Orthopnea, Lightheadedness Gastrointestinal: Reports: No Symptoms, Other (Normal bowel movement earlier today). Denies: Abdominal Pain, Constipation, Decreased Appetite, Diarrhea, Difficulty Swallowing, Flatus, Hematochezia, Melena, Nausea, Vomiting Genitourinary: Reports: No Symptoms. Denies: Dysuria, Frequency, Burning, Urgency, Incontinence, Hematuria, Retention, Flank Pain Musculoskeletal: Denies: Neck Pain, Shoulder Pain, Hand Pain, Leg Pain (No significant left hip pain) Skin: Reports: Other (Central facial/sinus defect as above) Neurological: Reports: Difficulty Walking, Weakness (Improving slowly). Denies: Confusion, Dizziness, Numbness, Paresthesia, Tingling Psychiatric: Reports: No Symptoms. Denies: Confusion, Depression, Anxiety, Agitation, Cravings, Hallucinations - Patient Data Vitals - Most Recent: Last Vital Signs Temp 37.6 C 05/29/20 08:00 Pulse 80 05/29/20 08:00 Resp 14 05/29/20 08:00 BP 140/81 05/29/20 08:48 Pulse Ox 98 05/29/20 08:00 Weight - Most Recent: 59.829 kg I&O - Last 24 Hours: Intake & Output 05/28/20 05/29/20 05/29/20 22:59 06:59 14:59 Intake Total 920 300 600 Balance 920 300 600 Imaging Impressions - Last 24 Hours: Chest x-ray, portable, shows mild prominence of the proximal aortic arch with mild aortic valve calcification. Moderate COPD with probable pulmonary hypertension and/or mild mostly centralized CHF with improved perihilar prominence since last chest x-ray on 05/25/2020. No pulmonary infiltrates, pneumothorax, etc. Lab Results Last 24 Hours: Laboratory Results - last 24 hr 05/29/20 05/29/20 Range/Units 07:15 07:15 WBC 8.8 (4.0-10.2) K/uL RBC 3.35 L (3.77-5.09) M/uL Hgb 9.2 L (11.7-15.5) g/dL Hct 29.0 L (34.0-46.0) % MCV 86.6 D (84.0-98.0) fL MCH 27.5 L (28.2-33.3) pg MCHC 31.7 (31.7-36.0) g/dL RDW 15.1 H (11.2-14.1) % Plt Count 651 H D (150-350) K/uL Neut % (Auto) 56.7 (45.0-80.0) % Lymph % (Auto) 26.8 (10.0-50.0) % [place] % (Auto) 12.5 (2.0-14.0) % Eos % (Auto) 3.7 (0.0-5.0) % Baso % (Auto) 0.3 (0.0-2.0) % Neut # (Auto) 4.99 (1.40-7.00) K/uL Lymph # (Auto) 2.36 (0.50-3.50) K/uL [place] # (Auto) 1.10 H (0.00-1.00) K/uL Eos # (Auto) 0.33 (0.00-0.50) K/uL Baso # (Auto) 0.03 (0.00-0.20) K/uL Sodium 127 L (136-145) mmol/L Potassium 4.5 (3.5-5.1) mmol/L Chloride 95 L (98-107) mmol/L Carbon Dioxide 25.5 (21.0-32.0) mmol/L BUN 10 (7-18) mg/dL Creatinine 0.63 (0.51-1.17) mg/dL Est Cr Clr Drug Dosing 70.73 mL/min Estimated GFR (MDRD) > 60 mL/min Glucose 87 (74-106) mg/dL Calcium 8.1 L (8.5-10.1) mg/dL Total Bilirubin 0.3 (0.2-1.0) mg/dL AST 18 (15-37) U/L ALT 17 (12-78) U/L Alkaline Phosphatase 86 (46-116) IU/L Creatine Kinase 25 L (26-308) U/L Creatine Kinase Index 1.6 (0.0-2.5) % CK-MB (CK-2) 0.40 (0.00-3.60) ng/mL Troponin I 0.007 (0.000-0.056) ng/mL NT-Pro-B Natriuret Pep 1089 H (0-125) pg/mL Total Protein 6.2 L (6.4-8.2) g/dL Albumin 3.0 L (3.4-5.0) g/dL [place] Results Last 24 Hours: None Med Orders - Current: Current Medications Acetaminophen (Tylenol Arthritis Pain) 650 mg PO BID PRN PRN Reason: Pain Last Admin: 05/29/20 01:10 Dose: 650 mg Documented by: Aspirin (Aspirin) 81 mg PO BID [facility] Last Admin: 05/29/20 08:46 Dose: 81 mg Documented by: Bisacodyl (Dulcolax) 10 mg RECTAL DAILY PRN PRN Reason: Constipation Calcium Carbonate (Caltrate 600+D 1500 Mg-400 Units) 1 tab PO DAILY [facility] Last Admin: 05/29/20 08:45 Dose: 1 tab Documented by: Cephalexin (Keflex) 500 mg PO TID [facility] Last Admin: 05/29/20 11:44 Dose: 500 mg Documented by: Cholecalciferol (Vitamin D3) 50 mcg PO DAILY [facility] Last Admin: 05/29/20 08:44 Dose: 50 mcg Documented by: Citalopram Hydrobromide (Celexa) 10 mg PO DAILY [facility] Last Admin: 05/29/20 08:46 Dose: 10 mg Documented by: Clobetasol Propionate (Clobetasol Propionate 0.05%) 0 gm TOP BID PRN PRN Reason: Itching Cyclobenzaprine HCl (Flexeril) 10 mg PO TID PRN PRN Reason: Spasms Enoxaparin Sodium (Lovenox) 40 mg SUBCUT DAILY [facility] Last Admin: 05/29/20 08:46 Dose: 40 mg Documented by: Erythromycin (Erythromycin 0.5% Ophth Oint) 0 gm EYEBOTH QID PRN PRN Reason: Other Ferrous Sulfate (Ferrous Sulfate) 325 mg PO BIDMEALS [facility] Last Admin: 05/29/20 08:45 Dose: 325 mg Documented by: Fish Oil (Fish Oil) 1 gm PO DAILY [facility] Last Admin: 05/29/20 08:44 Dose: 1 gm Documented by: Lisinopril (Prinivil) 5 mg PO DAILY [facility] Last Admin: 05/29/20 08:48 Dose: 5 mg Documented by: Lorazepam (Ativan) 0.5 mg PO Q6HR PRN PRN Reason: Anxiety Last Admin: 05/23/20 19:17 Dose: 0.5 mg Documented by: Magnesium Hydroxide (Milk Of Magnesia) 30 ml PO BID PRN PRN Reason: Constipation Multivitamins/Minerals/Vitamin C (Tab-A-Kayla) 1 tab PO DAILY [facility] Last Admin: 05/29/20 08:45 Dose: 1 tab Documented by: Nicotine (Habitrol) 21 mg TOP DAILY [facility] Last Admin: 05/29/20 08:55 Dose: Not Given Documented by: Ondansetron HCl (Zofran Odt) 4 mg PO QID PRN PRN Reason: Nausea Oxybutynin Chloride (Oxybutynin Er) 5 mg PO DAILY@1200 [facility] Last Admin: 05/29/20 11:44 Dose: 5 mg Documented by: Polyethylene Glycol (Miralax) 17 gm PO DAILY [facility] Last Admin: 05/29/20 08:43 Dose: 17 gm Documented by: Potassium Chloride (Klor-Con M20) 20 meq PO BIDMEALS [facility] Last Admin: 05/29/20 08:45 Dose: 20 meq Documented by: Senna/Docusate Sodium (Senna Plus) 2 tab PO BID PRN PRN Reason: Constipation Sodium Chloride (Sodium Chloride) 3 gm PO TID [facility] Last Admin: 05/29/20 11:44 Dose: 3 gm Documented by: Discontinued Medications Furosemide (Lasix) 20 mg PO BIDDIURETIC [facility] Last Admin: 05/26/20 12:54 Dose: 20 mg Documented by: Sodium Chloride (Sodium Chloride 3%) 500 mls @ 30 mls/hr IV ASDIRECTED [facility] Last Admin: 05/27/20 09:02 Dose: 30 mls/hr Documented by: Sodium Chloride (Sodium Chloride 3%) 500 mls @ 30 mls/hr IV ASDIRECTED [facility] Last Admin: 05/28/20 00:49 Dose: 30 mls/hr Documented by: Iopamidol (Isovue-300 (61%)) 100 ml IVPUSH ONETIME ONE Stop: 05/25/20 11:15 Last Admin: 05/25/20 15:19 Dose: 100 ml Documented by: Oxybutynin Chloride (Oxybutynin Er) 5 mg PO DAILY [facility] Last Admin: 05/29/20 09:36 Dose: Not Given Documented by: Oxycodone HCl (Oxycodone) 5 mg PO Q4HR PRN PRN Reason: Pain - Exam Quality Assessment: DVT Prophylaxis. No: Supplemental Oxygen, Central Line/PICC, Urine Catheter, Skin Breakdown, Restraints General: Alert, Oriented, Cooperative, Sedated HEENT: Pupils Equal, Pupils Reactive, EOMI, Mucous Membr. Moist/[place], Other (Large centralized defect in the mid superior head region secondary to previous sinus surgery as above including some nasal deformity. No local signs of infection, mild right upper granulated area with dressing in place. Severe bilateral presbycusis) Neck: Supple, Trachea Midline, No JVD, No Thyromegaly, Carotid Bruit (Mild bilateral carotid bruits). No: Lymphadenopathy Lungs: Normal Respiratory Effort, Rales (Mild bilateral basilar). No: Rhonchi, Rub, Wheezing Cardiovascular: Regular Rate, Regular Rhythm, No Murmurs. No: Gallops, Rubs GI/Abdominal Exam: Normal Bowel Sounds, Soft, Non-Tender, No Organomegaly, No Distention, No Abnormal Bruit, No Mass. No: Guarding (Female) Exam: Deferred Back Exam: Normal Inspection, Full Range of Motion. No: CVA Tenderness (L), CVA Tenderness (R), Muscle Spasm Extremities: Normal Capillary Refill, Pedal Edema (Trace bilateral pedal/pretibial edema), Limited Range of Motion (Left hip secondary to recent surgery.). No: Suzy's Sign Peripheral Pulses: 2+: Radial (L), Radial (R), Dorsalis Pedis (L) Skin: Cool Wound/Incisions: Healing Well Neurological: No New Focal Deficit Psy/Mental Status: Alert, Normal Affect, Normal Mood. No: Agitated, Hallucinations, Withdrawal Symptoms Sepsis Event Note - Evaluation Sepsis Screening Result: No Definite Risk - Focused Exam Vital Signs: Vital Signs Temp Pulse Resp BP BP Pulse Ox 05/29/20 08:48 140/81 05/29/20 08:00 37.6 C 80 14 140/81 98 - Problem List & Annotations (1) Recurrent dislocation, left hip SNOMED Code(s): 759892960 Code(s): M24.452 - RECURRENT DISLOCATION, LEFT HIP Status: Acute Priority: High Current Visit: Yes Annotation/Comment:: Recurrent dislocation of the left hip with required repeat revision on 05/19/20 as above with surgery complicated by postoperative anemia. PT and OT have been ordered, which is progressing well by patient history. Continue standard swing bed orders. Blood work reviewed on 05/29. Note current subcutaneous Lovenox therapy as DVT prophylaxis per transfer orders from [place]. (2) Pulmonary nodule SNOMED Code(s): 112453584 Code(s): R91.1 - SOLITARY PULMONARY NODULE Status: Acute Priority: High Current Visit: Yes Onset Date: 05/25/20 Annotation/Comment:: Newly diagnosed left upper lobe pulmonary nodule by CT scan on 05/25/2020. Note simple provider note on that day with the patient requesting to delay further work-up including possible lung biopsy until she recovers from her recent surgery. 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 If lung biopsy is not performed, CT/PET of the lung should be performed no later than 3 months. (3) Osteoarthritis SNOMED Code(s): 263046490 Code(s): M19.90 - UNSPECIFIED OSTEOARTHRITIS, UNSPECIFIED SITE Status: Chronic Priority: Medium Current Visit: Yes Qualifiers: Osteoarthritis location: multiple joints Osteoarthritis type: primary Qualified Code(s): M89.49 - Other hypertrophic osteoarthropathy, multiple sites Annotation/Comment:: Otherwise stable by history (4) Hypertension SNOMED Code(s): 46449010 Code(s): I10 - ESSENTIAL (PRIMARY) HYPERTENSION Status: Chronic Priority: Medium Current Visit: Yes Qualifiers: Hypertension type: essential hypertension Qualified Code(s): I10 - Essential (primary) hypertension Annotation/Comment:: Stable since admission. Continue to observe closely through swing bed care. (5) Postoperative anemia SNOMED Code(s): 781925942, 533462946 Code(s): D64.9 - ANEMIA, UNSPECIFIED Status: Acute Priority: Medium Current Visit: Yes Onset Date: ~05/21/20 Annotation/Comment:: Relatively stable during her swing bed care with no evidence of acute bleeding, etc. Hemoglobin of 9.2 on 05/29 with previous hemoglobin of 10.0. Continue to observe closely hemoglobin of 8.3 on 05/21 at [facility]. Iron supplementation has been initiated with consideration of repeat iron studies in 4 weeks. (6) Hyperlipidemia SNOMED Code(s): 97526633 Code(s): E78.5 - HYPERLIPIDEMIA, UNSPECIFIED Status: Chronic Priority: Medium Current Visit: Yes Qualifiers: Hyperlipidemia type: other hyperlipidemia Qualified Code(s): E78.49 - Other hyperlipidemia; E78.4 - Other hyperlipidemia Annotation/Comment:: Continue to observe closely by regular providers. (7) Hypomagnesemia SNOMED Code(s): 204068989 Code(s): E83.42 - HYPOMAGNESEMIA Status: Acute Priority: Medium Current Visit: Yes Annotation/Comment:: Magnesium level normal on admission however secondary to Lasix therapy low-dose magnesium oxide will be initiated on 05/30. Continue to observe closely during her swing bed care and by her regular providers at discharge. 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 (9) Mixed anxiety depressive disorder SNOMED Code(s): 912737669 Code(s): F41.8 - OTHER SPECIFIED ANXIETY DISORDERS Status: Chronic Priority: Medium Current Visit: Yes Annotation/Comment:: Note history of alcohol abuse. Stable by history. (10) CHF (congestive heart failure) SNOMED Code(s): 74289420 Code(s): I50.9 - HEART FAILURE, UNSPECIFIED Status: Acute Priority: Medium Current Visit: Yes Qualifiers: Heart failure type: unspecified Heart failure chronicity: acute Qualified Code(s): I50.9 - Heart failure, unspecified Annotation/Comment:: No chest pain or anginal type symptoms, however evidence of some mild CHF by x-ray. Low-dose oral Lasix therapy initiated on 05/29. Continue to observe her renal status and magnesium levels closely with history of hyponatremia and hypomagnesemia as above. Consider echocardiogram on an outpatient basis. (11) Hypoalbuminemia SNOMED Code(s): 186950626 Code(s): E88.09 - [facility] DISORDERS OF PLASMA-PROTEIN METABOLISM, NEC Status: Acute Current Visit: Yes (12) Hyponatremia SNOMED Code(s): 63920663 Code(s): E87.1 - HYPO-OSMOLALITY AND HYPONATREMIA Status: Chronic Priority: Medium Current Visit: Yes Annotation/Comment:: Note that the patient did receive 3% normal saline infusion earlier during her swing bed care with mild reoccurring hyponatremia with known chronic problem. The patient is already receiving high-dose sodium chloride oral supplementation. Note mild CHF is a cofactor with initiation of Lasix therapy and increase of her potassium supplementation on 05/29. Continue to observe closely for now. - Problem List Review Problem List Initiated/Reviewed/Updated: Yes - My Orders Last 24 Hours: My Active Orders 05/29/20 05:11 Chest 1V Frontal [CR] Routine - Assessment Assessment:: As above. - Plan Plan:: As above. Extensive precautions were given to the patient, who is in agreement with the treatment plan. Continue swing bed care, PT, and OT.
[2020-05-29] MEDS: Furosemide 20 MG Tab PO SCH (17:10)
[2020-05-30] MEDS: Acetaminophen 650 MG Tab.ER PO PRN (09:29)
[2020-05-30] MEDS: Cholecalciferol (Vitamin D3) 25 MCG Tab PO SCH (09:30)
[2020-05-30] MEDS: Citalopram 20 MG Tab PO SCH (09:31)
[2020-05-30] MEDS: Calcium Carbonate/Vitamin D3 1500 MG-400 Units Tab PO SCH (09:31)
[2020-05-30] MEDS: Sodium Chloride 1 GM Tab PO SCH ×3 (09:31→18:09)
[2020-05-30] MEDS: Magnesium Oxide 400 MG Tab PO SCH (09:31)
[2020-05-30] MEDS: Cephalexin 250 MG Cap PO SCH ×3 (09:32→18:10)
[2020-05-30] MEDS: Potassium Chloride 20 MEQ Tab.ER PO SCH ×3 (09:33→18:10)
[2020-05-30] MEDS: Ferrous Sulfate 325 MG Tab PO SCH ×2 (09:33→18:11)
[2020-05-30] MEDS: Multivitamin Tab PO SCH (09:33)
[2020-05-30] MEDS: Furosemide 20 MG Tab PO SCH ×2 (09:33→12:46)
[2020-05-30] MEDS: Fish Oil/Omega-3 Fatty Acids 1 Gm Cap PO SCH (09:34)
[2020-05-30] MEDS: Aspirin 81 MG Tab.Chew PO SCH ×2 (09:34→18:11)
[2020-05-30] MEDS: Polyethylene Glycol 3350 Powder 17 GM Packet PO SCH (09:36)
[2020-05-30] MEDS: Nicotine 21 MG/24 Hr Patch TOP SCH (09:36)
[2020-05-30] MEDS: Enoxaparin 40 MG/0.4 ML Syringe SUBCUT SCH (09:36)
[2020-05-30] MEDS: Lisinopril 5 MG Tab PO SCH (09:41)
[2020-05-30] MEDS: Oxybutynin 5 MG Tab.ER PO SCH (12:46)
[2020-05-31] MEDS: Acetaminophen 650 MG Tab.ER PO PRN ×2 (00:28→17:43)
[2020-05-31] MEDS: Sodium Chloride 1 GM Tab PO SCH ×3 (07:47→17:40)
[2020-05-31] MEDS: Potassium Chloride 20 MEQ Tab.ER PO SCH ×2 (07:47→11:57)
[2020-05-31] MEDS: Aspirin 81 MG Tab.Chew PO SCH ×2 (07:47→17:40)
[2020-05-31] MEDS: Fish Oil/Omega-3 Fatty Acids 1 Gm Cap PO SCH (07:47)
[2020-05-31] MEDS: Multivitamin Tab PO SCH (07:47)
[2020-05-31] MEDS: Ferrous Sulfate 325 MG Tab PO SCH ×2 (07:48→17:40)
[2020-05-31] MEDS: Cephalexin 250 MG Cap PO SCH ×3 (07:48→17:39)
[2020-05-31] MEDS: Calcium Carbonate/Vitamin D3 1500 MG-400 Units Tab PO SCH (07:48)
[2020-05-31] MEDS: Magnesium Oxide 400 MG Tab PO SCH (07:49)
[2020-05-31] MEDS: Furosemide 20 MG Tab PO SCH (07:49)
[2020-05-31] MEDS: Citalopram 20 MG Tab PO SCH (07:49)
[2020-05-31] MEDS: Polyethylene Glycol 3350 Powder 17 GM Packet PO SCH (07:50)
[2020-05-31] MEDS: Cholecalciferol (Vitamin D3) 25 MCG Tab PO SCH (07:50)
[2020-05-31] MEDS: Enoxaparin 40 MG/0.4 ML Syringe SUBCUT SCH (07:52)
[2020-05-31] MEDS: Lisinopril 5 MG Tab PO SCH (07:59)
[2020-05-31 09:24] LABS: CHLORIDE,CL 95 mmol/L (98-107); SODIUM,NA 127 mmol/L (136-145)
[2020-05-31] MEDS: Oxybutynin 5 MG Tab.ER PO SCH (13:05)
[2020-06-01] MEDS ORDERED: Potassium Chloride 20 MEQ Tab.ER PO SCH (08:00)
[2020-06-01] MEDS ORDERED: Furosemide 20 MG Tab PO SCH (08:00)
[2020-06-01] MEDS: Enoxaparin 40 MG/0.4 ML Syringe SUBCUT SCH (08:36)
[2020-06-01] MEDS: Magnesium Oxide 400 MG Tab PO SCH (08:37)
[2020-06-01] MEDS: Cephalexin 250 MG Cap PO SCH ×3 (08:37→17:50)
[2020-06-01] MEDS: Calcium Carbonate/Vitamin D3 1500 MG-400 Units Tab PO SCH (08:37)
[2020-06-01] MEDS: Lisinopril 5 MG Tab PO SCH (08:37)
[2020-06-01] MEDS: Citalopram 20 MG Tab PO SCH (08:38)
[2020-06-01] MEDS: Sodium Chloride 1 GM Tab PO SCH ×3 (08:38→17:49)
[2020-06-01] MEDS: Cholecalciferol (Vitamin D3) 25 MCG Tab PO SCH (08:38)
[2020-06-01] MEDS: Multivitamin Tab PO SCH (08:38)
[2020-06-01] MEDS: Aspirin 81 MG Tab.Chew PO SCH ×2 (08:38→17:51)
[2020-06-01] MEDS: Ferrous Sulfate 325 MG Tab PO SCH ×2 (08:39→17:51)
[2020-06-01] MEDS: Fish Oil/Omega-3 Fatty Acids 1 Gm Cap PO SCH (08:39)
[2020-06-01] MEDS: Polyethylene Glycol 3350 Powder 17 GM Packet PO SCH (08:39)
[2020-06-01 09:01] LABS: CHLORIDE,CL 94 mmol/L (98-107); SODIUM,NA 126 mmol/L (136-145)
[2020-06-01] MEDS: Oxybutynin 5 MG Tab.ER PO SCH (12:01)
--- NOTE | 2020-06-01 12:20 | PCM.SN.2 ---
- Free Text/Narrative Note: Lab work reviewed today with improving anemia. Note persistent but relatively stable sodium levels despite initiation of oral Lasix, although significantly improved BNP with no clinically relevant CHF at this time. Magnesium level is also normal. Secondary to mild hyperkalemia her potassium supplement will be discontinued with decrease of her Lasix therapy. Repeat blood work on 06/05. No significant confusion, etc. despite her persistent hyponatremia with oral sodium chloride tablets in effect.
[2020-06-02] MEDS: Cholecalciferol (Vitamin D3) 25 MCG Tab PO SCH (07:57)
[2020-06-02] MEDS: Ferrous Sulfate 325 MG Tab PO SCH ×2 (07:57→17:03)
[2020-06-02] MEDS: Sodium Chloride 1 GM Tab PO SCH ×3 (07:57→17:03)
[2020-06-02] MEDS: Enoxaparin 40 MG/0.4 ML Syringe SUBCUT SCH (07:57)
[2020-06-02] MEDS: Polyethylene Glycol 3350 Powder 17 GM Packet PO SCH (07:57)
[2020-06-02] MEDS: Calcium Carbonate/Vitamin D3 1500 MG-400 Units Tab PO SCH (07:57)
[2020-06-02] MEDS: Furosemide 20 MG Tab PO SCH (07:58)
[2020-06-02] MEDS: Aspirin 81 MG Tab.Chew PO SCH ×2 (07:58→17:03)
[2020-06-02] MEDS: Magnesium Oxide 400 MG Tab PO SCH (07:58)
[2020-06-02] MEDS: Multivitamin Tab PO SCH (07:58)
[2020-06-02] MEDS: Cephalexin 250 MG Cap PO SCH ×3 (07:58→17:03)
[2020-06-02] MEDS: Fish Oil/Omega-3 Fatty Acids 1 Gm Cap PO SCH (07:58)
[2020-06-02] MEDS: Citalopram 20 MG Tab PO SCH (07:58)
[2020-06-02] MEDS: Lisinopril 5 MG Tab PO SCH (07:59)
[2020-06-02] MEDS: Oxybutynin 5 MG Tab.ER PO SCH (12:30)
[2020-06-03] MEDS: Aspirin 81 MG Tab.Chew PO SCH ×2 (07:31→17:24)
[2020-06-03] MEDS: Calcium Carbonate/Vitamin D3 1500 MG-400 Units Tab PO SCH (07:31)
[2020-06-03] MEDS: Fish Oil/Omega-3 Fatty Acids 1 Gm Cap PO SCH (07:31)
[2020-06-03] MEDS: Lisinopril 5 MG Tab PO SCH (07:31)
[2020-06-03] MEDS: Cephalexin 250 MG Cap PO SCH ×3 (07:32→17:24)
[2020-06-03] MEDS: Citalopram 20 MG Tab PO SCH (07:32)
[2020-06-03] MEDS: Cholecalciferol (Vitamin D3) 25 MCG Tab PO SCH (07:32)
[2020-06-03] MEDS: Furosemide 20 MG Tab PO SCH (07:32)
[2020-06-03] MEDS: Multivitamin Tab PO SCH (07:33)
[2020-06-03] MEDS: Magnesium Oxide 400 MG Tab PO SCH (07:33)
[2020-06-03] MEDS: Enoxaparin 40 MG/0.4 ML Syringe SUBCUT SCH (07:35)
[2020-06-03] MEDS: Sodium Chloride 1 GM Tab PO SCH ×3 (07:36→17:24)
[2020-06-03] MEDS: Polyethylene Glycol 3350 Powder 17 GM Packet PO SCH (07:36)
[2020-06-03] MEDS: Ferrous Sulfate 325 MG Tab PO SCH ×2 (07:38→17:24)
[2020-06-03] MEDS: Oxybutynin 5 MG Tab.ER PO SCH (11:42)
[2020-06-04] MEDS: Citalopram 20 MG Tab PO SCH (07:42)
[2020-06-04] MEDS: Fish Oil/Omega-3 Fatty Acids 1 Gm Cap PO SCH (07:43)
[2020-06-04] MEDS: Cephalexin 250 MG Cap PO SCH ×3 (07:43→17:50)
[2020-06-04] MEDS: Cholecalciferol (Vitamin D3) 25 MCG Tab PO SCH (07:43)
[2020-06-04] MEDS: Ferrous Sulfate 325 MG Tab PO SCH ×2 (07:44→17:50)
[2020-06-04] MEDS: Magnesium Oxide 400 MG Tab PO SCH (07:44)
[2020-06-04] MEDS: Lisinopril 5 MG Tab PO SCH (07:45)
[2020-06-04] MEDS: Multivitamin Tab PO SCH (07:48)
[2020-06-04] MEDS: Furosemide 20 MG Tab PO SCH (07:49)
[2020-06-04] MEDS: Calcium Carbonate/Vitamin D3 1500 MG-400 Units Tab PO SCH (07:49)
[2020-06-04] MEDS: Aspirin 81 MG Tab.Chew PO SCH ×2 (07:49→17:50)
[2020-06-04] MEDS: Sodium Chloride 1 GM Tab PO SCH ×3 (07:50→17:50)
[2020-06-04] MEDS: Enoxaparin 40 MG/0.4 ML Syringe SUBCUT SCH (07:50)
[2020-06-04] MEDS: Polyethylene Glycol 3350 Powder 17 GM Packet PO SCH (07:54)
[2020-06-04] MEDS: Oxybutynin 5 MG Tab.ER PO SCH (11:43)
[2020-06-05 07:53] LABS: CHLORIDE,CL 94 mmol/L (98-107); SODIUM,NA 126 mmol/L (136-145)
[2020-06-05] MEDS: Enoxaparin 40 MG/0.4 ML Syringe SUBCUT SCH (07:59)
[2020-06-05] MEDS: Citalopram 20 MG Tab PO SCH (08:00)
[2020-06-05] MEDS: Cholecalciferol (Vitamin D3) 25 MCG Tab PO SCH (08:00)
[2020-06-05] MEDS: Fish Oil/Omega-3 Fatty Acids 1 Gm Cap PO SCH (08:01)
[2020-06-05] MEDS: Cephalexin 250 MG Cap PO SCH ×2 (08:01→11:59)
[2020-06-05] MEDS: Aspirin 81 MG Tab.Chew PO SCH (08:01)
[2020-06-05] MEDS: Magnesium Oxide 400 MG Tab PO SCH (08:02)
[2020-06-05] MEDS: Furosemide 20 MG Tab PO SCH (08:02)
[2020-06-05] MEDS: Calcium Carbonate/Vitamin D3 1500 MG-400 Units Tab PO SCH (08:02)
[2020-06-05] MEDS: Ferrous Sulfate 325 MG Tab PO SCH (08:02)
[2020-06-05] MEDS: Lisinopril 5 MG Tab PO SCH (08:03)
[2020-06-05] MEDS: Sodium Chloride 1 GM Tab PO SCH ×2 (08:03→11:59)
[2020-06-05] MEDS: Multivitamin Tab PO SCH (08:03)
[2020-06-05] MEDS: Acetaminophen 650 MG Tab.ER PO PRN (08:04)
[2020-06-05 08:05] VITALS: BP 124/80
[2020-06-05] MEDS: Polyethylene Glycol 3350 Powder 17 GM Packet PO SCH (08:05)
[2020-06-05 08:56] VITALS: PULSE 85
--- NOTE | 2020-06-05 09:23 | PCM.DCSUM1 ---
Discharge Summary - Hospital Course HPI Initial Comments: See admission H&P Brief History: See admission H&P Diagnosis: Stroke: No Modified Case Scale: No Symptoms at All Modified Case Scale Score: 0 - Discharge Data Discharge Date: 06/05/20 Discharge Disposition: Home, Self-Care 01 Condition: Fair - Referral to Home Health Primary Care Physician: PCP Not In Area - Discharge Diagnosis/Problem(s) (1) Recurrent dislocation, left hip SNOMED Code(s): 993251130 ICD Code: M24.452 - RECURRENT DISLOCATION, LEFT HIP Status: Acute Priority: High Current Visit: Yes Problem Details: The patient awoke this morning with moderate left hip pain radiating to her foot with the patient unable to bear weight at this time. Note that physical therapy went well yesterday and throughout this hospitalization with no history of fall, injury, etc. with the patient apparently dislocating her left hip TEP once again during her sleep this past evening. Telephone consultation at 9:10 AM with [facility] in [place] with subsequent telephone consultation at 9:[address] Donato, hospitalist, who is requesting further consultation with their orthopedic surgeon. Subsequent telephone consultation at 9:[address] Holland, hospitalist, who does agree to patient transfer for direct admission and subse quent orthopedic consultation, with no further treatment recommendations given. Ambulance transfer with adz worker accompaniment to their [facility]. Vital signs and clinical exam were stable at time of transfer with mild delay of patient transfer secondary to lack of bed availability without sequelae. Note history of recurrent dislocation of the left hip with required repeat revision on 05/19/20 as per admission H&P above with surgery complicated by postoperative anemia, which does persist despite iron supplementation during her swing bed care. PT and OT was progressing well during her swing bed care with plan discharge next week. Her melba have been removed with no local signs of infection from her previous operative site. Note current subcutaneous Lovenox therapy as DVT prophylaxis per transfer orders from [place]. Ambulance transfer with adz worker accompaniment with saline lock placed prior to patient's transfer for pain management, etc.. Patient did receive IV Dilaudid and IV Zofran for pain control and as GI prophylaxis prior to transfer. (2) Pulmonary nodule SNOMED Code(s): 933367231 ICD Code: R91.1 - SOLITARY PULMONARY NODULE Status: Acute Priority: High Current Visit: Yes Onset Date: 05/25/20 Problem Details: Newly diagnosed left upper lobe pulmonary nodule by CT scan on 05/25/2020. Note simple provider note on that day with the patient requesting to delay further work-up, including possible lung biopsy until she recovers from her recent surgery. Oncology consultation recommended by accepting providers with the patient wishing to pursue this further at this time. 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 If lung biopsy is not performed, CT/PET of the lung should be performed no later than 3 months as per recommendations from the radiologist. (3) Osteoarthritis SNOMED Code(s): 468315118 ICD Code: M19.90 - UNSPECIFIED OSTEOARTHRITIS, UNSPECIFIED SITE Status: Chronic Priority: Medium Current Visit: Yes Problem Details: Otherwise stable by history Qualifiers: Osteoarthritis location: multiple joints Osteoarthritis type: primary Qualified Code(s): M89.49 - Other hypertrophic osteoarthropathy, multiple sites (4) Hypertension SNOMED Code(s): 14671765 ICD Code: I10 - ESSENTIAL (PRIMARY) HYPERTENSION Status: Chronic Priority: Medium Current Visit: Yes Problem Details: Stable since admission and during swing bed care. Continue to observe closely by accepting providers. Qualifiers: Hypertension type: essential hypertension Qualified Code(s): I10 - Essential (primary) hypertension (5) Postoperative anemia SNOMED Code(s): 335714462, 873179777 ICD Code: D64.9 - ANEMIA, UNSPECIFIED Status: Acute Priority: Medium Current Visit: Yes Onset Date: ~05/21/20 Problem Details: Relatively stable during her swing bed care, although somewhat progressive on 06/05 with hemoglobin of 8.9 today. No evidence of acute bleeding, etc. Hemoglobin of 9.2 on 05/29 with previous hemoglobin of 10.0. Continue to observe closely hemoglobin of 8.3 on 05/21 at [facility]. Iron supplementation has been initiated with consideration of repeat iron studies in 4 weeks. Note subcutaneous Lovenox at DVT prophylaxis dose as per instructions from Ortho on admission as above. (6) Hyperlipidemia SNOMED Code(s): 30349963 ICD Code: E78.5 - HYPERLIPIDEMIA, UNSPECIFIED Status: Chronic Priority: Medium Current Visit: Yes Problem Details: Continue to observe closely by accepting and regular providers. Qualifiers: Hyperlipidemia type: other hyperlipidemia Qualified Code(s): E78.49 - Other hyperlipidemia; E78.4 - Other hyperlipidemia (7) Hypomagnesemia SNOMED Code(s): 928395170 ICD Code: E83.42 - HYPOMAGNESEMIA Status: Acute Priority: Medium Current Visit: Yes Problem Details: Magnesium level normal on admission however secondary to Lasix therapy low-dose magnesium oxide was initiated on 05/30. Normal magnesium level of 2.0 on 06/01. Continue to observe closelyby her accepting and regular providers. (8) Osteomyelitis SNOMED Code(s): 29729938 ICD Code: M86.9 - OSTEOMYELITIS, UNSPECIFIED Status: Chronic Priority: Medium Current Visit: Yes Problem Details: Continue long-term chronic Keflex therapy for chronic osteomyelitis of the facial regions after previous extensive surgery for carcinoma excision. No significant local signs of infection at time of discharge/transfer. Qualifiers: Osteomyelitis type: other chronic Osteomyelitis location: unspecified site Qualified Code(s): M86.60 - Other chronic osteomyelitis, unspecified site (9) Mixed anxiety depressive disorder SNOMED Code(s): 026668152 ICD Code: F41.8 - OTHER SPECIFIED ANXIETY DISORDERS Status: Chronic Priority: Medium Current Visit: Yes Problem Details: Note history of alcohol abuse. Stable by history and during her swing bed care. (10) CHF (congestive heart failure) SNOMED Code(s): 00636402 ICD Code: I50.9 - HEART FAILURE, UNSPECIFIED Status: Acute Priority: Medium Current Visit: Yes Problem Details: No chest pain or anginal type symptoms, however evidence of some mild CHF by x-ray. Low-dose oral Lasix therapy initiated on 05/29. Continue to observe her renal status and magnesium levels closely by accepting providers. Some developing hyperkalemia on secondary to potassium supplementation with her Lasix therapy as above. Normal potassium level of 4.8 on 06/05 after discontinuation of this supplementation. In addition, note history of hyponatremia and hypomagnesemia. Consider echocardiogram, cardiology consultation, etc. by accepting providers on an outpatient basis. Qualifiers: Heart failure type: unspecified Heart failure chronicity: acute Qualified Code(s): I50.9 - Heart failure, unspecified (11) Hypoalbuminemia SNOMED Code(s): 249456833 ICD Code: E88.09 - OTH DISORDERS OF PLASMA-PROTEIN METABOLISM, NEC Status: Chronic Priority: Medium Current Visit: Yes Problem Details: Continue to observe closely by accepting providers. Consider high-protein Glucerna supplements and snacks. (12) Hyponatremia SNOMED Code(s): 82868560 ICD Code: E87.1 - HYPO-OSMOLALITY AND HYPONATREMIA Status: Chronic Priority: Medium Current Visit: Yes Problem Details: Note that the patient did receive 3% normal saline infusion earlier during her swing bed care with mild reoccurring hyponatremia with known chronic problem. The patient is already receiving high-dose sodium chloride oral supplementation. Note mild CHF is a cofactor with initiation of Lasix therapy and increase of her potassium supplementation on 05/29. Continue to observe closely for now. (13) Hypocalcemia SNOMED Code(s): 5337168 ICD Code: E83.51 - HYPOCALCEMIA Status: Chronic Priority: Medium Current Visit: Yes Problem Details: Variable throughout her swing bed care. Continue to observe closely by her accepting and regular providers. - Patient Summary/Data Operative Procedure(s) Performed: None Complications: Recurrent left hip dislocation as above Consults: Consultations 05/22/20 15:16 Consult to Case Management/Net Ui Developer [CONS] Routine OT Evaluation and Treatment [CONS] Routine PT Evaluation and Treatment [CONS] Routine Labs Pending at D/C: None Recommended Follow-up Testing/Procedures: As above Planned Operative Procedure(s) after DC: As above Hospital Course: The patient was admitted to swing bed care for initiation of PT, OT, and strengthening after repeat surgery for recurrent left hip dislocation. She has multiple chronic illnesses as above with multiple medication adjustments required during her swing bed care. Note newly diagnosed left upper lobe pulmonary nodule consistent with carcinoma with possible metastases from her previous sinus carcinoma. Unfortunate recurrence of her left hip dislocation as above. Otherwise her swing bed care progressed well without other further complications with previously planned discharge from our swing bed unit next week. - Patient Instructions Diet: NPO Activity: Bedrest Driving: Do Not Drive Showering/Bathing: No Showering Wound/Incision Care: Keep Operative Site/Wound Site Clean and Dry Notify Provider of: Increased Pain, Nausea and/or Vomiting - Discharge Plan *PRESCRIPTION DRUG MONITORING PROGRAM REVIEWED*: Not Applicable *COPY OF PRESCRIPTION DRUG MONITORING REPORT IN PATIENT JEFRY: Not Applicable Home Medications: Home Meds Lisinopril [Prinivil] 5 mg PO DAILY #30 tablet 10/15/15 [Rx] Acetaminophen [Tylenol Arthritis Pain] 650 mg PO BID PRN 01/31/20 [History] Betamethasone Dipropionate [Diprosone 0.05% Crm] 0 gm TOP BID PRN 01/31/20 [History] Calcium Carbonate/Vitamin D3 [Caltrate 600 Plus D3 Tablet] 1 tab PO DAILY 01/31/20 [History] Cholecalciferol (Vitamin D3) [Vitamin D3] 2,000 unit PO DAILY 01/31/20 [History] Cyclobenzaprine [Flexeril] 10 mg PO TID PRN 01/31/20 [History] Erythromycin Base [Erythromycin] 1 dose EYEBOTH QID PRN 01/31/20 [History] Multivitamin with Minerals [Multiple Vitamin] 1 each PO DAILY 01/31/20 [History] [place]-3/DHA/Epa/Fish Oil [Fish Oil 1,000 mg Softgel] 1,000 mg PO DAILY 01/31/20 [History] Sodium Chloride 3 gm PO TID 01/31/20 [History] Urea [Urea 20% Crm] 85 gm .XX BID 01/31/20 [History] cephALEXin [Cephalexin] 500 mg PO TID 01/31/20 [History] Docusate Sodium/Sennosides [Senna Plus] 2 tab PO BID PRN tablet 03/02/20 [Rx] Aspirin 81 mg PO BID 05/22/20 [History] Benzocaine/Menthol [Cepacol Sore Throat Lozenge] 1 each MM Q4HR PRN 05/22/20 [History] Bisacodyl [Laxative Suppository] 10 mg RC DAILY PRN 05/22/20 [History] Clobetasol [Clobetasol Propionate 0.05%] 1 applic TOP BID PRN 05/22/20 [History] Enoxaparin [Lovenox] 40 mg SUBCUT DAILY 05/22/20 [History] LORazepam [Ativan] 0.5 mg PO Q6HR PRN 05/22/20 [History] Magnesium Hydroxide [Dulcolax] 30 ml PO BID PRN 05/22/20 [History] Nicotine [Nicotine Patch] 21 mg TD DAILY 05/22/20 [History] Ondansetron [Zofran ODT] 4 mg PO QID PRN 05/22/20 [History] Polyethylene Glycol [Polyox Wsr-301] 17 gm PO DAILY 05/22/20 [History] oxyCODONE 5 mg PO Q4HR PRN 05/22/20 [History] Oxygen Therapy Mode: Room Air Patient Handouts: Oxybutynin extended-release tablets Forms: Interfacility Transfer EMTALA - Discharge Summary/Plan Comment DC Time >30 min.: Yes (Coordination of care ) Discharge Summary/Plan Comment: As above. Extensive precautions were given to the patient, who is in agreement with the treatment plan. Hospital transfer to [facility] the ambulance with adz worker accompaniment as above. - General Info Date of Service: 06/05/20 Admission Dx/Problem (Free Text: Admission Diagnosis/Problem Admission Diagnosis/Problem Weakness Subjective Update: The patient is a poor historian secondary to her severe presbycusis Functional Status: Reports: Pain Controlled, Tolerating Diet, New Symptoms (Left hip pain secondary to dislocation). Denies: Ambulating (Secondary to repeat hip dislocation), Incentive Spirometry Numeric/FACES Score: 6 - Review of Systems General: Reports: Weakness (Improving generalized weakness). Denies: Fatigue, Malaise, Chills, Night Sweats, Appetite (Good) HEENT: Reports: Post Nasal Drip (Chronic), Sinus Congestion (Chronic), Other (Stable midface/frontal deformity) Pulmonary: Reports: No Symptoms. Denies: Shortness of Breath, Pleuritic Chest Pain, Cough, Sputum, Hemoptysis, Wheezing Cardiovascular: Reports: No Symptoms. Denies: Chest Pain, Palpitations, Dyspnea on Exertion, Orthopnea, Edema, Lightheadedness Gastrointestinal: Reports: No Symptoms. Denies: Abdominal Pain, Constipation, Decreased Appetite, Diarrhea, Difficulty Swallowing, Flatus, Hematochezia, Melena, Nausea, Vomiting Genitourinary: Reports: No Symptoms. Denies: Dysuria, Frequency, Burning, Pain, Urgency, Hematuria, Retention, Flank Pain Musculoskeletal: Reports: Foot Pain (As below), Joint Pain (Left hip pain secondary to dislocation with radiation to the left foot). Denies: Neck Pain, Shoulder Pain, Arm Pain, Hand Pain, Back Pain Skin: Reports: Pallor (Stable chronic), Bruising (Mild at her Lovenox sites). Denies: Diaphoresis Neurological: Reports: Difficulty Walking (Secondary to left hip dislocation), Weakness (Slowly improving). Denies: Confusion, Headache, Numbness, Paresthesia, Tingling Psychiatric: Reports: No Symptoms. Denies: Confusion, Depression, Anxiety, Agitation, Cravings, Hallucinations - Patient Data Vitals - Most Recent: Last Vital Signs Temp 36.3 C 06/05/20 08:00 Pulse 85 06/05/20 08:00 Resp 24 H 06/05/20 08:00 BP 124/80 06/05/20 08:03 Pulse Ox 97 06/05/20 08:00 Vital Signs (72 hours) 06/02/20 06/03/20 06/03/20 18:00 07:31 08:00 Temperature [ 36.8 C 36.4 C Oral] Temperature [ Temporal] Pulse, 96 79 Peripheral [ Pulse Oximetry] Respiratory 20 16 Rate Blood Pressure 122/70 Blood Pressure 140/64 [Left Upper Arm ] Blood Pressure 122/70 [Right Arm] O2 Sat by Pulse 94 L 95 Oximetry 06/03/20 06/04/20 06/04/20 18:00 07:45 07:54 Temperature [ 37.2 C Oral] Temperature [ 37.2 C 36.2 C Temporal] Pulse, 81 Peripheral [ Pulse Oximetry] Respiratory 14 18 Rate Blood Pressure 116/62 Blood Pressure [Left Upper Arm ] Blood Pressure 123/65 116/62 [Right Arm] O2 Sat by Pulse 95 95 Oximetry 06/04/20 06/05/20 06/05/20 17:52 08:00 08:03 Temperature [ 36.3 C Oral] Temperature [ 37.0 C Temporal] Pulse, 88 85 Peripheral [ Pulse Oximetry] Respiratory 18 24 H Rate Blood Pressure 124/80 Blood Pressure 128/62 124/80 [Left Upper Arm ] Blood Pressure [Right Arm] O2 Sat by Pulse 95 97 Oximetry Vital Signs - 24 hr 06/04/20 06/05/20 06/05/20 17:52 08:00 08:03 Temperature [ 36.3 C Oral] Temperature [ 37.0 C Temporal] Pulse, 88 85 Peripheral [ Pulse Oximetry] Respiratory 18 24 H Rate Blood Pressure 124/80 Blood Pressure 128/62 124/80 [Left Upper Arm ] O2 Sat by Pulse 95 97 Oximetry Weight - Most Recent: 59.829 kg I&O - Last 24 hours: Intake & Output 06/04/20 06/05/20 06/05/20 22:59 06:59 14:59 Intake Total 360 100 420 Balance 360 100 420 Imaging Impressions - Last 24 hrs: X-rays of the hip, 1 view, on 06/05/2020 shows a severe superior dislocation of the left hip TEP with evidence of old left anterior pelvic ring fracture and hairline major trochanteric defect, which appears old in nature. X-ray report did indicate possible hip fracture, etc.? Chest x-ray, portable, on 05/25/2020 did indicate some moderate bilateral p erihilar prominence with CT scan of the chest recommended. Subsequent CT of the chest with IV contrast did show moderate COPD with additional probable 17 mm left upper lobe pulmonary nodule consistent with possible carcinoma. Chest x-ray, portable, on 05/28/2020 shows mild prominence of the proximal aortic arch with mild aortic valve calcification. Moderate COPD with probable pulmonary hypertension and/or mild mostly centralized CHF with improved perihilar prominence since last chest x-ray on 05/25/2020. No pulmonary infiltrates, pneumothorax, etc. Lab Results - Last 24 hrs: Laboratory Results - last 24 hr 06/05/20 06/05/20 Range/Units 07:27 07:27 WBC 8.4 (4.0-10.2) K/uL RBC 3.23 L (3.77-5.09) M/uL Hgb 8.9 L (11.7-15.5) g/dL Hct 27.9 L (34.0-46.0) % MCV 86.4 (84.0-98.0) fL MCH 27.6 L (28.2-33.3) pg MCHC 31.9 (31.7-36.0) g/dL RDW 15.2 H (11.2-14.1) % Plt Count 585 H D (150-350) K/uL Neut % (Auto) 62.2 (45.0-80.0) % Lymph % (Auto) 21.1 (10.0-50.0) % [place] % (Auto) 13.1 (2.0-14.0) % Eos % (Auto) 3.2 (0.0-5.0) % Baso % (Auto) 0.4 (0.0-2.0) % Neut # (Auto) 5.22 (1.40-7.00) K/uL Lymph # (Auto) 1.77 (0.50-3.50) K/uL [place] # (Auto) 1.10 H (0.00-1.00) K/uL Eos # (Auto) 0.27 (0.00-0.50) K/uL Baso # (Auto) 0.03 (0.00-0.20) K/uL Sodium 126 L (136-145) mmol/L Potassium 4.8 (3.5-5.1) mmol/L Chloride 94 L (98-107) mmol/L Carbon Dioxide 27.2 (21.0-32.0) mmol/L BUN 17 (7-18) mg/dL Creatinine 0.66 (0.51-1.17) mg/dL Est Cr Clr Drug Dosing 67.51 mL/min Estimated GFR (MDRD) > 60 mL/min Glucose 83 (74-106) mg/dL Calcium 8.4 L (8.5-10.1) mg/dL Laboratory Tests 05/23/20 05/23/20 05/23/20 Range/Units 07:13 07:13 07:13 WBC 9.9 (4.0-10.2) K/uL RBC 3.39 L (3.77-5.09) M/uL Hgb 9.3 L (11.7-15.5) g/dL Hct 29.4 L (34.0-46.0) % MCV 86.7 (84.0-98.0) fL MCH 27.4 L (28.2-33.3) pg MCHC 31.6 L (31.7-36.0) g/dL RDW 14.6 H (11.2-14.1) % Plt Count 688 H (150-350) K/uL Neut % (Auto) 66.9 (45.0-80.0) % Lymph % (Auto) 19.3 (10.0-50.0) % [place] % (Auto) 10.0 (2.0-14.0) % Eos % (Auto) 3.4 (0.0-5.0) % Baso % (Auto) 0.4 (0.0-2.0) % Neut # (Auto) 6.64 (1.40-7.00) K/uL Lymph # (Auto) 1.91 (0.50-3.50) K/uL [place] # (Auto) 0.99 (0.00-1.00) K/uL Eos # (Auto) 0.34 (0.00-0.50) K/uL Baso # (Auto) 0.04 (0.00-0.20) K/uL PT 10.8 (9.5-12.0) SEC INR 1.1 APTT 30.1 (24.5-32.8) SEC Sodium 132 L (136-145) mmol/L Potassium 4.1 (3.5-5.1) mmol/L Chloride 97 L (98-107) mmol/L Carbon Dioxide 29.5 (21.0-32.0) mmol/L BUN 14 (7-18) mg/dL Creatinine 0.62 (0.51-1.17) mg/dL Est Cr Clr Drug Dosing 71.87 mL/min Estimated GFR (MDRD) > 60 mL/min Glucose 78 (74-106) mg/dL POC Glucose (65-110) mg/dl Uric Acid 2.7 (2.6-7.2) mg/dL Calcium 8.1 L (8.5-10.1) mg/dL Magnesium 1.8 (1.8-2.4) mg/dL Total Bilirubin 0.2 (0.2-1.0) mg/dL AST 28 (15-37) U/L ALT 15 (12-78) U/L Alkaline Phosphatase 73 (46-116) IU/L Creatine Kinase 39 (26-308) U/L Creatine Kinase Index 2.8 H (0.0-2.5) % CK-MB (CK-2) 1.10 (0.00-3.60) ng/mL Troponin I 0.013 (0.000-0.056) ng/mL NT-Pro-B Natriuret Pep 4822 H (0-125) pg/mL Total Protein 5.4 L (6.4-8.2) g/dL Albumin 2.3 L (3.4-5.0) g/dL Specimen Type Urine Color Urine Appearance Urine pH (5.0-9.0) Ur Specific [place] (1.005-1.030) Urine Protein (NEGATIVE) mg/dL Urine Glucose (UA) (NEGATIVE) mg/dL Urine Ketones (NEGATIVE) mg/dL Urine Occult Blood (NEGATIVE) Urine Nitrite (NEGATIVE) Urine Bilirubin (NEGATIVE) Urine Urobilinogen (0.2-1.0) E.U./dL Ur Leukocyte Esterase (NEGATIVE) U Hyaline Cast (Auto) Urine RBC /HPF Urine WBC /HPF SARS-CoV-2 RNA (GALLO) (NEGATIVE) 05/25/20 05/25/20 05/26/20 Range/Units 07:30 07:30 10:44 WBC 11.2 H (4.0-10.2) K/uL RBC 3.63 L (3.77-5.09) M/uL Hgb 9.9 L (11.7-15.5) g/dL Hct 30.6 L (34.0-46.0) % MCV 84.3 (84.0-98.0) fL MCH 27.3 L (28.2-33.3) pg MCHC 32.4 (31.7-36.0) g/dL RDW 14.9 H (11.2-14.1) % Plt Count 690 H (150-350) K/uL Neut % (Auto) 69.8 (45.0-80.0) % Lymph % (Auto) 17.9 (10.0-50.0) % Hard[place] % (Auto) 10.7 (2.0-14.0) % Eos % (Auto) 1.4 (0.0-5.0) % Baso % (Auto) 0.2 (0.0-2.0) % Neut # (Auto) 7.81 H (1.40-7.00) K/uL Lymph # (Auto) 2.01 (0.50-3.50) K/uL [place] # (Auto) 1.20 H (0.00-1.00) K/uL Eos # (Auto) 0.16 (0.00-0.50) K/uL Baso # (Auto) 0.02 (0.00-0.20) K/uL PT (9.5-12.0) SEC INR APTT (24.5-32.8) SEC Sodium 127 L (136-145) mmol/L Potassium 4.9 (3.5-5.1) mmol/L Chloride 92 L (98-107) mmol/L Carbon Dioxide 28.1 (21.0-32.0) mmol/L BUN 8 (7-18) mg/dL Creatinine 0.65 (0.51-1.17) mg/dL Est Cr Clr Drug Dosing 68.55 mL/min Estimated GFR (MDRD) > 60 mL/min Glucose 87 (74-106) mg/dL POC Glucose 115 H (65-110) mg/dl Uric Acid 2.5 L (2.6-7.2) mg/dL Calcium 8.6 (8.5-10.1) mg/dL Magnesium 1.8 (1.8-2.4) mg/dL Total Bilirubin (0.2-1.0) mg/dL AST (15-37) U/L ALT (12-78) U/L Alkaline Phosphatase (46-116) IU/L Creatine Kinase 32 (26-308) U/L Creatine Kinase Index 1.9 (0.0-2.5) % CK-MB (CK-2) 0.60 (0.00-3.60) ng/mL Troponin I 0.000 (0.000-0.056) ng/mL NT-Pro-B Natriuret Pep 2824 H (0-125) pg/mL Total Protein (6.4-8.2) g/dL Albumin (3.4-5.0) g/dL Specimen Type Urine Color Urine Appearance Urine pH (5.0-9.0) Ur Specific [place] (1.005-1.030) Urine Protein (NEGATIVE) mg/dL Urine Glucose (UA) (NEGATIVE) mg/dL Urine Ketones (NEGATIVE) mg/dL Urine Occult Blood (NEGATIVE) Urine Nitrite (NEGATIVE) Urine Bilirubin (NEGATIVE) Urine Urobilinogen (0.2-1.0) E.U./dL Ur Leukocyte Esterase (NEGATIVE) U Hyaline Cast (Auto) Urine RBC /HPF Urine WBC /HPF SARS-CoV-2 RNA (GALLO) (NEGATIVE) 05/26/20 05/26/20 05/26/20 Range/Units 13:06 13:30 13:32 WBC 11.2 H (4.0-10.2) K/uL RBC 3.65 L (3.77-5.09) M/uL Hgb 10.0 L (11.7-15.5) g/dL Hct 30.2 L (34.0-46.0) % MCV 82.7 L (84.0-98.0) fL MCH 27.4 L (28.2-33.3) pg MCHC 33.1 (31.7-36.0) g/dL RDW 14.9 H (11.2-14.1) % Plt Count 737 H (150-350) K/uL Neut % (Auto) 70.1 (45.0-80.0) % Lymph % (Auto) 17.8 (10.0-50.0) % [place] % (Auto) 11.4 (2.0-14.0) % Eos % (Auto) 0.5 (0.0-5.0) % Baso % (Auto) 0.2 (0.0-2.0) % Neut # (Auto) 7.81 H (1.40-7.00) K/uL Lymph # (Auto) 1.99 (0.50-3.50) K/uL [place] # (Auto) 1.27 H (0.00-1.00) K/uL Eos # (Auto) 0.06 (0.00-0.50) K/uL Baso # (Auto) 0.02 (0.00-0.20) K/uL PT (9.5-12.0) SEC INR APTT (24.5-32.8) SEC Sodium 124 L* (136-145) mmol/L Potassium 5.0 (3.5-5.1) mmol/L Chloride 90 L (98-107) mmol/L Carbon Dioxide 26.4 (21.0-32.0) mmol/L BUN 11 (7-18) mg/dL Creatinine 0.67 (0.51-1.17) mg/dL Est Cr Clr Drug Dosing 66.50 mL/min Estimated GFR (MDRD) > 60 mL/min Glucose 108 H (74-106) mg/dL POC Glucose (65-110) mg/dl Uric Acid (2.6-7.2) mg/dL Calcium 8.8 (8.5-10.1) mg/dL Magnesium 1.9 (1.8-2.4) mg/dL Total Bilirubin (0.2-1.0) mg/dL AST (15-37) U/L ALT (12-78) U/L Alkaline Phosphatase (46-116) IU/L Creatine Kinase (26-308) U/L Creatine Kinase Index (0.0-2.5) % CK-MB (CK-2) (0.00-3.60) ng/mL Troponin I (0.000-0.056) ng/mL NT-Pro-B Natriuret Pep (0-125) pg/mL Total Protein (6.4-8.2) g/dL Albumin (3.4-5.0) g/dL Specimen Type Urine Color Urine Appearance Urine pH (5.0-9.0) Ur Specific [place] (1.005-1.030) Urine Protein (NEGATIVE) mg/dL Urine Glucose (UA) (NEGATIVE) mg/dL Urine Ketones (NEGATIVE) mg/dL Urine Occult Blood (NEGATIVE) Urine Nitrite (NEGATIVE) Urine Bilirubin (NEGATIVE) Urine Urobilinogen (0.2-1.0) E.U./dL Ur Leukocyte Esterase (NEGATIVE) U Hyaline Cast (Auto) Urine RBC /HPF Urine WBC /HPF SARS-CoV-2 RNA (GALLO) Negative (NEGATIVE) 05/26/20 05/27/20 05/28/20 Range/Units 15:55 07:05 07:18 WBC (4.0-10.2) K/uL RBC (3.77-5.09) M/uL Hgb (11.7-15.5) g/dL Hct (34.0-46.0) % MCV (84.0-98.0) fL MCH (28.2-33.3) pg MCHC (31.7-36.0) g/dL RDW (11.2-14.1) % Plt Count (150-350) K/uL Neut % (Auto) (45.0-80.0) % Lymph % (Auto) (10.0-50.0) % [place] % (Auto) (2.0-14.0) % Eos % (Auto) (0.0-5.0) % Baso % (Auto) (0.0-2.0) % Neut # (Auto) (1.40-7.00) K/uL Lymph # (Auto) (0.50-3.50) K/uL [place] # (Auto) (0.00-1.00) K/uL Eos # (Auto) (0.00-0.50) K/uL Baso # (Auto) (0.00-0.20) K/uL PT (9.5-12.0) SEC INR APTT (24.5-32.8) SEC Sodium 132 L 132 L (136-145) mmol/L Potassium 4.7 4.5 (3.5-5.1) mmol/L Chloride 99 101 (98-107) mmol/L Carbon Dioxide 25.3 24.7 (21.0-32.0) mmol/L BUN 9 9 (7-18) mg/dL Creatinine 0.67 0.60 (0.51-1.17) mg/dL Est Cr Clr Drug Dosing 66.50 74.26 mL/min Estimated GFR (MDRD) > 60 > 60 mL/min Glucose 86 78 (74-106) mg/dL POC Glucose (65-110) mg/dl Uric Acid (2.6-7.2) mg/dL Calcium 8.1 L 8.0 L (8.5-10.1) mg/dL Magnesium (1.8-2.4) mg/dL Total Bilirubin (0.2-1.0) mg/dL AST (15-37) U/L ALT (12-78) U/L Alkaline Phosphatase (46-116) IU/L Creatine Kinase (26-308) U/L Creatine Kinase Index (0.0-2.5) % CK-MB (CK-2) (0.00-3.60) ng/mL Troponin I (0.000-0.056) ng/mL NT-Pro-B Natriuret Pep (0-125) pg/mL Total Protein (6.4-8.2) g/dL Albumin (3.4-5.0) g/dL Specimen Type Urinblad Urine Color Yellow Urine Appearance Clear Urine pH 6.5 (5.0-9.0) Ur Specific [place] 1.015 (1.005-1.030) Urine Protein Negative (NEGATIVE) mg/dL Urine Glucose (UA) Negative (NEGATIVE) mg/dL Urine Ketones Negative (NEGATIVE) mg/dL Urine Occult Blood Negative (NEGATIVE) Urine Nitrite Negative (NEGATIVE) Urine Bilirubin Negative (NEGATIVE) Urine Urobilinogen 0.2 (0.2-1.0) E.U./dL Ur Leukocyte Esterase Negative (NEGATIVE) U Hyaline Cast (Auto) Rare Urine RBC Not seen /HPF Urine WBC 0-5 /HPF SARS-CoV-2 RNA (GALLO) (NEGATIVE) 05/29/20 05/29/20 05/31/20 Range/Units 07:15 07:15 07:30 WBC 8.8 (4.0-10.2) K/uL RBC 3.35 L (3.77-5.09) M/uL Hgb 9.2 L (11.7-15.5) g/dL Hct 29.0 L (34.0-46.0) % MCV 86.6 D (84.0-98.0) fL MCH 27.5 L (28.2-33.3) pg MCHC 31.7 (31.7-36.0) g/dL RDW 15.1 H (11.2-14.1) % Plt Count 651 H D (150-350) K/uL Neut % (Auto) 56.7 (45.0-80.0) % Lymph % (Auto) 26.8 (10.0-50.0) % [place] % (Auto) 12.5 (2.0-14.0) % Eos % (Auto) 3.7 (0.0-5.0) % Baso % (Auto) 0.3 (0.0-2.0) % Neut # (Auto) 4.99 (1.40-7.00) K/uL Lymph # (Auto) 2.36 (0.50-3.50) K/uL [place] # (Auto) 1.10 H (0.00-1.00) K/uL Eos # (Auto) 0.33 (0.00-0.50) K/uL Baso # (Auto) 0.03 (0.00-0.20) K/uL PT (9.5-12.0) SEC INR APTT (24.5-32.8) SEC Sodium 127 L 127 L (136-145) mmol/L Potassium 4.5 5.1 (3.5-5.1) mmol/L Chloride 95 L 95 L (98-107) mmol/L Carbon Dioxide 25.5 25.1 (21.0-32.0) mmol/L BUN 10 16 (7-18) mg/dL Creatinine 0.63 0.72 (0.51-1.17) mg/dL Est Cr Clr Drug Dosing 70.73 61.89 mL/min Estimated GFR (MDRD) > 60 > 60 mL/min Glucose 87 87 (74-106) mg/dL POC Glucose (65-110) mg/dl Uric Acid (2.6-7.2) mg/dL Calcium 8.1 L 8.5 (8.5-10.1) mg/dL Magnesium (1.8-2.4) mg/dL Total Bilirubin 0.3 (0.2-1.0) mg/dL AST 18 (15-37) U/L ALT 17 (12-78) U/L Alkaline Phosphatase 86 (46-116) IU/L Creatine Kinase 25 L (26-308) U/L Creatine Kinase Index 1.6 (0.0-2.5) % CK-MB (CK-2) 0.40 (0.00-3.60) ng/mL Troponin I 0.007 (0.000-0.056) ng/mL NT-Pro-B Natriuret Pep 1089 H (0-125) pg/mL Total Protein 6.2 L (6.4-8.2) g/dL Albumin 3.0 L (3.4-5.0) g/dL Specimen Type Urine Color Urine Appearance Urine pH (5.0-9.0) Ur Specific [place] (1.005-1.030) Urine Protein (NEGATIVE) mg/dL Urine Glucose (UA) (NEGATIVE) mg/dL Urine Ketones (NEGATIVE) mg/dL Urine Occult Blood (NEGATIVE) Urine Nitrite (NEGATIVE) Urine Bilirubin (NEGATIVE) Urine Urobilinogen (0.2-1.0) E.U./dL Ur Leukocyte Esterase (NEGATIVE) U Hyaline Cast (Auto) Urine RBC /HPF Urine WBC /HPF SARS-CoV-2 RNA (GALLO) (NEGATIVE) 06/01/20 06/01/20 06/05/20 Range/Units 07:49 07:49 07:27 WBC 9.8 8.4 (4.0-10.2) K/uL RBC 3.57 L 3.23 L (3.77-5.09) M/uL Hgb 9.8 L 8.9 L (11.7-15.5) g/dL Hct 30.5 L 27.9 L (34.0-46.0) % MCV 85.4 86.4 (84.0-98.0) fL MCH 27.5 L 27.6 L (28.2-33.3) pg MCHC 32.1 31.9 (31.7-36.0) g/dL RDW 15.1 H 15.2 H (11.2-14.1) % Plt Count 677 H 585 H D (150-350) K/uL Neut % (Auto) 64.6 62.2 (45.0-80.0) % Lymph % (Auto) 20.5 21.1 (10.0-50.0) % [place] % (Auto) 12.4 13.1 (2.0-14.0) % Eos % (Auto) 2.2 3.2 (0.0-5.0) % Baso % (Auto) 0.3 0.4 (0.0-2.0) % Neut # (Auto) 6.30 5.22 (1.40-7.00) K/uL Lymph # (Auto) 2.00 1.77 (0.50-3.50) K/uL [place] # (Auto) 1.21 H 1.10 H (0.00-1.00) K/uL Eos # (Auto) 0.21 0.27 (0.00-0.50) K/uL Baso # (Auto) 0.03 0.03 (0.00-0.20) K/uL PT (9.5-12.0) SEC INR APTT (24.5-32.8) SEC Sodium 126 L (136-145) mmol/L Potassium 5.3 H (3.5-5.1) mmol/L Chloride 94 L (98-107) mmol/L Carbon Dioxide 28.0 (21.0-32.0) mmol/L BUN 15 (7-18) mg/dL Creatinine 0.76 (0.51-1.17) mg/dL Est Cr Clr Drug Dosing 58.63 mL/min Estimated GFR (MDRD) > 60 mL/min Glucose 88 (74-106) mg/dL POC Glucose (65-110) mg/dl Uric Acid (2.6-7.2) mg/dL Calcium 8.5 (8.5-10.1) mg/dL Magnesium 2.0 (1.8-2.4) mg/dL Total Bilirubin (0.2-1.0) mg/dL AST (15-37) U/L ALT (12-78) U/L Alkaline Phosphatase (46-116) IU/L Creatine Kinase (26-308) U/L Creatine Kinase Index (0.0-2.5) % CK-MB (CK-2) (0.00-3.60) ng/mL Troponin I 0.001 (0.000-0.056) ng/mL NT-Pro-B Natriuret Pep 235 H (0-125) pg/mL Total Protein (6.4-8.2) g/dL Albumin (3.4-5.0) g/dL Specimen Type Urine Color Urine Appearance Urine pH (5.0-9.0) Ur Specific [place] (1.005-1.030) Urine Protein (NEGATIVE) mg/dL Urine Glucose (UA) (NEGATIVE) mg/dL Urine Ketones (NEGATIVE) mg/dL Urine Occult Blood (NEGATIVE) Urine Nitrite (NEGATIVE) Urine Bilirubin (NEGATIVE) Urine Urobilinogen (0.2-1.0) E.U./dL Ur Leukocyte Esterase (NEGATIVE) U Hyaline Cast (Auto) Urine RBC /HPF Urine WBC /HPF SARS-CoV-2 RNA (GALLO) (NEGATIVE) 06/05/20 Range/Units 07:27 WBC (4.0-10.2) K/uL RBC (3.77-5.09) M/uL Hgb (11.7-15.5) g/dL Hct (34.0-46.0) % MCV (84.0-98.0) fL MCH (28.2-33.3) pg MCHC (31.7-36.0) g/dL RDW (11.2-14.1) % Plt Count (150-350) K/uL Neut % (Auto) (45.0-80.0) % Lymph % (Auto) (10.0-50.0) % [place] % (Auto) (2.0-14.0) % Eos % (Auto) (0.0-5.0) % Baso % (Auto) (0.0-2.0) % Neut # (Auto) (1.40-7.00) K/uL Lymph # (Auto) (0.50-3.50) K/uL [place] # (Auto) (0.00-1.00) K/uL Eos # (Auto) (0.00-0.50) K/uL Baso # (Auto) (0.00-0.20) K/uL PT (9.5-12.0) SEC INR APTT (24.5-32.8) SEC Sodium 126 L (136-145) mmol/L Potassium 4.8 (3.5-5.1) mmol/L Chloride 94 L (98-107) mmol/L Carbon Dioxide 27.2 (21.0-32.0) mmol/L BUN 17 (7-18) mg/dL Creatinine 0.66 (0.51-1.17) mg/dL Est Cr Clr Drug Dosing 67.51 mL/min Estimated GFR (MDRD) > 60 mL/min Glucose 83 (74-106) mg/dL POC Glucose (65-110) mg/dl Uric Acid (2.6-7.2) mg/dL Calcium 8.4 L (8.5-10.1) mg/dL Magnesium (1.8-2.4) mg/dL Total Bilirubin (0.2-1.0) mg/dL AST (15-37) U/L ALT (12-78) U/L Alkaline Phosphatase (46-116) IU/L Creatine Kinase (26-308) U/L Creatine Kinase Index (0.0-2.5) % CK-MB (CK-2) (0.00-3.60) ng/mL Troponin I (0.000-0.056) ng/mL NT-Pro-B Natriuret Pep (0-125) pg/mL Total Protein (6.4-8.2) g/dL Albumin (3.4-5.0) g/dL Specimen Type Urine Color Urine Appearance Urine pH (5.0-9.0) Ur Specific [place] (1.005-1.030) Urine Protein (NEGATIVE) mg/dL Urine Glucose (UA) (NEGATIVE) mg/dL Urine Ketones (NEGATIVE) mg/dL Urine Occult Blood (NEGATIVE) Urine Nitrite (NEGATIVE) Urine Bilirubin (NEGATIVE) Urine Urobilinogen (0.2-1.0) E.U./dL Ur Leukocyte Esterase (NEGATIVE) U Hyaline Cast (Auto) Urine RBC /HPF Urine WBC /HPF SARS-CoV-2 RNA (GALLO) (NEGATIVE) LORELEI Results - Last 24 hrs: None Med Orders - Current: Current Medications Acetaminophen (Tylenol Arthritis Pain) 650 mg PO BID PRN PRN Reason: Pain Last Admin: 06/05/20 08:04 Dose: 650 mg Documented by: Aspirin (Aspirin) 81 mg PO BID [facility] Last Admin: 06/05/20 08:01 Dose: 81 mg Documented by: Bisacodyl (Dulcolax) 10 mg RECTAL DAILY PRN PRN Reason: Constipation Calcium Carbonate (Caltrate 600+D 1500 Mg-400 Units) 1 tab PO DAILY [facility] Last Admin: 06/05/20 08:02 Dose: 1 tab Documented by: Cephalexin (Keflex) 500 mg PO TID [facility] Last Admin: 06/05/20 08:01 Dose: 500 mg Documented by: Cholecalciferol (Vitamin D3) 50 mcg PO DAILY [facility] Last Admin: 06/05/20 08:00 Dose: 50 mcg Documented by: Citalopram Hydrobromide (Celexa) 10 mg PO DAILY [facility] Last Admin: 06/05/20 08:00 Dose: 10 mg Documented by: Clobetasol Propionate (Clobetasol Propionate 0.05%) 0 gm TOP BID PRN PRN Reason: Itching Cyclobenzaprine HCl (Flexeril) 10 mg PO TID PRN PRN Reason: Spasms Enoxaparin Sodium (Lovenox) 40 mg SUBCUT DAILY [facility] Last Admin: 06/05/20 07:59 Dose: 40 mg Documented by: Erythromycin (Erythromycin 0.5% Ophth Oint) 0 gm EYEBOTH QID PRN PRN Reason: Other Ferrous Sulfate (Ferrous Sulfate) 325 mg PO BIDMEALS [facility] Last Admin: 06/05/20 08:02 Dose: 325 mg Documented by: Fish Oil (Fish Oil) 1 gm PO DAILY [facility] Last Admin: 06/05/20 08:01 Dose: 1 gm Documented by: Furosemide (Lasix) 10 mg PO DAILY [facility] Last Admin: 06/05/20 08:02 Dose: 10 mg Documented by: Lisinopril (Prinivil) 5 mg PO DAILY [facility] Last Admin: 06/05/20 08:03 Dose: 5 mg Documented by: Lorazepam (Ativan) 0.5 mg PO Q6HR PRN PRN Reason: Anxiety Last Admin: 05/23/20 19:17 Dose: 0.5 mg Documented by: Magnesium Hydroxide (Milk Of Magnesia) 30 ml PO BID PRN PRN Reason: Constipation Magnesium Oxide (Magnesium Oxide) 400 mg PO DAILY [facility] Last Admin: 06/05/20 08:02 Dose: 400 mg Documented by: Multivitamins/Minerals/Vitamin C (Tab-A-Kayla) 1 tab PO DAILY [facility] Last Admin: 06/05/20 08:03 Dose: 1 tab Documented by: Ondansetron HCl (Zofran Odt) 4 mg PO QID PRN PRN Reason: Nausea Oxybutynin Chloride (Oxybutynin Er) 5 mg PO DAILY@1200 [facility] Last Admin: 06/04/20 11:43 Dose: 5 mg Documented by: Polyethylene Glycol (Miralax) 17 gm PO DAILY [facility] Last Admin: 06/05/20 08:05 Dose: 17 gm Documented by: Senna/Docusate Sodium (Senna Plus) 2 tab PO BID PRN PRN Reason: Constipation Sodium Chloride (Sodium Chloride) 3 gm PO TID [facility] Last Admin: 06/05/20 08:03 Dose: 3 gm Documented by: Discontinued Medications Furosemide (Lasix) 20 mg PO BIDDIURETIC [facility] Last Admin: 05/26/20 12:54 Dose: 20 mg Documented by: Furosemide (Lasix) 20 mg PO BIDDIURETIC [facility] Last Admin: 05/31/20 07:49 Dose: 20 mg Documented by: Furosemide (Lasix) 20 mg PO DAILY [facility] Last Admin: 06/01/20 08:38 Dose: 20 mg Documented by: Sodium Chloride (Sodium Chloride 3%) 500 mls @ 30 mls/hr IV ASDIRECTED [facility] Last Admin: 05/27/20 09:02 Dose: 30 mls/hr Documented by: Sodium Chloride (Sodium Chloride 3%) 500 mls @ 30 mls/hr IV ASDIRECTED [facility] Last Admin: 05/28/20 00:49 Dose: 30 mls/hr Documented by: Iopamidol (Isovue-300 (61%)) 100 ml IVPUSH ONETIME ONE Stop: 05/25/20 11:15 Last Admin: 05/25/20 15:19 Dose: 100 ml Documented by: Nicotine (Habitrol) 21 mg TOP DAILY [facility] Last Admin: 05/30/20 09:36 Dose: Not Given Documented by: Oxybutynin Chloride (Oxybutynin Er) 5 mg PO DAILY [facility] Last Admin: 05/29/20 09:36 Dose: Not Given Documented by: Oxycodone HCl (Oxycodone) 5 mg PO Q4HR PRN PRN Reason: Pain Potassium Chloride (Klor-Con M20) 20 meq PO BIDMEALS [facility] Last Admin: 05/29/20 08:45 Dose: 20 meq Documented by: Potassium Chloride (Klor-Con M20) 20 meq PO TIDMEALS [facility] Last Admin: 05/31/20 11:57 Dose: 20 meq Documented by: Potassium Chloride (Klor-Con M20) 20 meq PO DAILY [facility] Last Admin: 06/01/20 08:37 Dose: 20 meq Documented by: - Exam Quality Assessment: Reports: DVT Prophylaxis (Subcu Lovenox), Skin Breakdown (Stable large frontal/ethmoid sinus defect). Denies: Supplemental Oxygen, Urine Catheter General: Reports: Alert, Oriented, Cooperative, No Acute Distress HEENT: Reports: Pupils Equal, Pupils Reactive, EOMI, Mucous Membr. Moist/[place], Other (Large mid facial frontal/ethmoid sinus defect with stable 2 cm area of granulation in the right upper aspect of the defect with no local signs of infection. Stable nasal deformity and involvement. Severe bilateral presbycusis.). Denies: Scleral Icterus Neck: Reports: Supple, Trachea Midline, No JVD, No Thyromegaly, Carotid Bruit (Mild bilateral). Denies: Lymphadenopathy, Thyromegaly Lungs: Reports: Normal Respiratory Effort, Rales (Mild bilateral basilar). Denies: Rhonchi, Rub, Stridor, Wheezing Cardiovascular: Reports: Regular Rate, Regular Rhythm, No Murmurs. Denies: Gallops, Rubs GI/Abdominal Exam: Normal Bowel Sounds, Soft, Non-Tender, No Organomegaly, No Distention, No Abnormal Bruit, No Mass, Pelvis Stable. No: Guarding (Female) Exam: Deferred Rectal (Female) Exam: Deferred Back Exam: Reports: Normal Inspection, Full Range of Motion. Denies: CVA Tenderness (L), CVA Tenderness (R), Muscle Spasm, Paraspinal Tenderness Extremities: Normal Capillary Refill, Pedal Edema (Stable trace to +1 bilateral pedal/pretibial edema), Leg Pain (Moderate left hip pain with evidence of superior dislocation), Limited Range of Motion (Left hip secondary dislocation). No: Non-Tender, Suzy's Sign Skin: Reports: Warm, Dry, Intact, Ecchymosis (Mild at [facility] science) Wound/Incisions: Reports: Healing Well (Melba removed from left operative site) Neurological: Reports: No New Focal Deficit Psy/Mental Status: Reports: Alert, Normal Affect, Normal Mood. Denies: Agitated, Hallucinations, Withdrawal Symptoms
[2020-06-05] MEDS ORDERED: Ondansetron 4 MG/2 ML SDV IVPUSH ONE (09:37)
[2020-06-05] MEDS ORDERED: HYDROmorphone 0.5 MG/0.5 ML Syringe IVPUSH ONE (09:37)
[2020-06-05] MEDS ORDERED: Sodium Chloride 0.9% 10 ML Syringe FLUSH PRN (09:37)
[2020-06-05] MEDS: Oxybutynin 5 MG Tab.ER PO SCH (11:59)
--- NOTE | 2020-06-05 14:19 | PCM.SN.2 ---
- Free Text/Narrative Note: Note correction of discharge summary for 06/05/2020. Disposition of patient was not to home, however was to acute care hospital in [place] as per that note.
== END 2020-06-05 14:30 | DRG 565 ==
LOC: LL.MS 14:35
PROVIDERS: ADMIT Family Medicine; ATTEND Family Medicine
DX: M24.452 Recurrent dislocation, left hip (principal); M86.60 Other chronic osteomyelitis, unspecified site; E87.1 Hypo-osmolality and hyponatremia; C78.02 Secondary malignant neoplasm of left lung; M89.49 Other hypertrophic osteoarthropathy, multiple sites; I10 Essential (primary) hypertension; J44.9 Chronic obstructive pulmonary disease, unspecified; D64.9 Anemia, unspecified; E78.49 Other hyperlipidemia; E83.42 Hypomagnesemia; F41.8 Other specified anxiety disorders; I50.9 Heart failure, unspecified; E88.09 Other disorders of plasma-protein metabolism, not elsewhere classified; E83.51 Hypocalcemia; Z20.828 Contact with and (suspected) exposure to other viral communicable diseases; E78.00 Pure hypercholesterolemia, unspecified; K59.09 Other constipation; Z96.649 Presence of unspecified artificial hip joint; F17.200 Nicotine dependence, unspecified, uncomplicated; E87.5 Hyperkalemia; R53.81 Other malaise; Z79.82 Long term (current) use of aspirin; Z79.899 Other long term (current) drug therapy; Z85.22 Personal history of malignant neoplasm of nasal cavities, middle ear, and accessory sinuses
CPT/HCPCS: 36415; 71045; 71260; 80048; 80053; 81001; 82550; 82553; 82962; 83735; 83880; 84484; 84550; 85025; 85610; 85730; 93005; 97110-GP; 97162-GP; 97530-GO; 97530-GP; 97535-GO; A9270-GY; J1170; J1650; J2405; J7040; Q9967; U0002

== ENCOUNTER 2020-06-11 12:17 | Inpatient (IN) | payer MEDICARE, BC ==
--- OUTSIDE RECORDS SUMMARY | 2020-06-11 10:38 | XMSREPORT ---
:1950 [facility] Address [address] [place] [address] [address] [place] [address] Care Team Providers Name Role Phone LOLIS Bonilla Unavailable HUI Huynh Primary Care Provider MD Verónica Unavailable MD Aidan Unavailable HUI Huynh Attributed Provider Reason for Visit Auth/Cert Status Reason Specialty Diagnoses / Procedures Referred By Geo prakash Referred To Contact Encounter Details Date Type Department Care Team Description 06/05/2020 - [facility] Provider, Generic Hosp Proc edure Failed total hip 06/11/[address] Yordan Holland MD [address] [place] [address] [phone] arthroplasty (HCC) [address] Mg Soler MD [address] [place] [address] [phone] [place], [place] [id number] Allergies Active Allergy Reactions Severity Noted Date Comments Adhesives Unknown/Not Verified 06/13/2013 Metals Unknown/Not Verified 06/13/2013 Nickel Rash 03/18/2020 documented as of this encounter (statuses as of 06/11/2020) Medications Medication Sig Dispensed Refills Start Date [...] PLUS mouth 1 time per day PO) acetaminophen Take 2 tablets (650 0 12/ Active (TYLENOL) 325 mg mg) by mouth Every 2019 tabletIndications: hours as needed for Dislocation of mild pain (fever internal left hip >99F) Dx: left hip prosthesis, initial pain encounter (FORMERLY [facility]), S/P revision of total hip aspirin 81 mg Take 1 tablet (81 84 tablet 0 06/11/ 07/23 Active chewable mg) by mouth 2 times 2019 tabletIndications: a day for 84 doses S/P revision of total hip oxyCODONE (OXY-IR) 5 Take 1 tablet (5 mg) 30 tablet 0 06/11/ Active mg tablet (immediate by mouth Every 2019 release)Indications: hours as needed for S/P revision of total moderate pain or hip severe pain LORazepam (ATIVAN) Take 1 tablet (0.5 30 tablet 0 06/11/ Active 0.5 mg mg) by mouth every 6 2019 tabletIndications: hours as needed for Dislocation of anxiety internal left hip prosthesis, initial encounter ([facility]), S/P revision of total hip citalopram (CELEXA) Take 1 tablet (10 0 06/11/ Active 10 mg tablet mg) by mouth 1 time 2019 per day ondansetron (ZOFRAN Take 1 tablet (4 mg) 20 tablet 0 06/11/ Active ODT) 4 mg dispersible by mouth 4 times a 2020 tabletIndications: day as needed for S/P revision of total nausea or vomiting hip cephalexin (KEFLEX) Take 1 capsule (500 0 06/11/ Active 500 mg mg) by mouth 3 times 2020 capsuleIndications: a day History of sinus cancer betamethasone Apply to affected 0 06/11/ Active dipropionate area 2 times a day 2020 (DIPROSONE) 0.05 % as needed for creamIndications: itching or rash Dermatitis Apply twice daily for up to 2 weeks to affected skin clobetasol propionate Apply to affected 0 24/ Active (TEMOVATE) 0.05 % area 2 times a day 2019 creamIndications: as needed for Rash itching or rash urea (CARMOL-20) 20 % Apply to affected 0 06/11/ Active creamIndications: Dry area 2 times a day 2020 skin as needed for itching furosemide (LASIX) 20 Take 0.5 tablets (10 0 06/11/ Active mg tablet mg) by mouth 1 time 2020 per day ferrous sulfate (65 Take 1 tablet (325 30 tablet 0 06/11/ Active MG FE PER 325 MG mg) by mouth 2 times 2020 TABLET) 325 mg tablet a day bisacodyl (DULCOLAX) Insert 1 suppository 5 suppository 0 05/20 4/ Active 10 mg (10 mg) rectally 1 2019 suppositoryIndication time a day as needed s: Constipation, for constipation unspecified Unwrap before constipation type inserting. Do not swallow. magnesium hydroxide Take 30 mL by mouth 118 mL 0 06/11/ Active (MILK OF MAGNESIA) 2 times a day as 2020 400 mg/5 mL oral needed for suspensionIndications constipation : Constipation, unspecified constipation type polyethylene glycol Take 1 packet by 0 06/11/ Active (MIRALAX) 17 g mouth 1 time per day 2019 packetIndications: Dissolve in 4 to 8 Dislocation of ounces of water, internal left hip juice, soda, coffee, prosthesis, initial tea. encounter ([facility]), S/P revision of total hip senna-docusate sodium Take 2 tablets by 0 06/11/ Active (SENOKOT-S;PERICOLACE mouth 2 times a day 2019 ) 8.6-50 MG Dx: constipation tabletIndications: Dislocation of internal left hip prosthesis, initial encounter ([facility]), S/P revision of total hip magnesium oxide 500 Take by mouth 1 time 0 06/11/ Active mg TABS tablet per day 2019 sodium chloride 1 gm Take 3 tablets (3 g) 180 tablet 1 06/11/ Active tabletIndications: by mouth 3 times a 2020 Hyponatremia day Dx: chronic hyponatremia nicotine (NICODERM) Apply 1 patch (21 90 patch 4 06/11/ Active 21 mg/24hr mg) to the skin 2019 [id number]: time per day Tobacco use Multiple Take 1 tablet by 30 tablet 0 06/11/ Act colt Vitamins-Minerals mouth 1 time per day 2019 (MULTIVITAMIN THERAPEUTIC WITH MINERALS) tablet omega-3 fatty acids Take 1 capsule 100 capsule 0 06/11/ Active (FISH OIL) 1000 mg (1,000 mg) by mouth 2020 capsule 1 time per day erythromycin 5 mg/gm Place into both eyes 0 06/11/ Active ophthalmic 4 times a day as 2020 ointmentIndications: needed Eye infection, bilateral cyclobenzaprine Take 1 tablet (10 0 06/11/ Active (FLEXERIL) 10 mg mg) by mouth 3 times 2020 tabletIndications: a day as needed Back muscle spasm oxybutynin Take 1 tablet (5 mg) 90 tablet 3 06/11/ Active (DITROPAN-XL) 5 mg SR by mouth 1 time per 2020 tablet (24 hr) day lisinopril (PRINIVIL, Take 1 tablet (5 mg) 0 06/11/ Active ZESTRIL) 5 mg by mouth 1 time per 2019 tabletIndications: day Essential hypertension with goal blood pressure less than 140/90 ondansetron (ZOFRAN Take 1 tablet (4 mg) 20 tablet 0 06/11 Discontinued ODT) 4 mg dispersible by mouth 4 times a 2019 (Reorder) tabletIndications: day as needed for S/P revision of total nausea or vomiting hip aspirin 81 mg Take 1 tablet (81 84 tablet 0 06/11 Discontinued chewable mg) by mouth 2 times 2019 (Reorder) tabletIndications: a day S/P revision of total hip senna-docusate sodium Take 2 tablets by 0 06/11 Discontinued (SENOKOT-S;PERICOLACE mouth 2 times a day 2019 (Reorder) ) 8.6-50 MG Dx: constipation tabletIndications: Dislocation of internal left hip prosthesis, initial encounter ([facility]), S/P revision of total hip polyethylene glycol Take 1 packet by 0 Discontinued (MIRALAX) 17 g mouth 1 time per day 2019 0 (Reorder) packetIndications: Dissolve in 4 to 8 Dislocation of ounces of water, internal left hip juice, soda, coffee, prosthesis, initial tea. encounter ([facility]), S/P revision of total hip cephalexin (KEFLEX) Take 1 capsule (500 0 06/11 Discontinued 500 mg mg) by mouth 3 times 2019 (Reorder) capsuleIndications: a day History of sinus cancer acetaminophen Take 2 tablets (650 0 06/11 Discontinued (TYLENOL) 325 mg mg) by mouth Every 4 2019 (Reorder) tabletIndications: hours as needed for Dislocation of mild pain (fever internal left hip >99F) Dx: left hip prosthesis, initial pain encounter ([facility]), S/P revision of total hip LORazepam (ATIVAN) Take 1 tablet (0.5 30 tablet 0 Discontinued 0.5 mg mg) by mouth every 6 2019 (Reorder) tabletIndications: hours as needed for Dislocation of anxiety internal left hip prosthesis, initial encounter ([facility]), S/P revision of total hip nicotine (NICODERM) Apply 1 patch (21 90 patch 4 Discontinued 21 mg/24hr mg) to the skin 1 2019 ( Reorder) [id number]: time per day Tobacco use omega-3 fatty acids Take 1 capsule 100 capsule 0 Discontinued (FISH OIL) 1000 mg (1,000 mg) by mouth 2019 (Reorder) capsule 1 time per day Multiple Take 1 tablet by 30 tablet 0 06/11 Dis continued Vitamins-Minerals mouth 1 time per day 2019 (Reorder) (MULTIVITAMIN THERAPEUTIC WITH MINERALS) tablet lisinopril (PRINIVIL, Take 1 tablet (5 mg) 0 06/11 Discontinued ZESTRIL) 5 mg by mouth 1 time per 2019 (Reorder) tabletIndications: day Essential hypertension with goal blood pressure less than 140/90 cyclobenzaprine Take 1 tablet (10 0 06/11 Discontinued (FLEXERIL) 10 mg mg) by mouth 3 times 2019 (Reorder) tabletIndications: a day as needed Back muscle spasm betamethasone Apply to affected 0 06/11 Discontinued dipropionate area 2 times a day 2019 (Reorder) (DIPROSONE) 0.05 % as needed for creamIndications: itching or rash Dermatitis Apply twice daily for up to 2 weeks to affected skin clobetasol propionate Apply to affected 0 06/11 Discontinued (TEMOVATE) 0.05 % area 2 times a day 2020 /20 20 (Reorder) creamIndications: as needed for Rash itching or rash erythromycin 5 mg/gm Place into both eyes 0 06/11 Discontinued ophthalmic 4 times a day as 2019 (R eorder) ointmentIndications: needed Eye infection, bilateral urea (CARMOL-20) 20 % Apply to affected 0 06/11 Discontinued creamIndications: Dry area 2 times a day 2019 (Reorder) skin as needed for itching sodium chloride 1 gm Take 3 tablets (3 g) 180 tablet 1 06/11 Discontinued tabletIndications: by mouth 3 times a 2019 (Reorder) Hyponatremia day Dx: chronic hyponatremia oxyCODONE (OXY-IR) 5 Take 1 tablet (5 mg) 30 tablet 0 06/11 Discontinued mg tablet (immediate by mouth Every 4 2019 (Reorder) release)Indications: hours as needed for S/P revision of total moderate pain or hip severe pain enoxaparin (LOVENOX) Inject 40 mg 10 mL 0 06/11 Discontinued 40 mg syringe (100 subcutaneously 1 2019 0 (Stop Taking at mg/mL) subcutaneous time per day for 23 Discharge) injection days solutionIndications: S/P revision of total hip bisacodyl (DULCOLAX) Insert 1 suppository 5 suppository 0 06/11 Discontinued 10 mg (10 mg) rectally 1 2019 ( Reorder) suppositoryIndication time a day as needed s: Constipation, for constipation unspecified Unwrap before constipation type inserting. Do not swallow. 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) 15-3.6 MG as needed for sore error) LOZGIndications: throat or other Sorethroat (Specify) (throat irritation) ferrous sulfate (65 Take 325 mg by mouth 0 06/11 Discontinued MG FE PER 325 MG 2 times a day (Reorder) TABLET) 325 mg tablet citalopram (CELEXA) Take 10 mg by mouth 0 06/11 Discontinued 10 mg tablet 1 time per day (R eorder) oxybutynin Take 5 mg by mouth 1 0 06/11 Discontinued (DITROPAN-XL) 5 mg SR time per day (Reorder) tablet (24 hr) magnesium oxide 500 Take by mouth 1 time 0 06/11 Discontinued mg TABS tablet per day (Reor maryann) furosemide (LASIX) 20 Take 10 mg by mouth 0 06/11 Discontinued mg tablet 1 time per day (Reor maryann) documented as of this encounter (statuses as of 06/11/2020) Active Problems Problem Noted Date 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 05/15/2020 History of general anesthesia 05/11/2020 History of cancer 05/11/2020 Hip dislocation, left, initial encounter 05/07/2020 Combined forms of age-related cataract 03/20/2020 Overview: Added automatically from request for tristen scott [id number] Postoperative visit 02/28/2020 S/P revision of total [...] as of this encounter (statuses as of 06/11/2020) Resolved Problems Problem Noted Date Resolved Date Left hip pain 02/28/2020 05/08/2020 Altered mental status 07/28/2016 05/08/2020 Fracture of single pubic ramus 07/28/2016 0 Hypokalemia 07/28/2016 05/08/2020 Hypomagnesemia 07/28/2016 05/08/2020 Pelvis fracture 08/28/2015 05/08/2020 Menopause 04/01/2015 Fatigue 04/01/2015 Overview: Chronic Osteomyelitis 04/01/2015 Overview: chronic Hyperlipidemia 04/01/2015 documented as of this encounter (statuses as of 06/11/2020) Immunizations Name Administration Dates Next Due FLU [...] Sign Reading Time Taken Comments Blood Pressure 143/74 06/11/2020 7:44 AM FLEXOGRAPHIC PRESS OPERATOR Pulse 102 06/11/2020 7:44 AM FLEXOGRAPHIC PRESS OPERATOR Temperature 36.5 C (97.7 F) 06/11/2020 7:44 AM FLEXOGRAPHIC PRESS OPERATOR Respiratory Rate 16 06/11/2020 7:44 AM FLEXOGRAPHIC PRESS OPERATOR Oxygen Saturation 92% 06/11/2020 7:44 AM FLEXOGRAPHIC PRESS OPERATOR Inhaled Oxygen Concentration - - Weight - - Height 163.8 cm (5' 4.5") 06/05/2020 7:45 PM FLEXOGRAPHIC PRESS OPERATOR Body Mass Index - - documented in this encounter Functional Status Functional [...] documented as of this encounter Discharge Summaries Mg Soler MD - 06/10/2020 11:19 PM CST Discharge Summary Patient ID: Magda Reyes is a 69yr female. 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 # Left total hip arthroplasty revision on 06/08/2020 #Acute on chronic anemia # Physical deconditioning #Reactive thrombocytosis # Mild leukocytosis, stress induced Secondary Discharge Diagnoses Patient Active Problem List Diagnosis Hearing loss Visual disturbance Hyponatremia Psoriasis Nicotine addiction Lesion of skin of face Rhinitis, chronic Cancer of sinus (HCC) Benign hypertension Closed dislocation of left hip (HCC) Postoperative visit S/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 Hip dislocation, left, initial encounter (FORM[facility]LY [facility]) History of general anesthesia History of cancer 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 Alegre. Patient underwent left total hip arthroplasty on 06/08/2020. Postoperatively patient recovered well. She remained afebrile, hemodynamically stable, pain controlled on as needed analgesics. 06/08/2020: Overnight patient had a rapid response due to retrosternal chest pain. Received Nitrol SL, Ativan 0.5 mg, and morphine IV 4 mg 1 dose following which patient's chest pain resolved. EKG and troponin were negative. Patient awaits surgery this AM by Dr. Alegre. Hgb 9.4 this AM. 06/09/2020: Surgery yesterday. No acute events. Pain managed appropriately. Tolerating a diet, voiding well. No concerns today. 06/10/2020: Patient reported no pain during AM rounds. However, refused therapies due to pain with movement. Ortho was concerned that the leg appeared internally rotated. Made NPO.. Xray pelvis unrevealing. Back on regular diet. Patient worked with therapies. Drop in Hgb 7.7 this AM. 06/11/2020: The night prior to her discharge, patient had a rapid response called for chest pain. She had negative troponin, D-dimer was elevated following which a CTA chest was done showing no PE. There were no concerns. Of note, patient does benefit from Ativan as needed for underlying anxiety. 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 Ok to remove for therapies) -- DVT prophylaxis - ASA 81 mg PO BID for 42 days post discharge --Activity restriction per surgery - LLE WBAT, fall precautions #Acute on chronic anemia, improving --secondary to blood loss from surgery on 05/19 -- BaselineHgb 11.9 (08/09). 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 --Continue chronic Keflex prophylaxis #Reactive thrombocytosis # Mild leukocytosis, stress induced -- Monitored - no signs/symptoms of infection # Hypertension --Continue lisinopril #Chronic hyponatremia, secondary toSIADH -- Na 131 atadmission;[id number] since 2013 --ContinueNaCl tablets (3 gm TID) # Depression/anxiety -- Assess if patient is symptomatic and use home Ativan prn # Nicotine use disorder --nicotine replacement protocol in place # New lung nodule per CT chest from 05/25/2020 -- Needs follow-up as outpatient POA:Daughter Ella At the time of discharge patient was deemed medically stable to continue recovery in [facility] bed. Procedures Performed and Findings Procedure(s): LEFT TOTAL HIP ARTHROPLASTY REVISION AND RIGHT KNEE INJECTION - Wound Class: Clean Discharge Exam Vital Signs: Temp: 97.7 F (36.5 C) | BP: 143/74 | Pulse: 102 | Resp: 16 | Pain Ratin(to hip)(out of 10) | | O2 Device: Room Air O2 Flow Rate (L/min): 0 l/min | SpO2: 92 % Intake and Output: 06/10 0700 - 06/11 0659 In: - Out: 1100 [Urine:1100] Physical Exam General:No apparent distress. Speaks in full sentences. 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 Pupils equal, round, and reactive to light. Cardiovascular:Normal rate, regular rhythm, audible S1/S2. No pedal edema. Palpable distal pulses. Pulmonary/Chest:Normal respiratory effort, clear breath sounds auscultated in all lung ogden. No adventitious sounds. Abdominal:Soft. Non-tender. Non-distended. Bowel sounds present. Musculoskeletal:Left hip non-tender, surgical dressing in place. decreased ROM, no distal neurovascular compromise. Neurological:Alert and oriented to person, place, and time. No focal findings. Dermatologic:Skin is warm and dry. No rash.Minimal bleeding from facial/forehead wound Psychiatric:Affect, mood, behavior, speech, demeanor, judgement and thought content unremarkable. Consults CONSULT ORTHOPEDICS Discharge Disposition Discharge Medications Medication List CHANGE how you take these medications vitamin D3 (cholecalciferol) 1000 unit tablet Take 2 tablets (2,000 Units total) by mouth 1 time per day What changed: how much to take CONTINUE taking these medications acetaminophen 325 mg tablet Commonly known as: TYLENOL aspirin 81 mg chewable tablet Take 1 tablet (81 mg) by mouth 2 times a day for 84 doses betamethasone dipropionate 0.05 % cream Commonly known as: DIPROSONE bisacodyl 10 mg suppository Commonly known as: DULCOLAX CALTRATE PLUS PO cephalexin 500 mg capsule Commonly known as: KEFLEX citalopram 10 mg tablet Commonly known as: celeXA clobetasol propionate 0.05 % cream Commonly known as: TEMOVATE cyclobenzaprine 10 mg tablet Commonly known as: FLEXERIL erythromycin 5 mg/gm ophthalmic ointment ferrous sulfate 325 mg tablet Commonly known as: 65 mg FE per 325 mg tablet furosemide 20 mg tablet Commonly known as: LASIX lisinopril 5 mg tablet Commonly known as: PRINIVIL, ZESTRIL LORazepam 0.5 mg tablet Commonly known as: ATIVAN magnesium hydroxide 400 mg/5 mL oral suspension Commonly known as: MILK OF MAGNESIA magnesium oxide 500 mg Tabs tablet multivitamin therapeutic with minerals tablet nicotine 21 mg/24hr Pt24 Commonly known as: NICODERM omega-3 fatty acids 1000 mg capsule Commonly known as: FISH OIL ondansetron 4 mg dispersible tablet Commonly known as: ZOFRAN ODT oxybutynin 5 mg SR tablet (24 hr) Commonly known as: DITROPAN-XL oxyCODONE 5 mg tablet (immediate release) Commonly known as: OXY-IR polyethylene glycol 17 g packet Commonly known as: MIRALAX senna-docusate sodium 8.6-50 MG tablet Commonly known as: SENOKOT-S;PERICOLACE sodium chloride 1 gm tablet urea 20 % cream Commonly known as: CARMOL-20 STOP taking these medications enoxaparin 40 mg syringe (100 mg/mL) subcutaneous injection solution Commonly known as: LOVENOX Where to Get Your Medications These medications were sent to [facility] [address] [place] [address] aspirin 81 mg chewable tablet Discharge Instructions See AVS for discharge instructions. Tests Pending at Discharge Follow-Up Scheduled See AVS for Follow up appointments made Medical Decision Making The time spent on discharge coordination was less than 30 minutes. documented in this encounter Discharge Instructions Eli Dey PA - 06/08/2020Total Hip post op Activity ? Walk with walker/crutches full weight bearing as instructed by Physical Therapy. ? Continue exercises you have been taught. ? Sit in a chair that is safe for your hip. Higher the firmer encouraged. ? Do not drive until your Surgeon informs you that you can. ? Lie down 2 times a day in bed for 45-60 minutes. You may elevate your feet on pillows. If swelling occurs lie down in bed 3-4 times a day. ? Ice for hip as needed. ? Follow hip precautions for 10-12 weeks. Dressing instructions: Cover dressing with PressNSeal for 14 days-for shower ? Leave hip dressing intact and dry for 14 days after surgery, then okay to remove & discard dressing. ? After dressing is removed, okay to leave hip incision uncovered & okay to shower without covering the incision. ? No lotions, creams, or ointments over the incision until fully healed. ? Soap & water over the incision is okay. ? Leave the skin adhesive mesh on the hip intact for up to 2 weeks. ? When it begins to peel, you may attempt to peel it off completely, or trim the peeling edges with scissors. documented in this encounter Medications at Time of Discharge Medication Sig Dispensed Refills Start Date End Date acetaminophen Take 2 tablets (650 0 06/11/2020 (TYLENOL) 325 mg mg) by mouth Every tabletIndications: 4 hours as needed Dislocation of for mild pain internal left hip (fever >99F) Dx: prosthesis, initial left hip pain encounter (HCC), S/P revision of total hip aspirin 81 mg chewable Take 1 tablet (81 84 tablet 0 201907/23/2020 tabletIndications: S/P mg) by mouth 2 revision of total hip times a day for 84 doses oxyCODONE (OXY-IR) 5 Take 1 tablet (5 30 tablet 0 0 mg tablet (immediate mg) by mouth Every release)Indications: 4 hours as needed S/P revision of total for moderate pain hip or severe pain LORazepam (ATIVAN) 0.5 Take 1 tablet (0.5 30 tablet 0 06/11 mg tabletIndications: mg) by mouth every Dislocation of 6 hours as needed internal left hip for anxiety prosthesis, initial encounter ([facility]), S/P revision of total hip citalopram (CELEXA) 10 Take 1 tablet (10 0 2019 mg tablet mg) by mouth 1 time per day ondansetron (ZOFRAN Take 1 tablet (4 20 tablet 0 06/11/2020 ODT) 4 mg dispersible mg) by mouth 4 tabletIndications: S/P times a day as revision of total hip needed for nausea or vomiting cephalexin (KEFLEX) Take 1 capsule (500 0 020 500 mg mg) by mouth 3 capsuleIndications: times a day History of sinus cancer betamethasone Apply to affected 0 06/11/2020 dipropionate area 2 times a day (DIPROSONE) 0.05 % as needed for creamIndications: itching or rash Dermatitis Apply twice daily for up to 2 weeks to affected skin clobetasol propionate Apply to affected 0 020 (TEMOVATE) 0.05 % area 2 times a day creamIndications: Rash as needed for itching or rash urea (CARMOL-20) 20 % Apply to affected 0 020 creamIndications: Dry area 2 times a day skin as needed for itching furosemide (LASIX) 20 Take 0.5 tablets 0 06/11/20 20 mg tablet (10 mg) by mouth 1 time per day ferrous sulfate (65 MG Take 1 tablet (325 30 tablet 0 06/11 FE PER 325 MG TABLET) mg) by mouth 2 325 mg tablet times a day bisacodyl (DULCOLAX) Insert 1 5 suppository 0 06/11/2020 10 mg suppository (10 mg) suppositoryIndications rectally 1 time a : Constipation, day as needed for unspecified constipation Unwrap constipation type before inserting. Do not swallow. magnesium hydroxide Take 30 mL by mouth 118 mL 0 020 (MILK OF MAGNESIA) 400 2 times a day as mg/5 mL oral needed for suspensionIndications: constipation Constipation, unspecified constipation type polyethylene glycol Take 1 packet by 0 06/11/2020 (MIRALAX) 17 g mouth 1 time per packetIndications: day Dissolve in 4 Dislocation of to 8 ounces of internal left hip water, juice, soda, prosthesis, initial coffee, tea. encounter (FORMERLY [facility]), S/P revision of total hip senna-docusate sodium Take 2 tablets by 0 020 (SENOKOT-S;PERICOLACE) mouth 2 times a day 8.6-50 MG Dx: constipation tabletIndications: Dislocation of internal left hip prosthesis, initial encounter ([facility]), S/P revision of total hip magnesium oxide 500 mg Take by mouth 1 0 06/11/20 20 TABS tablet time per day sodium chloride 1 gm Take 3 tablets (3 180 tablet 1 06/11/20 20 tabletIndications: g) by mouth 3 times Hyponatremia a day Dx: chronic hyponatremia nicotine (NICODERM) 21 Apply 1 patch (21 90 patch 4 2019 mg/24hr mg) to the skin 1 [id number]: time per day Tobacco use Multiple Take 1 tablet by 30 tablet 0 06/11/2020 Vitamins-Minerals mouth 1 time per (MULTIVITAMIN day THERAPEUTIC WITH MINERALS) tablet omega-3 fatty acids Take 1 capsule 100 capsule 0 06/11/2020 (FISH OIL) 1000 mg (1,000 mg) by mouth capsule 1 time per day erythromycin 5 mg/gm Place into both 0 06/11/2020 ophthalmic eyes 4 times a day ointmentIndications: as needed Eye infection, bilateral cyclobenzaprine Take 1 tablet (10 0 06/11/2020 (FLEXERIL) 10 mg mg) by mouth 3 tabletIndications: times a day as Back muscle spasm needed oxybutynin Take 1 tablet (5 90 tablet 3 06/11/2020 (DITROPAN-XL) 5 mg SR mg) by mouth 1 time tablet (24 hr) per day lisinopril (PRINIVIL, Take 1 tablet (5 0 06/11/20 20 ZESTRIL) 5 mg mg) by mouth 1 time tabletIndications: per day Essential hypertension with goal blood pressure less than 140/90 Calcium Carbonate-Vit Take 1 tablet by 0 D-Min (CALTRATE PLUS mouth 1 time per PO) day vitamin D3, Take 2 tablets 30 tablet 0 09/01/2015 cholecalciferol, 1000 (2,000 Units total) unit tablet by mouth 1 time per day documented as of this encounter Progress Notes Eli Keyes PA - 06/11/2020 8:49 AM CST Orthopedic Daily Progress Note Assessment: Magda Reyes is a 69yr old female status post Post-Op Diagnosis Codes: * 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 Status post left total hip arthroplasty revisionsecondary to recurrent left hip dislocations/failed left DREW /1/2020per Dr. Cruz 3.Status post left total hip arthroplasty revision secondary to recurrent left hip dislocations/failed left DREW [id number]/23/2020, status post complex left DREW revision 02/03/[address] Alegre secondary to failed/unstable left total hip arthroplasty with chronic non-union/displaced left acetabular fracture 4. PMH elective left DREW 09/20/[address] Mariano Bermudez 5. 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 Takes oral suppressive Keflex for chronic osteo 7. Chronic hyponatremia, baseline ~125 8. HTN 9. Physical deconditioning, mostly mobilizes with a wheelchair at home (lives alone, ). Stands for pivot transfers 10. Chronic left hip adductor contracture 11. Chronic tobacco abuse, smokes 3-4 cigarettes/day 12. Presbycusis, L worse than R 13. Cataract 14. Acute post-op blood loss anemia 15. Osteopenia/osteoporosis 16. New lung nodule Plan: 1. Pain control 2. DVT Chemoprophylaxis:ASA 81mg po BID while in-house and for 42 days post- hospital discharge 3. PT/OT:WBAT left LE, posterior hip precautions x 12 weeks, hip abduction pillow when in bed/at rest. Ok to remove for therapies 4.D/C plan: SNF today ([facility]) for continued therapies when PT goals met, pain controlled and medically stable. Subjective: Patient is feeling better this am. Chest pain improved. Continued left hip pain with motion but ok at rest. No other complaints. Objective: BP 143/74 | Pulse 102 | Temp 97.7 F (36.5 C) | Resp 16 | Ht 1.638 m (5' 4.5") | SpO2 92% |BMI 24.50 kg/m Maximum Temperatures (last 24 hours) Temperature Maximum Max Temp 98.6 F (37 C) Intake and Output: 06/10 0700 - 06/11 0659 In: - Out: 1100 [Urine:1100] General: AOx3, NAD. Respirations unlabored. Exam:leftlower extremity.Left hip dressingremainsC/D/I.Hip abduction pillow in place andknee immobilizer on. Increased pain with gentle A/PROM left hip.Woundwas dry. Dressingwas notchanged. Neurovascular intact. No calf tenderness noted in leftlower extremity. EHL/FHL 10/21. Lab Results Component Value Date WBC 11.3 (H) 06/11/2020 NUCRBC 0 01/26/2020 RBC 3.07 (L) 06/11/2020 HEMOGLOBIN 8.5 (L) 06/11/2020 HEMATOCRIT 26.8 (L) 06/11/2020 MCV 87.3 06/11/2020 MCH 27.7 06/11/2020 MCHC 31.7 06/11/2020 PLTCOUNT 632 (H) 06/11/2020 NEUTROPCT 68.4 06/05/2020 LYMPHSPCT 17.8 06/05/2020 MONOSPCT 11.6 06/05/2020 EOSPCT 1.9 06/05/2020 BASOPHILPCT 0.2 06/05/2020 Lab Results Component Value Date PT 14.1 05/07/2020 INR 1.1 (L) 05/07/2020 Micro: 06/08/2020 OR cx: NGTD 05/19/2020 OR cx: NG 05/11/2020 OR cx: NG 01/28/2020 OR cx: NG Labs and xrays were reviewed. Mg Patricia MD - 06/10/2020 11:40 AM FLEXOGRAPHIC PRESS OPERATOR DAILY PROGRESS NOTE Magda Reyes is a 69yr old female admitted on 06/05/2020 3:29 PM. Impression / Plan Magda Reyes is a 69 year old woman with recurrent left hip dislocation presenting from rehab foradmission to undergo revision by Dr. Alegre. Patient underwent left total hip arthroplasty on 06/08/2020. Postoperatively patient is recovering well, remains afebrile, hemodynamically stable, pain controlled on as needed analgesics. 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 Post-op Hgb 8.4 --> 7.7 -- F/u Hgb in AM # Reactive thrombocytosis # Mild leukocytosis, stress induced -- continue to monitor, no signs/symptoms of infection # Hypertension --Hold lisinopril on the day of surgery #Chronic hyponatremia, secondary toSIADH -- Na 131 atadmission;[id number] since 2013 --ContinueNaCl tablets (3 gm TID) # Depression/anxiety -- Assess if patient is symptomatic and use home Ativan prn # Nicotine use disorder --nicotine replacement protocol in place # New lung nodule per CT chest from 05/25/2020 -- Needs a follow-up as outpatient # Severe bilateral presbycusis (L>R) # Physical deconditioning CODE STATUS:FULL DVT prophylaxis:SCDs andLovenox SC, hold the night prior surgery Diet: NPOpastMN Dispo plan:Per surgery. Awaitmedical stability and recommendations from PT/OT POA:Daughter Ella Interval History 06/08/2020 Overnight patient had a rapid response due to retrosternal chest pain. Received Nitrol SL, Ativan 0.5 mg, and morphine IV 4 mg 1 dose following which patient's chest pain resolved. EKG and troponinwere negative. Patient awaits surgery this AM by Dr. Alegre. Hgb 9.4 this AM. 06/09/2020 Surgery yesterday. No acute events. Pain managed appropriately. Tolerating a diet, voiding well.No concerns today. 06/10/2020 Patient reported no pain during AM rounds. However, refused therapies due to pain with movement. Ortho was concerned that the leg appeared internally rotated. Made NPO.. Xray pelvis unrevealing. Back on regular diet. Patient will work with therapies as tolerated. Drop in Hgb 7.7 this AM. Will follow tomorrow. Review of Systems Review of Systems Remainder of 10 point ROS asked/reviewed. Negative except as mentioned in HPI Physical Exam Vital Signs: Temp: 98.5 F (36.9 C) | BP: 131/68 | Pulse: 87 | Resp: 16 | Pain Ratin (out of 10) | | O2 Device: Room Air O2 Flow Rate (L/min): 0 l/min | SpO2: 96 %(RA) Maximum Temperatures (last 24 hours) Temperature Maximum Max Temp 98.6 F (37 C) Intake and Output: 06/09 0700 - 06/10 0659 In: 300 [Oral:300] Out: 150 [Urine:150] Physical Exam General:No apparent distress. Speaks in full sentences. 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 Pupils equal, round, and reactive to light. Cardiovascular:Normal rate, regular rhythm, audible S1/S2. No pedal edema. Palpable distal pulses. Pulmonary/Chest:Normal respiratory effort, clear breath sounds auscultated in all lung ogden. No adventitious sounds. Abdominal:Soft. Non-tender. Non-distended. Bowel sounds present. Musculoskeletal:Left hip non-tender, surgical dressing in place. decreased ROM, no distal neurovascular compromise. Neurological:Alert and oriented to person, place, and time. No focal findings. Dermatologic:Skin is warm and dry. No rash. Minimal bleeding from facial/forehead wound Psychiatric:Affect, mood, behavior, speech, demeanor, judgement and thought content unremarkable. Labs Labs (Last day) 06/10/20 0607 - 06/10/20 0607 CBC 06/10/20 0607 CBC WBC 4.0-11.0 (K/uL) 11.3 RBC 3.80-5.30 (M/uL) 2.83 Hemoglobin 11.5-15.8 (g/dL) 7.7 Hematocrit 35.0-45.0 (%) 24.9 MCV 80.0-98.0 (fL) 88.0 MCH 25.5-34.0 (pg) 27.2 MCHC 31.5-36.5 (g/dL) 30.9 RDW-CV 11.5-15.5 (%) 14.8 RDW-SD 35.5-50.0 (fl) 45.4 Platelet Count 140-400 (K/uL) 607 MPV 8.5-12.0 (fL) 8.4 06/10/20 06 - 06/10/20 06 CHEMISTRY 06/10/20 0607 06/10/20 06 CHEMISTRY Glucose 70-100 (mg/dL) 88 Sodium 135-145 (meq/L) 130 Potassium 3.5-5.3 (meq/L) 4.7 Chloride 99-110 (meq/L) 101 CO2 20-29 (meq/L) 22 Anion Gap with K 6-20 (meq/L) 12 BUN 6-22 (mg/dL) 10 Creatinine 0.60-1.10 (mg/dL) 0.62 BUN/Creatinine Ratio 10.0-25.0 16.1 Calcium 8.5-10.5 (mg/dL) 8.1 Magnesium 1.8-2.4 (mg/dL) 1.8 eGFR >=60 (mL/min/1.73m2) >90 eGFR Non- >=60 (mL/min/1.73m2) >90 06/10/20 0607 - 06/10/20 0607 OTHER 06/10/20 06 OTHER Age (Years) 69 Medical Decision making MDM Reviewed: previous chart, nursing note and vitals Reviewed previous: labs Interpretation: labs Total time providing critical care: < 30 minutes. This excludes time spent performing separately reportable procedures and services. 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 Status post left total hip arthroplasty revision secondary to recurrent dislocation left hip 06/08/2020 2. Status post left total hip arthroplasty revision secondary to recurrent left hip dislocations/failed left DREW [id number]/1/[address] Cruz 3.Status post left total hip arthroplasty revision secondary to recurrent left hip dislocations/failed left DREW [id number]/23/2020, status post complex left DREW revision 02/03/[address] Alegre secondary to failed/unstable left total hip arthroplasty with chronic non-union/displaced left acetabular fracture 4. PMH elective left DREW 09/20/[address] Mariano Bermudez 5. 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 Takes oral suppressive Keflex for chronic osteo 7. Chronic hyponatremia, baseline ~125 8. HTN 9. Physical deconditioning, mostly mobilizes with a wheelchair at home (lives alone, ). Stands for pivot transfers 10. Chronic left hip adductor contracture 11. Chronic tobacco abuse, smokes 3-4 cigarettes/day 12. Presbycusis, L worse than R 13. Cataract 14. Acute post-op blood loss anemia 15. Osteopenia/osteoporosis 16. New lung nodule Plan: 1. Pain control 2. DVT Chemoprophylaxis:ASA 81mg po BID while in-house and for 42 days post- hospital discharge 3. PT/OT:WBAT left LE, posterior hip precautions x 12 weeks, hip abduction pillow when in bed/at rest. Ok to remove for therapies 4.D/C plan: SNF for continued therapies when PT goals met, pain controlled and medically stable. 5. NPO now, will obtain updated xray of her pelvis due to left leg being internally rotated and increase pain with motion. Subjective: Patient is resting in bed. Slept well overnight. Minimal mobility with therapies. Deniesfevers/chills, [place]. Objective: BP 139/69 | Pulse 85 | Temp 98.6 F (37 C) | Resp 16 | Ht 1.638 m (5' 4.5") | SpO2 95% Comment: RA | BMI 24.50 kg/m Maximum Temperatures (last 24 hours) Temperature Maximum Max Temp 98.6 F (37 C) Intake and Output: 06/09 0700 - 06/10 0659 In: 300 [Oral:300] Out: 150 [Urine:150] General: AOx3, NAD. Respirations unlabored. Exam:leftlower extremity.Left hip dressingremainsC/D/I. Hip abduction pillow not on. Increased pain with gentle A/PROM left hip.The left hip is internally rotated and she has pain with any movement/log rolling of the left hip. Woundwas dry. Dressingwas notchanged. Neurovascular intact. No calf tenderness noted in leftlower extremity. EHL/FHL 5/. Lab Results Component Value Date WBC 11.3 (H) 06/10/2020 NUCRBC 0 01/26/2020 RBC 2.83 (L) 06/10/2020 HEMOGLOBIN 7.7 (L) 06/10/2020 HEMATOCRIT 24.9 (L) 06/10/2020 MCV 88.0 06/10/2020 MCH 27.2 06/10/2020 MCHC 30.9 (L) 06/10/2020 PLTCOUNT 607 (H) 06/10/2020 NEUTROPCT 68.4 06/05/2020 LYMPHSPCT 17.8 06/05/2020 MONOSPCT 11.6 06/05/2020 EOSPCT 1.9 06/05/2020 BASOPHILPCT 0.2 06/05/2020 Lab Results Component Value Date PT 14.1 05/07/2020 INR 1.1 (L) 05/07/2020 Micro: 06/08/2020 OR cx: NOS 05/19/2020 OR cx: NG 05/11/2020 OR cx: NG 01/28/2020 OR cx: NG Labs and xrays were reviewed. Mg Patricia MD - 06/09/2020 5:16 PM FLEXOGRAPHIC PRESS OPERATOR DAILY PROGRESS NOTE Magda Reyes is a 69yr old female admitted on 06/05/2020 3:29 PM. Impression / Plan Magda Reyes is a 69 year old woman with recurrent left hip dislocation presenting from rehab foradmission to undergo revision by Dr. Alegre. Patient underwent left total hip arthroplasty on 06/08/2020. Postoperatively patient is recovering well, remains afebrile, hemodynamically stable, pain controlled on as needed analgesics. 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 Post-op Hgb 8.4 -- F/u Hgb in AM # Reactive thrombocytosis # Mild leukocytosis, stress induced -- continue to monitor, no signs/symptoms of infection # Hypertension --Hold lisinopril on the day of surgery #Chronic hyponatremia, secondary toSIADH -- Na 131 atadmission;[id number] since 2013 --ContinueNaCl tablets (3 gm TID) # Depression/anxiety -- Assess if patient is symptomatic and use home Ativan prn # Nicotine use disorder --nicotine replacement protocol in place # New lung nodule per CT chest from 05/25/2020 -- Needs a follow-up as outpatient # Severe bilateral presbycusis (L>R) # Physical deconditioning CODE STATUS:FULL DVT prophylaxis:SCDs andLovenox SC, hold the night prior surgery Diet: NPOpastMN Dispo plan:Per surgery. Awaitmedical stability and recommendations from PT/OT POA:Daughter Ella Interval History 06/08/2020 Overnight patient had a rapid response due to retrosternal chest pain. Received Nitrol SL, Ativan 0.5 mg, and morphine IV 4 mg 1 dose following which patient's chest pain resolved. EKG and troponinwere negative. Patient awaits surgery this AM by Dr. Alegre. Hgb 9.4 this AM. 06/09/2020 Patient underwent surgery yesterday. Overnight no acute events. Pain is managed appropriately. Tolerating a diet, voiding well. Does not report any concerns today. Review of Systems Review of Systems Remainder of 10 point ROS asked/reviewed. Negative except as mentioned in HPI Physical Exam Vital Signs: Temp: 97.5 F (36.4 C) | BP: 155/77 | Pulse: 91 | Resp: 16 | Pain Ratin (out of 10) | | O2 Device: Room Air O2 Flow Rate (L/min): 0 l/min | SpO2: 97 % Maximum Temperatures (last 24 hours) Temperature Maximum Max Temp 99.1 F (37.3 C) Intake and Output: 06/08 0700 - 06/09 0659 In: 3147 [Oral:590] Out: 875 [Urine:675] Physical Exam General:No apparent distress. Speaks in full sentences. 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 Pupils equal, round, and reactive to light. Cardiovascular:Normal rate, regular rhythm, audible S1/S2. No pedal edema. Palpable distal pulses. Pulmonary/Chest:Normal respiratory effort, clear breath sounds auscultated in all lung ogden. No adventitious sounds. Abdominal:Soft. Non-tender. Non-distended. Bowel sounds present. Musculoskeletal:Left hip non-tender, surgical dressing in place. decreased ROM, no distal neurovascular compromise. Neurological:Alert and oriented to person, place, and time. No focal findings. Dermatologic:Skin is warm and dry. No rash. Minimal bleeding from facial/forehead wound Psychiatric:Affect, mood, behavior, speech, demeanor, judgement and thought content unremarkable. Labs Labs (Last day) 06/09/20 0552 - 06/09/20 05 CBC 06/09/20 0552 CBC WBC 4.0-11.0 (K/uL) 13.1 RBC 3.80-5.30 (M/uL) 3.00 Hemoglobin 11.5-15.8 (g/dL) 8.4 Hematocrit 35.0-45.0 (%) 26.8 MCV 80.0-98.0 (fL) 89.3 MCH 25.5-34.0 (pg) 28.0 MCHC 31.5-36.5 (g/dL) 31.3 RDW-CV 11.5-15.5 (%) 15.1 RDW-SD 35.5-50.0 (fl) 47.7 Platelet Count 140-400 (K/uL) 596 MPV 8.5-12.0 (fL) 8.6 06/09/20551 - 06/09/20551 CHEMISTRY 06/09/2055106/09/20551 CHEMISTRY Glucose 70-100 (mg/dL) 126 Sodium 135-145 (meq/L) 133 Potassium 3.5-5.3 (meq/L) 4.7 Chloride 99-110 (meq/L) 103 CO2 20-29 (meq/L) 22 Anion Gap with K 6-20 (meq/L) 13 BUN 6-22 (mg/dL) 17 Creatinine 0.60-1.10 (mg/dL) 0.83 BUN/Creatinine Ratio 10.0-25.0 20.5 Calcium 8.5-10.5 (mg/dL) 8.3 Magnesium 1.8-2.4 (mg/dL) 2.0 eGFR >=60 (mL/min/1.73m2) 82 eGFR Non- >=60 (mL/min/1.73m2) 68 06/09/20551 - 06/09/20551 OTHER 06/09/20551 OTHER Age (Years) 69 Medical Decision making MDM Reviewed: previous chart, nursing note and vitals Reviewed previous: labs Interpretation: labs Total time providing critical care: < 30 minutes. This excludes time spent performing separately reportable procedures and services. 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 Status post left total hip arthroplasty revision secondary to recurrent dislocation left hip 06/08/2020 2. Status post left total hip arthroplasty revision secondary to recurrent left hip dislocations/failed left DREW [id number]/1/[address] Cruz 3.Status post left total hip arthroplasty revision secondary to recurrent left hip dislocations/failed left DREW owlbjvne34/23/2020, status post complex left DREW revision 02/03/[address] Alegre secondary to failed/unstable left total hip arthroplasty with chronic non-union/displaced left acetabular fracture 4. PMH elective left DREW 09/20/[address] Mariano Bermudez 5. 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 Takes oral suppressive Keflex for chronic osteo 7. Chronic hyponatremia, baseline ~125 8. HTN 9. Physical deconditioning, mostly mobilizes with a wheelchair at home (lives alone, ). Stands for pivot transfers 10. Chronic left hip adductor contracture 11. Chronic tobacco abuse, smokes 3-4 cigarettes/day 12. Presbycusis, L worse than R 13. Cataract 14. Acute post-op blood loss anemia 15. Osteopenia/osteoporosis 16. New lung nodule Plan: 1. Pain control 2. DVT Chemoprophylaxis: ASA 81mg po BID while in-house and for 42 days post- hospital discharge 3. PT/OT: WBAT left LE, posterior hip precautions x 12 weeks, hip abduction pillow when in bed/at rest. Ok to remove for therapies 4. D/C plan: SNF for continued therapies when PT goals met, pain controlled and medically stable. Subjective: Patient is doing fine this am. Pain controlled. Denies fevers/chills, [place]. Appetite good.Slept ok overnight. Objective: BP 143/91 | Pulse 95 | Temp 94.1 F (34.5 C) | Resp 20 | Ht 1.638 m (5' 4.5") | SpO2 97% | BMI 24.50 kg/m Maximum Temperatures (last 24 hours) Temperature Maximum Max Temp 99.1 F (37.3 C) Intake and Output: 06/08 0700 - 06/09 0659 In: 3147 [Oral:590] Out: 875 [Urine:675] General: AOx3, NAD. Respirations unlabored. Exam:leftlower extremity.Left hip dressing remains C/D/I. Hip abduction pillow in place. Tolerates gentle A/PROM left hip.Woundwas dry. Dressingwas notchanged. Neurovascular intact. No calf tenderness noted in leftlower extremity. EHL/FHL 5/. Lab Results Component Value Date WBC 13.1 (H) 06/09/2020 NUCRBC 0 01/26/2020 RBC 3.00 (L) 06/09/2020 HEMOGLOBIN 8.4 (L) 06/09/2020 HEMATOCRIT 26.8 (L) 06/09/2020 MCV 89.3 06/09/2020 MCH 28.0 06/09/2020 MCHC 31.3 (L) 06/09/2020 PLTCOUNT 596 (H) 06/09/2020 NEUTROPCT 68.4 06/05/2020 LYMPHSPCT 17.8 06/05/2020 MONOSPCT 11.6 06/05/2020 EOSPCT 1.9 06/05/2020 BASOPHILPCT 0.2 06/05/2020 Lab Results Component Value Date PT 14.1 05/07/2020 INR 1.1 (L) 05/07/2020 Micro: 06/08/2020 OR cx: NOS 05/19/2020 OR cx: NG 05/11/2020 OR cx: NG 01/28/2020 OR cx: NG Labs and xrays were reviewed. Mg Patricai MD - 06/08/2020 8:00 AM FLEXOGRAPHIC PRESS OPERATOR DAILY PROGRESS NOTE Magda Reyes is a 69yr old female admitted on 06/05/2020 3:29 PM. Impression / Plan Magda Reyes is a 69 year old woman with recurrent left hip dislocation presenting from rehab foradmission to undergo revision by Dr. Alegre, likely on 06/08/2020. Patient denies any significant pain at this time. She is afebrile, hemodynamically stable and awaits surgery. 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 BaselineHgb 11.9 (08/09) -->8.3(05/21) --> 9.2 (06/05) -- F/u Hgb on 06/08 # Reactive thrombocytosis # Mild leukocytosis -- continue to monitor # Hypertension --Hold lisinopril on the day of surgery #Chronic hyponatremia, secondary toSIADH -- Na 131 atadmission;[id number] since 2013 --ContinueNaCl tablets (3 gm TID) # Depression/anxiety -- Assess if patient is symptomatic and use home Ativan prn # Nicotine use disorder --nicotine replacement protocol in place # New lung nodule per CT chest from 05/25/2020 -- Needs a follow-up as outpatient # Severe bilateral presbycusis (L>R) # Physical deconditioning CODE STATUS:FULL DVT prophylaxis:SCDs andLovenox SC, hold the night prior surgery Diet: NPOpastMN Dispo plan:Awaitmedical stability following surgery per Dr. Robb team,and recommendations from PT/OT POA:Daughter Ella Interval History Overnight patient had a rapid response due to retrosternal chest pain. Received Nitrol SL, Ativan 0.5 mg, and morphine IV 4 mg 1 dose following which patient's chest pain resolved. EKG and troponinwere negative. Patient awaits surgery this AM by Dr. Alegre. Hgb 11.1 this AM. Review of Systems Review of Systems Remainder of 10 point ROS asked/reviewed. Negative except as mentioned in HPI Physical Exam Vital Signs: Temp: 97.5 F (36.4 C) | BP: 118/66 | Pulse: 79 | Resp: 16 | Pain Ratin (out of 10) | | O2 Device: Room Air | SpO2: 94 % Maximum Temperatures (last 24 hours) Temperature Maximum Max Temp 98.4 F (36.9 C) Intake and Output: 06/07 0700 - 06/08 0659 In: 460 [Oral:460] Out: 1350 [Urine:1350] Physical Exam General:No apparent distress. Speaks in full sentences. 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 Pupils equal, round, and reactive to light. Cardiovascular:Normal rate, regular rhythm, audible S1/S2. No pedal edema. Palpable distal pulses. Pulmonary/Chest:Normal respiratory effort, clear breath sounds auscultated in all lung ogden. No adventitious sounds. Abdominal:Soft. Non-tender. Non-distended. Bowel sounds present. Musculoskeletal:Left hip non-tender, decreased ROM, no distal neurovascular compromise. Neurological:Alert and oriented to person, place, and time. No focal findings. Dermatologic:Skin is warm and dry. No rash. Minimal bleeding from facial/forehead wound Psychiatric:Affect, mood, behavior, speech, demeanor, judgement and thought content unremarkable. Labs Labs (Last day) 06/08/20 05 - 06/08/20 05 CARDIAC MARKERS 06/08/20 05 CARDIAC MARKERS Troponin I 0.000-0.028 (ng/mL) 0.004 06/08/20 05 - 06/08/20 0529 CBC 06/08/20 05 CBC WBC 4.0-11.0 (K/uL) 11.1 RBC 3.80-5.30 (M/uL) 3.45 Hemoglobin 11.5-15.8 (g/dL) 9.4 Hematocrit 35.0-45.0 (%) 30.2 MCV 80.0-98.0 (fL) 87.5 MCH 25.5-34.0 (pg) 27.2 MCHC 31.5-36.5 (g/dL) 31.1 RDW-CV 11.5-15.5 (%) 15.1 RDW-SD 35.5-50.0 (fl) 46.7 Platelet Count 140-400 (K/uL) 655 MPV 8.5-12.0 (fL) 8.6 06/08/20 0529 - 06/08/20 0529 CHEMISTRY 06/08/20 0529 06/08/20 0529 CHEMISTRY Glucose 70-100 (mg/dL) 87 Sodium 135-145 (meq/L) 129 Potassium 3.5-5.3 (meq/L) 4.8 Chloride 99-110 (meq/L) 97 CO2 20-29 (meq/L) 23 Anion Gap with K 6-20 (meq/L) 14 BUN 6-22 (mg/dL) 12 Creatinine 0.60-1.10 (mg/dL) 0.71 BUN/Creatinine Ratio 10.0-25.0 16.9 Calcium 8.5-10.5 (mg/dL) 8.7 Magnesium 1.8-2.4 (mg/dL) 2.0 eGFR >=60 (mL/min/1.73m2) >90 eGFR Non- >=60 (mL/min/1.73m2) 81 06/08/20 0529 - 06/08/20 0529 OTHER 06/08/20 0529 OTHER Age (Years) 69 Medical Decision making MDM Reviewed: previous chart, nursing note and vitals Reviewed previous: labs Interpretation: labs Total time providing critical care: < 30 minutes. This excludes time spent performing separately reportable procedures and services. Consults: orthopedics Juanjose Scott MD - 06/08/2020 7:09 AM CSTThe risks and benefits of operative intervention explained to and understood by the patient. These were inclusive but not exclusive of deep vein thrombosis, pulmonary embolism, bleeding and transfusion, leg length discrepancy, loss of motion, loss of function, failure of implants, infection, and treatment of infection, neurovascular or bony compromise with insertion and/or removal of implants, and associated medical risks of the operation. Alternative treatments have been discussed. The hope is to lessen pain and improve mobility. We discussed other treatment options previously including intra-articular cortisone injection, continued conservative management, versus arthroplasty. Potential surgeon c onflict of interests were also discussed with research and/or development, consulting, and education. The patient admits to no changes in their status since their last history and physical examination. Eli Noe PA - 06/07/2020 4:53 PM CST Orthopedic Daily Progress Note Assessment: Magda Reyes is a 69yr old female 1. Recurrent dislocation left hip 2.Status post left DREW revision secondary to recurrent dislocation 05/19/[address] Cruz, status post left total hip arthroplasty revision secondary to recurrent left hip dislocations/failed left DREW [id number]/23/2020, status post complex left DREW revision 02/03/[address] Alegre secondary to fa iled/unstable left total hip arthroplasty with chronic non-union/displaced left acetabular fracture 3. PMH elective left DREW 09/20/[address] Mariano Bermudez 4. 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 Takes oral suppressive Keflex for chronic osteo 6. Chronic hyponatremia 7. HTN 8. Physical deconditioning, mostly mobilizes with a wheelchair at home (lives alone, ). Stands for pivot transfers 9. Chronic left hip adductor contracture 10. Chronic tobacco abuse, smokes 3-4 cigarettes/day 11. Presbycusis, L worse than R 12. Cataract 13. Acute post-op blood loss anemia 14. Osteopenia/osteoporosis 15. New lung nodule Plan: 1. Pain control 2. DVT Chemoprophylaxis:Lovenox 40mg SQ daily, hold midnight 06/08/2020 for OR 3. PT/OT:NWB left LE, will hold PT/OT until after surgery 4.Discussed non-operative and operative management with Magda and her daughter Blaine. The risks,goals, benefits, and alternatives of a left total hip arthroplasty revision were discussed in detailwith the patient today. We discussed other common risks and uncommon risks and some outcomes can be unpredictable. We specifically discussed the risks of infection, bleeding, blood loss, need for transfusion, blood clots, implant problems, implant wear, potential need of revision surgery, potential fracture, continued pain, scar tissue and poor range of motion, and failure to meet the patient's expectations. We discussed some of the ways to limit the use potential complications such as the use ofantibiotics and blood thinners and the fact that all of her methods of trying to prevent complications cannot be 100% successful. Patient's questions were answered to their satisfaction. 5. Preop orders placed 6. NPO midnight 06/08/2020 7. Hold Lovenox midnight 06/08/2020 Subjective: Patient is resting comfortably. Denies complaints. +BM. Appetite good. Pain controlled. No acute overnight events. Objective: BP 121/54 | Pulse 84 | Temp 98.4 F (36.9 C) | Resp 15 | Ht 1.638 m (5' 4.5") | SpO2 92% | BMI 24.50 kg/m Maximum Temperatures (last 24 hours) Temperature Maximum Max Temp 98.4 F (36.9 C) Intake and Output: 06/06 0700 - 06/07 0659 In: 1000 [Oral:300] Out: 1050 [Urine:1050] General: AOx3, NAD. Respirations unlabored. Facial/sinus cavityappears clean, with chronic osteo noted along the right superior skin border.Respirations unlabored Exam:leftlower extremity.Left hip incision healing well. No drainage or erythema. Left leg is shortened and rotated.Woundwas dry. Neurovascular intact. No calf tenderness noted in leftlower extremity. EHL/FHL 5/5. Lab Results Component Value Date WBC 9.5 06/05/2020 NUCRBC 0 01/26/2020 RBC 3.31 (L) 06/05/2020 HEMOGLOBIN 9.2 (L) 06/05/2020 HEMATOCRIT 29.0 (L) 06/05/2020 MCV 87.6 06/05/2020 MCH 27.8 06/05/2020 MCHC 31.7 06/05/2020 PLTCOUNT 633 (H) 06/05/2020 NEUTROPCT 68.4 06/05/2020 LYMPHSPCT 17.8 06/05/2020 MONOSPCT 11.6 06/05/2020 EOSPCT 1.9 06/05/2020 BASOPHILPCT 0.2 06/05/2020 Lab Results Component Value Date PT 14.1 05/07/2020 INR 1.1 (L) 05/07/2020 Micro: 05/19/2020 OR cx: NG 05/11/2020 OR cx: NG 01/28/2020 OR cx: NG Labs and xrays were reviewed. g Soler MD - 06/07/2020 8:14 AM FLEXOGRAPHIC PRESS OPERATOR DAILY PROGRESS NOTE Magda Reyes is a 69yr old female admitted on 06/05/2020 3:29 PM. Impression / Plan Magda Reyes is a 69 year old woman with recurrent left hip dislocation presenting from rehab foradmission to undergo revision by Dr. Alegre, likely on 06/08/2020. Patient denies any significant pain at this time. She is afebrile, hemodynamically stable and awaits surgery. 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 Baseline Hgb 11.9 (08/09) --> 8.3 (05/21) --> 9.2 (06/05) -- F/u Hgb on 06/08 # Reactive thrombocytosis -- continue to monitor # Hypertension -- Hold lisinopril on the day of surgery # Chronic hyponatremia, secondary to SIADH -- Na 131 at admission; Baseline Na 125 - 130 since 2014 -- Continue NaCl tablets (3 gm TID) # Depression/anxiety -- Assess if patient is symptomatic and use home Ativan prn # Nicotine use disorder -- nicotine replacement protocol in place # New lung nodule per CT chest from 05/25/2020 -- Needs a follow-up as outpatient # Severe bilateral presbycusis (L>R) # Physical deconditioning CODE STATUS: FULL DVT prophylaxis: SCDs and Lovenox SC, hold the night prior surgery Diet: Regular, NPO past MN prior to surgery Dispo plan: Await medical stability following surgery per Dr. Robb team, and recommendations from PT/OT POA: Daughter Ella Cruz Awaits surgery on Monday (06/08). Overnight no acute events. Patient does not complain of much pain unless being repositioned, which is done every 2 hours, not needed any analgesics. Remains on bedrest. She is tolerating a diet, has been having bowel movements. Patient has picked on her facial wound around forehead, which is minimally bleeding this AM. She is voiding well, external catheter in place. Review of Systems Review of Systems Remainder of 10 point ROS asked/reviewed. Negative except as mentioned in HPI Physical Exam Vital Signs: Temp: 97.6 F (36.4 C) | BP: 127/67 | Pulse: 73 | Resp: 14 | Pain Ratin(with movement) (out of 10) | | O2 Device: Room Air | SpO2: 94 % Maximum Temperatures (last 24 hours) Temperature Maximum Max Temp 97.8 F (36.6 C) Intake and Output: 06/06 0700 - 06/07 0659 In: 1000 [Oral:300] Out: 1050 [Urine:1050] Physical Exam General: No apparent distress. Speaks in full sentences. 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 No signs of infection. Normal conjunctivae. Pupils equal, round, and reactive to light. Cardiovascular: Normal rate, regular rhythm, audible S1/S2. No pedal edema. Palpable distal pulses. Pulmonary/Chest: Normal respiratory effort, clear breath sounds auscultated in all lung ogden. No adventitious sounds. Abdominal: Soft. Non-tender. Non-distended. Bowel sounds present. Musculoskeletal: Left hip non-tender, decreased ROM, no distal neurovascular compromise. Neurological: Alert and oriented to person, place, and time. No focal findings. Dermatologic: Skin is warm and dry. No rash. Minimal bleeding from facial/forehead wound Psychiatric: Affect, mood, behavior, speech, demeanor, judgement and thought content unremarkable. Labs Labs (Last day) No results found within the past day. Medical Decision making MDM Reviewed: previous chart, nursing note and vitals Total time providing critical care: < 30 minutes. This excludes time spent performing separately reportable procedures and services. Consults: orthopedics Mg Patricia MD - 06/06/2020 9:35 AM CST DAILY PROGRESS NOTE Magda Reyes is a 69yr old female admitted on 06/05/2020 3:29 PM. Impression / Plan Magda Reyes is a 69 year old woman with recurrent left hip dislocation presenting from rehab foradmission to undergo revision by Dr. Alegre, likely on 06/08/2020. Patient denies any significant pain at this time. She is afebrile, hemodynamically stable and awaits surgery. 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 Baseline Hgb 11.9 (08/09) --> 8.3 (05/21) --> 9.2 (06/05) -- Repeat labs on 06/08 to monitor # Thrombocytosis -- continue to monitor # Hypertension -- continue lisinopril for now, hold 24 hours prior to surgery # Chronic hyponatremia, secondary to SIADH -- Na 131 at admission; Baseline Na 125 - 130 since 2013 -- Continue NaCl tablets (3 gm TID) # Depression/anxiety -- Assess if patient is symptomatic and use home Ativan prn # Nicotine use disorder -- nicotine replacement protocol in place # New lung nodule per CT chest from 05/25/2020 -- Needs a follow-up as outpatient # Severe bilateral presbycusis (L>R) # Physical deconditioning CODE STATUS: FULL DVT prophylaxis: SCDs and Lovenox SC, hold the night prior surgery Diet: Regular, NPO past MN prior to surgery Dispo plan: Await medical stability following surgery per Dr. Robb team, and recommendations from PT/OT POA: Daughter Ella Interval History Overnight no acute events. Patient states pain is well controlled. Remains on bedrest. She is tolerating a diet, had a BM this afternoon. Voiding well. Awaits surgery on 06/08 (Monday) Review of Systems Review of Systems Remainder of 10 point ROS asked/reviewed. Negative except as mentioned in HPI Physical Exam Vital Signs: Temp: 97.8 F (36.6 C) | BP: 130/70 | Pulse: 83 | Resp: 18 | Pain Ratin (out of 10) | | O2 Device: Room Air | SpO2: 92 % Maximum Temperatures (last 24 hours) Temperature Maximum Max Temp 98 F (36.7 C) Intake and Output: 06/05 0700 - 06/06 0659 In: 741 Out: 400 [Urine:400] Physical Exam General: No apparent distress. Speaks in full sentences. 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 No signs of infection. Normal conjunctivae. Pupils equal, round, and reactive to light. Cardiovascular: Normal rate, regular rhythm, audible S1/S2. No pedal edema. Palpable distal pulses. Pulmonary/Chest: Normal respiratory effort, clear breath sounds auscultated in all lung ogden. No adventitious sounds. Abdominal: Soft. Non-tender. Non-distended. Bowel sounds present. Musculoskeletal: Left hip non-tender, decreased ROM, no distal neurovascular compromise. Neurological: Alert and oriented to person, place, and time. No focal findings. Dermatologic: Skin is warm and dry. No rash. Psychiatric: Affect, mood, behavior, speech, demeanor, judgement and thought content unremarkable. Labs Labs (Last day) 06/05/20 163 - 06/05/20 163 BLOOD BANK 06/05/201632 BLOOD BANK ABO Type O Rh Type Positive Antibody Screen Negative Expiration Date 06/08/2020 23:59 06/05/20 1633 - 06/05/20 1633 CBC 06/05/20 163 CBC WBC 4.0-11.0 (K/uL) 9.5 RBC 3.80-5.30 (M/uL) 3.31 Hemoglobin 11.5-15.8 (g/dL) 9.2 Hematocrit 35.0-45.0 (%) 29.0 MCV 80.0-98.0 (fL) 87.6 MCH 25.5-34.0 (pg) 27.8 MCHC 31.5-36.5 (g/dL) 31.7 RDW-CV 11.5-15.5 (%) 15.4 RDW-SD 35.5-50.0 (fl) 48.2 Platelet Count 140-400 (K/uL) 633 MPV 8.5-12.0 (fL) 8.1 06/05/20 163 - 06/05/20 1633 CHEMISTRY 06/05/20 1633 06/05/20 1633 CHEMISTRY Glucose 70-100 (mg/dL) 90 Sodium 135-145 (meq/L) 131 Potassium 3.5-5.3 (meq/L) 5.0 Chloride 99-110 (meq/L) 96 CO2 20-29 (meq/L) 27 Anion Gap with K 6-20 (meq/L) 13 BUN 6-22 (mg/dL) 16 Creatinine 0.60-1.10 (mg/dL) 0.77 BUN/Creatinine Ratio 10.0-25.0 20.8 Calcium 8.5-10.5 (mg/dL) 8.5 Magnesium 1.8-2.4 (mg/dL) 2.1 eGFR >=60 (mL/min/1.73m2) 90 eGFR Non- >=60 (mL/min/1.73m2) 74 06/05/20 1633 - 06/05/20 1633 DIFFERENTIAL 06/05/20 1633 06/05/20 1633 DIFFERENTIAL Seg Neut Absolute 1.8-8.0 (K/uL) 6.5 Lymphocytes Absolute 0.8-4.1 (K/uL) 1.7 Monocytes Absolute 0.0-1.0 (K/uL) 1.1 Eosinophils Absolute 0.0-0.7 (K/uL) 0.2 Basophil Absolute 0.0-0.2 (K/uL) 0.0 Neutrophils Percent (%) 68.4 Neutrophils Abs. (Segs and Bands) (/uL) 6,500 Lymphocytes Percent (%) 17.8 Monocytes Percent (%) 11.6 Eosinophils Percent (%) 1.9 Basophil Percent (%) 0.2 Platelet Estimate Increased Platelet Morphology Normal RBC Morphology Normal 06/05/20 1633 - 06/05/20 1633 OTHER 06/05/20 1633 OTHER Age (Years) 69 Medical Decision making MDM Reviewed: previous chart, nursing note and vitals Total time providing critical care: < 30 minutes. This excludes time spent performing separately reportable procedures and services. Consults: orthopedics tanton Briscoe [facility] - 06/05/2020 6:45 PM CST 06/05/2020 6:45 PM FLEXOGRAPHIC PRESS OPERATOR - Patient was seen by pharmacy. HOME MEDICATIONS have been reconciled and updated to match the patient's home usage. Medications added:Citalopram 10mg daily Ferrous Sulfate 325mg BID Oxybutynin ER 5 mg daily Furosemide 10mg daily Last doses unknown as they were not listed on the AUG. Prior to Admission Medications Prescriptions Last Dose Informant Patient Reported? Taking? Calcium Carbonate-Vit D-Min (CALTRATE PLUS PO) Unknown at Unknown time Yes Yes Sig: Take 1 tablet by mouth 1 time per day LORazepam (ATIVAN) 0.5 mg tablet Unknown at Unknown time Yes Yes Sig: Take 1 tablet (0.5 mg) by mouth every 6 hours as needed for anxiety Multiple Vitamins-Minerals (MULTIVITAMIN THERAPEUTIC WITH MINERALS) tablet Unknown at Unknown time Yes Yes Sig: Take 1 tablet by mouth 1 time per day acetaminophen (TYLENOL) 325 mg tablet Unknown at Unknown time Yes Yes Sig: Take 2 tablets (650 mg) by mouth Every 4 hours as needed for mild pain (fever >99F) Dx: lefthip pain aspirin 81 mg chewable tablet Unknown at Unknown time No Yes Sig: Take 1 tablet (81 mg) by mouth 2 times a day betamethasone dipropionate (DIPROSONE) 0.05 % cream Yes No Sig: Apply to affected area 2 times a day as needed for itching or rash Apply twice daily for up to 2 weeks to affected skin bisacodyl (DULCOLAX) 10 mg suppository No No Sig: Insert 1 suppository (10 mg) rectally 1 time a day as needed for constipation Unwrap before inserting. Do not swallow. cephalexin (KEFLEX) 500 mg capsule Unknown at Unknown time Yes Yes Sig: Take 1 capsule (500 mg) by mouth 3 times a day citalopram (CELEXA) 10 mg tablet Unknown at Unknown time Yes Yes Sig: Take 10 mg by mouth 1 time per day clobetasol propionate (TEMOVATE) 0.05 % cream Unknown at Unknown time Yes Yes Sig: Apply to affected area 2 times a day as needed for itching or rash cyclobenzaprine (FLEXERIL) 10 mg tablet Unknown at Unknown time Yes Yes Sig: Take 1 tablet (10 mg) by mouth 3 times a day as needed enoxaparin (LOVENOX) 40 mg syringe (100 mg/mL) subcutaneous injection solution Unknown at Unknown time No Yes Sig: Inject 40 mg subcutaneously 1 time per day for 23 days erythromycin 5 mg/gm ophthalmic ointment Unknown at Unknown time Yes Yes Sig: Place into both eyes 4 times a day as needed ferrous sulfate (65 MG FE PER 325 MG TABLET) 325 mg tablet Unknown at Unknown time Yes Yes Sig: Take 325 mg by mouth 2 times a day furosemide (LASIX) 20 mg tablet Unknown at Unknown time Yes Yes Sig: Take 10 mg by mouth 1 time per day lisinopril (PRINIVIL, ZESTRIL) 5 mg tablet Unknown at Unknown time Yes Yes Sig: Take 1 tablet (5 mg) by mouth 1 time per day magnesium hydroxide (MILK OF MAGNESIA) 400 mg/5 mL oral suspension Unknown at Unknown time No Yes Sig: Take 30 mL by mouth 2 times a day as needed for constipation magnesium oxide 500 mg TABS tablet Unknown at Unknown time Yes Yes Sig: Take by mouth 1 time per day nicotine (NICODERM) 21 mg/24hr PT24 Yes No Sig: Apply 1 patch (21 mg) to the skin 1 time per day omega-3 fatty acids (FISH OIL) 1000 mg capsule Unknown at Unknown time Yes Yes Sig: Take 1 capsule (1,000 mg) by mouth 1 time per day ondansetron (ZOFRAN ODT) 4 mg dispersible tablet Unknown at Unknown time No Yes Sig: Take 1 tablet (4 mg) by mouth 4 times a day as needed for nausea or vomiting oxyCODONE (OXY-IR) 5 mg tablet (immediate release) No No Sig: Take 1 tablet (5 mg) by mouth Every 4 hours as needed for moderate pain or severe pain oxybutynin (DITROPAN-XL) 5 mg SR tablet (24 hr) Unknown at Unknown time Yes Yes Sig: Take 5 mg by mouth 1 time per day polyethylene glycol (MIRALAX) 17 g packet Unknown at Unknown time Yes Yes Sig: Take 1 packet by mouth 1 time per day Dissolve in 4 to 8 ounces of water, juice, soda, coffee, tea. senna-docusate sodium (SENOKOT-S;PERICOLACE) 8.6-50 MG tablet Yes No Sig: Take 2 tablets by mouth 2 times a day Dx: constipation sodium chloride 1 gm tablet Unknown at Unknown time No Yes Sig: Take 3 tablets (3 g) by mouth 3 times a day Dx: chronic hyponatremia urea (CARMOL-20) 20 % cream Yes No Sig: Apply to affected area 2 times a day as needed for itching vitamin D3, cholecalciferol, 1000 unit tablet Unknown at Unknown time No Yes Sig: Take 2 tablets (2,000 Units total) by mouth 1 time per day Patient taking differently: Take 1,000 Units by mouth 1 time per day Facility-Administered Medications: None Cornelia Lindsayectronically signed by Stanton Briscoe RPh at 06/05/2020 6:46 PM CSTdocumented in this encounter H&P Notes Mg Soler MD - 06/05/2020 3:45 PM CST ADMISSION HISTORY AND PHYSICAL NOTE Patient ID: Magda Reyes is a 69yr female. PCP: Viridiana Huynh APRN-TERADATA DEVELOPER Attending Provider: Yordan Holland MD ESTRADA: [phone] Impression / Plan Magda Reyes is a 69 year old woman with recurrent left hip dislocation presenting from rehab foradmission to undergo revision by Dr. Alegre, likely on 06/08/2020. Patient denies any significant pain at this time. She is afebrile, hemodynamically stable and awaits surgery. # Recurrent dislocation of left total hip arthroplasty -- Last revision of DREW on 05/19/2020 -- Pain management with as needed Tylenol, opioid analgesics, cold packs -- Bowel regimen as ordered -- Type and screen, prepare and hold 2 units of pRBCs -- PT/OT consulted -- Normal saline 75 ml/hr -- F/u labs on 06/08 -- Activity - bedrest with bathroom privileges until surgical evaluation Preoperative evaluation: -- METs scoring <4, RCRI class 1 risk, 3.9%, 30 day risk of , PA or cardiac arrest -- Respiratory status: denies recent cough, cold, flu, asthma, COPD. 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 Baseline Hgb 11.9 (08/09) --> 8.3 (05/21) --> 9.2 (06/05) -- Continue to monitor # Thrombocytosis -- continue to monitor # Hypertension -- continue lisinopril for now, hold 24 hours prior to surgery # Chronic hyponatremia, secondary to SIADH -- Na 131 at admission; Baseline Na 125 - 130 since 2013 -- Continue NaCl tablets (3 gm TID) # Depression/anxiety -- appears stable. Hold home med as needed Ativan for now. Assess if patient is symptomatic. # Nicotine use disorder -- nicotine replacement protocol in place # Lung nodule per CT chest from 05/25/2020 -- Needs a follow-up as outpatient CODE STATUS: FULL DVT prophylaxis: SCDs and Lovenox SC, hold the night prior surgery Diet: Regular for now, make NPO past MN prior to surgery Dispo plan: Await medical stability following surgery per Dr. Robb team, and recommendations from PT/OT POA: Daughter Ella Chief Complaint / HPI Magda Reyes is a 69 year old woman who is being admitted from [facility] rehab with recurrent left hip dislocation. Patient has history of recurrent left hip dislocations and she had recently undergone revision of DREW on 05/19 following which she was discharged to rehab on 05/22. Reportedly the day prior to her discharge from rehab to home, patient rolled wrong in bed and she woke up moaningin pain, which prompted a hip XR showing dislocation of DREW and fracture through the left acetabulum. Patient denies any significant pain at this time. No symptoms of chest pain, dyspnea, palpitations, cough, fevers/chills, wheezing, no abdominal pain or any other GI/ symptoms. Patient is hard of hearing due to severe bilateral presbycusis with no hearing aids, chronic facial osteomyelitis s/p surgeries for cavernous sinus squamous cell carcinoma with chronic midfacial defectand chronic Keflex therapy. Patient is a current smoker, has history of hypertension, hypercholesterolemia, chronic constipation, extensive facial surgeries, anemia, and chronic hyponatremia secondaryto SIADH. Recently CT scan of chest a lung nodule that needs to be followed up. At baseline, patient's exercise tolerance is <4METS, uses wheelchair at home. Medications Prior to Admission Medications Prescriptions Last Dose Informant Patient Reported? Taking? Calcium Carbonate-Vit D-Min (CALTRATE PLUS PO) Yes No Sig: Take 1 tablet by mouth 1 time per day LORazepam (ATIVAN) 0.5 mg tablet Yes No [...] mg) by mouth 2 times a day benzocaine-menthol (CEPACOL W/ BENZOCAINE) 15-3.6 MG LOZG No No Sig: Place 1 lozenge into mouth Every 4 hours as needed for sore throat or other (Specify) (throat irritation) betamethasone dipropionate (DIPROSONE) 0.05 % cream Yes No Sig: Apply to affected area 2 times a day as needed for itching or rash Apply twice daily for up to 2 weeks to affected skin bisacodyl (DULCOLAX) 10 mg suppository No No Sig: Insert 1 suppository (10 mg) rectally 1 time a day as needed for constipation Unwrap before inserting. Do not swallow. cephalexin (KEFLEX) 500 mg capsule Yes No Sig: Take 1 capsule (500 mg) by mouth 3 times a day clobetasol propionate (TEMOVATE) 0.05 % cream Yes No Sig: Apply to affected area 2 times a day as needed for itching or rash cyclobenzaprine (FLEXERIL) 10 mg tablet Yes No Sig: Take 1 tablet (10 mg) by mouth 3 times a day as needed enoxaparin (LOVENOX) 40 mg syringe (100 mg/mL) subcutaneous injection solution No No Sig: Inject 40 mg subcutaneously 1 time per day for 23 days erythromycin 5 mg/gm ophthalmic ointment Yes No Sig: Place into both eyes 4 times a day as needed lisinopril (PRINIVIL, ZESTRIL) 5 mg tablet Yes No Sig: Take 1 tablet (5 mg) by mouth 1 time per day magnesium hydroxide (MILK OF MAGNESIA) 400 mg/5 mL oral suspension No No Sig: Take 30 mL by mouth 2 times a day as needed for constipation nicotine (NICODERM) 21 mg/24hr PT24 Yes No [...] day as needed for nausea or vomiting oxyCODONE (OXY-IR) 5 mg tablet (immediate release) No No Sig: Take 1 tablet (5 mg) by mouth Every 4 hours as needed for moderate pain or severe pain polyethylene glycol (MIRALAX) 17 g packet Yes [...] HIP ARTHROPLASTY REVISION;; Surgeon: Juanjose Alegre MD TOTAL HIP REVISION Left 05/19/2020 Procedure: LEFT TOTAL HIP ARTHROPLASTY REVISION;; Surgeon: Deric Cruz MD Family History Problem Relation Age of [...] Drug use: No ROS Review of Systems Remainder of 10 point ROS asked/reviewed. Negative except as mentioned in HPI Physical Exam BP 114/53 | Pulse 75 | Temp 98 F (36.7 C) | Resp 16 | SpO2 93% Physical Exam General: No apparent distress. Speaks in full sentences. 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 No signs of infection. Normal conjunctivae. Pupils equal, round, and reactive to light. Cardiovascular: Normal rate, regular rhythm, audible S1/S2. No pedal edema. Palpable distal pulses. Pulmonary/Chest: Normal respiratory effort, clear breath sounds auscultated in all lung ogden. No adventitious sounds. Abdominal: Soft. Non-tender. Non-distended. Bowel sounds present. Musculoskeletal: Left hip somewhat tender, decreased ROM, no distal neurovascular compromise. Neurological: Alert and oriented to person, place, and time. No focal findings. Dermatologic: Skin is warm and dry. No rash. Psychiatric: Affect, mood, behavior, speech, demeanor, judgement and thought content unremarkable. Labs Labs (Last day) 06/05/20 1633 - 06/05/20 1633 CBC 06/05/20 1633 CBC WBC 4.0-11.0 (K/uL) 9.5 RBC 3.80-5.30 (M/uL) 3.31 Hemoglobin 11.5-15.8 (g/dL) 9.2 Hematocrit 35.0-45.0 (%) 29.0 MCV 80.0-98.0 (fL) 87.6 MCH 25.5-34.0 (pg) 27.8 MCHC 31.5-36.5 (g/dL) 31.7 RDW-CV 11.5-15.5 (%) 15.4 RDW-SD 35.5-50.0 (fl) 48.2 Platelet Count 140-400 (K/uL) 633 MPV 8.5-12.0 (fL) 8.1 06/05/20 1633 - 06/05/20 1633 CHEMISTRY 06/05/20 1633 CHEMISTRY Glucose 70-100 (mg/dL) 90 Sodium 135-145 (meq/L) 131 Potassium 3.5-5.3 (meq/L) 5.0 Chloride 99-110 (meq/L) 96 CO2 20-29 (meq/L) 27 Anion Gap with K 6-20 (meq/L) 13 BUN 6-22 (mg/dL) 16 Creatinine 0.60-1.10 (mg/dL) 0.77 BUN/Creatinine Ratio 10.0-25.0 20.8 Calcium 8.5-10.5 (mg/dL) 8.5 eGFR >=60 (mL/min/1.73m2) 90 eGFR Non- >=60 (mL/min/1.73m2) 74 06/05/20 1633 - 06/05/20 1633 DIFFERENTIAL 06/05/20 1633 06/05/20 1633 DIFFERENTIAL Seg Neut Absolute 1.8-8.0 (K/uL) 6.5 Lymphocytes Absolute 0.8-4.1 (K/uL) 1.7 Monocytes Absolute 0.0-1.0 (K/uL) 1.1 Eosinophils Absolute 0.0-0.7 (K/uL) 0.2 Basophil Absolute 0.0-0.2 (K/uL) 0.0 Neutrophils Percent (%) 68.4 Neutrophils Abs. (Segs and Bands) (/uL) 6,500 Lymphocytes Percent (%) 17.8 Monocytes Percent (%) 11.6 Eosinophils Percent (%) 1.9 Basophil Percent (%) 0.2 Platelet Estimate Increased Platelet Morphology Normal RBC Morphology Normal 06/05/20 1633 - 06/05/20 1633 OTHER 06/05/20 1633 OTHER Age (Years) 69 Procedures Procedures Medical Decision Making MDM Reviewed: previous chart and nursing note Reviewed previous: x-ray and labs Interpretation: labs and x-ray Total time providing critical care: < 30 minutes. This excludes time spent performing separately reportable procedures and services. Consults: orthopedics documented in this encounter Consult Notes Eli Keyes PA - 06/06/2020 2:43 PM CSTAssociated Order(s): CONSULT ORTHOPEDICS Orthopedic Daily Progress Note Assessment: Magda Reyes is a 69yr old female 1. Recurrent dislocation left hip 2.Status post left DREW revision secondary to recurrent dislocation 05/19/[address] Cruz, status post left total hip arthroplasty revision secondary to recurrent left hip dislocations/failed left DREW /23/2020, status post complex left DREW revision 02/03/[address] Alegre secondary to fa iled/unstable left total hip arthroplasty with chronic non-union/displaced left acetabular fracture 3. PMH elective left DREW 09/20/[address] Mariano Bermudez 4. 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 Takes oral suppressive Keflex for chronic osteo 6. Chronic hyponatremia 7. HTN 8. Physical deconditioning, mostly mobilizes with a wheelchair at home (lives alone, ). Stands for pivot transfers 9. Chronic left hip adductor contracture 10. Chronic tobacco abuse, smokes 3-4 cigarettes/day 11. Presbycusis, L worse than R 12. Cataract 13. Acute post-op blood loss anemia 14. Osteopenia/osteoporosis 15. New lung nodule Plan: 1. Pain control 2. DVT Chemoprophylaxis: Lovenox 40mg SQ daily, hold midnight 06/08/2020 for OR 3. PT/OT: NWB left LE, will hold PT/OT until after surgery 4. Discussed non-operative and operative management with Magda and her daughter Blaine. The risks, goals, benefits, and alternatives of a left total hip arthroplasty revision were discussed in detail with the patient today. We discussed other common risks and uncommon risks and some outcomes can be u npredictable. We specifically discussed the risks of infection, bleeding, blood loss, need for transfusion, blood clots, implant problems, implant wear, potential need of revision surgery, potential fracture, continued pain, scar tissue and poor range of motion, and failure to meet the patient's expectations. We discussed some of the ways to limit the use potential complications such as the use of antibiotics and blood thinners and the fact that all of her methods of trying to prevent complications cannot be 100% successful. Patient's questions were answered to their satisfaction. 5. Preop orders placed 6. NPO midnight 06/08/2020 Subjective: Patient is resting comfortably in bed. She was able to sleep last night. She had been doing well and was planning for discharge to home until yesterday morning. She was trying to get up with the nursing staff at her SNF to go to the bathroom and was unable to weight-bear on the LLE. She was wearing her knee immobilizer. She had been ambulating with a walker independently prior to this most recent dislocation. She denies any specific incident/fall/or turning the leg. Objective: BP 130/70 | Pulse 83 | Temp 97.8 F (36.6 C) | Resp 18 | Ht 1.638 m (5' 4.5") | SpO2 92% | BMI 24.50 kg/m Maximum Temperatures (last 24 hours) Temperature Maximum Max Temp 98 F (36.7 C) Intake and Output: 06/05 0700 - 06/06 0659 In: 741 Out: 400 [Urine:400] General: AOx3, NAD. Respirations unlabored. Facial/sinus cavity appears clean, with chronic osteo noted along the right superior skin border.Respirations unlabored Exam:leftlower extremity.Left hip incision healing well. No drainage or erythema. Left leg is shortened and rotated.Woundwas dry. Neurovascular intact. No calf tenderness noted in leftlower extremity. EHL/FHL 5/5. Lab Results Component Value Date WBC 9.5 06/05/2020 NUCRBC 0 01/26/2020 RBC 3.31 (L) 06/05/2020 HEMOGLOBIN 9.2 (L) 06/05/2020 HEMATOCRIT 29.0 (L) 06/05/2020 MCV 87.6 06/05/2020 MCH 27.8 06/05/2020 MCHC 31.7 06/05/2020 PLTCOUNT 633 (H) 06/05/2020 NEUTROPCT 68.4 06/05/2020 LYMPHSPCT 17.8 06/05/2020 MONOSPCT 11.6 06/05/2020 EOSPCT 1.9 06/05/2020 BASOPHILPCT 0.2 06/05/2020 Lab Results Component Value Date PT 14.1 05/07/2020 INR 1.1 (L) 05/07/2020 Micro: 05/19/2020 OR cx: NG 05/11/2020 OR cx: NG 01/28/2020 OR cx: NG Labs and xrays were reviewed. documented in this encounter Miscellaneous Notes Care Planning - Debbie Garibay RN - 06/11/2020 10:10 AM FLEXOGRAPHIC PRESS OPERATOR Problem: ACUTE PAIN Goal: CLIENT SATISFACTION: PAIN MANAGEMENT Description: DEFINITION: Extent of positive perception of nursing care to relieve pain. 1=Not at all satisfied, 2=Somewhat satisfied, 3=Moderately satisfied, 4=Very satisfied, 5=Completely satisfied. Outcome: Outcome acceptable for discharge Problem: IMPAIRED [...] independence. Outcome: Outcome acceptable for discharge Problem: RISK FOR FALLS Goal: FALL PREVENTION BEHAVIOR Description: DEFINITION: Personal or family rental boats caretaker actions to minimize risk factors that might precipitate falls in the personal environment. 1=Never demonstrated, 2=Rarely demonstrated, 3=Sometimes demonstrated, 4=Often demonstrated, 5=Consistently demonstrated. Outcome: Outcome acceptable for discharge Goal: MOBILITY Description: DEFINITION: Ability to move purposefully in own environment independently with or without assistive device. 1=Severely compromised, 2=Substantially compromised, 3=Moderately compromised,4=Mildly compromised, 5=Not compromised. Outcome: Outcome acceptable for discharge linical Team - Marielle Fuentes RN - 06/11/2020 2:30 AM CSTPt transported to radiology via bed for the CT of chest. linical Team - Marielle Fuentes RN - 06/11/2020 1:50 AM CSTDr Antonino notified of elevated D-dimer per Melvi VIDAL. New order to do CTof chest. are Planning - Marielle Fuentes RN - 06/11/2020 1:26 AM FLEXOGRAPHIC PRESS OPERATOR Problem: ACUTE PAIN Goal: CLIENT SATISFACTION: PAIN MANAGEMENT Description: DEFINITION: Extent of positive perception of nursing care to relieve pain. 1=Not at all satisfied, 2=Somewhat satisfied, 3=Moderately satisfied, 4=Very satisfied, 5=Completely satisfied. Flowsheets (Taken 06/11/2020 0123) Patient Progress: pt reports pain at zero to hip when " I'm not moving " but utters ouch with repositioning. pt declined analgesia so far this shift. pt had episode of chest pain tonight. see INVENTORY ASSOCIATE AND DRIVER. medicated with prn nitro x3 doses & given prn ativan. pt now resting. will continue to monitor Problem: IMPAIRED PHYSICAL MOBILITY Goal: MOBILITY Description: [...] 5=Not compromised / Complete independence. Flowsheets (Taken 06/11/2020 0123) Patient Progress: pt declined getting up this shift. pt turned Q 2hrs using TAPS system. pt working with therapies.see PT notes apid Response - Dillan Muñiz MD - 06/10/2020 10:56 PM FLEXOGRAPHIC PRESS OPERATOR Rapid Response Note 69 year old female, s/p left hip arthroplasty revision surgery on , rapid response called for chest pain. Vitals Afebrile BP: 135/85 RR: 18/min CT: 91 O2 sats 90's on RA Physical Exam Constitutional: mild distress from chest pain RS: clear breath sounds heard b/l CVS: normal rate and rhythm, S 1 S 2 heard GI: soft, non tender, BS heard Skin: normal skin turgor, no rash Neuro: alert and oriented, no focal deficits Assessment & Plan # Atypical chest pain Constant sharp chest pain, no aggravating or relieving factors. EKG done showiing NSR with no acute ST or Wave changes Plan - on telemetry - trend troponin - tachycardic, D -dimer pending, if elevated, will get Ct chest t rule out PE Dlilan Muñiz Hospitalist Pager # [phone] apid Response - Lorri Phillip RN - 06/10/2020 10:54 PM CSTRapid Response Team Date of Call: 06/10/20 Time Rapid Response Team paged/Rescue Nurse called: [phone] Rapid Response Team Location: [id number] Reason for Activating: Respiratory: Cardiac: Chest pain Neurological: Signs and Symptoms of Sepsis?: No Other Reasons: Staff concern Assessment, Notification, and Disposition Assessment: Patient resting in bed, complaining of 10/10 chest pain in middle of chest. Patient states it hurts when she takes a deep breath in, but the pain never goes away. The pain does not radiateany where. Pain started tonight. EKG completed and Labs ordered. Nitro given x 1. Provider Name: Dr. Muñiz Family or Mid Level Business Analyst notified: No Patient Disposition: Stabilized with INVENTORY ASSOCIATE AND DRIVER interventions/remained on current unit Additional Comments: Lorri Phillip RN OGRAPHIC PRESS OPERATOR Clinical Team - Rita Palomares RN - 06/10/2020 10:25 PM CSTRapid response called for this pt. Pt c/o chest pain, pressure/sharpness with 10/10 pain. EKG completed, NSR noted. Dr. Muñiz ordered D-dimer and troponin levels on this patient along with telemetry. Tele box #3 placed on pt. Awaiting lab results. OGRAPHIC PRESS OPERATOR Clinical Team - Marielle Fuentes RN - 06/10/2020 7:40 PM CSTPt unsure when she had last BM but thinks it was on Monday night /Monday morning. Laxative offered for pt but pt refused. Reports laxatives cause her to be constipated. Will continue to monitor. are Planning - Nishi López RN - 06/10/2020 6:00 PM FLEXOGRAPHIC PRESS OPERATOR Problem: IMPAIRED PHYSICAL MOBILITY Goal: MOBILITY Description: [...] independence. Outcome: NOC Rating 2 Flowsheets (Taken 06/10/20201999) Patient specific goal for the day: Pt will ambulate with staff throughout the shift. Achieve goal for stay: By discharge Patient Progress: Patient repositioned frequently. Worked with therapies. Sat in chair x1. Will continue to monitor. Problem: ACUTE PAIN Goal: CLIENT SATISFACTION: PAIN MANAGEMENT Description: DEFINITION: Extent of positive perception of nursing care to relieve pain. 1=Not at all satisfied, 2=Somewhat satisfied, 3=Moderately satisfied, 4=Very satisfied, 5=Completely satisfied. Outcome: NOC Rating 3 Flowsheets (Taken 06/10/20201999) Plan of care reviewed with: Patient Patient specific goal for the day: Pt will have tolerable pain throughout the shift. Patient Progress: Patient rating pain 0-5/10. PRN and scheduled pain medications given, see MAR. Refused ice. Agreeable to be repositioned. Will continue to monitor. hysical Therapy - Magi Sim, PT - 06/10/2020 2:59 PM CST Physical Therapy Orthopedic Treatment Note Date: 06/10/2020 Subjective: Alert and Oriented. Agreeable to PT. Daughter present and supportive. Precautions: Left DREW revision--standard posterior precautions, WBAT, knee immobilizer Recommendation/Assessment: Anticipate that patient will be ready to go to TCU when medically ready. Family/basketball coach present for PT session: Yes (see flowsheet) Objective: Lab Results Component Value Date HEMOGLOBIN 7.7 (L) 06/10/2020 Supine to/from sit: Moderate assist of 1, able to maintain sitting balance at EOB with standby assist Sit to/from stand: Minimal assist of 1 plus contact guard assist 1 from elevated bed up to FWW Sitting Balance: Fair+ Standing Balance: Fair with bilateral platform FWW Gait: Ambulated 5 feet with bilateral platform FWW, knee immobilizer, contact guard assist of 2, minimal weightbearing through left LE. Stairs: NA Exercises: Kept immobilizer in place as this significantly improved positioning of left hip. Pain: (0-10 scale) At rest: 4 With Activity: 5 Education: Patient was educated on precautions, exercise progression, transfer techniques, gait and mobility progression today through explanation, demonstration and handout. They accepted teaching and demonstrated understanding. Plan: Continue with PT plan of care. Time Treatment Occurred: 1435 Gait: 0 Minutes Therapeutic Exercise: 0 minutes Therapeutic Activity: 20 Minutes TOTAL TIMED CODES: 20 minutes TREATMENT TOTAL TIME: 20 Minutes ase Mgmt - Shanna Jaimes LSW - 06/10/2020 2:28 PM CSTCASE MANAGEMENT REFERRAL EDUCATION Patient in need of the following services: Transitional Care / Penitentiary Facility / Swing Bed Discussion of this need and/or printed listing of available agencies has been provided to patient/substitute decision maker. Opportunities have been given for questions to be asked and answered. Patient/Substitute decision maker agency preferences for services (list in order of preference): 1. [facility] Swing Bed 2. n/a 3. n/a Referrals Made: Profiled via [employer] to following [facility] [place] Medicare Comparison Information: Medicare guidelines require referring agencies to provide information regarding agency quality ratings. [employer] may assist with questions about facilities but cannot make recommendations. Patients and their families/decision makers are able to compare ratings of facilities at the following website: h ttps://www.medicare.gov/trkco-xsod-uuepnmifh/zcir-sjsufdq-uejspgp-hospitals-he r-providers or you may call 1-800-MEDICARE Acceptance/Placement: [employer] shares necessary clinical information with potential agencies to allow them to screen patients for safe admission to their facilities. This information is shared via secure communication. Acceptance by a post-acute facility is dependent on many factors including space, care needs, staffing, and insurance coverage. Financial disclosure: Verification of ownership of any agency/facility is available in the above Medicare website. [facility] is affiliated with [employer]-owned home care, hospice, [facility] nursing facilities, including agencies with Em[facility] in the name and [facility]. Additional agencies may not have Bapt[facility] in their name. Medicare guidelines require [employer] to provide a written list of options for your desired care. Youwill be provided a copy if desired. A copy of this document will be given to patient/substitute decision maker as confirmation of conversation regarding referrals and placement options. 06/10/20 JUANJO Coley Case Management P: [phone] F: [phone] signed by Shanna Jaimes LSW at 06/10/2020 2:29 PM CSTCase Mgmt - Shanna Jaimes LSW - 06/10/2020 2:24 PM CSTCASE MANAGEMENT / SOCIAL SERVICE FINAL TRANSITION PLAN TRANSITION DATE: 06/11/2020 TRANSITION TIME: 0900 INTENDED PAYER SOURCE FOR AGENCY: Medicare TRANSITION DESTINATION: [facility] Nurse to Nurse: [phone] Fax for Orders: [phone] DOES ACCEPTING FACILITY REQUIRE COVID TESTING BEFORE DISCHARGE: N/A TRANSITION TRANSPORTATION: Family Car TRANSPORTATION PAYMENT: Not [...] patient/family MEDICARE 3 IP MIDNIGHT CRITERIA MET: N/A RESOURCE(S) PROVIDED: Placement DOES PATIENT HAVE CLOTHING TO WEAR AT DISCHARGE? Yes ANTICIPATED MODE OF TRANSPORT TO AND FROM FOLLOW UP APPOINTMENTS: As arranged by accepting facility VERIFIED CORRECT PHARMACY IS ENTERED FOR DISCHARGE: Reconcile medications as Patient Transfer ("65 button") METHOD OF PRESCRIBING MEDICATIONS: Reconcile medications as Patient Transfer ("65 button") TRANSITION ROUNDING COMPLETED WITH THE FOLLOWING: Patient / family inspector radar and electronics Discussed in person COMMENTS / PATIENT AND FAMILY RESPONSE TO PLAN: Chart review was completed. Water Plumber met with patient and patient's daughter at bedside; introduced self, case management role anddischarge planning. Water Plumber explained that [facility] could accept patient back tomorrow. Both patient and patient's daughter expressed that they are agreeable to this and that patient's daughter will transport her there. Patient and patient's daughter did not have any other questions or concerns at this time. Water Plumber will continue to follow to ensure a safe discharge plan and assess any needs that may arise. SPECIAL TRANSITION DAY INSTRUCTIONS TO NURSE / MD: Discharge to swing bed. Please place interagency orders per unit policy. Bedside RN: please call report to: [phone] PROJECT RESERVOIR ENGINEER: please fax interagency orders to: [phone] Pharmacy: medication reconciliation/hospital transfer (swing bed will order all medications through their pharmacy) CURRENT READMISSION RISK SCORE / HANDOFF: Predictive Risk Score Risk of Unplanned Readmission: 31.7 Handoff given: N/A SIGNED: JUANJO Coley Case Management P: [phone] F: [phone] OGRAPHIC PRESS OPERATOR Occupational Therapy - Gabbi Castellanos OTR/Patricia - 06/10/2020 11:15 AM FLEXOGRAPHIC PRESS OPERATOR Occupational Therapy Orthopedic Progress Note Treatment Today's Treatment Therapeutic exercise: 13 minutes Total for time-based codes: 13 minutes Total treatment time: 13 minutes Impression/Plan: Discharge OT/No OT services needed at this time. Recommend: Short term SNF Pt is slowly progressing towards goals Pain: Patient denied pain at rest Treatment provided: Patient was educated on the role and benefits of occupational therapy including proposed plan for today's session, and patient declined EOB/ OOB activity however was agreeable to OTsession at bedside. Patient agreed to and therapist graded UE HEP while sitting in bed. Completes 2 sets of 10 repetitions of UE exercises with use of 1# weight for resistance, including shoulder flexion/ extension, shoulder internal/ external rotation, shoulder horizontal abduction/adduction, elbow flexion/ extension, forearm pronation/ supination. Patient education on proper form/technique and benefit of UE exercise to increase strength/endurance in order to maximize safety and independence with ADL/IADL tasks and functional transfers. Provided rest breaks as needed, and patient denied pain with UE exercises. Patient required occasional cues to track the number of repetitions and maintain properform throughout each exercise. Patient would benefit from further education/ training. At end of session, pt sitting comfortable in bed, bed in lowest position with call light, phone and tray table within reach, and bed alarm on for safety. Adaptive Equipment Recommended: To address at SNF Plan to obtain adaptive equipment: To further assess. Assessment: Patient showing a decrease in ADL/transfer performance and will benefit from continued OT. Goals by discharge: Patient will be min assist with bed, chair, toilet, car transfers with adaptive equipment as needed.(unmet; ongoing) Patient will be min assist with tub/shower transfer with adaptive equipment as needed. (unmet; ongoing) Patient will be min assist with self care skills with adaptive equipment as needed. (unmet; ongoing) Therapist pager #: [phone] hysical Therapy - Magi Sim PT - 06/10/2020 10:48 AM CSTAttempted to see patient for physical therapy. Patient yells out, "No, no, no" when therapist attem pting to reposition left LE. Refuses any PT this morning stating she just got comfortable. Will attempt again in PM. are Planning - Annette Cool RN - 06/10/2020 3:03 AM FLEXOGRAPHIC PRESS OPERATOR Problem: IMPAIRED PHYSICAL MOBILITY Goal: MOBILITY Description: [...] independence. Outcome: NOC Rating 2 Flowsheets (Taken 06/10/2020 0302) Initial Score: 2 Target Score: 4 Plan of care reviewed with: Patient Patient specific goal for the day: Pt will ambulate with staff throughout the shift. Patient specific goal for the stay: Resume therpies after surgery, then meet criteria for safe discharge Achieve goal for stay: By discharge Patient Progress: patient repositioned every two hours. refused to get out of bed. external cath in place. Problem: ACUTE PAIN Goal: CLIENT SATISFACTION: PAIN MANAGEMENT Description: DEFINITION: Extent of positive perception of nursing care to relieve pain. 1=Not at all satisfied, 2=Somewhat satisfied, 3=Moderately satisfied, 4=Very satisfied, 5=Completely satisfied. Outcome: NOC Rating 3 Flowsheets (Taken 06/10/2020 0302) Initial Score: 3 Target Score: 4 Plan of care reviewed with: Patient Patient specific goal for the day: Pt will have tolerable pain throughout the shift. Patient specific goal for the stay: Pain will be controlled with oral pain medications with minmal iv for break thru pain Achieve goal for stay: By discharge Patient Progress: patients pain well controlled with scheduled tylenol, no PRNs needed overnight. Did not want ice applied. Pain with repositioning are Planning - Nishi López RN - 06/09/2020 4:54 PM FLEXOGRAPHIC PRESS OPERATOR Problem: IMPAIRED PHYSICAL MOBILITY Goal: MOBILITY Description: [...] independence. Outcome: NOC Rating 2 Flowsheets (Taken 06/09/2020 165) Patient specific goal for the day: Pt will ambulate with staff throughout the shift. Patient Progress: Patient worked with therapy. Repositioned every 2 hours, but refused at times. Declined to dangle. Will continue to monitor. Problem: ACUTE PAIN Goal: CLIENT SATISFACTION: PAIN MANAGEMENT Description: DEFINITION: Extent of positive perception of nursing care to relieve pain. 1=Not at all satisfied, 2=Somewhat satisfied, 3=Moderately satisfied, 4=Very satisfied, 5=Completely satisfied. Outcome: NOC Rating 3 Flowsheets (Taken 06/09/20201651) Patient specific goal for the day: Pt will have tolerable pain throughout the shift. Achieve goal for stay: By discharge Patient Progress: Patient rating pain 5/10. Scheduled and prn pain medications given, see MAR. Ice applied. Tolerates repositioning fairly. Will continue to monitor. OGRAPHIC PRESS OPERATOR Occupational Therapy - Emily Hernandez, OTR/L - 06/09/2020 3:34 PM CST Occupational Therapy Orthopedic Evaluation Date: 06/09/2020 Time: 1500 Admitting Diagnosis:L Hip dislocation PMH: Past Medical History: Diagnosis Date Cancer [...] Visual disturbance Related to prior surgery Precautions: DREW Weight bearing status: WBAT SOCIAL/HOME ENVIRONMENT House: Pt arrives from SNF at [facility] Alone: 09/01 staff available at [facility] Prior Level of Functioning: max assist for ADLs. Adaptive Equipment Available: Pt was using a FWW and wheelchair at SNF ADLs Declined ADLs this session. TRANSFERS Declined OOB activity this session as recently returned to bed with PT and fatigued Total Hip precautions were reviewed with the patient. Patient requires continued education/review of precautions. UE FUNCTION: WFL COGNITION: Alert and orientated, Pt is very [place], requires frequent repetition Pain Level: When asked about pain patient stated "I can't give you a number It is fine I guess I am just tired". PATIENT/FAMILY EDUCATION: DREW precautions Self Care Role of OT Adaptive Equipment Recommended: to further assess at next level of care Plan to obtain adaptive equipment: To further assess. Assessment: Patient showing a decrease in ADL/transfer performance and will benefit from continued OT. Plan: See daily M-F for ADL/transfer training/education, assess adpative equipment needs. Recommend: Short term SNF via wheelchair Goals by discharge: Patient will be min assist with bed, chair, toilet, car transfers with adaptive equipment as needed. Patient will be min assist with tub/shower transfer with adaptive equipment as needed. Patient will be min assist with self care skills with adaptive equipment as needed. Certification dates: 06/09/2020 to 07/10/2020 Today's Treatment Evaluation Therapeutic exercise: 10 minutes Total for time-based codes: 10 minutes Total treatment time: 20 minutes Evaluation Complexity PMH/Comorbidities that affect Occupational Performance: refer to above for PMH Occupational Profile/Medical and Therapy History: LOW - Brief history relating to presenting problem Patient Assessment: LOW - 1-3 performance deficits relating to physical, cognitive, psychosocial limitations/restrictions Clinical Decision Making: LOW - Low complexity, limited amount of treatment options, no assessment modification, no comorbidities Evaluation Complexity: Low Treatment provided: Evaluation completed. Pt participated in UE AROM exercises unweighted with shoulders and tolerated 6 reps however then stopped stating "I am just too tired for this". Pt was able tocomplete elbow distal 1# weights 10 reps with rest breaks and encouragement to complete task. Pt declined further OT this session stating fatigue. At end of session call light, bedside table and phone within reach. Therapist pager #: [phone] signed by Mg Soler MD at 06/09/2020 3:49 PM CSTPhysical Therapy - Magi Sim PT - 06/09/2020 3:31 PM FLEXOGRAPHIC PRESS OPERATOR Physical Therapy Orthopedic Treatment Note Date: 06/09/2020 Subjective: Alert and Oriented. Requires encouragement to participate in PT. Precautions: Left DREW revision--standard posterior precautions, WBAT Recommendation/Assessment: Anticipate that patient will be ready to go to TCU when medically ready. Family/basketball coach present for PT session: No (see flowsheet) Objective: Lab Results Component Value Date HEMOGLOBIN 8.4 (L) 06/09/2020 Supine to/from sit: Maximal assist of 1, patient was not able to come to full upright position due to pain in left hip. Requires extra time for mobility and repositioning. Required assist of 2 for repositioning. Sit to/from stand: NA Sitting Balance: Poor Standing Balance: NA Gait: NA Stairs: NA ROM: NA Exercises: Patient declined due to high pain levels and stated she had already completed this morning. Pain: (0-10 scale) At rest: 6 With Activity: 8 Education: Patient was educated on precautions, exercise progression, transfer techniques, gait and mobility progression today through explanation, demonstration and handout. They accepted teaching and demonstrated understanding. Plan: Continue with PT plan of care. Time Treatment Occurred: 1435 Gait: 0 Minutes Therapeutic Exercise: 0 minutes Therapeutic Activity: 25 Minutes TOTAL TIMED CODES: 25 minutes TREATMENT TOTAL TIME: 25 Minutes ase Mgmt - Shanna Jaimes LSW - 06/09/2020 2:07 PM CSTCASE MANAGEMENT / SOCIAL SERVICE TRANSITION PLAN - PROGRESS NOTE PLAN: Hopeful to return to [facility] Awaiting Medical Doctor Recommendations for Transition Transition Options Being Explored Will Continue to Follow for Support and Progression Towards Final Transition Plan BARRIERS TO TRANSITION: Awaiting Placement: Penitentiary/Swing Bed/TCU Awaiting Therapy Recommendations Discharge Needs to be Determined DOES ACCEPTING FACILITY REQUIRE COVID TESTING BEFORE DISCHARGE: Needs one negative test within 24-48 hours COMMENTS / PATIENT AND FAMILY RESPONSE TO PLAN: Chart review was completed. Water Plumber met with patient at bedside; introduced self, case management role and discharge planning. Water Plumber explained that [facility] is considering patient and reviewing clinical. Water Plumber also expressed that she provided updated clinical and will continue to communicate with them for discharge planning. Patient's daughter is also agreeable to the need for placement and for patient returning [facility]. Patient did not have any other questions or concerns at this time. Water Plumber will continue to follow to ensure a safe discharge plan and assess any needs that may arise. IS PATIENT'S ADMISSION ASSOCIATED WITH TIA, ISCHEMIC, OR HEMORRHAGIC STROKE?: No PATIENT / SUBSTITUTE DECISION MAKER GOAL UPON TRANSITION: First Choice: Swing Bed ANTICIPATED NEEDS UPON TRANSITION: Home Health: Home Safety Evaluation, Occupational Therapy and Physical Therapy Home: Family/Friend Support Outpatient Therapy: Occupational Therapy and Physical Therapy Swing Bed Transitional Care All discharge options were discussed. RESOURCE(S) PROVIDED: nothing needed at this time ANTICIPATED MODE OF TRANSPORT UPON TRANSITION: [facility] Wheelchair (P:[phone]) Family Car ANTICIPATED MODE OF TRANSPORT TO AND FROM FOLLOW UP APPOINTMENTS: As arranged by accepting facility VERIFIED CORRECT PHARMACY IS ENTERED FOR DISCHARGE: No TRANSITION ROUNDING COMPLETED WITH THE FOLLOWING: Outsole Rounder inspector radar and electronics Discussed in person SIGNED: JUANJO Coley Case Management P: [phone] F: [phone] signed by Shanna Jaimes LSW at 06/09/2020 2:13 PM CSTPhysical Therapy - Ya Burch DPT - 06/09/2020 11:06 AM FLEXOGRAPHIC PRESS OPERATOR Physical Therapy Orthopedic DREW Revision Evaluation Assessment/Recommendations: Patient presents with impaired functional mobility post surgical procedure and will benefit with continued PT. Limited mobility assessment this morning due to pt refusing activity beyond bed exercises. Patient will likely require post acute inpatient recovery time at : SNF/TCU/swing bed. Will update discharge recommendations/placement as patient progresses. Date: 06/09/2020 Referring Physician: Juanjose Alegre MD Diagnosis/Surgical Procedure and Date: Left total hip arthroplasty revision on 06/08/2020 Significant PMH: Past Medical History: Diagnosis Date Cancer [...] HIP ARTHROPLASTY REVISION;; Surgeon: Juanjose Alegre MD TOTAL HIP REVISION Left 05/19/2020 Procedure: LEFT TOTAL HIP ARTHROPLASTY REVISION;; Surgeon: Deric Cruz MD TOTAL HIP REVISION Left 06/08/2020 Procedure: LEFT TOTAL HIP ARTHROPLASTY REVISION AND RIGHT KNEE INJECTION;; Surgeon: Juanjose Alegre MD Physician Orders: Evaluate and treat: X Weight Bearing Status: As tolerated. Precautions: Standard total hip arthroplasty, abductor pillow between legs while in bed Lab Results Component Value Date HEMOGLOBIN 8.4 (L) 06/09/2020 Subjective: Status Prior to Hospitalization/Surgical Procedure: Current Living Environment: Prior to most recent admission, pt was at a swing bed recovering from her last DREW revision. Pt normally lives alone in a 1-level house (). Stairs to Enter Home: 0--ramp Railing: yes Stairs to Bedroom or Bathroom: 0 Railing: N/A Ambulation Status: Ambulating shorter distances using bilateral platform front wheeled walker. At home, pt was mostly using a wheelchair and completing pivot transfers. Equipment Owned: Wheelchair, front wheeled walker Patient/Family Concerns: Pt is fearful of dislocating again and is hesitant to mobilize due to this. Patient Goals: Back to swing bed for further therapies prior to home Objective: Current Status: Cognition: Alert and Orientated Observation: IV, pulse oximetry ROM: AAROM L hip - flexion: about 40 degrees Abduction: about 10 degrees *Pt self limits due to fear/pain Transfers: Supine to/from Sit: N/A--pt refused Sit to/from Stand: N/A--pt refused Balance: Sitting: N/A Standing: N/A Gait: N/A Stairs: N/A Exercises: Bilateral active ankle pumps. On surgical LE, 6-8 reps of quad sets, hamstring sets and gluteal sets of poor to fair- quality strength. SAQ performed independently after set-up. Supine heel slide flexion, heel slide abduction and SLR are performed with sheet plus moderate assist. Encouragement needed to participate with these. Pain Level: (0-10 scale) At rest: 5 With Activity: 5 Comments: Post-surgical hip pain. Ice pack applied. Nurse gave pain med prior to PT. Patient/Family Education: Patient was educated on precautions, role of the physical therapist, and discussed anticipated outcome goals today through explanation and demonstration. They accepted teaching and verbalized understanding. Family/Tap Puller Present during Evaluation: None (see flowsheet) Treatment: Time Treatment Occurred: 10:35 Evaluation Complexity: Low Complexity: no comorbidities or personal factors affecting plan of care; evaluation of 1-2 body structures, functions, or activity limitations; stable clinical presentation; eval takes approx. 20 min. Gait: 0 minutes Therapeutic Exercise: 15 minutes Therapeutic Activity: 0 minutes TOTAL TIMED CODES: 15 minutes TREATMENT TOTAL TIME: 25 minutes Plan: Follow daily for gait training, therapeutic exercise, therapeutic activity, and education. Goals: By hospital discharge or within 1-2 days/hospital discharge. Patient/family involved in developing/progressing goals and treatment plan. Supine to sit with moderate assist. Sit to stand with minimal assist. Ambulate 50 feet on level surfaces with minimal assist and appropriate assistive device. Follow precautions during functional mobility. Discharge hip ROM of 65 degrees of supine flexion and 15 degrees of abduction. Independent or able to instruct caregiver in home exercise program. Appropriate assistive device available for ambulation. Certification dates: 06/09/2020 to: 06/23/2020 CERTIFICATION I certify that the services as described in the above note are furnished while the patient is under my care; a plan for furnishing these services has been established and will be periodically reviewed;the services are required for the patient; and the services are subject to established guidelines. are Planning - Vika Rivas RN - 06/09/2020 12:58 AM FLEXOGRAPHIC PRESS OPERATOR Problem: ACUTE PAIN Goal: CLIENT SATISFACTION: PAIN MANAGEMENT Description: DEFINITION: Extent of positive perception of nursing care to relieve pain. 1=Not at all satisfied, 2=Somewhat satisfied, 3=Moderately satisfied, 4=Very satisfied, 5=Completely satisfied. Outcome: NOC Rating 3 Flowsheets (Taken 06/09/202054) Initial Score: 3 Target Score: 4 Plan of care reviewed with: Patient Patient specific goal for the day: Pt will have tolerable pain throughout the shift. Achieve goal for stay: By discharge Patient Progress: Pt c/o minimal pain to the L) hip. Schedule pain meds given (see MAR). Ice appliedto the L) hip. Problem: IMPAIRED PHYSICAL MOBILITY Goal: MOBILITY Description: [...] independence. Outcome: NOC Rating 3 Flowsheets (Taken 06/09/202054) Initial Score: 2 Target Score: 4 Plan of care reviewed with: Patient Patient specific goal for the day: Pt will ambulate with staff throughout the shift. Achieve goal for stay: By discharge Patient Progress: Pt refused to dangle out of bed during shift and also refused turns. Pt educated on importance of turning throughout the shift. Will continue to monitor. OGRAPHIC PRESS OPERATOR Clinical Team - Henri Lindsey RN - 06/08/2020 7:47 PM CSTPt postop left hip replacement, alert cooperative, family at bedside,dressing dry intact without drainage, good distal pulses linical Team - Henri Lindsey RN - 06/08/2020 6:49 PM FLEXOGRAPHIC PRESS OPERATOR Pt skin exam by charge nurse and 2nd rn Susan Lindsey, skin intact with noted exception left hip drsg dry intact are Planning - Ariana Silva RN - 06/08/2020 6:10 PM FLEXOGRAPHIC PRESS OPERATOR Problem: RISK FOR INJURY Goal: SURGICAL RECOVERY: IMMEDIATE POST-OPERATIVE Description: DEFINITION: Extent to which an individual achieves physiological baseline function following major surgery requiring anesthesia. 1=Severe deviation from normal range, 2=Substantial deviation from normal range, 3=Moderate deviation from normal range, 4=Mild deviation from normal range, 5=No deviation from normal range. Outcome: Outcome acceptable for discharge Flowsheets (Taken 06/08/2020 1809) Plan of care reviewed with: Patient Patient Progress: at bedside, ok to discharge from PACU. Patient alert and conversing, denies chest pain, shortness of breath or nausea. are Planning - Kathy Escobar RN - 06/08/2020 5:25 PM FLEXOGRAPHIC PRESS OPERATOR Problem: RISK FOR INJURY Goal: SURGICAL RECOVERY: IMMEDIATE POST-OPERATIVE Description: DEFINITION: Extent to which an individual achieves physiological baseline function following major surgery requiring anesthesia. 1=Severe deviation from normal range, 2=Substantial deviation from normal range, 3=Moderate deviation from normal range, 4=Mild deviation from normal range, 5=No deviation from normal range. 06/08/2020 1724 by Kathy Escobar RN Flowsheets (Taken 06/08/2020 1630) Patient Progress: Dr. Parra at bedside. New orders received for normal saline bolus. Pt is on jessica drip. She is on 5L of O2 NC. 06/08/2020 1723 by Kathy Escobar, MARCY Outcome: NOC Rating 2 Flowsheets (Taken 06/08/2020 1619) Initial Score: 2 Target Score: 3 Patient Progress: Pt arriving to PACU from OR. Pt's O2 saturation in 80s on arrival and pt is hypotensive. Pt is drowsy on arrival. ENT CONSULTANT at bedside. Jessica drip initiated on arrival. are Planning - Kathy Escobar RN - 06/08/2020 5:24 PM FLEXOGRAPHIC PRESS OPERATOR Problem: RISK FOR INJURY Goal: SURGICAL RECOVERY: IMMEDIATE POST-OPERATIVE Description: DEFINITION: Extent to which an individual achieves physiological baseline function following major surgery requiring anesthesia. 1=Severe deviation from normal range, 2=Substantial deviation from normal range, 3=Moderate deviation from normal range, 4=Mild deviation from normal range, 5=No deviation from normal range. Outcome: NOC Rating 2 Flowsheets (Taken 06/08/20201618) Initial Score: 2 Target Score: 3 Patient Progress: Pt arriving to PACU from OR. Pt's O2 saturation in 80s on arrival and pt is hypotensive. Pt is drowsy on arrival. ENT CONSULTANT at bedside. Jessica drip initiated on arrival. ostOp Progress Note - Juanjose Alegre MD - 06/08/2020 3:51 PM CST Immediate Post-Operative / Post Procedure Progress Note Att. Phys: Mitchell Soler* Pt. Type: Inpatient Operative Date: 06/08/2020 Surgeon: Surgeon(s) and Role: * Juanjose Alegre MD - Primary Dean Of Girls: Bottling Machine Operator : Omayra Lawson RN; Nirali Arechiga RN; Patricia No, MARCY; Keith Metz RN; Vance Zelaya RN Scrub Person : Lana Bender CST; Lauren Campbell ST Safety Companion: Eli Keyes PA The skilled assistance of my certified surgical assistant, Eli keyes was necessary because * of the magnitude of the operation and no qualified ophthalmic surgical assistant availability. They participated in positioning of the patient, assistance with the procedure, assistance with wound closure and dressing application. 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 Item Serial No. Transportation Services Representative Lot No. LRB No. Used Action HIP HD FREEDOM MTL12/14 36MM-3 N [id number] - [id number] Total Jt Hip HIP HD FREEDOM MTL12/14 36MM-3 N [id number] Left 1 Explanted Fluids Given: See Anesthesia Record Urine Output: See Anesthesia Record Estimated Blood Loss: 200 mL Drains: none Findings: As diagnosed Complications: none Postoperative Condition: stable ase [facility] - Shanna Jaimes [facility] - 06/08/2020 10:12 AM CSTCASE MANAGEMENT / SOCIAL SERVICE TRANSITION PLAN - INITIAL ASSESSMENT TRANSITION PLAN: Hopeful for [facility] bed Awaiting Medical Doctor Recommendations for Transition Transition Options Being Explored Will Continue to Follow for Support and Progression Towards Final Transition Plan BARRIERS TO TRANSITION: Awaiting Placement: Penitentiary/Swing Bed/TCU Awaiting Therapy Recommendations Discharge Needs to be Determined Medical barriers:surgery on 06/08/20 COMMENTS / PATIENT AND FAMILY RESPONSE TO PLAN: Chart review was completed. Water Plumber met with patient at bedside; introduced self, case management role and discharge planning. Patient stated that she was recently at the [facility] swing [facility] in [place], [place]. Patient explained that following surgery she hopes to return there for continued therapy. Water Plumber then spoke with patient's daughter and Ella CRAMER, via phone call to discuss discharge planning. Patient's daughter agreed that she would like her mother to return to the swing bed in [place]. Patient will have surgery on this date. Patient and patient's daughter did not have any other questions or concerns at this time. Water Plumber will continue to follow to ensure a safe discharge plan and assess any needs that may arise. Water Plumber profiled patient to the [place] Swing Bed. ADMISSION DX: (L) Hip dislocation PATIENT STATUS: Inpatient RELEASE OF INFORMATION: Yes -- verbal for: discharge planning SOURCES OF INFORMATION (See demographics for contact information): Family: Daughter Medical Doctor Medical Record Nurse: Bedside Patient CURRENT LIVING SITUATION / LEVEL OF ASSISTANCE: Prior to admission patient was at [facility] Swing [facility] in [place], [place] COMMUNITY SERVICES: None HEALTHCARE DIRECTIVE: No POWER OF FAIRING MAN: Healthcare Power of [place] [employer] FINANCIAL CONCERNS: No Concerns PRIMARY CARE PHYSICIAN: Yes HUI Strange : No IS PATIENT'S ADMISSION ASSOCIATED WITH TIA, ISCHEMIC, OR HEMORRHAGIC STROKE?: No LANGUAGE / COMMUNICATION BARRIERS: No PATIENT / SUBSTITUTE DECISION MAKER GOAL UPON TRANSITION: First Choice: Swing Bed ANTICIPATED NEEDS, TRANSITION CHOICES OFFERED: Home Health: Home Safety Evaluation, Occupational Therapy and Physical Therapy Home: Family/Friend Support Outpatient Therapy: Occupational Therapy and Physical Therapy Swing Bed Transitional Care All discharge options were discussed. RESOURCE(S) PROVIDED: nothing needed at this time DOES PATIENT HAVE CLOTHING TO WEAR AT DISCHARGE? Yes ANTICIPATED MODE OF TRANSPORT UPON DISCHARGE: Family Car VERIFIED CORRECT PHARMACY IS ENTERED FOR DISCHARGE: No CURRENT READMISSION RISK SCORE Predictive Risk Score Risk of Unplanned Readmission: 27.1 Please refer to readmission risk assessment flowsheet for further details. SIGNED: JUANJO Coley Case Management P: [phone] F: [phone] signed by Shanna Jaimes LSW at 06/08/2020 10:25 AM CSTClinical Team - Annmarie Cooper RN - 06/08/2020 6:00 AM CSTPt awakened per lab. States slept well. Denies chest pain or other symptoms. Offers no c/o hip pain. Ora repos well with Turn and Pos system and total assist of 2. Remains NPO. Cont care rounding. are Planning - Annmarie Cooper, MARCY - 06/08/2020 5:06 AM FLEXOGRAPHIC PRESS OPERATOR Problem: ACUTE PAIN Goal: CLIENT SATISFACTION: PAIN MANAGEMENT Description: DEFINITION: Extent of positive perception of nursing care to relieve pain. 1=Not at all satisfied, 2=Somewhat satisfied, 3=Moderately satisfied, 4=Very satisfied, 5=Completely satisfied. Outcome: NOC Rating 3 Flowsheets (Taken 06/08/2020 0502) Patient Progress: See nsg note. Sleeping upon houry checks. No c/o pain. Problem: IMPAIRED PHYSICAL MOBILITY Goal: MOBILITY Description: [...] independence. Outcome: NOC Rating 3 Flowsheets (Taken 06/08/2020 0506) Patient Progress: On bedrest awaiting OR today. [facility] Operative Note - Juanjose Alegre MD - 06/08/2020 1:[address] [facility] PATIENT NAME: MAGDA REYES. DATE OF SERVICE: 06/08/2020 ESTRADA: [id number] SURGEON: Juanjose Alegre MD. LIFE AGENT: LINDA Cartagena. 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 PROCEDURE PERFORMED: Left total hip arthroplasty revision. COMPONENTS INSERTED: A 13-mm x 150-mm Gregory femoral stem, -3 x 36-mm femoral head. Control cables x2. PROCEDURE PERFORMED: The patient was taken to the operating theater and received a spinal anesthetic. Once anesthesia was adequate, the left lower extremity was prepped and draped in a routine manner. Through the previous posterolateral approach, the procedure was performed. Incision extended dista lly. Incision deepened through the subcutaneous tissue and the fascia kristi divided in a manner similar to the skin incision. The femoral head was noted to be dislocated posteriorly and extended trochanteric episiotomy was performed. The stem was extracted. New stem was placed and an additional 45-60 degrees of anteversion was placed within the femur. Trial reductions were performed once satisfied with leg lengths, offset and stability, the stem was assembled and seated to its previous noted depth. The hip was then reduced. Then #2 Vicryl sutures used to close the fascia kristi with #2 Quill for the subcutaneous tissues and 3-0 Quill for the skin. Dermabond was used to seal the wound. Fluid was aspirated and sent for culture and sensitivity. The patient tolerated the procedure well. No complications were noted. The patient was then transferred to the postanesthesia recovery room in good condition. ESTIMATED BLOOD LOSS: 200 mL. Findings were consistent with the preoperative diagnosis. Juanjose Alegre MD Receipt: [id number] Trans ID: [id number] FLEXOGRAPHIC PRESS OPERATOR CST apid Response - Milton Manuel RN - 06/08/2020 12:49 AM CSTRapid Response Team Date of Call: 06/08/20 Time Rapid Response Team paged/Rescue Nurse called: 0005 Rapid Response Team Location: [facility] Reason for Activating: Respiratory: NA Cardiac: Chest pain Neurological: NA Signs and Symptoms of Sepsis?: No Other Reasons: NA Assessment, Notification, and Disposition Assessment: C: Full Code S: Patient complaining of sudden onset of 10/10 chest pain B: Admitted with recurrent left hip dislocation. Scheduled to have revision done 06/08 A: Vital Signs stable (see graphics), Patient on RA. Appears anxious R: EKG completed. Negative for ST-T wave changes per provider. Nitro, ativan, and morphine given with relief. Patient then reported 5/10 chest pain. Patient now resting in bed. Early AM Troponin scheduled to be drawn. Provider Name: Dr. Schmidt Family or Mid Level Business Analyst notified: No Patient Disposition: Stabilized with INVENTORY ASSOCIATE AND DRIVER interventions/remained on current unit Additional Comments: Bedside nurse to monitor Milton Manuel RN OGRAPHIC PRESS OPERATOR Supplemental Progress Note - Chris Schmidt MD - 06/08/2020 12:30 AM CSTRapid response for chest pain. Patient describes retrosternal chest pain, sharp, severe. Came on suddenly while in bed. Reproducible on palpation. She has had this before. No history of CAD. Vitals within acceptable limits. EKG: Negative for ST-T wave changes consistent with ACS Plan: 1. Nitro SL 2. Ativan 0.5mg - combined brought pain to 8/10 3. IV morphine 4mg x 1 dose 4. Troponin at 5am Assessment: 69 year old female with no past CAD experiencing sharp and reproducible retrosternal chest pain. Suspecting musculoskeletal. EKG neg. Trop in the early AM to make sure no NSTEMI occurring since she's going for surgery today. Chris Schmidt M.D. Internal Medicine Hospitalist linical Team - Estelle Chau RN - 06/08/2020 12:01 AM CSTPt. c/o chest pain w/o radiating to arms. States it feels sharp. VSS. Rapid Response called. Dr. Schmidt is room assessing patient. EKG done. Nitro 0.4mg given SL x 1. Ativan 0.5 mg given po and Morphine 4 mg given IV. Pain started at 10/10 and down to 5/10 after Nitro. Now at 0057, pt. Is resting in bed quietly with eyes closed. are Planning - Mary Hui RN - 06/07/2020 10:45 PM FLEXOGRAPHIC PRESS OPERATOR Problem: ACUTE PAIN Goal: CLIENT SATISFACTION: PAIN MANAGEMENT Description: DEFINITION: Extent of positive perception of nursing care to relieve pain. 1=Not at all satisfied, 2=Somewhat satisfied, 3=Moderately satisfied, 4=Very satisfied, 5=Completely satisfied. Outcome: NOC Rating 3 Flowsheets (Taken 06/07/2020 1069) Plan of care reviewed with: Patient Achieve goal for stay: By discharge Patient Progress: Patient tolerates Q2 hour turns well, most times. avoiding turning to L) side because of dislocation. pt denied pain unless moving. compliant with turns. Problem: IMPAIRED PHYSICAL MOBILITY Goal: MOBILITY Description: [...] independence. Outcome: NOC Rating 3 Flowsheets (Taken 06/07/2020 8409) Plan of care reviewed with: Patient Patient Progress: Patient is currently on bedrest with NWB to LLE orders. turn Q2 hours, tolerates fairly. plans to head back to OR monday for L hip dislocation linical Team - Raya Person RN - 06/07/2020 6:[address] Holliday about patient's black stool yesterday and smear today. Water Plumber was informed to have provider see BM next time patient has BM and continue to monitor as of now. Information related to primary nurse Mary Jackson RN are Planning - Kenya Alves RN - 06/07/2020 10:55 AM FLEXOGRAPHIC PRESS OPERATOR Problem: ACUTE PAIN Goal: CLIENT SATISFACTION: PAIN MANAGEMENT Description: DEFINITION: Extent of positive perception of nursing care to relieve pain. 1=Not at all satisfied, 2=Somewhat satisfied, 3=Moderately satisfied, 4=Very satisfied, 5=Completely satisfied. Flowsheets (Taken 06/07/2020 1053) Initial Score: 3 Target Score: 4 Plan of care reviewed with: Patient Patient specific goal for the day: Patient will tolerate Q2 hour turns Patient specific goal for the stay: Pain will be controlled with oral pain medications only Achieve goal for stay: By discharge Patient Progress: Patient tolerates Q2 hour turns well, most times. avoiding turning to L) side because of dislocation. pt denied pain unless moving. compliant with turns. Problem: IMPAIRED PHYSICAL MOBILITY Goal: MOBILITY Description: [...] 5=Not compromised / Complete independence. Flowsheets (Taken 06/07/2020 1053) Initial Score: 1 Target Score: 4 Plan of care reviewed with: Patient Patient specific goal for the day: Patient will tolerate Q2 hour turns until surgery and mobility improves Patient specific goal for the stay: Resume therpies after surgery, then meet criteria for safe discharge Achieve goal for stay: By discharge Patient Progress: Patient is currently on bedrest with NWB to LLE orders. turn Q2 hours, tolerates fairly. plans to head back to OR monday for L hip dislocation are Planning - Annette Cool RN - 06/07/2020 4:39 AM FLEXOGRAPHIC PRESS OPERATOR Problem: IMPAIRED PHYSICAL MOBILITY Goal: MOBILITY Description: [...] independence. Outcome: NOC Rating 2 Flowsheets (Taken 06/07/2020 6692) Initial Score: 2 Target Score: 4 Plan of care reviewed with: Patient Patient specific goal for the day: Patient will tolerate Q2 hour turns until surgery and mobility improves Patient specific goal for the stay: Resume therpies after surgery, then meet criteria for safe discharge Achieve goal for stay: By discharge Patient Progress: Pt is on bedrest- turn q2h- plan for surgery Monday. Problem: ACUTE PAIN Goal: CLIENT SATISFACTION: PAIN MANAGEMENT Description: DEFINITION: Extent of positive perception of nursing care to relieve pain. 1=Not at all satisfied, 2=Somewhat satisfied, 3=Moderately satisfied, 4=Very satisfied, 5=Completely satisfied. Outcome: NOC Rating 3 Flowsheets (Taken 06/07/2020 7787) Initial Score: 3 Target Score: 4 Plan of care reviewed with: Patient Patient specific goal for the day: Patient will tolerate Q2 hour turns Patient specific goal for the stay: Pain will be controlled with oral pain medications only Achieve goal for stay: By discharge Patient Progress: Turn q2hr- tolerates fairly due to dislocation. No pain meds requested- stated it feels fine as long as we arent turning her. are Planning - Kenya Alves RN - 06/06/2020 5:07 PM FLEXOGRAPHIC PRESS OPERATOR Problem: ACUTE PAIN Goal: CLIENT SATISFACTION: PAIN MANAGEMENT Description: DEFINITION: Extent of positive perception of nursing care to relieve pain. 1=Not at all satisfied, 2=Somewhat satisfied, 3=Moderately satisfied, 4=Very satisfied, 5=Completely satisfied. Flowsheets (Taken 06/06/20201701) Initial Score: 3 Target Score: 4 Plan of care reviewed with: Patient Patient specific goal for the day: Patient will tolerate Q2 hour turns Patient specific goal for the stay: Pain will be controlled with oral pain medications only Achieve goal for stay: By discharge Patient Progress: Patient denies pain when lying still, pain with movement of LLE d/t dislocation. Pt tolerates repositions fairly, depending on movement. Problem: IMPAIRED PHYSICAL MOBILITY Goal: MOBILITY Description: [...] 5=Not compromised / Complete independence. Flowsheets (Taken 06/06/20201701) Initial Score: 2 Target Score: 4 Plan of care reviewed with: Patient Patient specific goal for the day: Patient will tolerate Q2 hour turns until surgery and mobility improves Patient specific goal for the stay: Resume therpies after surgery, then meet criteria for safe discharge Achieve goal for stay: By discharge Patient Progress: Pt is currently on bedrest with Q2 hour turns, TAPs system in place. Tentative plan for surgery on monday. linical Team - Kenya Alves RN - 06/06/2020 4:04 PM CSTAlerted MD that pt had a medium black and tarry stool. No orders at this time, monitoring for now. are Planning - Annmarie Cooper RN - 06/06/2020 6:39 AM FLEXOGRAPHIC PRESS OPERATOR Problem: ACUTE PAIN Goal: CLIENT SATISFACTION: PAIN MANAGEMENT Description: DEFINITION: Extent of positive perception of nursing care to relieve pain. 1=Not at all satisfied, 2=Somewhat satisfied, 3=Moderately satisfied, 4=Very satisfied, 5=Completely satisfied. Outcome: NOC Rating 3 Flowsheets (Taken 06/06/2020 0635) Initial Score: 4 Target Score: 4 Plan of care reviewed with: Patient Patient specific goal for the day: Report tolerable pain level consistently. Patient specific goal for the stay: Maintain pain control with po analgesics. Achieve goal for stay: By discharge Patient Progress: Rating pain 0/10 to LLE. No nonverbal communication of pain. Ora repos fairly well. Agrees to alert staff of increasing pain. Problem: IMPAIRED PHYSICAL MOBILITY Goal: MOBILITY Description: [...] independence. Outcome: NOC Rating 3 Flowsheets (Taken 06/06/2020 0635) Initial Score: 2 Target Score: 3 Plan of care reviewed with: Patient Patient specific goal for the day: Maintain bedrest awaiting surgery. Patient specific goal for the stay: Demonstrate safe ambulation using assistive device, pass PT goals. Patient Progress: On bedrest for now. Awaiting surgery. Turn and pos system in place. Turn, boostand repos with 2 assist. Reluctant to turn at times but ora fairly well. 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 Facial deformity. Surgical scar on left hip. No other skin issues noted. Clean. dry and warm. No s/s of rash. Plan/Intervention: Continue for monitor for S/S of infection. linical Team - Raya Person RN - 06/05/2020 3:36 PM CSTPt arrived at 1529, alert and oriented x4. Oriented to call light, pain scale and environment. Awareof own limitations thus far. Sating >90% on RA currently, Denies SOB. Case management consult in for discharge planning. Afebrile. Reporting adequate pain control at this time. Bed in lowest position, side rails up x 2, call light in reach. Hourly rounding provided. 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/08/2020 3:16 BACILLUS WITH STAIN arthroplasty with PM FLEXOGRAPHIC PRESS OPERATOR dislocation (HCC) CULTURE FUNGAL, MICROBIOLOGY REPORT Routine Failed total hip 1 08/09/2019 3:16 OTHER arthroplasty with PM FLEXOGRAPHIC PRESS OPERATOR dislocation (HCC) CULTURE BACTERIAL, MICROBIOLOGY REPORT Routine Failed total hi p 06/08/2020 3:16 ORTHOPEDIC EXTENDED arthroplasty with PM FLEXOGRAPHIC PRESS OPERATOR INCUBATION WITH dislocation (HCC) GRAM STAIN EKG CVS STAT 06/10/2020 10:3 4 PM FLEXOGRAPHIC PRESS OPERATOR Name Type Priority Associated Order Schedule Diagnoses PREPARE AND HOLD Lab Routine Once for 1 RED BLOOD CELLS IN Occurrenc es UNITS - BLOOD BANK, starting 06/05/2020 2 Units until 0 COMPLETE BLOOD Lab Routine Early AM draw for COUNT WITHOUT labs until DIFFERENTIAL discontinued starting 06/08/2020, 4 completed BASIC METABOLIC Lab Routine Early AM gucci w for PANEL labs until discontinued starting 06/08/2020, 4 completed MAGNESIUM Lab Routine Early AM draw f or labs until discontinued starting 06/08/2020, 4 completed CULTURE FUNGAL, MICROBIOLOGY REPORT Routine 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 with Ordering f or 1 dislocation (HCC) Occurrence s starting 2019 documented as of this encounter Implants Implanted Type Area Transportation Services Representative Device Shelf Model / Identifier Expiration Serial / Lot Date Hip Cbl Bone Plate [id number] N Ea1 - [id number] Ortho Other Left: JUNE 03/22/2030 / Implanted: Qty: 1 on 06/08/2020 by Juanjose Gould MD at [facility] HIP / [id number] Hip Cbl Bone Plate [id number] N Ea1 - [id number] Ortho Other Left: JUNE 02/16/2030 / Implanted: Qty: 1 on 06/08/2020 by Juanjose Gould MD at [facility] HIP / [id number] Cmnt Bone Cmnt-R W Gentamicin N [id number] Ea1 - [id number] Tissue Left: JUNE 10/16/2021 [id number] / Implanted: Qty: 1 on 05/19/2020 by Deric Cruz MD at [facility] Synthetic HIP / [id number] Hip Shell Osseoti Mult G 58mm N [id number] Ea1 - [id number] Total Jt Hip Left: JUNE 09/04/2029 [id number] / Implanted: 01/28/2020 by Juanjose Alegre MD at [facility] (Quantity not on file) HIP / [id number] Hip Aug Col Btrs Lftpstr Rtant N [id number] Ea1 - [id number] Total Jt Hip Left: JUNE 04/18/202487-1828-495- / Implanted: 01/28/2020 by Juanjose Alegre MD at [facility] (Quantity not on file) HIP / [id number] Hip Screw G7 Loprodome6.5x60mm N [id number] Ea1 - [id number] Tota l Jt Hip Left: JUNE 03/19/2023 / Implanted: 01/28/2020 by Juanjose Alegre MD at [facility] (Quantity not on file) HIP / [id number] Hip Screw G7 Loprodome6.5x60mm N [id number] Ea1 - [id number] Tota l Jt Hip Left: JUNE 01/17/2023 / Implanted: 01/28/2020 by Juanjose Alegre MD at [facility] (Quantity not on file) HIP / [id number] Hip Screw Bone Hgpii 6.5x35mm N [id number] Ea1 - [id number] Total Jt Hip Left: JUNE 09/16/20[address]-3423-566-35 / Implanted: 01/28/2020 by Juanjose Alegre MD at [facility] (Quantity not on file) HIP / [id number] Hip Screw Bone Hgpii 6.5x40mm N [id number] Ea1 - [id number] Total Jt Hip Left: JUNE 12/16/202875-4944-647-40 / Implanted: 01/28/2020 by Juanjose Alegre MD at [facility] (Quantity not on file) HIP / [id number] Hip Lnr [place] G7 10d D *Nlu* N [id number] Ea1 - [id number] Tota l Jt Hip Left: JUNE 08/21/2023 [id number] / Implanted: Qty: 1 on 05/19/2020 by Deric Cruz MD at [facility] HIP / [id number] Hip Body Cone Std Sza 60mm N Ea1 - [id number] Total Jt Hip Left: JUNE 04/03/2029 / Implanted: Qty: 1 on 06/08/2020 by Juanjose Gould MD at [facility] HIP / [id number] Hip Hd Mod [place] 36mm -3 N Ea1 - [id number] Total Jt Hip Left: JUNE 06/29/2029 / Implanted: Qty: 1 on 06/08/2020 by Juanjose Gould MD at [facility] HIP / [id number] Hip Stem Gregory Sts [id number] N Ea1 - [id number] Total J t Hip Left: JUNE 10/18/2028813 / Implanted: Qty: 1 on 06/08/2020 by Juanjose Gould MD at [facility] HIP / [id number] Cmnt Bone Cmnt-R W Gentamicin N [id number] Ea1 - [id number] Left: JUNE 09/16/2021 [id number] / Implanted: 01/28/2020 by Juanjose Alegre MD at [facility] (Quantity not on file) HIP / [id number] Explanted Type Area Transportation Services Representative Device Shelf Model / Identifier Expiration Serial / Lot Date Hip Hd Newport Mtl12/14 36mm-3 N [id number] Ea1 - [id number] Tota l Jt Left: JUNE 11/16/2029 [id number] / Implanted: Qty: 1 on 05/19/2020 by Deric Cruz MD at [facility] Hip HIP / Explanted: Qty: 1 on 06/08/2020 by Juanjose Gould MD at [facility] [id number] documented as of this encounter Procedures Procedure Name Priority Date/Time Associated Comments Diagnosis COMPLETE BLOOD COUNT Routine 06/11/2020 6:10 Res ults for this WITHOUT DIFFERENTIAL AM FLEXOGRAPHIC PRESS OPERATOR procedu re are in the results section. MAGNESIUM Routine 06/11/2020 6:10 Results for this AM FLEXOGRAPHIC PRESS OPERATOR procedure are i n the results section. BASIC METABOLIC Routine 06/11/2020 6:10 Results for this PANEL AM FLEXOGRAPHIC PRESS OPERATOR procedure are i n the results section. CTA CHEST DELL 06/11/2020 2:51 Results for this AM FLEXOGRAPHIC PRESS OPERATOR procedure are i n the results section. TROPONIN I Timed Routine 06/11/2020 2:05 Results fo r this AM FLEXOGRAPHIC PRESS OPERATOR procedure are i n the results section. D-DIMER QUANTITATIVE Routine 06/10/2020 11:07 Res ults for this PM FLEXOGRAPHIC PRESS OPERATOR procedure are i n the results section. TROPONIN I Timed Routine 06/10/2020 11:07 Results fo r this PM FLEXOGRAPHIC PRESS OPERATOR procedure are i n the results section. EKG STAT 06/10/2020 10:34 PM FLEXOGRAPHIC PRESS OPERATOR XRAY PELVIS 1 OR 2 Routine 06/10/2020 9:50 Resul ts for this VIEWS AM FLEXOGRAPHIC PRESS OPERATOR procedure are i n the results section. COMPLETE BLOOD COUNT Routine 06/10/2020 6:07 Res ults for this WITHOUT DIFFERENTIAL AM FLEXOGRAPHIC PRESS OPERATOR procedu re are in the results section. MAGNESIUM Routine 06/10/2020 6:07 Results for this AM FLEXOGRAPHIC PRESS OPERATOR procedure are i n the results section. BASIC METABOLIC Routine 06/10/2020 6:07 Results for this PANEL AM FLEXOGRAPHIC PRESS OPERATOR procedure are i n the results section. COMPLETE BLOOD COUNT Routine 06/09/2020 5:52 Res ults for this WITHOUT DIFFERENTIAL AM FLEXOGRAPHIC PRESS OPERATOR procedu re are in the results section. MAGNESIUM Routine 06/09/2020 5:52 Results for this AM FLEXOGRAPHIC PRESS OPERATOR procedure are i n the results section. BASIC METABOLIC Routine 06/09/2020 5:52 Results for this PANEL AM FLEXOGRAPHIC PRESS OPERATOR procedure are i n the results section. XRAY PELVIS 1 OR 2 Routine 06/08/2020 5:51 Resul ts for this VIEWS PM FLEXOGRAPHIC PRESS OPERATOR procedure are i n the results section. CULTURE BACTERIAL, Routine 06/08/2020 3:16 Failed total hip ORTHOPEDIC EXTENDED PM FLEXOGRAPHIC PRESS OPERATOR arthroplasty with INCUBATION WITH GRAM dislocation (HCC) STAIN CULTURE, ACID FAST Routine 06/08/2020 3:16 Failed total hip BACILLUS WITH STAIN PM FLEXOGRAPHIC PRESS OPERATOR arthroplasty with dislocation (HCC) ARTHROPLASTY HIP 06/08/2020 2:02 Failed total hip REVISION PM FLEXOGRAPHIC PRESS OPERATOR arthroplasty with dislocation (HCC) Special Needs *X* CELL SAVER-- patient is inpatient just not admitted yet COMPLETE BLOOD COUNT Routine 06/08/2020 5:29 AM FLEXOGRAPHIC PRESS OPERATOR Results for this WITHOUT DIFFERENTIAL procedu re are in the results section . TROPONIN I Routine 06/08/2020 5:29 AM FLEXOGRAPHIC PRESS OPERATOR Resu lts for this procedure are i n the results section . MAGNESIUM Routine 06/08/2020 5:29 AM FLEXOGRAPHIC PRESS OPERATOR Resu lts for this procedure are i n the results section . BASIC METABOLIC PANEL Routine 06/08/2020 5:29 AM FLEXOGRAPHIC PRESS OPERATOR Results for this procedure are i n the results section . EKG Routine 06/08/2020 12:13 AM FLEXOGRAPHIC PRESS OPERATOR Resu lts for this procedure are i n the results section . LAB ONLY-MANUAL Routine 06/05/2020 4:33 PM FLEXOGRAPHIC PRESS OPERATOR R esults for this DIFFERENTIAL procedure are i n the results section . LAB ONLY-COMPLETE BLOOD DELL 06/05/2020 4:33 PM FLEXOGRAPHIC PRESS OPERATOR Results for this COUNT WITH DIFFERENTIAL proc edure are in the results section . TYPE AND SCREEN DELL 06/05/2020 4:33 PM FLEXOGRAPHIC PRESS OPERATOR R esults for this procedure are i n the results section . MAGNESIUM Routine 06/05/2020 4:33 PM FLEXOGRAPHIC PRESS OPERATOR Resu lts for this procedure are i n the results section . BASIC METABOLIC PANEL DELL 06/05/2020 4:33 PM FLEXOGRAPHIC PRESS OPERATOR Results for this procedure are i n the results section . LAB ONLY-COMPLETE BLOOD [facility] 06/05/2020 4:33 PM FLEXOGRAPHIC PRESS OPERATOR Results for this COUNT WITH DIFFERENTIAL proc edure are in the results section . documented in this encounter Results MAGNESIUM (06/11/2020 6:10 AM FLEXOGRAPHIC PRESS OPERATOR) Pathologist Sig nature Magnesium 1.8 1.8 - 2.4 mg/dL [facility] Specimen Blood - Blood specimen (specimen) Performing Organization Address City/State/Zipcode Phone Number [address] [phone] BASIC METABOLIC PANEL (06/11/2020 6:10 AM FLEXOGRAPHIC PRESS OPERATOR) Pathologist Sig nature Glucose 93 70 - 100 mg/dL [facility] BUN 10 6 - 22 mg/dL [facility] Creatinine 0.64 0.60 - 1.10 [facility] mg/dL [place] BUN/Creatinine Ratio 15.6 10.0 - 25.0 [facility] Sodium 129 (L) 135 - 145 meq/L [facility] Potassium 4.7 3.5 - 5.3 meq/L [facility] Chloride 96 (L) 99 - 110 meq/L [facility] CO2 24 20 - 29 meq/L [facility] Anion Gap with K 14 6 - 20 meq/L [facility] Calcium 8.3 (L) 8.5 - 10.5 [facility] mg/dL [place] Age 69 Years [facility] eGFR Non- >90 >=60 [facility] Somali mL/min/1.73m2 [place] eGFR >90 >=60 [facility] mL/min/1.73m2 [place] Specimen Blood - Blood specimen (specimen) Performing Organization Address City/[facility]/Zipcode Phone Number [facility] [address] [place] [address] COMPLETE BLOOD COUNT WITHOUT DIFFERENTIAL (06/11/2020 6:10 AM FLEXOGRAPHIC PRESS OPERATOR) [facility] WBC 11.3 (H) 4.0 - 11.0 K/uL [facility] RBC 3.07 (L) 3.80 - 5.30 M/uL [facility] Hemoglobin 8.5 (L) 11.5 - 15.8 g/dL [facility] Hematocrit 26.8 (L) 35.0 - 45.0 % [facility] MCV 87.3 80.0 - 98.0 fL [facility] MCH 27.7 25.5 - 34.0 pg [facility] MCHC 31.7 31.5 - 36.5 g/dL [facility] RDW-CV 14.8 11.5 - 15.5 % [facility] RDW-SD 44.6 35.5 - 50.0 fl [facility] Platelet Count 632 (H) 140 - 400 K/uL [facility] MPV 8.5 8.5 - 12.0 fL [facility] Specimen Blood - Blood specimen (specimen) Performing Organization Address [facility]/Zipcode Phone Number [facility] [address] [place], [place] [address] [phone] CTA CHEST (06/11/2020 2:51 AM FLEXOGRAPHIC PRESS OPERATOR) Specimen Narrative Performed At [facility] Patient Name: MAGDA REYES Date of : 1950 Procedure: CTA CHEST Date of Service: 06/11/2020 EXAM: CTA CHEST INDICATION:PE suspected, low/intermediat e prob, positive D-dimer COMPARISON: Multiple prior chest radiographs including but not limited 05/29/2020. CT chest dated 05/25/2020. TECHNIQUE: Consecutive CT images were acquired through the chest following the uneventful intravenous administration of 60 cc of Omnipaque 350. Multiplanar reformats are provided fo r review. 3-D MIP reconstructions are generated based on the pulmona ry arterial vasculature and utilized for interpretat ion. LIMITATIONS: Respiratory motion artifact . FINDINGS: Lungs/pleura: Moderate left and small right pleural ef fusion with multisegmental basilar densities, left greater than ri ght. Background of emphysematous changes with architectural distortion of the lung parenchyma. Septal thickening. Groundglass attenuation in the lungs. No pneumothorax. Spiculated nodule in the left upper lobe anterolaterally measuring 24.7 mm transverse by 12.2 mm AP (image 58 of 243, axial). Airways: Multiple collapsed/opacified segmental and foster bsegmental bronchi bilaterally, predominantly within the lower lobes. Sec retions in the trachea. Cardiac/pericardium: Minimal coronary ar dee calcifications. Lymph nodes: Scattered mildly prominent mediastinal lymph nodes remain. Vasculature: No pulmonary embolism in the main or segm ental pulmonary arteries. Evaluation beyond this is hampered given res piratory motion artifact. Mediastinum: Diffuse esophageal wall thickening. Mild distention of the esophagus with air-fluid level. Soft tissue/musculature: Normal. Osseous structures: Degenerative changes in the axial/ appendicular skeleton. Upper abdomen: IMPRESSION: No pulmonary embolism in the main or segmental pulmona ry arteries. Evaluation beyond this is hampered given respiratory motion artifact. Moderate left and small right pleural effusion with ad jacent atelectatic changes. Diffuse esophageal wall thickening concerning for esop hagitis. There is also mild dilation of the esophagus. Gastroenterology follow-up and further assessment recommended. 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 Mediastinal adenopathy may be reactive to the complex parenchymal/pleural processes versus nutrition representative of metastatic disease. Continued assessment and further workup will be necessary. Hematology/oncology consultation recomme nded. Interstitial edema. Background of emphysematous changes. Finalized by: Jamel Acharya MD on 3:26 AM FLEXOGRAPHIC PRESS OPERATOR Patient/Procedure Information: [facility] ERSITY MRN/ESTRADA: [id number] Order Number: [id number] Accession Number: [id number] Ordering Provider: DILLAN MUÑIZ Authorizing Provider: DILLAN MUÑIZ Procedure Note Interface, Radiantres - 06/11/2020 3:28 AM FLEXOGRAPHIC PRESS OPERATOR Patient Name: MAGDA REYES Date of : 1950 Procedure: CTA CHEST Date of Service: 06/11/2020 EXAM: CTA CHEST INDICATION:PE suspected, low/intermediat e prob, positive D-dimer COMPARISON: Multiple prior chest radiogr aphs including but not limited 05/29/2020. CT chest dated 05/25/2020. TECHNIQUE: Consecutive CT images were ac quired through the chest following the uneventful intravenous administration of 60 cc of Omnipaque 350. Multiplanar reformats are provided for review. 3-D MIP reconstructions are generated based on the pulmonary art erial vasculature and utilized for interpretation. LIMITATIONS: Respiratory motion artifact . FINDINGS: Lungs/pleura: Moderate left and small ri ght pleural effusion with multisegmental basilar densities, left greater than right. Background of emphysematous changes with architectural distortion of the lung parenchyma. Septal thickening. Groundgla ss attenuation in the lungs. No pneumothorax. Spiculated nodule in the left upper lobe anterolaterally measuring 24.7 mm transverse by 12.2 mm AP (image 58 of 243, axial). Airways: Multiple collapsed/opacified se gmental and subsegmental bronchi bilaterally, predominantly within the lower lobes. Secretions in the trachea. Cardiac/pericardium: Minimal coronary ar dee calcifications. Lymph nodes: Scattered mildly prominent mediastinal lymph nodes remain. Vasculature: No pulmonary embolism in th e main or segmental pulmonary arteries. Evaluation beyond this is hampered given respiratory motion artifact. Mediastinum: Diffuse esophageal wall thi ckening. Mild distention of the esophagus with air-fluid level. Soft tissue/musculature: Normal. Osseous structures: Degenerative changes in the axial/appendicular skeleton. Upper abdomen: IMPRESSION: No pulmonary embolism in the main or seg mental pulmonary arteries. Evaluation beyond this is hampered given respiratory motion artifact. Moderate left and small right pleural ef fusion with adjacent atelectatic changes. Diffuse esophageal wall thickening yosi rning for esophagitis. There is also mild dilation of the esophagus. Gastroenterology follow-up and further assessment recommended. Spiculated left upper lobe nodule concer radha for primary neoplasia. Mediastinal adenopathy may be reactive to the complex parenchymal/pleural processes versus nutrition representative of metastatic disease. Continued assessment and further workup will be ne cessary. Hematology/oncology consultation recommended. Interstitial edema. Background of emphysematous changes. Finalized by: Jamel Acharya MD on 3:26 AM FLEXOGRAPHIC PRESS OPERATOR Patient/Procedure Information: [facility] ERSITY MRN/ESTRADA: [id number] Order Number: [id number] Accession Number: [id number] Ordering Provider: DILLAN MUÑIZ Authorizing Provider: DILLAN MUÑIZ Performing Organization Address [facility]/Zipcode Phone Number [id number] TROPONIN I (06/11/2020 2:05 AM FLEXOGRAPHIC PRESS OPERATOR) [facility] Troponin I 0.002 0.000 - 0.028 ng/mL [facility] IC Specimen Blood - Blood specimen (specimen) Performing Organization Address [facility] Cent[facility] Phone Number [address] [address] D-DIMER QUANTITATIVE (06/10/2020 11:07 PM FLEXOGRAPHIC PRESS OPERATOR) [facility] D-Dimer 3.14 (H) <=0.49 ug/mL FEU [facility] Specimen Blood - Blood specimen (specimen) Narrative Performed At [facility] If D-Dimer is less than 0.50 ug/mL FEU, PE or DVT is n ot likely. Increases in D-Dimer concentration observed with thromboembolic events can be variable due to localization, size, and age of the thrombus. Therefore, a thromboembolic event cannot be diagnosed with certainty on the basis of the reference range, and thrombosis and/o r embolism is not completely excluded by a normal value. D-Dimer may also be elevated for a variety of disorders including: Advance d age, , coronary disease, cancer, liver disease, infection, inflammation, hematoma, DIC, trauma, post-surgery, diabetes, thrombo lytic therapy, stress, and generalized hospitalization. D-Dimer lev els may be decreased in patients on anticoagulant t herapy. Performing Organization Address [facility] Cent[facility]ode Phone Number [address] [address] TROPONIN I (06/10/2020 11:07 PM FLEXOGRAPHIC PRESS OPERATOR) [facility] Troponin I 0.008 0.000 - 0.028 ng/mL [facility] Specimen Blood - Blood specimen (specimen) Performing Organization Address [facility]/Zipcode Phone Number [facility] [address] [place] [phone] XRAY PELVIS 1 OR 2 VIEWS (06/10/2020 9:50 AM FLEXOGRAPHIC PRESS OPERATOR)Only the most recent of2 resultswithin the time period is included. Specimen Narrative Performed At [facility] Patient Name: MAGDA REYES Date of : 1950 Procedure: XRAY PELVIS 1 OR 2 VIEWS Date of Service: 06/10/2020 EXAM: XRAY PELVIS 1 OR 2 VIEWS INDICATION: left hip pain COMPARISON(S): 06/08/2020 FINDINGS/IMPRESSION: Postoperative changes of left hip arthroplasty. Decreasing subcutaneous emphysema. Alignment is stable . No evidence of perihardware fracture. Stable fragmentation at the per iacetabular pubis on the left. Finalized by: Nathaniel Lindsey DO on 06/10 9:55 AM FLEXOGRAPHIC PRESS OPERATOR Patient/Procedure Information: [facility] MRN/ESTRADA: [id number] Order Number: [id number] Accession Number: [id number] Ordering Provider: ELI KEYES Authorizing Provider: ELI KEYES Procedure Note Interface, Radiantres - 06/10/2020 9:58 AM FLEXOGRAPHIC PRESS OPERATOR Patient Name: MAGDA REYES Date of : 1950 Procedure: XRAY PELVIS 1 OR 2 VIEWS Date of Service: 06/10/2020 EXAM: XRAY PELVIS 1 OR 2 VIEWS INDICATION: left hip pain COMPARISON(S): 06/08/2020 FINDINGS/IMPRESSION: Postoperative avitia es of left hip arthroplasty. Decreasing subcutaneous emphysema. Alignment is stable. No evidence of perihardware fracture. Stable fragmentation at the periacetabular pubis on the left. Finalized by: Nathaniel Lindsey DO on 06/10 9:55 AM FLEXOGRAPHIC PRESS OPERATOR Patient/Procedure Information: [facility] MRN/ESTRADA: [id number] Order Number: [id number] Accession Number: [id number] Ordering Provider: ELI KEYES Authorizing Provider: ELI KEYES Performing Organization Address City/[facility]/Zipcode Phone Number [id number] MAGNESIUM (06/10/2020 6:07 AM FLEXOGRAPHIC PRESS OPERATOR) Pathologist Sig nature Magnesium 1.8 1.8 - 2.4 mg/dL [facility] Specimen Blood - Blood specimen (specimen) Performing Organization Address [facility]/Zipcode Phone Number [facility] [address] [place] [address] BASIC METABOLIC PANEL (06/10/2020 6:07 AM FLEXOGRAPHIC PRESS OPERATOR) Pathologist Sig nature Glucose 88 70 - 100 mg/dL [facility] BUN 10 6 - 22 mg/dL [facility] Creatinine 0.62 0.60 - 1.10 [facility] mg/[facility] BUN/Creatinine Ratio 16.1 10.0 - 25.0 [facility] Sodium 130 (L) 135 - 145 meq/L [facility] Potassium 4.7 3.5 - 5.3 meq/L [facility] Chloride 101 99 - 110 meq/L [facility] CO2 22 20 - 29 meq/L [facility] Anion Gap with K 12 6 - 20 meq/L [facility] Calcium 8.1 (L) 8.5 - 10.5 [facility] mg/dL [place] Age 69 Years [facility] eGFR Non- >90 >=60 [facility] mL/min/1.73m2 [place] eGFR >90 >=60 [facility] mL/min/1.73m2 [place] Specimen Blood - Blood specimen (specimen) Performing Organization Address City/[facility] Cent[facility]ode Phone Number [facility] [address] [place] [address] COMPLETE BLOOD COUNT WITHOUT DIFFERENTIAL (06/10/2020 6:07 AM FLEXOGRAPHIC PRESS OPERATOR) [facility] nature WBC 11.3 (H) 4.0 - 11.0 K/uL [facility] RBC 2.83 (L) 3.80 - 5.30 M/uL [facility] Hemoglobin 7.7 (L) 11.5 - 15.8 g/dL [facility] Hematocrit 24.9 (L) 35.0 - 45.0 % [facility] MCV 88.0 80.0 - 98.0 fL [facility] MCH 27.2 25.5 - 34.0 pg [facility] MCHC 30.9 (L) 31.5 - 36.5 g/dL [facility] RDW-CV 14.8 11.5 - 15.5 % [facility] RDW-SD 45.4 35.5 - 50.0 fl [facility] Platelet Count 607 (H) 140 - 400 K/uL [facility] MPV 8.4 (L) 8.5 - 12.0 fL [facility] Specimen Blood - Blood specimen (specimen) Performing Organization Address City/[facility]/Zipcode Phone Number [facility] [address] [place] [address] MAGNESIUM (06/09/2020 5:52 AM FLEXOGRAPHIC PRESS OPERATOR) [facility] Magnesium 2.0 1.8 - 2.4 mg/dL [facility] Specimen Blood - Blood specimen (specimen) Performing Organization Address [facility]ode Phone Number [facility] [address] [place] [address] [phone] BASIC METABOLIC PANEL (06/09/2020 5:52 AM FLEXOGRAPHIC PRESS OPERATOR) [facility] Glucose 126 (H) 70 - 100 mg/dL [facility] BUN 17 6 - 22 mg/dL [facility] Creatinine 0.83 0.60 - 1.10 [facility] mg/[facility] BUN/Creatinine Ratio 20.5 10.0 - 25.0 [facility] Sodium 133 (L) 135 - 145 meq/L [facility] Potassium 4.7 3.5 - 5.3 meq/L [facility] Chloride 103 99 - 110 meq/L [facility] CO2 22 20 - 29 meq/L [facility] Anion Gap with K 13 6 - 20 meq/L [facility] Calcium 8.3 (L) 8.5 - 10.5 [facility] mg/dL [place] Age 69 Years [facility] eGFR Non- 68 >=60 [facility] mL/min/1.73m2 [place] eGFR 82 >=60 [facility] mL/min/1.73m2 [place] Specimen Blood - Blood specimen (specimen) Performing Organization Address City/[facility]/Zipcode Phone Number [facility] [address] [place] [address] COMPLETE BLOOD COUNT WITHOUT DIFFERENTIAL (06/09/2020 5:52 AM FLEXOGRAPHIC PRESS OPERATOR) [facility] WBC 13.1 (H) 4.0 - 11.0 K/uL [facility] RBC 3.00 (L) 3.80 - 5.30 M/uL [facility] Hemoglobin 8.4 (L) 11.5 - 15.8 g/dL [facility] Hematocrit 26.8 (L) 35.0 - 45.0 % [facility] MCV 89.3 80.0 - 98.0 fL [facility] MCH 28.0 25.5 - 34.0 pg [facility] MCHC 31.3 (L) 31.5 - 36.5 g/dL [facility] RDW-CV 15.1 11.5 - 15.5 % [facility] RDW-SD 47.7 35.5 - 50.0 fl [facility] Platelet Count 596 (H) 140 - 400 K/uL [facility] MPV 8.6 8.5 - 12.0 fL [facility] Specimen Blood - Blood specimen (specimen) Performing Organization Address [facility]ode Phone Number [facility] [address] [place] [address] TROPONIN I (06/08/2020 5:29 AM FLEXOGRAPHIC PRESS OPERATOR) Pathologist Sig nature Troponin I 0.004 0.000 - 0.028 ng/mL [facility] Specimen Blood - Blood specimen (specimen) Performing Organization Address [facility] Centercola Phone Number [facility] [address] [place], [place] [phone] MAGNESIUM (06/08/2020 5:29 AM FLEXOGRAPHIC PRESS OPERATOR) Pathologist Sig nature Magnesium 2.0 1.8 - 2.4 mg/dL [facility] Specimen Blood - Blood specimen (specimen) Performing Organization Address [facility] Phone Number [facility] [address] [place] [address] [phone] BASIC METABOLIC PANEL (06/08/2020 5:29 AM FLEXOGRAPHIC PRESS OPERATOR) Pathologist Sig nature Glucose 87 70 - 100 mg/dL [facility] BUN 12 6 - 22 mg/dL [facility] Creatinine 0.71 0.60 - 1.10 [facility] mg/[facility] BUN/Creatinine Ratio 16.9 10.0 - 25.0 [facility] Sodium 129 (L) 135 - 145 meq/L [facility] Potassium 4.8 3.5 - 5.3 meq/L [facility] Chloride 97 (L) 99 - 110 meq/L [facility] CO2 23 20 - 29 meq/L [facility] Anion Gap with K 14 6 - 20 meq/L [facility] Calcium 8.7 8.5 - 10.5 [facility] mg/dL [place] Age 69 Years [facility] eGFR Non- 81 >=60 [facility] Somali mL/min/1.73m2 [place] eGFR >90 >=60 [facility] mL/min/1.73m2 [place] Specimen Blood - Blood specimen (specimen) Performing Organization Address [facility] Phone Number [facility] [address] [place], [place] [phone] COMPLETE BLOOD COUNT WITHOUT DIFFERENTIAL (06/08/2020 5:29 AM FLEXOGRAPHIC PRESS OPERATOR) [facility] WBC 11.1 (H) 4.0 - 11.0 K/uL [facility] RBC 3.45 (L) 3.80 - 5.30 M/uL [facility] Hemoglobin 9.4 (L) 11.5 - 15.8 g/dL [facility] Hematocrit 30.2 (L) 35.0 - 45.0 % [facility] MCV 87.5 80.0 - 98.0 fL [facility] MCH 27.2 25.5 - 34.0 pg [facility] MCHC 31.1 (L) 31.5 - 36.5 g/dL [facility] RDW-CV 15.1 11.5 - 15.5 % [facility] RDW-SD 46.7 35.5 - 50.0 fl [facility] Platelet Count 655 (H) 140 - 400 K/uL [facility] MPV 8.6 8.5 - 12.0 fL [facility] Specimen Blood - Blood specimen (specimen) Performing Organization Address [facility] Phone Number [facility] [address] [place], [place] [phone] EKG (06/08/2020 12:13 AM FLEXOGRAPHIC PRESS OPERATOR) Pathologist Sig nature EKG WAVE[employer]AC[employer] Normal sinus rhythm Early transition, increased R/S ratio in V1, consider posterior infarct Abnormal ECG Ventricular Rate: 75 BPM Atrial Rate: 75 BPM P-R Interval: 164 ms QRS Duration: 80 ms Q-T Interval: 386 ms QTc Calculation(Bazett): 431 ms Calculated P Hampton: 74 degrees Calculated R Hampton: 66 degrees Calculated T Hampton: 82 degrees Specimen Narrative Performed At This result has an attachment that is no t available. Performing Organization Address City/[facility] Phone Number [facility]AN[facility] LAB ONLY-MANUAL DIFFERENTIAL (06/05/2020 4:33 PM FLEXOGRAPHIC PRESS OPERATOR) Pathologist Sig nature Platelet Estimate Increased [facility] Platelet Morphology Normal [facility] RBC Morphology Normal [facility] Specimen Blood - Blood specimen (specimen) Performing Organization Address City/[facility]/Zipcode Phone Number [facility] [address] [place] [address] MAGNESIUM (06/05/2020 4:33 PM FLEXOGRAPHIC PRESS OPERATOR) Pathologist Sig nature Magnesium 2.1 1.8 - 2.4 mg/dL [facility] Specimen Blood - Blood specimen (specimen) Performing Organization Address City/[facility]/Zipcode Phone Number [facility] [address] [place] [address] LAB ONLY-COMPLETE BLOOD COUNT WITH DIFFERENTIAL (06/05/2020 4:33 PM FLEXOGRAPHIC PRESS OPERATOR) WBC 9.5 4.0 - 11.0 K/uL [facility] RBC 3.31 (L) 3.80 - 5.30 [facility] Hemoglobin 9.2 (L) 11.5 - 15.8 [facility] g/dL [place] Hematocrit 29.0 (L) 35.0 - 45.0 % [facility] MCV 87.6 80.0 - 98.[address] [facility] MCH 27.8 25.5 - 34.0 pg [facility] MCHC 31.7 31.5 - 36.5 [facility] gdL [place] RDW-CV 15.4 11.5 - 15.5 % [facility] RDW-SD 48.2 35.5 - 50.0 fl [facility] Platelet Count 633 (H) 140 - 400 K/uL [facility] MPV 8.1 (L) 8.5 - 12.0 fL [facility] Seg Neut Absolute 6.5 1.8 - 8.0 K/uL [facility] Lymphocytes Absolute 1.7 0.8 - 4.1 K/uL [facility] Monocytes Absolute 1.1 (H) 0.0 - 1.0 K/uL [facility] Eosinophils Absolute 0.2 0.0 - 0.7 K/uL [facility] Basophil Absolute 0.0 0.0 - 0.2 K/uL [facility] Neutrophils Abs. 6,500 /uL [facility] (Segs and Bands) [place] Neutrophils Percent 68.4 % [facility] Lymphocytes Percent 17.8 % [facility] Monocytes Percent 11.6 % [facility] Eosinophils Percent 1.9 % [facility] Basophil Percent 0.2 % [facility] Specimen Blood - Blood specimen (specimen) Performing Organization Address [facility]ode Phone Number [facility] [address] [place], [place] [phone] BASIC METABOLIC PANEL (06/05/2020 4:33 PM FLEXOGRAPHIC PRESS OPERATOR) Pathologist Sig nature Glucose 90 70 - 100 mg/dL [facility] BUN 16 6 - 22 mg/dL [facility] Creatinine 0.77 0.60 - 1.10 [facility] mg/[facility] BUN/Creatinine Ratio 20.8 10.0 - 25.0 [facility] Sodium 131 (L) 135 - 145 meq/L [facility] Potassium 5.0 3.5 - 5.3 meq/L [facility] Chloride 96 (L) 99 - 110 meq/L [facility] CO2 27 20 - 29 meq/L [facility] Anion Gap with K 13 6 - 20 meq/L [facility] Calcium 8.5 8.5 - 10.5 [facility] mg/dL [place] Age 69 Years [facility] eGFR Non- 74 >=60 [facility] mL/min/1.73m2 [place] eGFR 90 >=60 [facility] mL/min/1.73m2 [place] Specimen Blood - Blood specimen (specimen) Performing Organization Address [facility]ode Phone Number [facility] [address] [place], [place] [phone] TYPE AND SCREEN (06/05/2020 4:33 PM FLEXOGRAPHIC PRESS OPERATOR) Pathologist Sig nature ABO Type O [facility] Rh Type Positive [facility] Antibody Screen Negative [facility] Comment: [facility] Allogenic Red Cells Available 06-05-20 Expiration Date 06/08/2020 23:59 [facility] Specimen Blood - Blood specimen (specimen) Performing Organization Address City/[facility] Phone Number 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, middle ear, and accessory sinuses Dermatitis Contact dermatitis and other eczema, due to unspecified cause Rash Rash and other nonspecific skin eruption Dry skin Other symptoms involving skin and integu mentary tissues Constipation, unspecified constipation t ype Hyponatremia Hyposmolality and/or hyponatremia Tobacco use Tobacco use disorder Eye infection, bilateral Back muscle spasm Other symptoms referable to back Essential hypertension with goal blood p ressure less than 140/90 Failed total hip arthroplasty (HCC) Other mechanical complication of prosthe tic joint implant documented in this encounter Discharge Diagnoses Not on filedocumented in this encounter Administered Medications Medication Order MAR Action Action Date Dose Rate Site acetaminophen (TYLENOL) tablet Given 06/10/2020 5:01 PM FLEXOGRAPHIC PRESS OPERATOR 650 mg 650 mg 650 mg, Oral, Every six hours, First dose on Mon06/08/20 at 1855, Until Discontinued, Post - Op, Alternate with tramadol (ULTRAM); Adult patients: Total dose of acetaminophen from all acetaminophen containing products should not exceed 4 grams (4000 mg) per day. Pediatric Patients 0 - 3 months: Maximum of 60 mg/kg/24 hours of acetaminophen. Pediatric Patients older than 3 months: Maximum of 75 mg/kg/24 hours of acetaminophen (Never exceeding 4 grams/day)., Given 06/10/2020 11:58 AM FLEXOGRAPHIC PRESS OPERATOR 650 mg Given 06/10/2020 12:22 AM FLEXOGRAPHIC PRESS OPERATOR 650 mg aspirin chewable tablet 81 mg Given 06/11/2020 8:30 AM FLEXOGRAPHIC PRESS OPERATOR 81 mg 81 mg, Oral, Two times a day, First dose on Mon06/08/20 at 2100, Until Discontinued Given 06/10/2020 7:48 PM FLEXOGRAPHIC PRESS OPERATOR 81 mg Given 06/10/2020 8:25 AM FLEXOGRAPHIC PRESS OPERATOR 81 mg cephalexin (KEFLEX) capsule 500 mg Given 06/11/2020 8:30 AM FLEXOGRAPHIC PRESS OPERATOR 500 mg 500 mg, Oral, Three times a day, First dose on Mon06/05/20 at 2100, Until Discontinued Given 06/10/2020 7:48 PM FLEXOGRAPHIC PRESS OPERATOR 500 mg Given 06/10/2020 2:15 PM FLEXOGRAPHIC PRESS OPERATOR 500 mg citalopram (celeXA) tablet 10 mg Given 06/11/2020 8:30 AM FLEXOGRAPHIC PRESS OPERATOR 10 mg 10 mg, Oral, DAILY, First dose on 06/06/20 at 0900, Until Discontinued Given 06/10/2020 8:25 AM FLEXOGRAPHIC PRESS OPERATOR 10 mg Given 06/09/2020 9:21 AM FLEXOGRAPHIC PRESS OPERATOR 10 mg ferrous sulfate (65 mg FE per 325 mg tablet) Given 8:30 AM FLEXOGRAPHIC PRESS OPERATOR 325 mg tablet 325 mg 325 mg, Oral, Two times a day, First dose on Mon06/05/20 at 2100, Until Discontinued Given 06/10/2020 7:47 PM FLEXOGRAPHIC PRESS OPERATOR 325 mg Given 06/10/2020 8:24 AM FLEXOGRAPHIC PRESS OPERATOR 325 mg lisinopril (PRINIVIL, ZESTRIL) tablet 5 mg Given 06/11/2020 8:34 AM FLEXOGRAPHIC PRESS OPERATOR 5 mg 5 mg, Oral, DAILY, First dose (after last reorder) on Sindi 06/11/20 at 0900, Until Discontinued, Hold for SBP less than 100, LORazepam (ATIVAN) tablet 0.5 mg Given 06/10/2020 11:18 PM FLEXOGRAPHIC PRESS OPERATOR 0.5 mg 0.5 mg, Oral, Every six hours prn, Starting 06/06/20 at 1624, Until Discontinued, anxiety Given 06/08/2020 12:21 AM FLEXOGRAPHIC PRESS OPERATOR 0.5 mg magnesium oxide tablet 500 mg Given 06/11/2020 8:31 AM FLEXOGRAPHIC PRESS OPERATOR 500 mg 500 mg, Oral, Daily, First dose on 06/06/20 at 0900, Until Discontinued Given 06/10/2020 8:25 AM FLEXOGRAPHIC PRESS OPERATOR 500 mg Given 06/09/2020 8:46 AM FLEXOGRAPHIC PRESS OPERATOR 500 mg melatonin tablet 3 mg Given 06/09/2020 8:39 PM FLEXOGRAPHIC PRESS OPERATOR 3 mg 3 mg, Oral, Bedtime prn, Starting Mon06/05/20 at 1614, Until Discontinued, other (Specify), insomnia, Use FIRST for insomnia. If inadequate response in 60 minutes, may proceed to next choice option or, if no other options, contact provider., Given 06/06/2020 9:24 PM FLEXOGRAPHIC PRESS OPERATOR 3 mg nitroglycerin (NITROSTAT) sublingual tablet Given 05/20 11:19 PM FLEXOGRAPHIC PRESS OPERATOR 0.4 mg 0.4 mg 0.4 mg, Sublingual, Every five minutes prn, Starting 06/08/20 at 0015, Until Discontinued, chest pain, At onset of chest pain, dissolve one tablet under tongue. May repeat every 5 minutes for 3 doses. Do not crush or chew., Given 06/10/2020 10:53 PM FLEXOGRAPHIC PRESS OPERATOR 0.4 mg Given 06/10/2020 10:30 PM FLEXOGRAPHIC PRESS OPERATOR 0.4 mg ondansetron (ZOFRAN ODT) dispersible tab let 4 mg 4 mg, Oral, Four times a day prn, Starting Mon 0 at 1614, Until Discontinued, nausea, vomiting, Use FIRS T for nausea / vomiting. If ineffective after 30 minutes use ondansetron IV, ondansetron (ZOFRAN) injection solution 4 mg 4 mg, IV, Four times a day prn, Starting 06/05/20 at 1614, Until Discontinued, nausea, vomiting, 2 mL, Use SECOND for n ausea / vomiting. If ineffective after 30 minutes and ondansetron ODT used, call donny espinal for alternative. If preference is to further dilute for IV administration: First draw up patient-specific dose, then dilute to 10 mL with 0.9% sodium chloride., oxybutynin (DITROPAN-XL) SR tablet (24 hr) 5 Given 0 11:59 AM FLEXOGRAPHIC PRESS OPERATOR 5 mg mg 5 mg, Oral, DAILY, First dose on 06/06/20 at 1200, Until Discontinued, Tablet should not be crushed or chewed., Given 06/09/2020 11:17 AM FLEXOGRAPHIC PRESS OPERATOR 5 mg Given 06/07/2020 11:03 AM FLEXOGRAPHIC PRESS OPERATOR 5 mg oxyCODONE (OXY-IR) tablet 5-10 mg Given 06/10/2020 1:44 PM FLEXOGRAPHIC PRESS OPERATOR 5 mg 5-10 mg, Oral, Every four hours prn, Starting 06/08/20 at 1849, Until Discontinued, moderate pain, severe pain, Post - Op, For patients with moderate pain, pain rating of 4-6, give Oxycodone 5mg PO every 4 hours PRN. For patients with severe pain, pain rating of 7-10, give Oxycodone 10mg PO every 4 hours PRN., Given 06/10/2020 8:41 AM FLEXOGRAPHIC PRESS OPERATOR 5 mg Given 06/09/2020 10:12 AM FLEXOGRAPHIC PRESS OPERATOR 5 mg polyethylene glycol (MIRALAX) packet 1 Given 06/11/2020 8:31 AM FLEXOGRAPHIC PRESS OPERATOR 1 packet packet 1 packet, Oral, DAILY, First dose on Mon06/06/20 at 0900, Until Discontinued, Dissolve in 8 ounces of water, juice, soda, coffee, tea Do NOT give if patient on thickened liquids. Contact provider for alternative if needed. , Given 06/10/2020 8:23 AM FLEXOGRAPHIC PRESS OPERATOR 1 packet Given 06/09/2020 8:46 AM FLEXOGRAPHIC PRESS OPERATOR 1 packet senna-docusate sodium Given 06/11/2020 8:31 AM FLEXOGRAPHIC PRESS OPERATOR 2 tablets (SENOKOT-S;PERICOLACE) tablet 2 tablet 2 tablet, Oral, Two times a day, First dose on Mon06/05/20 at 2100, Until Discontinued Given 06/10/2020 7:47 PM FLEXOGRAPHIC PRESS OPERATOR 2 tablets Given 06/10/2020 8:25 AM FLEXOGRAPHIC PRESS OPERATOR 2 tablets sodium chloride 0.9% flush (adult) 10 mL Given 06/10/2020 7:50 PM FLEXOGRAPHIC PRESS OPERATOR 10 mL 10 mL, IV, Two times a day and prn, First dose on Mon06/10/20 at 0900, Until Discontinued, 10 mL, Flush IV line as scheduled and as often as necessary before and after meds., Given 06/10/2020 8:25 AM FLEXOGRAPHIC PRESS OPERATOR 10 mL sodium chloride tablet 3 g Given 06/11/2020 8:31 AM FLEXOGRAPHIC PRESS OPERATOR 3 g 3 g, Oral, Three times a day, First dose on Mon06/05/20 at 2100, Until Discontinued Given 06/10/2020 7:47 PM FLEXOGRAPHIC PRESS OPERATOR 3 g Given 06/10/2020 2:15 PM FLEXOGRAPHIC PRESS OPERATOR 3 g Medication Order MAR Action Action Date Dose Rate Site acetaminophen (TYLENOL) tablet Given 06/08/2020 2:03 PM FLEXOGRAPHIC PRESS OPERATOR 1,0 00 mg 1,000 mg 1,000 mg, Oral, Pre-op, 1 dose, 06/08/20 at 1310, Pre - Op, Adult patients: Total dose of acetaminophen from all acetaminophen containing products should not exceed 4 grams (4000 mg) per day. Pediatric Patients 0 - 3 months: Maximum of 60 mg/kg/24 hours of acetaminophen. Pediatric Patients older than 3 months: Maximum of 75 mg/kg/24 hours of acetaminophen (Never exceeding 4 grams/day). , ceFAZolin (ANCEF) 2000 mg/20 mL sterile Given 06/09/2020 6:34 A M FLEXOGRAPHIC PRESS OPERATOR 2,000 mg water IV syringe 2,000 mg, IV, Every eight hours, 2 doses, First dose on Mon06/08/20 at 2300, Last dose on Mon06/09/20 at 0700, 20 mL, PACU - Continue Post-Op, Administer as IV push over 4 minutes., Given 06/08/2020 11:27 PM FLEXOGRAPHIC PRESS OPERATOR 2,000 mg enoxaparin (LOVENOX) subcutaneous injection Given 06/06/2020 9:24 PM FLEXOGRAPHIC PRESS OPERATOR 40 mg solution 40 mg 40 mg, Subcutaneous, Bedtime, First dose on Mon06/05/20 at 2100, Until Discontinued, To avoid the loss of [...] site after completion of the injection., Given 06/05/2020 8:43 PM FLEXOGRAPHIC PRESS OPERATOR 40 mg gabapentin (NEURONTIN) capsule 600 mg Given 06/08/2020 2:03 PM FLEXOGRAPHIC PRESS OPERATOR 600 mg 600 mg, Oral, Pre-op, 1 dose, 06/08/20 at 1310, Pre - Op, 1 dose prior to surgery, iohexol (OMNIPAQUE) 350 mg/mL solution 1 00 mL Given 06/11/2020 2:37 AM FLEXOGRAPHIC PRESS OPERATOR 60 mL 100 mL, IV, Now imaging, 1 dose, Starting Sindi 06/11/20 at 0252, Until Sindi 06/11/20 at 0237, 100 mL lactated ringers IV solution Already Infusing 06/08/2020 4:19 PM FLEXOGRAPHIC PRESS OPERATOR 125 mL/hr IV, at 125 mL/hr, Continuous, Starting 06/08/20 at 1735, Until Mon06/08/20 at 1827, 1,000 mL, PACU, TKO current fluids if patient is going to Day Unit / ARU and tolerating PO fluids without nausea., lisinopril (PRINIVIL, ZESTRIL) tablet 5 mg Given 06/07/2020 9:01 AM FLEXOGRAPHIC PRESS OPERATOR 5 mg 5 mg, Oral, DAILY, First dose on 06/06/20 at 0900, Until Discontinued, Hold for SBP less than 100, Given 06/06/2020 9:11 AM FLEXOGRAPHIC PRESS OPERATOR 5 mg morphine preservative free injection solution Given 12:26 AM FLEXOGRAPHIC PRESS OPERATOR 4 mg (conc: 4 mg/mL) 4 mg 4 mg, IV, Now, 1 dose, 06/08/20 at 0025, 1 mL nitroglycerin (NITROSTAT) 0.4 mg subling ual tablet 1 dose, Starting 06/08/20 at 0015, U ntil 06/08/20 at 0017, [email or web address]: cabinet override, PHENYLephrine Rate Change 06/08/2020 5:12 PM 0.1 mcg/kg/min 3.9 mL/h r (JESSICA-SYNEPHRINE) in sod FLEXOGRAPHIC PRESS OPERATOR chloride 0.9% (100 mcg/mL) infusion 0-2 mcg/kg/min 65.8 kg (0-78.96 mL/hr, rounded to 0-79 mL/hr), IV, at 0-79 mL/hr, Titrate, Starting 06/08/20 at 1735, Until Mon06/08/20 at 1827, 250 mL, PACU, Initiate the infusion at 0.1-0.5 mcg/kg/min Increase or decrease the infusion by 0.1-0.5 mcg/kg/min every 5 minutes to keep SBP between 90-110 mmHg When discontinuing or weaning, decrease dose gradually by 0.1-0.5 mcg/kg/minute every 5 minutes as tolerated to prevent severe hypotension Document titrations in One Chart (MAR or I&O Flowsheet medication group), Rate Change 06/08/2020 4:59 PM FLEXOGRAPHIC PRESS OPERATOR 0.2 mcg/kg/min 7.9 mL/hr Rate Change 06/08/2020 4:44 PM FLEXOGRAPHIC PRESS OPERATOR 0.3 mcg/kg/min 11.8 mL/hr sodium chloride 0.9% (bolus) IV Given 06/08/2020 4:30 PM FLEXOGRAPHIC PRESS OPERATOR 50 0 mL 999 mL/hr solution 500 mL 500 mL, IV, at 999 mL/hr, Bolus, 1 dose, 06/08/20 at 1745, 500 mL sodium chloride 0.9% flush (adult) 10 mL Given 06/09/2020 8:39 PM FLEXOGRAPHIC PRESS OPERATOR 10 mL 10 mL, IV, Two times a day and prn, First dose on Mon06/05/20 at 2100, Until Discontinued, 10 mL, Flush IV line as scheduled and as often as necessary before and after meds., Given 06/08/2020 9:09 AM FLEXOGRAPHIC PRESS OPERATOR 10 mL Righ t Hand Top IV Given 06/08/2020 12:30 AM FLEXOGRAPHIC PRESS OPERATOR 10 mL sodium chloride 0.9% IV solution New Bag 06/06/2020 9:09 AM FLEXOGRAPHIC PRESS OPERATOR 75 mL/hr IV, at 75 mL/hr, Continuous, Starting Mon06/05/20 at 1810, Until 06/06/20 at 1655, 1,000 mL New Bag 06/05/2020 7:39 PM FLEXOGRAPHIC PRESS OPERATOR 75 mL/hr sodium chloride 0.9% IV solution New Bag 06/09/2020 6:55 PM FLEXOGRAPHIC PRESS OPERATOR 125 mL/hr IV, at 125 mL/hr, Continuous, Starting Mon06/08/20 at 1855, Until Tu06/09/20 at 2252, 1,000 mL, Post - Op New Bag 06/09/2020 11:19 AM FLEXOGRAPHIC PRESS OPERATOR 125 mL/hr New Bag 06/09/2020 3:12 AM FLEXOGRAPHIC PRESS OPERATOR 125 mL/hr sodium chloride 0.9% IV solution Rate Change 06/08/2020 5:12 PM FLEXOGRAPHIC PRESS OPERATOR 125 mL/hr IV, at 125 mL/hr, Continuous, Starting Mon06/08/20 at 1810, Until Mon06/08/20 at 1827, 1,000 mL, PACU documented in this encounter
[2020-06-11] MEDS ORDERED: Bisacodyl 10 MG Supp RECTAL PRN (12:59)
[2020-06-11] MEDS ORDERED: Cyclobenzaprine 10 MG Tab PO PRN (12:59)
[2020-06-11] MEDS ORDERED: UREA PRN (12:59)
[2020-06-11] MEDS ORDERED: Erythromycin Base 0.5% Ophth Oint 3.5 GM Tube EYEBOTH PRN (12:59)
[2020-06-11] MEDS ORDERED: Clobetasol 0.05% Crm 15 GM Tube TOP PRN (12:59)
[2020-06-11] MEDS ORDERED: Magnesium Hydroxide 400 MG/5 ML Susp 30 ML Cup PO PRN ×2 (12:59)
[2020-06-11] MEDS ORDERED: BETAMETHASONE DIPROPIONATE TOP PRN (12:59)
--- NOTE | 2020-06-11 13:29 | PCM.HP.2 ---
H&P History of Present Illness - General Date of Service: 06/11/20 Admit Problem/Dx: Admission Diagnosis/Problem Admission Diagnosis/Problem Weakness Source of Information: Patient, Family (Patient's daughter), Old Records ([facility] chart/EMR), Other ([facility] EMR on 05/22/2020. Additional limited transfer records from [facility] on 06/11/2020) History Limitations: Reports: Other (Severe presbycusis of the patient) - History of Present Illness Initial Comments - Free Text/Narative: The patient was brought to admission to our swing bed unit via private auto mobile by her daughter after discharge from [facility] in [place] earlier today. She is to continue PT and OT after a repeat left TEP placement and revision at [facility] on 06/08/2020 with multiple previous left hip TEP dislocations in the past as below. She is currently taking some narcotic medications, however denies any significant hip pain at rest. The postoperative course at [facility] was apparently complicated by a D-dimer elevation on 06/11/2020 with negative CTA of the chest at that time. In addition, patient apparently had additional episodes of nonspecific chest pain with apparent negative work-up for acute NM in that facility. At this time the patient denies any chest pain/pressure, heart flutter, dizziness, orthostasis, orthopnea, diaphoresis, paresthesias, recent decreased exercise tolerance, or any other anginal-type symptoms, although her overall activity level is low secondary to her recent left hip surgery. No recent history of abdominal pain, heartburn, nausea, diarrhea, melena, gross hematochezia, or any food intolerance, including fatty foods, etc.. She denies any gross hematuria, colic, or other UTI symptoms. The patient also denies any recent fever, cough, wheezing, dyspnea, etc.. Onset of Symptoms: Reports: Other (As above) Duration of Symptoms: Reports: Constant Location: Reports: Lower Extremity, Left. Denies: Head, Face, Neck, Chest, Abdomen, Back, Pelvis, Upper Extremity, Left, Upper Extremity, Right, Lower Extremity, Right, Radiates to Quality: Reports: Same as Previous Episode, Throbbing Severity: Moderate Improves with: Reports: Rest Worsens with: Reports: Movement Associated Symptoms: Reports: Weakness (Moderate generalized). Denies: Confusion, Chest Pain, Cough, Diaphoresis, Fever/Chills, Headaches, Loss of Appetite, Malaise, Rash, Seizure, Shortness of Breath, Syncope - Related Data Allergies/Adverse Reactions: Allergies Allergy/AdvReac Type Severity Reaction Status Date / Time Adhesives Allergy Cannot Uncoded 06/11/20 13:13 Remember Metals Allergy Cannot Uncoded 06/11/20 13:13 Remember Nickel Allergy Rash Uncoded 06/11/20 13:13 Home Medications: Home Meds Lisinopril [Prinivil] 5 mg PO DAILY #30 tablet 10/15/15 [Rx] Betamethasone Dipropionate [Diprosone 0.05% Crm] 0 gm TOP BID PRN 01/31/20 [History] Calcium Carbonate/Vitamin D3 [Caltrate 600 Plus D3 Tablet] 1 tab PO DAILY 01/31/20 [History] Cholecalciferol (Vitamin D3) [Vitamin D3] 2,000 unit PO DAILY 01/31/20 [History] Cyclobenzaprine [Flexeril] 10 mg PO TID PRN 01/31/20 [History] Erythromycin Base [Erythromycin] 1 dose EYEBOTH QID PRN 01/31/20 [History] Multivitamin with Minerals [Multiple Vitamin] 1 each PO DAILY 01/31/20 [History] Ben Bolt-3/DHA/Epa/Fish Oil [Fish Oil 1,000 mg Softgel] 1,000 mg PO DAILY 01/31/20 [History] Sodium Chloride 3 gm PO TID 01/31/20 [History] Urea [Urea 20% Crm] 85 gm .XX BID PRN 01/31/20 [History] cephALEXin [Cephalexin] 500 mg PO TID 01/31/20 [History] Docusate Sodium/Sennosides [Senna Plus] 2 tab PO BID PRN tablet 03/02/20 [Rx] Aspirin 81 mg PO BID 05/22/20 [History] Bisacodyl [Laxative Suppository] 10 mg RC DAILY PRN 05/22/20 [History] Clobetasol [Clobetasol Propionate 0.05%] 1 applic TOP BID PRN 05/22/20 [History] LORazepam [Ativan] 0.5 mg PO Q6HR PRN 05/22/20 [History] Magnesium Hydroxide [Dulcolax] 30 ml PO BID PRN 05/22/20 [History] Nicotine [Nicotine Patch] 21 mg TD DAILY 05/22/20 [History] Ondansetron [Zofran ODT] 4 mg PO QID PRN 05/22/20 [History] Polyethylene Glycol [Polyox Wsr-301] 17 gm PO DAILY 05/22/20 [History] oxyCODONE 5 mg PO Q4HR PRN 05/22/20 [History] Acetaminophen [Tylenol] 650 mg PO Q4H PRN 06/11/20 [History] Citalopram Hydrobromide [Celexa] 10 mg PO DAILY 06/11/20 [History] Ferrous Sulfate 325 mg PO BID 06/11/20 [History] Furosemide 20 mg PO DAILY 06/11/20 [History] Magnesium Hydroxide [Milk of Magnesia] 30 ml PO BID PRN 06/11/20 [History] Magnesium Oxide 500 mg PO DAILY 06/11/20 [History] Oxybutynin [Oxybutynin ER] 5 mg PO DAILY 06/11/20 [History] Past Medical History HEENT History: Reports: Allergic Rhinitis, Hard of Hearing, Other (See Below) Other HEENT History: Severe bilateral presbycusis with no hearing aid therapy. 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 Cardiovascular History: Reports: Heart Failure, High Cholesterol, Hypertension, Other (See Below). Denies: Heart Murmur Other Cardiovascular History: D-dimer elevation on 06/11/2020 with negative work-up as below. Respiratory History: Reports: COPD, Intubation, Previous, Other (See Below). Denies: Intubation, Difficult Other Respiratory History: COPD by chest x-ray and CT scan.. Left upper lobe 17 mm pulmonary nodule diagnosed by CT scan of the chest with IV contrast on 05/25/2020. Gastrointestinal History: Reports: Chronic Constipation Musculoskeletal History: Reports: Arthritis, Fracture, Osteoarthritis, Other (See Below) Other Musculoskeletal History: Left pubic ramus fracture on 08/28/2015 with history of recurrent left hip TEP dislocations including in our swing bed unit on 06/05/2020 and previously in April 2020 with multiple surgeries required as below. Psychiatric History: Reports: Addiction, Anxiety, Depression, Other (See Below) Other Psychiatric History: History of alcohol abuse. Endocrine/Metabolic History: Reports: Hypokalemia, Hypomagnesemia Other Endocrine/Metabolic History: Hypoalbuminemia. Hyponatremia/SIADH?. Hypocalcemia. Hematologic History: Reports: Anemia, Iron Deficiency, Other (See Below) Other Hematologic History: Thrombocytosis. Thiamine deficiency. Oncologic (Cancer) History: Reports: Squamous Cell Carcinoma, Other (See Below) Other Oncologic History: Sinus cancer Dermatologic History: Reports: Psoriasis - Past Surgical History HEENT Surgical History: Reports: Adenoidectomy, Tonsillectomy Other HEENT Surgeries/Procedures: T&A at age 5. 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 Multiple teeth extractions. Musculoskeletal Surgical History: Reports: Hip Replacement, Other (See Below) Other Musculoskeletal Surgeries/Procedures:: Left hip TEP replacement and dislocation revision on 06/08/2020 with previous multiple left hip TEP revisions on 05/19/2020, 05/11/2020, and 01/28/2020 secondary to recurrent dislocations. - Past Imaging History Past Imaging History: Reports: CAT Scan (Negative CTA of the chest on 06/11/2020. Positive CT of the chest on 05/25/2020 for pulmonary nodule as above. CT of the head on 08/09/2019 and 10/07/2015. CT of the sinuses on 04/20/2018. CT of the left leg on 08/28/2015.), Mammogram (Last on 04/20/2018), MRI (MRI of the brain in 2019.) - History Comment History Comment: The patient is an extremely poor historian secondary to her severe presbycusis. Social & Family History - Family History Family Medical History: No Pertinent Family History (Also unobtainable secondary to her severe presbycusis) Cardiac: Reports: Bypass, CAD, Other (See Below) Other Cardiac Family History: Mother with coronary artery disease and three- vessel CABG. Endocrine/Metabolic: Reports: Diabetes, type II, Other (See Below) Other Endocrine/Metabolic Family History: Mother with AODM. Oncologic: Reports: Lung Other Oncologic Family History: Mother with fatal lung cancer in her 50s. - Tobacco Use Tobacco Use Status *Q: Current Every Day Tobacco User Tobacco Use Within Last Twelve Months: Cigarettes Years of Tobacco use: 20 Packs/Tins Daily: 0.5 Packs/Tins Daily Comment: Currently trying to quit and is on NicoDerm patch during swing bed care. Used Tobacco, but Quit: Yes Smoking Cessation Information Provided To Patient: No Second Hand Smoke Exposure: No - Caffeine Use Caffeine Use: Reports: Coffee Other Caffeine Use: 1 cup - Alcohol Use Alcohol Use History: Yes Number of Drinks Per Day Comment: Previous history of alcohol abuse. Alcohol Use in Last Twelve Months: Yes - Recreational Drug Use Recreational Drug Use: No Drug Use in Last 12 Months: No - Living Situation & Occupation Living situation: Reports: Other (Followed closely by her daughter) H&P Review of Systems - Review of Systems: Review Of Systems: See Below Exam - Exam Exam: See Below - Vital Signs Vital Signs: Last Vital Signs Temp 37.6 C 06/11/20 12:51 Pulse 112 H 06/11/20 12:51 Resp 18 06/11/20 12:51 BP 105/69 06/11/20 12:51 Pulse Ox 94 L 06/11/20 12:51 - Exam Quality Assessment: DVT Prophylaxis. No: Supplemental Oxygen, Central Line/PICC, Urinary Catheter, Skin Breakdown, Restraints General: Alert, Oriented, Cooperative HEENT: Conjunctiva Clear, EACs Clear, EOMI, Hearing Intact, Mucosa Moist & [place], Nares Patent, Normal Nasal Septum, Posterior Pharynx Clear, TMs Clear, Other (Stable severe midface defect from previous extensive sinus surgery with stable right upper centimeter in length granular irregularity with no local signs of in fection. Note nasal bridge involvement and deformity stable from previous exams.), PERRLA Neck: Supple, Trachea Midline, Full Range of Motion, Carotid Bruit (Mild bilateral carotid bruits). No: Lymphadenopathy, JVD, Thyromegaly Lungs: Normal Respiratory Effort, Rales (Mild bilateral basilar). No: Rhonchi, Rub, Wheezing Cardiovascular: Regular Rate, Regular Rhythm, Normal S1, Normal S2. No: Systolic Murmur, Diastolic Murmur, Rubs, Gallop/S3, Gallop/S4 GI/Abdominal Exam: Normal Bowel Sounds, Soft, Non-Tender, No Organomegaly, No Distention, No Abnormal Bruit, No Mass, Pelvis Stable. No: Guarding (Female) Exam: Deferred Rectal (Female) Exam: Deferred Back Exam: Normal Inspection, Full Range of Motion. No: CVA Tenderness (L), CVA Tenderness (R), Muscle Spasm Extremities: No Pedal Edema, Normal Capillary Refill, Leg Pain (Normal postoperative left hip pain), Limited Range of Motion (Left hip/leg secondary to surgery), Other (Left hip dressing in place). No: Suzy's Sign Peripheral Pulses: 2+: Radial (L), Radial (R), Dorsalis Pedis (L), Dorsalis Pedis (R) Skin: Wound (Dressing as above) Neurological: Cranial Nerves Intact, Reflexes Equal Bilateral. No: Babinski Neuro Extensive - Mental Status: Alert, Oriented x3, Normal Mood/Affect, Normal Cognition Psychiatric: Alert, Anxious (Mild to moderate), Depressed (Borderline). No: Agitated, Hallucinations, Withdrawal Symptoms - Patient Data Lab Results Last 24 hrs: To be conducted in the a.m. of 06/12/2020 Imaging Impressions Last 24 hrs: EKG and chest x-ray ordered for 06/12/2020. Sepsis Event Note - Focused Exam Vital Signs: Vital Signs Temp Pulse Resp BP Pulse Ox 06/11/20 12:51 37.6 C 112 H 18 105/69 94 L - Problem List (1) Status post THR (total hip replacement) SNOMED Code(s): 097056958980, 619169774564 ICD Code: Z96.649 - PRESENCE OF UNSPECIFIED ARTIFICIAL HIP JOINT Status: Acute Priority: High Current Visit: Yes Problem Details: Status post repeat TEP replacement with dislocation revision on 06/08/2020. Continue PT/OT, strengthening, etc. with history of multiple recurrent dislocations and surgeries in the past as above. Attempt to discontinue patient's narcotic pain therapy as soon as possible. Orthopedic follow-up consultations have been already been scheduled as per communication orders. Qualifiers: Laterality: left Qualified Code(s): Z96.642 - Presence of left artificial hip joint (2) Pulmonary nodule SNOMED Code(s): 518636320 ICD Code: R91.1 - SOLITARY PULMONARY NODULE Status: Acute Priority: High Current Visit: No Onset Date: 05/25/20 Problem Details: Newly diagnosed left upper lobe pulmonary nodule by CT scan on 05/25/2020. Initial request to have an oncology consultation with possible lung biopsy at time of recent hospitalization was unable to be performed for an unknown reason. Per daughter oncology appointment will try to be coordinated with her next orthopedic consultation in June. 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 (3) CHF (congestive heart failure) SNOMED Code(s): 46203274 ICD Code: I50.9 - HEART FAILURE, UNSPECIFIED Status: Acute Priority: Medium Current Visit: No Problem Details: History of CHF by chest x-ray with current Lasix therapy. Note recent nonspecific chest pain at [facility] in [place] prior to transfer with parent negative EKG and work-up for NM per her daughter's history. No chest pain at this time. Observe for now. Qualifiers: Heart failure type: unspecified Heart failure chronicity: acute Qualified Code(s): I50.9 - Heart failure, unspecified (4) D-dimer, elevated SNOMED Code(s): 613468644 ICD Code: R79.89 - OTHER SPECIFIED ABNORMAL FINDINGS OF BLOOD CHEMISTRY Status: Acute Priority: High Current Visit: Yes Onset Date: 06/11/20 Problem Details: Negative CTA of the chest for PE at [facility] prior to transfer today. No further Lovenox, etc. per their instructions, which was confirmed after patient's arrival to this facility. (5) Iron deficiency anemia SNOMED Code(s): 11166611 ICD Code: D50.9 - IRON DEFICIENCY ANEMIA, UNSPECIFIED Status: Chronic Priority: Medium Current Visit: Yes Problem Details: Known history of iron deficiency anemia and postoperative anemia. Consider repeating iron studies in 4 weeks. Qualifiers: Iron deficiency anemia type: other iron deficiency Qualified Code(s): D50.8 - Other iron deficiency anemias (6) Hypokalemia SNOMED Code(s): 86444387 ICD Code: E87.6 - HYPOKALEMIA Status: Chronic Priority: Medium Current Visit: Yes Problem Details: Currently under therapy. (7) Hypomagnesemia SNOMED Code(s): 093667061 ICD Code: E83.42 - HYPOMAGNESEMIA Status: Chronic Priority: Medium Current Visit: Yes Problem Details: Currently under therapy. (8) Hypertension SNOMED Code(s): 49535698 ICD Code: I10 - ESSENTIAL (PRIMARY) HYPERTENSION Status: Chronic Priority: Medium Current Visit: Yes Problem Details: Stable by history. Continue to observe closely during her swing bed care. Qualifiers: Hypertension type: essential hypertension Qualified Code(s): I10 - Essential (primary) hypertension (9) Hyponatremia SNOMED Code(s): 05489984 ICD Code: E87.1 - HYPO-OSMOLALITY AND HYPONATREMIA Status: Chronic Priority: Medium Current Visit: Yes Problem Details: High-dose oral supplementation therapy at this time. Note previous 3% sodium chloride infusions were required during last swing bed care in this facility. Relatively nonsymptomatic at this time. Possibility of SIADH. (10) Mixed anxiety depressive disorder SNOMED Code(s): 322402115 ICD Code: F41.8 - OTHER SPECIFIED ANXIETY DISORDERS Status: Chronic Priority: Medium Current Visit: Yes Problem Details: Note history of alcohol abuse. Moderate control at this time with anxiety component to patient's chest pain type symptoms during recent hospitalization at [facility] as above, which the patient acknowledges. Continue to observe closely during her swing bed care. (11) Osteoarthritis SNOMED Code(s): 972743916 ICD Code: M19.90 - UNSPECIFIED OSTEOARTHRITIS, UNSPECIFIED SITE Status: Chronic Priority: Medium Current Visit: Yes Problem Details: Otherwise stable by history Qualifiers: Osteoarthritis location: multiple joints Osteoarthritis type: primary Qualified Code(s): M89.49 - Other hypertrophic osteoarthropathy, multiple sites Problem List Initiated/Reviewed/Updated: Yes Orders Last 24hrs: Active Orders 24 hr Category Date Time Status Patient Status [ADT] Routine ADT 06/11/20 12:51 Ordered Communication Order [RC] ROUTINE Care 06/11/20 13:05 Active Communication Order [RC] ROUTINE Care 06/11/20 13:22 Ordered Communication Order [RC] ROUTINE Care 06/11/20 13:23 Ordered Communication Order [RC] ROUTINE Care 06/11/20 13:23 Ordered EKG Documentation Completion [RC] ASDIRECTED Care 06/12/20 05:11 Ordered May Shower [RC] ASDIRECTED Care 06/11/20 12:51 Ordered Oxygen Therapy [RC] PRN Care 06/11/20 12:51 Ordered Up With Assistance [RC] ASDIRECTED Care 06/11/20 12:51 Ordered VTE/DVT Education [RC] PER UNIT ROUTINE Care 06/11/20 12:51 Ordered Vital Signs [RC] PER UNIT ROUTINE Care 06/11/20 12:51 Ordered Wound Care [RC] ASDIRECTED Care 06/11/20 13:19 Ordered Consult to Case Management/Able Bodied Seaman [CONS] Cons 06/11/20 12:51 Ordered Routine OT Evaluation and Treatment [CONS] Routine Cons 06/11/20 12:51 Ordered PT Evaluation and Treatment [CONS] Routine Cons 06/11/20 12:51 Ordered Heart Healthy Diet [DIET] Diet 06/11/20 Lunch Ordered Chest 1V Frontal [CR] Routine Exams 06/12/20 05:11 Ordered CBC WITH AUTO DIFF [HEME] Routine Lab 06/12/20 05:11 Ordered CK W CKMB [CHEM] Routine Lab 06/12/20 05:11 Ordered COMPREHENSIVE METABOLIC PN,CMP [CHEM] Routine Lab 06/12/20 05:11 Ordered MAGNESIUM [CHEM] Routine Lab 06/12/20 05:11 Ordered PRO B-TYPE NATRIUR PEPT,BNPPRO [CHEM] Routine Lab 06/12/20 05:11 Ordered TROPONIN I [CHEM] Routine Lab 06/12/20 05:11 Ordered Acetaminophen [TylenoL] Med 06/11/20 12:59 Ordered 650 mg PO Q4H PRN Aspirin Med 06/11/20 18:00 Ordered 81 mg PO BID Betamethasone Dipropionate [Diprosone 0.05% Crm] Med 06/11/20 12:59 Ordered 1 gm TOP BID PRN Calcium Carbonate/Vitamin D3 [Caltrate 600 Plus D3 Med 06/12/20 08:00 Ordered Tablet] 1 tab PO DAILY Cholecalciferol (Vitamin D3) [Vitamin D3] Med 06/12/20 08:00 Ordered 2,000 unit PO DAILY Citalopram Hydrobromide [Celexa] Med 06/12/20 08:00 Ordered 10 mg PO DAILY Clobetasol [Clobetasol Propionate 0.05%] Med 06/11/20 12:59 Ordered 1 applic TOP BID PRN Cyclobenzaprine [Flexeril] Med 06/11/20 12:59 Ordered 10 mg PO TID PRN Docusate Sodium/Sennosides [Senna Plus] Med 06/11/20 12:59 Ordered 2 tab PO BID PRN Erythromycin Base [Erythromycin 0.5% Ophth Oint] Med 06/11/20 12:59 Ordered 1 dose EYEBOTH QID PRN Ferrous Sulfate Med 06/11/20 18:00 Ordered 325 mg PO BID Fish Oil/Ben Bolt-3 Fatty Acids [Fish Oil] Med 06/12/20 08:00 Ordered 1 gm PO DAILY Furosemide [Lasix] Med 06/12/20 08:00 Ordered 20 mg PO DAILY LORazepam [Ativan] Med 06/11/20 12:59 Ordered 0.5 mg PO Q6HR PRN Magnesium Hydroxide [Milk of Magnesia] Med 06/11/20 12:59 Ordered 30 ml PO BID PRN Magnesium Hydroxide [Milk of Magnesia] Med 06/11/20 12:59 Ordered 30 ml PO BID PRN Magnesium Oxide [Magnesium Oxide] Med 06/12/20 08:00 Ordered 500 mg PO DAILY Multivitamin with Minerals [Multiple Vitamin] Med 06/12/20 08:00 Ordered 1 each PO DAILY Nicotine [Habitrol] Med 06/12/20 08:00 Ordered 21 mg TOP DAILY Ondansetron [Zofran ODT] Med 06/11/20 12:59 Ordered 4 mg PO QID PRN Oxybutynin [Oxybutynin ER] Med 06/12/20 08:00 Ordered 5 mg PO DAILY Polyethylene Glycol [Polyox Wsr-301] Med 06/12/20 08:00 Ordered 17 gm PO DAILY Sodium Chloride Med 06/11/20 18:00 Ordered 3 gm PO TID Urea [Urea 20% Crm] Med 06/11/20 12:59 Ordered 85 gm .XX BID PRN bisacodyL [Dulcolax] Med 06/11/20 12:59 Ordered 10 mg RECTAL DAILY PRN cephALEXin [Cephalexin] Med 06/11/20 18:00 Ordered 500 mg PO TID lisinopriL [Prinivil] Med 06/12/20 08:00 Ordered 5 mg PO DAILY oxyCODONE Med 06/11/20 12:59 Ordered 5 mg PO Q4HR PRN Patient May Not [OM.PC] CONTINUOUS Oth 06/11/20 12:51 Ordered Resuscitation Status Routine Resus Stat 06/11/20 12:51 Ordered EKG 12 Lead [EK] Routine Ther 06/12/20 05:11 Ordered Medication Orders Acetaminophen (Tylenol) 650 mg PO Q4H PRN PRN Reason: Pain Aspirin (Aspirin) 81 mg PO BID [place] Bisacodyl (Dulcolax) 10 mg RECTAL DAILY PRN PRN Reason: Constipation Clobetasol Propionate (Clobetasol Propionate 0.05%) gm TOP BID PRN PRN Reason: Itching Cyclobenzaprine HCl (Flexeril) 10 mg PO TID PRN PRN Reason: Spasms Erythromycin (Erythromycin 0.5% Ophth Oint) gm EYEBOTH QID PRN PRN Reason: Other Ferrous Sulfate (Ferrous Sulfate) 325 mg PO BID [facility] Fish Oil (Fish Oil) 1 gm PO DAILY [place] Furosemide (Lasix) 20 mg PO DAILY [place] Lisinopril (Prinivil) 5 mg PO DAILY [place] Lorazepam (Ativan) 0.5 mg PO Q6HR PRN PRN Reason: Anxiety Magnesium Hydroxide (Milk Of Magnesia) 30 ml PO BID PRN PRN Reason: Constipation Magnesium Hydroxide (Milk Of Magnesia) 30 ml PO BID PRN PRN Reason: Constipation Nicotine (Habitrol) 21 mg TOP DAILY [facility] Non-Formulary Medication (Betamethasone Dipropionate [Diprosone 0.05% Crm]) 1 gm TOP BID PRN PRN Reason: Other Non-Formulary Medication (Calcium Carbonate/Vitamin D3 [Caltrate 600 Plus D3 Tablet]) 1 tab PO DAILY [facility] Non-Formulary Medication (Cephalexin [Cephalexin]) 500 mg PO TID [facility] Non-Formulary Medication (Cholecalciferol (Vitamin D3) [Vitamin D3]) 2,000 unit PO DAILY [facility] Non-Formulary Medication (Citalopram Hydrobromide [Celexa]) 10 mg PO DAILY [facility] Non-Formulary Medication (Magnesium Oxide [Magnesium Oxide]) 500 mg PO DAILY [facility] Non-Formulary Medication (Multivitamin With Minerals [Multiple Vitamin]) 1 each PO DAILY [facility] Non-Formulary Medication (Polyethylene Glycol [Polyox Wsr-301]) 17 gm PO DAILY [facility] Non-Formulary Medication (Urea [Urea 20% Crm]) 85 gm .XX BID PRN PRN Reason: Itching Ondansetron HCl (Zofran Odt) 4 mg PO QID PRN PRN Reason: Nausea Oxybutynin Chloride (Oxybutynin Er) 5 mg PO DAILY [facility] Oxycodone HCl (Oxycodone) 5 mg PO Q4HR PRN PRN Reason: Pain Senna/Docusate Sodium (Senna Plus) 2 tab PO BID PRN PRN Reason: Constipation Sodium Chloride (Sodium Chloride) 3 gm PO TID [facility] Assessment/Plan Comment:: As above. Extensive precautions were given to the patient and her daughter, who are in agreement with the treatment plan. transport conductor physician who will assess patient's blood work, EKG, and chest x-ray in the a.m.. We did confirm with the [facility] orthopedic department in [place] that they are requesting twice daily low-dose aspirin prophylaxis rather than subcutaneous Lovenox as before despite recent D-dimer elevation and orthopedic surgery as above. - Mortality Measure Prognosis:: Good
[2020-06-11] MEDS: Sodium Chloride 1 GM Tab PO SCH (17:58)
[2020-06-11] MEDS: Cephalexin 250 MG Cap PO SCH (17:58)
[2020-06-11] MEDS: Ferrous Sulfate 325 MG Tab PO SCH (17:58)
[2020-06-11] MEDS: Aspirin 81 MG Tab.Chew PO SCH (17:59)
[2020-06-12] MEDS ORDERED: Non-Formulary Medication 1 Each (Magnesium Oxide [Magnesium Oxide] 500 MG) PO SCH (08:00)
[2020-06-12 08:57] LABS: CHLORIDE,CL 93 mmol/L (98-107); SODIUM,NA 127 mmol/L (136-145)
[2020-06-12] MEDS: Fish Oil/Omega-3 Fatty Acids 1 Gm Cap PO SCH (09:04)
[2020-06-12] MEDS: Cholecalciferol (Vitamin D3) 25 MCG Tab PO SCH (09:04)
[2020-06-12] MEDS: Cephalexin 250 MG Cap PO SCH ×3 (09:05→18:28)
[2020-06-12] MEDS: Lisinopril 5 MG Tab PO SCH (09:05)
[2020-06-12] MEDS: Multivitamin Tab PO SCH (09:05)
[2020-06-12] MEDS: Sodium Chloride 1 GM Tab PO SCH ×3 (09:05→18:28)
[2020-06-12] MEDS: Magnesium Oxide 400 MG Tab PO SCH (09:05)
[2020-06-12] MEDS: Oxybutynin 5 MG Tab.ER PO SCH (09:06)
[2020-06-12] MEDS: Citalopram 20 MG Tab PO SCH (09:06)
[2020-06-12] MEDS: Furosemide 20 MG Tab PO SCH (09:06)
[2020-06-12] MEDS: Polyethylene Glycol 3350 Powder 17 GM Packet PO SCH (09:07)
[2020-06-12] MEDS: Calcium Carbonate/Vitamin D3 1500 MG-400 Units Tab PO SCH (09:07)
[2020-06-12] MEDS: Ferrous Sulfate 325 MG Tab PO SCH ×2 (09:07→18:28)
[2020-06-12] MEDS: Aspirin 81 MG Tab.Chew PO SCH ×2 (09:07→18:29)
[2020-06-12] MEDS: Nicotine 21 MG/24 Hr Patch TOP SCH (09:08)
[2020-06-12] MEDS: Acetaminophen 325 MG Tab PO PRN (13:22)
[2020-06-13] MEDS: Citalopram 20 MG Tab PO SCH (07:51)
[2020-06-13] MEDS: Fish Oil/Omega-3 Fatty Acids 1 Gm Cap PO SCH (07:51)
[2020-06-13] MEDS: Sodium Chloride 1 GM Tab PO SCH ×3 (07:53→17:29)
[2020-06-13] MEDS: Furosemide 20 MG Tab PO SCH (07:53)
[2020-06-13] MEDS: Lisinopril 5 MG Tab PO SCH (07:53)
[2020-06-13] MEDS: Cephalexin 250 MG Cap PO SCH ×3 (07:53→17:27)
[2020-06-13] MEDS: Magnesium Oxide 400 MG Tab PO SCH (07:53)
[2020-06-13] MEDS: Calcium Carbonate/Vitamin D3 1500 MG-400 Units Tab PO SCH (07:54)
[2020-06-13] MEDS: Oxybutynin 5 MG Tab.ER PO SCH (07:54)
[2020-06-13] MEDS: Ferrous Sulfate 325 MG Tab PO SCH ×2 (07:54→17:30)
[2020-06-13] MEDS: Cholecalciferol (Vitamin D3) 25 MCG Tab PO SCH (07:54)
[2020-06-13] MEDS: Aspirin 81 MG Tab.Chew PO SCH ×2 (07:55→17:30)
[2020-06-13] MEDS: Multivitamin Tab PO SCH (07:55)
[2020-06-13] MEDS: Calcium Carbonate 750 MG Tab.Chew PO PRN ×2 (08:00→17:33)
[2020-06-13] MEDS: Polyethylene Glycol 3350 Powder 17 GM Packet PO SCH (08:00)
[2020-06-13] MEDS: Nicotine 21 MG/24 Hr Patch TOP SCH (08:00)
[2020-06-13] MEDS: oxyCODONE 5 MG Tab PO PRN ×2 (12:16→17:30)
[2020-06-14] MEDS: Cholecalciferol (Vitamin D3) 25 MCG Tab PO SCH (07:29)
[2020-06-14] MEDS: Aspirin 81 MG Tab.Chew PO SCH ×2 (07:29→18:08)
[2020-06-14] MEDS: Cephalexin 250 MG Cap PO SCH ×3 (07:29→18:08)
[2020-06-14] MEDS: Sodium Chloride 1 GM Tab PO SCH ×3 (07:29→18:08)
[2020-06-14] MEDS: Citalopram 20 MG Tab PO SCH (07:29)
[2020-06-14] MEDS: Fish Oil/Omega-3 Fatty Acids 1 Gm Cap PO SCH (07:29)
[2020-06-14] MEDS: Ferrous Sulfate 325 MG Tab PO SCH ×2 (07:29→18:08)
[2020-06-14] MEDS: Calcium Carbonate/Vitamin D3 1500 MG-400 Units Tab PO SCH (07:29)
[2020-06-14] MEDS: Lisinopril 5 MG Tab PO SCH (07:30)
[2020-06-14] MEDS: Oxybutynin 5 MG Tab.ER PO SCH (07:30)
[2020-06-14] MEDS: Nicotine 21 MG/24 Hr Patch TOP SCH (07:30)
[2020-06-14] MEDS: Multivitamin Tab PO SCH (07:30)
[2020-06-14] MEDS: Polyethylene Glycol 3350 Powder 17 GM Packet PO SCH (07:30)
[2020-06-14] MEDS: Furosemide 20 MG Tab PO SCH (07:30)
[2020-06-14] MEDS: Magnesium Oxide 400 MG Tab PO SCH (07:30)
[2020-06-14 08:20] LABS: CHLORIDE,CL 95 mmol/L (98-107); SODIUM,NA 129 mmol/L (136-145)
[2020-06-14] MEDS: Acetaminophen 325 MG Tab PO PRN (10:54)
[2020-06-14] MEDS: oxyCODONE 5 MG Tab PO PRN (18:08)
[2020-06-14] MEDS: Calcium Carbonate 750 MG Tab.Chew PO PRN (19:09)
--- NOTE | 2020-06-14 19:33 | PCM.SN.2 ---
- Free Text/Narrative Note: CBC/Chem recheck today. Hgb holding steady since recent surgery. 7.7 today. Continue to observe. Recheck later this week. Na 129 which is within pt's usual range.
[2020-06-15] MEDS: Sodium Chloride 1 GM Tab PO SCH ×3 (07:51→17:22)
[2020-06-15] MEDS: Calcium Carbonate/Vitamin D3 1500 MG-400 Units Tab PO SCH (07:51)
[2020-06-15] MEDS: Multivitamin Tab PO SCH (07:51)
[2020-06-15] MEDS: Oxybutynin 5 MG Tab.ER PO SCH (07:51)
[2020-06-15] MEDS: Magnesium Oxide 400 MG Tab PO SCH (07:51)
[2020-06-15] MEDS: Cholecalciferol (Vitamin D3) 25 MCG Tab PO SCH (07:51)
[2020-06-15] MEDS: Fish Oil/Omega-3 Fatty Acids 1 Gm Cap PO SCH (07:51)
[2020-06-15] MEDS: Cephalexin 250 MG Cap PO SCH ×3 (07:52→17:21)
[2020-06-15] MEDS: Citalopram 20 MG Tab PO SCH (07:52)
[2020-06-15] MEDS: Ferrous Sulfate 325 MG Tab PO SCH ×2 (07:52→17:21)
[2020-06-15] MEDS: Furosemide 20 MG Tab PO SCH (07:52)
[2020-06-15] MEDS: Aspirin 81 MG Tab.Chew PO SCH ×2 (07:52→17:20)
[2020-06-15] MEDS: Lisinopril 5 MG Tab PO SCH (07:52)
[2020-06-15] MEDS: Nicotine 21 MG/24 Hr Patch TOP SCH (07:53)
[2020-06-15] MEDS: Polyethylene Glycol 3350 Powder 17 GM Packet PO SCH (07:53)
[2020-06-15] MEDS: oxyCODONE 5 MG Tab PO PRN (17:21)
[2020-06-16] MEDS: Polyethylene Glycol 3350 Powder 17 GM Packet PO SCH (08:23)
[2020-06-16] MEDS: Sodium Chloride 1 GM Tab PO SCH ×3 (08:24→17:08)
[2020-06-16] MEDS: Lisinopril 5 MG Tab PO SCH (08:25)
[2020-06-16] MEDS: Magnesium Oxide 400 MG Tab PO SCH (08:26)
[2020-06-16] MEDS: Fish Oil/Omega-3 Fatty Acids 1 Gm Cap PO SCH (08:26)
[2020-06-16] MEDS: Cholecalciferol (Vitamin D3) 25 MCG Tab PO SCH (08:26)
[2020-06-16] MEDS: Aspirin 81 MG Tab.Chew PO SCH ×2 (08:26→17:08)
[2020-06-16] MEDS: Calcium Carbonate/Vitamin D3 1500 MG-400 Units Tab PO SCH (08:26)
[2020-06-16] MEDS: Furosemide 20 MG Tab PO SCH (08:26)
[2020-06-16] MEDS: Cephalexin 250 MG Cap PO SCH ×3 (08:26→17:08)
[2020-06-16] MEDS: Oxybutynin 5 MG Tab.ER PO SCH (08:26)
[2020-06-16] MEDS: Ferrous Sulfate 325 MG Tab PO SCH ×2 (08:26→17:08)
[2020-06-16] MEDS: Multivitamin Tab PO SCH (08:26)
[2020-06-16] MEDS: Citalopram 20 MG Tab PO SCH (08:27)
[2020-06-16] MEDS: Nicotine 21 MG/24 Hr Patch TOP SCH (08:33)
[2020-06-16] MEDS: Acetaminophen 325 MG Tab PO PRN (13:34)
[2020-06-17] MEDS: Furosemide 20 MG Tab PO SCH (08:02)
[2020-06-17] MEDS: Cholecalciferol (Vitamin D3) 25 MCG Tab PO SCH (08:03)
[2020-06-17] MEDS: Ferrous Sulfate 325 MG Tab PO SCH ×2 (08:03→17:11)
[2020-06-17] MEDS: Magnesium Oxide 400 MG Tab PO SCH (08:03)
[2020-06-17] MEDS: Citalopram 20 MG Tab PO SCH (08:03)
[2020-06-17] MEDS: Multivitamin Tab PO SCH (08:03)
[2020-06-17] MEDS: Cephalexin 250 MG Cap PO SCH ×3 (08:03→17:11)
[2020-06-17] MEDS: Calcium Carbonate/Vitamin D3 1500 MG-400 Units Tab PO SCH (08:03)
[2020-06-17] MEDS: Fish Oil/Omega-3 Fatty Acids 1 Gm Cap PO SCH (08:03)
[2020-06-17] MEDS: Lisinopril 5 MG Tab PO SCH (08:03)
[2020-06-17] MEDS: Aspirin 81 MG Tab.Chew PO SCH ×2 (08:03→17:11)
[2020-06-17] MEDS: Oxybutynin 5 MG Tab.ER PO SCH (08:03)
[2020-06-17] MEDS: Sodium Chloride 1 GM Tab PO SCH ×3 (08:03→17:11)
[2020-06-17] MEDS: Nicotine 21 MG/24 Hr Patch TOP SCH (08:04)
[2020-06-17] MEDS: Polyethylene Glycol 3350 Powder 17 GM Packet PO SCH ×2 (08:04→08:10)
[2020-06-18] MEDS: Calcium Carbonate/Vitamin D3 1500 MG-400 Units Tab PO SCH (07:28)
[2020-06-18] MEDS: Cephalexin 250 MG Cap PO SCH ×3 (07:28→17:17)
[2020-06-18] MEDS: Fish Oil/Omega-3 Fatty Acids 1 Gm Cap PO SCH (07:28)
[2020-06-18] MEDS: Acetaminophen 325 MG Tab PO PRN ×2 (07:29→13:52)
[2020-06-18] MEDS: Cholecalciferol (Vitamin D3) 25 MCG Tab PO SCH (07:29)
[2020-06-18] MEDS: Sodium Chloride 1 GM Tab PO SCH ×3 (07:29→17:17)
[2020-06-18] MEDS: Ferrous Sulfate 325 MG Tab PO SCH ×2 (07:30→17:17)
[2020-06-18] MEDS: Citalopram 20 MG Tab PO SCH (07:30)
[2020-06-18] MEDS: Lisinopril 5 MG Tab PO SCH (07:30)
[2020-06-18] MEDS: Magnesium Oxide 400 MG Tab PO SCH (07:31)
[2020-06-18] MEDS: Multivitamin Tab PO SCH (07:31)
[2020-06-18] MEDS: Furosemide 20 MG Tab PO SCH (07:31)
[2020-06-18] MEDS: Aspirin 81 MG Tab.Chew PO SCH ×2 (07:31→17:16)
[2020-06-18] MEDS: Oxybutynin 5 MG Tab.ER PO SCH (07:31)
[2020-06-18] MEDS: Nicotine 21 MG/24 Hr Patch TOP SCH (07:34)
[2020-06-18] MEDS: Polyethylene Glycol 3350 Powder 17 GM Packet PO SCH (07:35)
[2020-06-18 08:02] LABS: CHLORIDE,CL 96 mmol/L (98-107); SODIUM,NA 129 mmol/L (136-145)
[2020-06-19] MEDS: Magnesium Oxide 400 MG Tab PO SCH (07:59)
[2020-06-19] MEDS: Cephalexin 250 MG Cap PO SCH ×3 (07:59→17:45)
[2020-06-19] MEDS: Aspirin 81 MG Tab.Chew PO SCH ×2 (07:59→17:46)
[2020-06-19] MEDS: Multivitamin Tab PO SCH (07:59)
[2020-06-19] MEDS: Citalopram 20 MG Tab PO SCH (07:59)
[2020-06-19] MEDS: Fish Oil/Omega-3 Fatty Acids 1 Gm Cap PO SCH (07:59)
[2020-06-19] MEDS: Ferrous Sulfate 325 MG Tab PO SCH ×2 (07:59→17:46)
[2020-06-19] MEDS: Sodium Chloride 1 GM Tab PO SCH ×3 (07:59→17:45)
[2020-06-19] MEDS: Cholecalciferol (Vitamin D3) 25 MCG Tab PO SCH (07:59)
[2020-06-19] MEDS: Oxybutynin 5 MG Tab.ER PO SCH (07:59)
[2020-06-19] MEDS: Furosemide 20 MG Tab PO SCH (08:00)
[2020-06-19] MEDS: Calcium Carbonate/Vitamin D3 1500 MG-400 Units Tab PO SCH (08:00)
[2020-06-19] MEDS: Lisinopril 5 MG Tab PO SCH (08:00)
[2020-06-19] MEDS: Acetaminophen 325 MG Tab PO PRN ×3 (08:00→17:46)
[2020-06-19] MEDS: Polyethylene Glycol 3350 Powder 17 GM Packet PO SCH (08:01)
[2020-06-19] MEDS: Nicotine 21 MG/24 Hr Patch TOP SCH (08:02)
--- NOTE | 2020-06-19 14:11 | PCM.PN ---
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 Functional Status: Reports: Pain Controlled, Tolerating Diet, Ambulating (With assist), New Symptoms (Dysuria with new UTI), Incentive Spirometry. Denies: Urinating - Review of Systems General: Reports: Weakness (Slowly improving). Denies: Fever, Fatigue, Malaise, Chills, Night Sweats, Appetite (Adequate) HEENT: Reports: Other (Stable sinus defect from previous surgery) Pulmonary: Reports: No Symptoms. Denies: Shortness of Breath, Cough Cardiovascular: Reports: No Symptoms. Denies: Chest Pain, Edema Gastrointestinal: Reports: No Symptoms. Denies: Abdominal Pain Genitourinary: Reports: Dysuria, Burning Musculoskeletal: Reports: Joint Pain (Slowly improving left hip pain) Skin: Reports: Other (Stable frontal/ethmoid sinus defect) Neurological: Reports: Difficulty Walking (Secondary to recurrent hip dislocations), Weakness (Improving slowly) - Patient Data Vitals - Most Recent: Last Vital Signs Temp 37.1 C 06/19/20 08:00 Pulse 80 06/19/20 08:00 Resp 18 06/19/20 08:00 BP 144/76 H 06/19/20 08:00 Pulse Ox 96 06/19/20 08:00 Vital Signs (72 hours) 06/16/20 06/17/20 06/17/20 17:13 08:00 08:03 Temperature [ 36.3 C Oral] Temperature [ 37.3 C 36.3 C Temporal] Pulse, 95 77 Peripheral [ Pulse Oximetry] Respiratory 16 18 Rate Blood Pressure 138/61 Blood Pressure 138/61 [Left Upper Arm ] Blood Pressure 108/66 138/61 [Right Upper Arm] O2 Sat by Pulse 95 94 L Oximetry 06/17/20 06/18/20 06/18/20 17:13 07:30 07:35 Temperature [ 36.8 C 35.9 C L Oral] Temperature [ Temporal] Pulse, 90 73 Peripheral [ Pulse Oximetry] Respiratory 16 18 Rate Blood Pressure 116/78 Blood Pressure 110/69 116/78 [Left Upper Arm ] Blood Pressure [Right Upper Arm] O2 Sat by Pulse 95 94 L Oximetry 06/18/20 06/19/20 17:32 08:00 Temperature [ 36.2 C Oral] Temperature [ 37.1 C Temporal] Pulse, 81 80 Peripheral [ Pulse Oximetry] Respiratory 18 18 Rate Blood Pressure 144/76 H Blood Pressure 123/68 [Left Upper Arm ] Blood Pressure 144/76 H [Right Upper Arm] O2 Sat by Pulse 96 96 Oximetry Weight - Most Recent: 56.971 kg I&O - Last 24 Hours: Intake & Output 06/18/20 06/19/20 06/19/20 22:59 06:59 14:59 Intake Total 150 100 440 Balance 150 100 440 Imaging Impressions - Last 24 Hours: None Lab Results Last 24 Hours: Laboratory Results - last 24 hr 06/19/20 Range/Units 09:35 Specimen Type Urinblad Urine Color Yellow Urine Appearance Clear Urine pH 7.0 (5.0-9.0) Ur Specific [place] 1.020 (1.005-1.030) Urine Protein Negative (NEGATIVE) mg/dL Urine Glucose (UA) Negative (NEGATIVE) mg/dL Urine Ketones Trace H (NEGATIVE) mg/dL Urine Occult Blood Negative (NEGATIVE) Urine Nitrite Negative (NEGATIVE) Urine Bilirubin Negative (NEGATIVE) Urine Urobilinogen 0.2 (0.2-1.0) E.U./dL Ur Leukocyte Esterase Trace H (NEGATIVE) Urine RBC 0-5 /HPF Urine WBC 50-75 H /HPF Ur Epithelial Cells Few /LPF Urine Bacteria Moderate H (NONE TO FEW) /HPF Laboratory Tests 06/12/20 06/12/20 06/14/20 Range/Units 08:05 08:05 07:50 WBC 10.8 H 9.6 (4.0-10.2) K/uL RBC 2.79 L 2.78 L (3.77-5.09) M/uL Hgb 7.8 L 7.7 L (11.7-15.5) g/dL Hct 24.0 L* 24.4 L* (34.0-46.0) % MCV 86.0 87.8 (84.0-98.0) fL MCH 28.0 L 27.7 L (28.2-33.3) pg MCHC 32.5 31.6 L (31.7-36.0) g/dL RDW 14.7 H 14.9 H (11.2-14.1) % Plt Count 603 H 659 H (150-350) K/uL Neut % (Auto) 70.3 62.3 (45.0-80.0) % Lymph % (Auto) 16.0 22.6 (10.0-50.0) % Liberty % (Auto) 12.0 13.0 (2.0-14.0) % Eos % (Auto) 1.4 1.8 (0.0-5.0) % Baso % (Auto) 0.3 0.3 (0.0-2.0) % Neut # (Auto) 7.60 H 5.97 (1.40-7.00) K/uL Lymph # (Auto) 1.73 2.16 (0.50-3.50) K/uL Liberty # (Auto) 1.30 H 1.24 H (0.00-1.00) K/uL Eos # (Auto) 0.15 0.17 (0.00-0.50) K/uL Baso # (Auto) 0.03 0.03 (0.00-0.20) K/uL Sodium 127 L (136-145) mmol/L Potassium 4.1 (3.5-5.1) mmol/L Chloride 93 L (98-107) mmol/L Carbon Dioxide 26.1 (21.0-32.0) mmol/L BUN 12 (7-18) mg/dL Creatinine 0.57 (0.51-1.17) mg/dL Est Cr Clr Drug Dosing 79.81 mL/min Estimated GFR (MDRD) > 60 mL/min Glucose 91 (74-106) mg/dL Calcium 8.0 L (8.5-10.1) mg/dL Magnesium 1.9 (1.8-2.4) mg/dL Total Bilirubin 0.2 (0.2-1.0) mg/dL AST 11 L (15-37) U/L ALT 11 L (12-78) U/L Alkaline Phosphatase 69 (46-116) IU/L Creatine Kinase 25 L (26-308) U/L Creatine Kinase Index 0.4 (0.0-2.5) % CK-MB (CK-2) 0.10 (0.00-3.60) ng/mL Troponin I 0.002 (0.000-0.056) ng/mL NT-Pro-B Natriuret Pep 902 H (0-125) pg/mL Total Protein 5.4 L (6.4-8.2) g/dL Albumin 2.4 L (3.4-5.0) g/dL Specimen Type Urine Color Urine Appearance Urine pH (5.0-9.0) Ur Specific [place] (1.005-1.030) Urine Protein (NEGATIVE) mg/dL Urine Glucose (UA) (NEGATIVE) mg/dL Urine Ketones (NEGATIVE) mg/dL Urine Occult Blood (NEGATIVE) Urine Nitrite (NEGATIVE) Urine Bilirubin (NEGATIVE) Urine Urobilinogen (0.2-1.0) E.U./dL Ur Leukocyte Esterase (NEGATIVE) Urine RBC /HPF Urine WBC /HPF Ur Epithelial Cells /LPF Urine Bacteria (NONE TO FEW) /HPF SARS-CoV-2 RNA (GALLO) (NEGATIVE) 06/14/20 06/18/20 06/18/20 Range/Units 07:50 07:15 07:15 WBC 12.6 H (4.0-10.2) K/uL RBC 2.83 L (3.77-5.09) M/uL Hgb 7.8 L (11.7-15.5) g/dL Hct 24.9 L* (34.0-46.0) % MCV 88.0 (84.0-98.0) fL MCH 27.6 L (28.2-33.3) pg MCHC 31.3 L (31.7-36.0) g/dL RDW 15.0 H (11.2-14.1) % Plt Count 663 H (150-350) K/uL Neut % (Auto) 71.2 (45.0-80.0) % Lymph % (Auto) 17.3 (10.0-50.0) % Liberty % (Auto) 10.0 (2.0-14.0) % Eos % (Auto) 1.3 (0.0-5.0) % Baso % (Auto) 0.2 (0.0-2.0) % Neut # (Auto) 9.00 H (1.40-7.00) K/uL Lymph # (Auto) 2.19 (0.50-3.50) K/uL Liberty # (Auto) 1.26 H (0.00-1.00) K/uL Eos # (Auto) 0.17 (0.00-0.50) K/uL Baso # (Auto) 0.02 (0.00-0.20) K/uL Sodium 129 L 129 L (136-145) mmol/L Potassium 4.1 4.4 (3.5-5.1) mmol/L Chloride 95 L 96 L (98-107) mmol/L Carbon Dioxide 27.5 29.1 (21.0-32.0) mmol/L BUN 11 12 (7-18) mg/dL Creatinine 0.63 0.63 (0.51-1.17) mg/dL Est Cr Clr Drug Dosing 72.21 72.21 mL/min Estimated GFR (MDRD) > 60 > 60 mL/min Glucose 86 80 (74-106) mg/dL Calcium 8.3 L 8.2 L (8.5-10.1) mg/dL Magnesium (1.8-2.4) mg/dL Total Bilirubin (0.2-1.0) mg/dL AST (15-37) U/L ALT (12-78) U/L Alkaline Phosphatase (46-116) IU/L Creatine Kinase (26-308) U/L Creatine Kinase Index (0.0-2.5) % CK-MB (CK-2) (0.00-3.60) ng/mL Troponin I (0.000-0.056) ng/mL NT-Pro-B Natriuret Pep (0-125) pg/mL Total Protein (6.4-8.2) g/dL Albumin (3.4-5.0) g/dL Specimen Type Urine Color Urine Appearance Urine pH (5.0-9.0) Ur Specific [place] (1.005-1.030) Urine Protein (NEGATIVE) mg/dL Urine Glucose (UA) (NEGATIVE) mg/dL Urine Ketones (NEGATIVE) mg/dL Urine Occult Blood (NEGATIVE) Urine Nitrite (NEGATIVE) Urine Bilirubin (NEGATIVE) Urine Urobilinogen (0.2-1.0) E.U./dL Ur Leukocyte Esterase (NEGATIVE) Urine RBC /HPF Urine WBC /HPF Ur Epithelial Cells /LPF Urine Bacteria (NONE TO FEW) /HPF SARS-CoV-2 RNA (GALLO) (NEGATIVE) 06/18/20 06/18/20 06/19/20 Range/Units 07:50 08:00 09:35 WBC (4.0-10.2) K/uL RBC (3.77-5.09) M/uL Hgb (11.7-15.5) g/dL Hct (34.0-46.0) % MCV (84.0-98.0) fL MCH (28.2-33.3) pg MCHC (31.7-36.0) g/dL RDW (11.2-14.1) % Plt Count (150-350) K/uL Neut % (Auto) (45.0-80.0) % Lymph % (Auto) (10.0-50.0) % Liberty % (Auto) (2.0-14.0) % Eos % (Auto) (0.0-5.0) % Baso % (Auto) (0.0-2.0) % Neut # (Auto) (1.40-7.00) K/uL Lymph # (Auto) (0.50-3.50) K/uL [place] # (Auto) (0.00-1.00) K/uL Eos # (Auto) (0.00-0.50) K/uL Baso # (Auto) (0.00-0.20) K/uL Sodium (136-145) mmol/L Potassium (3.5-5.1) mmol/L Chloride (98-107) mmol/L Carbon Dioxide (21.0-32.0) mmol/L BUN (7-18) mg/dL Creatinine (0.51-1.17) mg/dL Est Cr Clr Drug Dosing mL/min Estimated GFR (MDRD) mL/min Glucose (74-106) mg/dL Calcium (8.5-10.1) mg/dL Magnesium (1.8-2.4) mg/dL Total Bilirubin (0.2-1.0) mg/dL AST (15-37) U/L ALT (12-78) U/L Alkaline Phosphatase (46-116) IU/L Creatine Kinase (26-308) U/L Creatine Kinase Index (0.0-2.5) % CK-MB (CK-2) (0.00-3.60) ng/mL Troponin I (0.000-0.056) ng/mL NT-Pro-B Natriuret Pep (0-125) pg/mL Total Protein (6.4-8.2) g/dL Albumin (3.4-5.0) g/dL Specimen Type Urinvoid Urinblad Urine Color Yellow Yellow Urine Appearance Clear Clear Urine pH 8.0 7.0 (5.0-9.0) Ur Specific [place] 1.025 1.020 (1.005-1.030) Urine Protein Negative Negative (NEGATIVE) mg/dL Urine Glucose (UA) Negative Negative (NEGATIVE) mg/dL Urine Ketones Negative Trace H (NEGATIVE) mg/dL Urine Occult Blood Negative Negative (NEGATIVE) Urine Nitrite Positive H Negative (NEGATIVE) Urine Bilirubin Negative Negative (NEGATIVE) Urine Urobilinogen 0.2 0.2 (0.2-1.0) E.U./dL Ur Leukocyte Esterase Negative Trace H (NEGATIVE) Urine RBC 0-5 0-5 /HPF Urine WBC 0-5 50-75 H /HPF Ur Epithelial Cells Few Few /LPF Urine Bacteria Few Moderate H (NONE TO FEW) /HPF SARS-CoV-2 RNA (GALLO) Negative (NEGATIVE) [place] Results Last 24 Hours: Urine culture and sensitivity pending from 06/19/2020 Med Orders - Current: Current Medications Acetaminophen (Tylenol) 650 mg PO Q4H PRN PRN Reason: Pain Last Admin: 06/19/20 11:52 Dose: 650 mg Documented by: Aspirin (Aspirin) 81 mg PO BID [facility] Stop: 07/23/20 08:01 Last Admin: 06/19/20 07:59 Dose: 81 mg Documented by: Bisacodyl (Dulcolax) 10 mg RECTAL DAILY PRN PRN Reason: Constipation Calcium Carbonate (Caltrate 600+D 1500 Mg-400 Units) 1 tab PO DAILY [facility] Last Admin: 06/19/20 08:00 Dose: 1 tab Documented by: Calcium Carbonate/Glycine (Tums Extra Strength) 750 mg PO Q2H PRN PRN Reason: Indigestion Last Admin: 06/14/20 19:09 Dose: 750 mg Documented by: Cephalexin (Keflex) 500 mg PO TID [facility] Last Admin: 06/19/20 11:51 Dose: 500 mg Documented by: Cholecalciferol (Vitamin D3) 50 mcg PO DAILY [facility] Last Admin: 06/19/20 07:59 Dose: 50 mcg Documented by: Citalopram Hydrobromide (Celexa) 10 mg PO DAILY [facility] Last Admin: 06/19/20 07:59 Dose: 10 mg Documented by: Clobetasol Propionate (Clobetasol Propionate 0.05%) 0 gm TOP BID PRN PRN Reason: Itching Cyclobenzaprine HCl (Flexeril) 10 mg PO TID PRN PRN Reason: Spasms Last Admin: 06/15/20 17:21 Dose: 10 mg Documented by: Erythromycin (Erythromycin 0.5% Ophth Oint) 0 gm EYEBOTH QID PRN PRN Reason: Other Ferrous Sulfate (Ferrous Sulfate) 325 mg PO BID [facility] Last Admin: 06/19/20 07:59 Dose: 325 mg Documented by: Fish Oil (Fish Oil) 1 gm PO DAILY [facility] Last Admin: 06/19/20 07:59 Dose: 1 gm Documented by: Furosemide (Lasix) 20 mg PO DAILY [facility] Last Admin: 06/19/20 08:00 Dose: 20 mg Documented by: Lisinopril (Prinivil) 5 mg PO DAILY [facility] Last Admin: 06/19/20 08:00 Dose: 5 mg Documented by: Lorazepam (Ativan) 0.5 mg PO Q6HR PRN PRN Reason: Anxiety Magnesium Hydroxide (Milk Of Magnesia) 30 ml PO BID PRN PRN Reason: Constipation Magnesium Oxide (Magnesium Oxide) 400 mg PO DAILY [facility] Last Admin: 06/19/20 07:59 Dose: 400 mg Documented by: Multivitamins/Minerals/Vitamin C (Tab-A-Kayla) 1 tab PO DAILY [facility] Last Admin: 06/19/20 07:59 Dose: 1 tab Documented by: Nicotine (Habitrol) 21 mg TOP DAILY [facility] Last Admin: 06/19/20 08:02 Dose: Not Given Documented by: Non-Formulary Medication (Betamethasone Dipropionate [Diprosone 0.05% Crm]) 1 gm TOP BID PRN PRN Reason: Other Non-Formulary Medication (Urea [Urea 20% Crm]) 85 gm .XX BID PRN PRN Reason: Itching Ondansetron HCl (Zofran Odt) 4 mg PO QID PRN PRN Reason: Nausea Oxybutynin Chloride (Oxybutynin Er) 5 mg PO DAILY [facility] Last Admin: 06/19/20 07:59 Dose: 5 mg Documented by: Oxycodone HCl (Oxycodone) 5 mg PO Q4HR PRN PRN Reason: Pain Last Admin: 06/15/20 17:21 Dose: 5 mg Documented by: Polyethylene Glycol (Miralax) 17 gm PO DAILY [facility] Last Admin: 06/19/20 08:01 Dose: 17 gm Documented by: Senna/Docusate Sodium (Senna Plus) 2 tab PO BID PRN PRN Reason: Constipation Sodium Chloride (Sodium Chloride) 3 gm PO TID [facility] Last Admin: 06/19/20 11:51 Dose: 3 gm Documented by: Discontinued Medications Magnesium Hydroxide (Milk Of Magnesia) 30 ml PO BID PRN PRN Reason: Constipation Non-Formulary Medication (Magnesium Oxide [Magnesium Oxide]) 500 mg PO DAILY [facility] - Exam Quality Assessment: DVT Prophylaxis. No: Urine Catheter, Skin Breakdown General: Alert, Oriented, Cooperative, No Acute Distress HEENT: Pupils Equal, Pupils Reactive, EOMI, Mucous Membr. Moist/Damon, Other ( Stable large ethmoid and frontal sinus defect from previous surgery, including nasal involvement and deformity. Stable granulation tissue in the right upper outer area of the surgical site with no local signs of infection) Neck: Supple, Trachea Midline, No JVD, No Thyromegaly. No: Lymphadenopathy Lungs: Clear to Auscultation, Normal Respiratory Effort Cardiovascular: Regular Rate, Regular Rhythm, No Murmurs. No: Gallops, Rubs GI/Abdominal Exam: Normal Bowel Sounds, Soft, Non-Tender, No Organomegaly, No Distention, No Abnormal Bruit, No Mass. No: Guarding (Female) Exam: Deferred Back Exam: Normal Inspection, Full Range of Motion. No: Muscle Spasm Extremities: No Pedal Edema, Leg Pain (Slowly improving left hip pain with secondary decreased range of motion), Limited Range of Motion (As above). No: Suzy's Sign Peripheral Pulses: 2+: Radial (L), Radial (R), Dorsalis Pedis (L), Dorsalis Pedis (R) Skin: Warm, Dry, Intact Wound/Incisions: Healing Well Neurological: No New Focal Deficit Psy/Mental Status: Alert, Normal Affect, Normal Mood. No: Agitated, Hallucinations, Withdrawal Symptoms Sepsis Event Note - Evaluation Sepsis Screening Result: No Definite Risk - Focused Exam Vital Signs: Vital Signs Temp Pulse Resp BP BP Pulse Ox 06/19/20 08:00 37.1 C 80 18 144/76 H 144/76 H 96 - Problem List & Annotations (1) Status post THR (total hip replacement) SNOMED Code(s): 098128245742, 817839268652 Code(s): Z96.649 - PRESENCE OF UNSPECIFIED ARTIFICIAL HIP JOINT Status: Acute Priority: High Current Visit: Yes Qualifiers: Laterality: left Qualified Code(s): Z96.642 - Presence of left artificial hip joint Annotation/Comment:: Status post repeat TEP replacement with dislocation revision on 06/08/2020. Continue PT/OT, strengthening, etc. with history of multiple recurrent dislocations and surgeries in the past as above. Attempt to discontinue patient's narcotic pain therapy as soon as possible. Orthopedic follow-up consultations have been already been scheduled as per communication orders. (2) Pulmonary nodule SNOMED Code(s): 034358495 Code(s): R91.1 - SOLITARY PULMONARY NODULE Status: Acute Priority: High Current Visit: Yes Onset Date: 05/25/20 Annotation/Comment:: Newly diagnosed left upper lobe pulmonary nodule by CT scan on 05/25/2020. Initial request to have an oncology consultation with possible lung biopsy at time of recent hospitalization was unable to be performed for an unknown reason. Per daughter oncology appointment will try to be coordinated with her next orthopedic consultation in June. 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 (3) CHF (congestive heart failure) SNOMED Code(s): 27041655 Code(s): I50.9 - HEART FAILURE, UNSPECIFIED Status: Acute Priority: Medium Current Visit: Yes Qualifiers: Heart failure type: unspecified Heart failure chronicity: acute Qualified Code(s): I50.9 - Heart failure, unspecified Annotation/Comment:: History of CHF by chest x-ray with current Lasix therapy. Note recent nonspecific chest pain at [facility] in [place] prior to transfer with apparent negative EKG and work-up for PA per her daughter's history. No chest pain at this time. Observe for now. (4) D-dimer, elevated SNOMED Code(s): 611217441 Code(s): R79.89 - OTHER SPECIFIED ABNORMAL FINDINGS OF BLOOD CHEMISTRY Status: Acute Priority: High Current Visit: Yes Onset Date: 06/11/20 Annotation/Comment:: Negative CTA of the chest for PE at [facility] prior to transfer to this facility for swing bed care. No further Lovenox, etc. per their instructions, which was confirmed after patient's arrival to this facility. (5) Iron deficiency anemia SNOMED Code(s): 29699652 Code(s): D50.9 - IRON DEFICIENCY ANEMIA, UNSPECIFIED Status: Chronic Priority: Medium Current Visit: Yes Qualifiers: Iron deficiency anemia type: other iron deficiency Qualified Code(s): D50.8 - Other iron deficiency anemias Annotation/Comment:: Known history of iron deficiency anemia and postoperative anemia. Note persistent nonsymptomatic moderate anemia with continue close observation for now. Consider repeating iron studies in 4 weeks. (6) Hypokalemia SNOMED Code(s): 07537668 Code(s): E87.6 - HYPOKALEMIA Status: Chronic Priority: Medium Current Visit: Yes Annotation/Comment:: Currently under therapy. (7) Hypomagnesemia SNOMED Code(s): 263961003 Code(s): E83.42 - HYPOMAGNESEMIA Status: Chronic Priority: Medium Current Visit: Yes Annotation/Comment:: Currently under therapy. (8) Hypertension SNOMED Code(s): 47101512 Code(s): I10 - ESSENTIAL (PRIMARY) HYPERTENSION Status: Chronic Priority: Medium Current Visit: Yes Qualifiers: Hypertension type: essential hypertension Qualified Code(s): I10 - Essential (primary) hypertension Annotation/Comment:: Stable by history and during her swing bed care.. Continue to observe closely by her regular providers after discharge. (9) Hyponatremia SNOMED Code(s): 32676898 Code(s): E87.1 - HYPO-OSMOLALITY AND HYPONATREMIA Status: Chronic Priority: Medium Current Visit: Yes Annotation/Comment:: High-dose oral supplementation therapy at this time with persistent stable moderate hyponatremia. Note previous 3% sodium chloride infusions were required during last swing bed care in this facility. Relatively nonsymptomatic at this time. Possibility of SIADH. (10) Mixed anxiety depressive disorder SNOMED Code(s): 800192954 Code(s): F41.8 - OTHER SPECIFIED ANXIETY DISORDERS Status: Chronic Priority: Medium Current Visit: Yes Annotation/Comment:: Note history of alcohol abuse. Moderate control at this time with anxiety component to patient's chest pain type symptoms during recent hospitalization at [place] as above, which the patient acknowledges. Continue to observe closely during her swing bed care. (11) Osteoarthritis SNOMED Code(s): 958624494 Code(s): M19.90 - UNSPECIFIED OSTEOARTHRITIS, UNSPECIFIED SITE Status: Chronic Priority: Medium Current Visit: Yes Qualifiers: Osteoarthritis location: multiple joints Osteoarthritis type: primary Qualified Code(s): M89.49 - Other hypertrophic osteoarthropathy, multiple sites Annotation/Comment:: Otherwise stable by history (12) UTI (urinary tract infection) SNOMED Code(s): 89208495 Code(s): N39.0 - URINARY TRACT INFECTION, SITE NOT SPECIFIED Status: Acute Priority: High Current Visit: Yes Onset Date: ~06/19/20 Qualifiers: Urinary tract infection type: acute cystitis Hematuria presence: without hematuria Qualified Code(s): N30.00 - Acute cystitis without hematuria Annotation/Comment:: No colic. Note some leukocytosis and blood work from 06/18/2020. Only low-grade fever at this time. Patient did not wish to have IV antibiotics. Initiate Macrobid for now with urine culture and sensitivity ordered from the 06/19/2020 specimen. - Problem List Review Problem List Initiated/Reviewed/Updated: Yes - My Orders Last 24 Hours: My Active Orders 06/19/20 12:47 CULTURE URINE [RM] Routine - Assessment Assessment:: As above - Plan Plan:: As above. Extensive precautions were given to the patient. Continue swing bed care, PT, and OT.
[2020-06-19] MEDS: Nitrofurantoin Monohydrate/Macrocrystalline 100 MG Cap PO SCH (17:46)
[2020-06-20] MEDS: Sodium Chloride 1 GM Tab PO SCH ×3 (08:00→17:52)
[2020-06-20] MEDS: Multivitamin Tab PO SCH (08:11)
[2020-06-20] MEDS: Cephalexin 250 MG Cap PO SCH ×3 (08:11→17:53)
[2020-06-20] MEDS: Aspirin 81 MG Tab.Chew PO SCH ×2 (08:12→17:54)
[2020-06-20] MEDS: Cholecalciferol (Vitamin D3) 25 MCG Tab PO SCH (08:12)
[2020-06-20] MEDS: Citalopram 20 MG Tab PO SCH (08:12)
[2020-06-20] MEDS: Lisinopril 5 MG Tab PO SCH (08:14)
[2020-06-20] MEDS: Calcium Carbonate/Vitamin D3 1500 MG-400 Units Tab PO SCH (08:14)
[2020-06-20] MEDS: Oxybutynin 5 MG Tab.ER PO SCH (08:15)
[2020-06-20] MEDS: Ferrous Sulfate 325 MG Tab PO SCH ×2 (08:15→17:54)
[2020-06-20] MEDS: Fish Oil/Omega-3 Fatty Acids 1 Gm Cap PO SCH (08:16)
[2020-06-20] MEDS: Furosemide 20 MG Tab PO SCH (08:16)
[2020-06-20] MEDS: Nicotine 21 MG/24 Hr Patch TOP SCH (08:16)
[2020-06-20] MEDS: Magnesium Oxide 400 MG Tab PO SCH (08:17)
[2020-06-20] MEDS: Nitrofurantoin Monohydrate/Macrocrystalline 100 MG Cap PO SCH (17:52)
[2020-06-20] MEDS: Ondansetron 4 MG Tab.DIS PO PRN (17:53)
[2020-06-20] MEDS: Omeprazole 20 MG Cap.CR PO SCH (17:54)
[2020-06-20] MEDS: Acetaminophen 325 MG Tab PO PRN (17:55)
[2020-06-21] MEDS: Fish Oil/Omega-3 Fatty Acids 1 Gm Cap PO SCH (07:08)
[2020-06-21] MEDS: Sodium Chloride 1 GM Tab PO SCH ×3 (07:08→17:06)
[2020-06-21] MEDS: Omeprazole 20 MG Cap.CR PO SCH (07:09)
[2020-06-21] MEDS: Cholecalciferol (Vitamin D3) 25 MCG Tab PO SCH (07:10)
[2020-06-21] MEDS: Citalopram 20 MG Tab PO SCH (07:12)
[2020-06-21] MEDS: Magnesium Oxide 400 MG Tab PO SCH (07:13)
[2020-06-21] MEDS: Furosemide 20 MG Tab PO SCH (07:14)
[2020-06-21] MEDS: Oxybutynin 5 MG Tab.ER PO SCH (07:14)
[2020-06-21] MEDS: Multivitamin Tab PO SCH (07:14)
[2020-06-21] MEDS: Calcium Carbonate/Vitamin D3 1500 MG-400 Units Tab PO SCH (07:14)
[2020-06-21] MEDS: Cephalexin 250 MG Cap PO SCH ×3 (07:15→17:07)
[2020-06-21] MEDS: Ferrous Sulfate 325 MG Tab PO SCH ×2 (07:15→17:08)
[2020-06-21] MEDS: Lisinopril 5 MG Tab PO SCH (07:15)
[2020-06-21] MEDS: Aspirin 81 MG Tab.Chew PO SCH ×2 (08:06→17:08)
[2020-06-21] MEDS: Nicotine 21 MG/24 Hr Patch TOP SCH (08:36)
[2020-06-21] MEDS: Ondansetron 4 MG Tab.DIS PO PRN (10:58)
[2020-06-21] MEDS: Calcium Carbonate 750 MG Tab.Chew PO PRN ×2 (12:42→17:09)
[2020-06-21] MEDS: LORazepam 0.5 MG Tab PO PRN (12:43)
[2020-06-21] MEDS: Acetaminophen 325 MG Tab PO PRN (12:43)
[2020-06-21] MEDS: Nitrofurantoin Monohydrate/Macrocrystalline 100 MG Cap PO SCH (17:08)
[2020-06-22] MEDS: Acetaminophen 325 MG Tab PO PRN (07:53)
[2020-06-22] MEDS: Sodium Chloride 1 GM Tab PO SCH ×3 (07:53→17:22)
[2020-06-22] MEDS: Citalopram 20 MG Tab PO SCH (07:53)
[2020-06-22] MEDS: Cholecalciferol (Vitamin D3) 25 MCG Tab PO SCH (07:53)
[2020-06-22] MEDS: Aspirin 81 MG Tab.Chew PO SCH ×2 (07:53→17:22)
[2020-06-22] MEDS: Ferrous Sulfate 325 MG Tab PO SCH ×2 (07:53→17:22)
[2020-06-22] MEDS: Magnesium Oxide 400 MG Tab PO SCH (07:53)
[2020-06-22] MEDS: Omeprazole 20 MG Cap.CR PO SCH (07:53)
[2020-06-22] MEDS: Furosemide 20 MG Tab PO SCH (07:53)
[2020-06-22] MEDS: Oxybutynin 5 MG Tab.ER PO SCH (07:54)
[2020-06-22] MEDS: Cephalexin 250 MG Cap PO SCH ×3 (07:54→17:23)
[2020-06-22] MEDS: Fish Oil/Omega-3 Fatty Acids 1 Gm Cap PO SCH (07:54)
[2020-06-22] MEDS: Calcium Carbonate/Vitamin D3 1500 MG-400 Units Tab PO SCH (07:54)
[2020-06-22] MEDS: Multivitamin Tab PO SCH (07:54)
[2020-06-22] MEDS: Lisinopril 5 MG Tab PO SCH ×2 (07:56→08:01)
[2020-06-22] MEDS: Ondansetron 4 MG Tab.DIS PO PRN (11:51)
[2020-06-22] MEDS: Nitrofurantoin Monohydrate/Macrocrystalline 100 MG Cap PO SCH (17:22)
[2020-06-23] MEDS: Acetaminophen 325 MG Tab PO PRN (07:47)
[2020-06-23] MEDS: Calcium Carbonate/Vitamin D3 1500 MG-400 Units Tab PO SCH (07:47)
[2020-06-23] MEDS: Magnesium Oxide 400 MG Tab PO SCH (07:47)
[2020-06-23] MEDS: Cholecalciferol (Vitamin D3) 25 MCG Tab PO SCH (07:47)
[2020-06-23] MEDS: Fish Oil/Omega-3 Fatty Acids 1 Gm Cap PO SCH (07:47)
[2020-06-23] MEDS: Sodium Chloride 1 GM Tab PO SCH ×3 (07:48→17:12)
[2020-06-23] MEDS: Cephalexin 250 MG Cap PO SCH ×3 (07:48→17:12)
[2020-06-23] MEDS: Oxybutynin 5 MG Tab.ER PO SCH (07:48)
[2020-06-23] MEDS: Multivitamin Tab PO SCH (07:48)
[2020-06-23] MEDS: Ferrous Sulfate 325 MG Tab PO SCH ×2 (07:48→17:12)
[2020-06-23] MEDS: Aspirin 81 MG Tab.Chew PO SCH ×2 (07:48→17:12)
[2020-06-23] MEDS: Lisinopril 5 MG Tab PO SCH (07:48)
[2020-06-23] MEDS: Omeprazole 20 MG Cap.CR PO SCH (07:48)
[2020-06-23] MEDS: Furosemide 20 MG Tab PO SCH (07:48)
[2020-06-23] MEDS: Citalopram 20 MG Tab PO SCH (07:48)
[2020-06-23] MEDS: Ciprofloxacin 500 MG Tab PO SCH (17:12)
[2020-06-24] MEDS: Calcium Carbonate/Vitamin D3 1500 MG-400 Units Tab PO SCH (08:05)
[2020-06-24] MEDS: Sodium Chloride 1 GM Tab PO SCH ×3 (08:05→18:15)
[2020-06-24] MEDS: Cholecalciferol (Vitamin D3) 25 MCG Tab PO SCH (08:06)
[2020-06-24] MEDS: Omeprazole 20 MG Cap.CR PO SCH (08:06)
[2020-06-24] MEDS: Aspirin 81 MG Tab.Chew PO SCH ×2 (08:07→18:15)
[2020-06-24] MEDS: Ferrous Sulfate 325 MG Tab PO SCH ×2 (08:07→18:14)
[2020-06-24] MEDS: Furosemide 20 MG Tab PO SCH (08:07)
[2020-06-24] MEDS: Lisinopril 5 MG Tab PO SCH (08:08)
[2020-06-24] MEDS: Ciprofloxacin 500 MG Tab PO SCH ×2 (08:08→18:14)
[2020-06-24] MEDS: Multivitamin Tab PO SCH (08:08)
[2020-06-24] MEDS: Fish Oil/Omega-3 Fatty Acids 1 Gm Cap PO SCH (08:08)
[2020-06-24] MEDS: Citalopram 20 MG Tab PO SCH (08:08)
[2020-06-24] MEDS: Cephalexin 250 MG Cap PO SCH ×3 (08:09→18:15)
[2020-06-24] MEDS: Magnesium Oxide 400 MG Tab PO SCH (08:09)
[2020-06-24] MEDS: Oxybutynin 5 MG Tab.ER PO SCH (08:09)
[2020-06-25] MEDS: Sodium Chloride 1 GM Tab PO SCH ×3 (07:56→18:11)
[2020-06-25] MEDS: Cephalexin 250 MG Cap PO SCH ×3 (07:57→18:10)
[2020-06-25] MEDS: Multivitamin Tab PO SCH (07:58)
[2020-06-25] MEDS: Ferrous Sulfate 325 MG Tab PO SCH ×2 (07:58→18:11)
[2020-06-25] MEDS: Fish Oil/Omega-3 Fatty Acids 1 Gm Cap PO SCH (07:59)
[2020-06-25] MEDS: Magnesium Oxide 400 MG Tab PO SCH (07:59)
[2020-06-25] MEDS: Aspirin 81 MG Tab.Chew PO SCH ×2 (07:59→18:10)
[2020-06-25] MEDS: Cholecalciferol (Vitamin D3) 25 MCG Tab PO SCH (08:00)
[2020-06-25] MEDS: Ciprofloxacin 500 MG Tab PO SCH ×2 (08:00→18:10)
[2020-06-25] MEDS: Furosemide 20 MG Tab PO SCH (08:00)
[2020-06-25] MEDS: Calcium Carbonate/Vitamin D3 1500 MG-400 Units Tab PO SCH (08:01)
[2020-06-25] MEDS: Omeprazole 20 MG Cap.CR PO SCH (08:01)
[2020-06-25] MEDS: Citalopram 20 MG Tab PO SCH (08:02)
[2020-06-25] MEDS: Lisinopril 5 MG Tab PO SCH (08:02)
[2020-06-25] MEDS: Oxybutynin 5 MG Tab.ER PO SCH (08:03)
[2020-06-25] MEDS: Calcium Carbonate 750 MG Tab.Chew PO PRN (19:18)
[2020-06-25] MEDS: Acetaminophen 325 MG Tab PO PRN (19:18)
[2020-06-26] MEDS: Fish Oil/Omega-3 Fatty Acids 1 Gm Cap PO SCH (08:26)
[2020-06-26] MEDS: Furosemide 20 MG Tab PO SCH (08:26)
[2020-06-26] MEDS: Cephalexin 250 MG Cap PO SCH ×3 (08:26→17:10)
[2020-06-26] MEDS: Sodium Chloride 1 GM Tab PO SCH ×3 (08:26→17:10)
[2020-06-26] MEDS: Aspirin 81 MG Tab.Chew PO SCH ×2 (08:27→17:10)
[2020-06-26] MEDS: Multivitamin Tab PO SCH (08:27)
[2020-06-26] MEDS: Lisinopril 5 MG Tab PO SCH (08:27)
[2020-06-26] MEDS: Oxybutynin 5 MG Tab.ER PO SCH (08:27)
[2020-06-26] MEDS: Ciprofloxacin 500 MG Tab PO SCH ×2 (08:27→17:10)
[2020-06-26] MEDS: Ferrous Sulfate 325 MG Tab PO SCH ×2 (08:27→17:10)
[2020-06-26] MEDS: Cholecalciferol (Vitamin D3) 25 MCG Tab PO SCH (08:27)
[2020-06-26] MEDS: Magnesium Oxide 400 MG Tab PO SCH (08:27)
[2020-06-26] MEDS: Omeprazole 20 MG Cap.CR PO SCH (08:27)
[2020-06-26] MEDS: Calcium Carbonate/Vitamin D3 1500 MG-400 Units Tab PO SCH (08:28)
[2020-06-26] MEDS: Citalopram 20 MG Tab PO SCH (08:28)
[2020-06-27] MEDS: Ciprofloxacin 500 MG Tab PO SCH ×2 (08:06→17:23)
[2020-06-27] MEDS: Ferrous Sulfate 325 MG Tab PO SCH ×2 (08:06→17:23)
[2020-06-27] MEDS: Cholecalciferol (Vitamin D3) 25 MCG Tab PO SCH (08:06)
[2020-06-27] MEDS: Cephalexin 250 MG Cap PO SCH ×3 (08:06→17:23)
[2020-06-27] MEDS: Magnesium Oxide 400 MG Tab PO SCH (08:06)
[2020-06-27] MEDS: Fish Oil/Omega-3 Fatty Acids 1 Gm Cap PO SCH (08:06)
[2020-06-27] MEDS: Sodium Chloride 1 GM Tab PO SCH ×3 (08:06→17:22)
[2020-06-27] MEDS: Omeprazole 20 MG Cap.CR PO SCH (08:06)
[2020-06-27] MEDS: Furosemide 20 MG Tab PO SCH (08:07)
[2020-06-27] MEDS: Calcium Carbonate/Vitamin D3 1500 MG-400 Units Tab PO SCH (08:07)
[2020-06-27] MEDS: Aspirin 81 MG Tab.Chew PO SCH ×2 (08:07→17:23)
[2020-06-27] MEDS: Lisinopril 5 MG Tab PO SCH (08:07)
[2020-06-27] MEDS: Citalopram 20 MG Tab PO SCH (08:07)
[2020-06-27] MEDS: Oxybutynin 5 MG Tab.ER PO SCH (08:07)
[2020-06-27] MEDS: Multivitamin Tab PO SCH (08:08)
[2020-06-27] MEDS: Acetaminophen 325 MG Tab PO PRN (08:08)
[2020-06-28] MEDS: Citalopram 20 MG Tab PO SCH (07:54)
[2020-06-28] MEDS: Aspirin 81 MG Tab.Chew PO SCH ×2 (07:54→17:44)
[2020-06-28] MEDS: Calcium Carbonate/Vitamin D3 1500 MG-400 Units Tab PO SCH (07:54)
[2020-06-28] MEDS: Ciprofloxacin 500 MG Tab PO SCH ×2 (07:54→17:45)
[2020-06-28] MEDS: Ferrous Sulfate 325 MG Tab PO SCH ×2 (07:54→17:45)
[2020-06-28] MEDS: Magnesium Oxide 400 MG Tab PO SCH (07:55)
[2020-06-28] MEDS: Lisinopril 5 MG Tab PO SCH (07:55)
[2020-06-28] MEDS: Sodium Chloride 1 GM Tab PO SCH ×3 (07:55→17:45)
[2020-06-28] MEDS: Omeprazole 20 MG Cap.CR PO SCH (07:55)
[2020-06-28] MEDS: Furosemide 20 MG Tab PO SCH (07:55)
[2020-06-28] MEDS: Oxybutynin 5 MG Tab.ER PO SCH (07:55)
[2020-06-28] MEDS: Fish Oil/Omega-3 Fatty Acids 1 Gm Cap PO SCH (07:55)
[2020-06-28] MEDS: Cephalexin 250 MG Cap PO SCH ×3 (07:55→17:45)
[2020-06-28] MEDS: Cholecalciferol (Vitamin D3) 25 MCG Tab PO SCH (07:56)
[2020-06-28] MEDS: Acetaminophen 325 MG Tab PO PRN (07:56)
[2020-06-28] MEDS: Multivitamin Tab PO SCH (07:56)
[2020-06-29] MEDS: Sodium Chloride 1 GM Tab PO SCH ×3 (07:50→17:59)
[2020-06-29] MEDS: Ferrous Sulfate 325 MG Tab PO SCH ×2 (07:51→18:00)
[2020-06-29] MEDS: Magnesium Oxide 400 MG Tab PO SCH (07:51)
[2020-06-29] MEDS: Calcium Carbonate/Vitamin D3 1500 MG-400 Units Tab PO SCH (07:51)
[2020-06-29] MEDS: Citalopram 20 MG Tab PO SCH (07:51)
[2020-06-29] MEDS: Furosemide 20 MG Tab PO SCH (07:51)
[2020-06-29] MEDS: Ciprofloxacin 500 MG Tab PO SCH ×2 (07:51→18:00)
[2020-06-29] MEDS: Cholecalciferol (Vitamin D3) 25 MCG Tab PO SCH (07:51)
[2020-06-29] MEDS: Multivitamin Tab PO SCH (07:52)
[2020-06-29] MEDS: Lisinopril 5 MG Tab PO SCH (07:52)
[2020-06-29] MEDS: Aspirin 81 MG Tab.Chew PO SCH ×2 (07:52→17:59)
[2020-06-29] MEDS: Fish Oil/Omega-3 Fatty Acids 1 Gm Cap PO SCH (07:52)
[2020-06-29] MEDS: Oxybutynin 5 MG Tab.ER PO SCH (07:52)
[2020-06-29] MEDS: Omeprazole 20 MG Cap.CR PO SCH (07:52)
[2020-06-29] MEDS: Cephalexin 250 MG Cap PO SCH ×3 (07:52→17:59)
[2020-06-30] MEDS: Sodium Chloride 1 GM Tab PO SCH ×3 (08:04→17:07)
[2020-06-30] MEDS: Multivitamin Tab PO SCH (08:04)
[2020-06-30] MEDS: Fish Oil/Omega-3 Fatty Acids 1 Gm Cap PO SCH (08:04)
[2020-06-30] MEDS: Lisinopril 5 MG Tab PO SCH (08:04)
[2020-06-30] MEDS: Aspirin 81 MG Tab.Chew PO SCH ×2 (08:04→17:06)
[2020-06-30] MEDS: Cholecalciferol (Vitamin D3) 25 MCG Tab PO SCH (08:04)
[2020-06-30] MEDS: Citalopram 20 MG Tab PO SCH (08:05)
[2020-06-30] MEDS: Ciprofloxacin 500 MG Tab PO SCH (08:05)
[2020-06-30] MEDS: Calcium Carbonate/Vitamin D3 1500 MG-400 Units Tab PO SCH (08:05)
[2020-06-30] MEDS: Ferrous Sulfate 325 MG Tab PO SCH ×2 (08:06→17:06)
[2020-06-30] MEDS: Cephalexin 250 MG Cap PO SCH ×3 (08:06→17:06)
[2020-06-30] MEDS: Omeprazole 20 MG Cap.CR PO SCH (08:06)
[2020-06-30] MEDS: Oxybutynin 5 MG Tab.ER PO SCH (08:06)
[2020-06-30] MEDS: Magnesium Oxide 400 MG Tab PO SCH (08:06)
[2020-06-30] MEDS: Furosemide 20 MG Tab PO SCH (08:06)
[2020-06-30] MEDS: Ondansetron 4 MG Tab.DIS PO PRN (09:40)
[2020-07-01] MEDS: Citalopram 20 MG Tab PO SCH (07:46)
[2020-07-01] MEDS: Calcium Carbonate/Vitamin D3 1500 MG-400 Units Tab PO SCH (07:46)
[2020-07-01] MEDS: Cephalexin 250 MG Cap PO SCH ×3 (07:46→17:47)
[2020-07-01] MEDS: Furosemide 20 MG Tab PO SCH (07:47)
[2020-07-01] MEDS: Omeprazole 20 MG Cap.CR PO SCH (07:47)
[2020-07-01] MEDS: Multivitamin Tab PO SCH (07:47)
[2020-07-01] MEDS: Sodium Chloride 1 GM Tab PO SCH ×3 (07:47→17:47)
[2020-07-01] MEDS: Cholecalciferol (Vitamin D3) 25 MCG Tab PO SCH (07:47)
[2020-07-01] MEDS: Magnesium Oxide 400 MG Tab PO SCH (07:47)
[2020-07-01] MEDS: Fish Oil/Omega-3 Fatty Acids 1 Gm Cap PO SCH (07:47)
[2020-07-01] MEDS: Ferrous Sulfate 325 MG Tab PO SCH ×2 (07:47→17:47)
[2020-07-01] MEDS: Lisinopril 5 MG Tab PO SCH (07:48)
[2020-07-01] MEDS: Aspirin 81 MG Tab.Chew PO SCH ×2 (07:48→17:47)
[2020-07-01] MEDS: Oxybutynin 5 MG Tab.ER PO SCH (07:48)
[2020-07-01 08:00] LABS: CHLORIDE,CL 97 mmol/L (98-107); SODIUM,NA 133 mmol/L (136-145)
[2020-07-02] MEDS: Oxybutynin 5 MG Tab.ER PO SCH (07:09)
[2020-07-02] MEDS: Citalopram 20 MG Tab PO SCH (07:09)
[2020-07-02] MEDS: Fish Oil/Omega-3 Fatty Acids 1 Gm Cap PO SCH (07:09)
[2020-07-02] MEDS: Cephalexin 250 MG Cap PO SCH ×3 (07:10→17:14)
[2020-07-02] MEDS: Omeprazole 20 MG Cap.CR PO SCH (07:11)
[2020-07-02] MEDS: Cholecalciferol (Vitamin D3) 25 MCG Tab PO SCH (07:12)
[2020-07-02] MEDS: Multivitamin Tab PO SCH (07:12)
[2020-07-02] MEDS: Sodium Chloride 1 GM Tab PO SCH ×3 (07:12→17:15)
[2020-07-02] MEDS: Lisinopril 5 MG Tab PO SCH (07:12)
[2020-07-02] MEDS: Calcium Carbonate/Vitamin D3 1500 MG-400 Units Tab PO SCH (07:13)
[2020-07-02] MEDS: Aspirin 81 MG Tab.Chew PO SCH ×2 (07:13→17:14)
[2020-07-02] MEDS: Acetaminophen 325 MG Tab PO PRN (07:14)
[2020-07-02] MEDS: Magnesium Oxide 400 MG Tab PO SCH (07:14)
[2020-07-02] MEDS: Ferrous Sulfate 325 MG Tab PO SCH ×2 (07:14→17:13)
[2020-07-02] MEDS: Furosemide 20 MG Tab PO SCH (07:14)
[2020-07-02] MEDS: Ondansetron 4 MG Tab.DIS PO PRN ×2 (07:19→18:33)
[2020-07-03] MEDS: Ondansetron 4 MG Tab.DIS PO PRN (08:30)
[2020-07-03] MEDS: Citalopram 20 MG Tab PO SCH (08:30)
[2020-07-03] MEDS: Magnesium Oxide 400 MG Tab PO SCH (08:31)
[2020-07-03] MEDS: Fish Oil/Omega-3 Fatty Acids 1 Gm Cap PO SCH (08:31)
[2020-07-03] MEDS: Calcium Carbonate/Vitamin D3 1500 MG-400 Units Tab PO SCH (08:32)
[2020-07-03] MEDS: Lisinopril 5 MG Tab PO SCH (08:32)
[2020-07-03] MEDS: Sodium Chloride 1 GM Tab PO SCH ×3 (08:32→17:11)
[2020-07-03] MEDS: Cholecalciferol (Vitamin D3) 25 MCG Tab PO SCH (08:33)
[2020-07-03] MEDS: Oxybutynin 5 MG Tab.ER PO SCH (08:33)
[2020-07-03] MEDS: Ferrous Sulfate 325 MG Tab PO SCH ×2 (08:33→17:12)
[2020-07-03] MEDS: Omeprazole 20 MG Cap.CR PO SCH (08:33)
[2020-07-03] MEDS: Cephalexin 250 MG Cap PO SCH ×3 (08:34→17:12)
[2020-07-03] MEDS: Aspirin 81 MG Tab.Chew PO SCH ×2 (08:34→17:12)
[2020-07-03] MEDS: Furosemide 20 MG Tab PO SCH (08:35)
[2020-07-03] MEDS: Multivitamin Tab PO SCH (08:37)
[2020-07-04] MEDS: Ondansetron 4 MG Tab.DIS PO PRN (07:16)
[2020-07-04] MEDS: Sodium Chloride 1 GM Tab PO SCH ×3 (07:17→17:03)
[2020-07-04] MEDS: Cholecalciferol (Vitamin D3) 25 MCG Tab PO SCH (07:17)
[2020-07-04] MEDS: Fish Oil/Omega-3 Fatty Acids 1 Gm Cap PO SCH (07:17)
[2020-07-04] MEDS: Cephalexin 250 MG Cap PO SCH ×3 (07:18→17:03)
[2020-07-04] MEDS: Ferrous Sulfate 325 MG Tab PO SCH ×2 (07:18→17:02)
[2020-07-04] MEDS: Multivitamin Tab PO SCH (07:18)
[2020-07-04] MEDS: Aspirin 81 MG Tab.Chew PO SCH ×2 (07:18→17:04)
[2020-07-04] MEDS: Magnesium Oxide 400 MG Tab PO SCH (07:18)
[2020-07-04] MEDS: Calcium Carbonate/Vitamin D3 1500 MG-400 Units Tab PO SCH (07:19)
[2020-07-04] MEDS: Oxybutynin 5 MG Tab.ER PO SCH (07:19)
[2020-07-04] MEDS: Furosemide 20 MG Tab PO SCH (07:19)
[2020-07-04] MEDS: Omeprazole 20 MG Cap.CR PO SCH (07:19)
[2020-07-04] MEDS: Citalopram 20 MG Tab PO SCH (07:20)
[2020-07-04] MEDS: Lisinopril 5 MG Tab PO SCH (07:22)
[2020-07-05] MEDS: Ondansetron 4 MG Tab.DIS PO PRN (08:08)
[2020-07-05] MEDS: Omeprazole 20 MG Cap.CR PO SCH (08:08)
[2020-07-05] MEDS: Cephalexin 250 MG Cap PO SCH ×3 (08:08→17:37)
[2020-07-05] MEDS: Magnesium Oxide 400 MG Tab PO SCH (08:09)
[2020-07-05] MEDS: Lisinopril 5 MG Tab PO SCH (08:09)
[2020-07-05] MEDS: Calcium Carbonate/Vitamin D3 1500 MG-400 Units Tab PO SCH (08:09)
[2020-07-05] MEDS: Fish Oil/Omega-3 Fatty Acids 1 Gm Cap PO SCH (08:10)
[2020-07-05] MEDS: Oxybutynin 5 MG Tab.ER PO SCH (08:10)
[2020-07-05] MEDS: Sodium Chloride 1 GM Tab PO SCH ×3 (08:10→17:36)
[2020-07-05] MEDS: Citalopram 20 MG Tab PO SCH (08:11)
[2020-07-05] MEDS: Aspirin 81 MG Tab.Chew PO SCH ×2 (08:11→17:37)
[2020-07-05] MEDS: Cholecalciferol (Vitamin D3) 25 MCG Tab PO SCH (08:11)
[2020-07-05] MEDS: Multivitamin Tab PO SCH (08:12)
[2020-07-05] MEDS: Furosemide 20 MG Tab PO SCH (08:12)
[2020-07-05] MEDS: Ferrous Sulfate 325 MG Tab PO SCH ×2 (08:12→17:37)
[2020-07-06] MEDS: Acetaminophen 325 MG Tab PO PRN (02:38)
[2020-07-06] MEDS: Cephalexin 250 MG Cap PO SCH ×3 (07:39→17:36)
[2020-07-06] MEDS: Cholecalciferol (Vitamin D3) 25 MCG Tab PO SCH (07:39)
[2020-07-06] MEDS: Multivitamin Tab PO SCH (07:39)
[2020-07-06] MEDS: Sodium Chloride 1 GM Tab PO SCH ×3 (07:39→17:36)
[2020-07-06] MEDS: Aspirin 81 MG Tab.Chew PO SCH ×2 (07:40→17:36)
[2020-07-06] MEDS: Citalopram 20 MG Tab PO SCH (07:40)
[2020-07-06] MEDS: Omeprazole 20 MG Cap.CR PO SCH (07:40)
[2020-07-06] MEDS: Lisinopril 5 MG Tab PO SCH (07:40)
[2020-07-06] MEDS: Fish Oil/Omega-3 Fatty Acids 1 Gm Cap PO SCH (07:40)
[2020-07-06] MEDS: Magnesium Oxide 400 MG Tab PO SCH (07:40)
[2020-07-06] MEDS: Calcium Carbonate/Vitamin D3 1500 MG-400 Units Tab PO SCH (07:40)
[2020-07-06] MEDS: Ferrous Sulfate 325 MG Tab PO SCH ×2 (07:40→17:36)
[2020-07-06] MEDS: Oxybutynin 5 MG Tab.ER PO SCH (07:43)
[2020-07-06] MEDS: Furosemide 20 MG Tab PO SCH (07:43)
[2020-07-06] MEDS: Ondansetron 4 MG Tab.DIS PO PRN ×2 (07:50→17:36)
[2020-07-07] MEDS: Ondansetron 4 MG Tab.DIS PO PRN (07:37)
[2020-07-07] MEDS: Fish Oil/Omega-3 Fatty Acids 1 Gm Cap PO SCH (07:37)
[2020-07-07] MEDS: Cephalexin 250 MG Cap PO SCH ×2 (07:38→11:47)
[2020-07-07] MEDS: Aspirin 81 MG Tab.Chew PO SCH (07:39)
[2020-07-07] MEDS: Multivitamin Tab PO SCH (07:39)
[2020-07-07] MEDS: Oxybutynin 5 MG Tab.ER PO SCH (07:39)
[2020-07-07] MEDS: Acetaminophen 325 MG Tab PO PRN (07:40)
[2020-07-07 07:41] VITALS: BP 107/59; PULSE 78
[2020-07-07] MEDS: Omeprazole 20 MG Cap.CR PO SCH (07:42)
[2020-07-07] MEDS: Ferrous Sulfate 325 MG Tab PO SCH (07:42)
[2020-07-07] MEDS: Calcium Carbonate/Vitamin D3 1500 MG-400 Units Tab PO SCH (07:42)
[2020-07-07] MEDS: Lisinopril 5 MG Tab PO SCH (07:43)
[2020-07-07] MEDS: Sodium Chloride 1 GM Tab PO SCH ×2 (07:47→11:47)
[2020-07-07] MEDS: Cholecalciferol (Vitamin D3) 25 MCG Tab PO SCH (07:48)
[2020-07-07] MEDS: Citalopram 20 MG Tab PO SCH (07:49)
[2020-07-07] MEDS: Furosemide 20 MG Tab PO SCH (07:50)
[2020-07-07] MEDS: LORazepam 0.5 MG Tab PO PRN (07:51)
[2020-07-07] MEDS: Magnesium Oxide 400 MG Tab PO SCH (07:51)
--- NOTE | 2020-07-07 10:44 | PCM.DCSUM1 ---
Discharge Summary - Hospital Course Brief History: Patient admitted swing bed for aftercare/PT&OT related to total hip replacement surgery Diagnosis: Stroke: No - Discharge Data Discharge Date: 07/07/20 Discharge Disposition: Home, Self-Care 01 Condition: Good - Referral to Home Health Primary Care Physician: PCP None - Discharge Diagnosis/Problem(s) (1) Status post THR (total hip replacement) SNOMED Code(s): 876316858379, 467260872146 ICD Code: Z96.649 - PRESENCE OF UNSPECIFIED ARTIFICIAL HIP JOINT Status: Acute Priority: High Current Visit: Yes Problem Details: Status post repeat TEP replacement with dislocation revision on 06/08/2020. Received PT/OT, strengthening during Swing Bed admission. Cleared by PT/OT for discharge. Will have continued PT and OT at home. Orthopedic follow-up as scheduled. Qualifiers: Laterality: left Qualified Code(s): Z96.642 - Presence of left artificial hip joint (2) Pulmonary nodule SNOMED Code(s): 355564560 ICD Code: R91.1 - SOLITARY PULMONARY NODULE Status: Acute Priority: High Current Visit: Yes Onset Date: 05/25/20 Problem Details: Newly diagnosed left upper lobe pulmonary nodule by CT scan on 05/25/2020. Will need oncology consultation with possible lung biopsy. Per daughter oncology appointment will try to be coordinated with her next orthopedic consultation this month. 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 (3) CHF (congestive heart failure) SNOMED Code(s): 91621478 ICD Code: I50.9 - HEART FAILURE, UNSPECIFIED Status: Chronic Priority: Medium Current Visit: Yes Problem Details: Stable during stay. Qualifiers: Heart failure type: unspecified Heart failure chronicity: acute Qualified Code(s): I50.9 - Heart failure, unspecified (4) D-dimer, elevated SNOMED Code(s): 609025877 ICD Code: R79.89 - OTHER SPECIFIED ABNORMAL FINDINGS OF BLOOD CHEMISTRY Status: Acute Priority: High Current Visit: Yes Onset Date: 06/11/20 Problem Details: Negative CTA of the chest for PE at [facility] prior to transfer to this facility for swing bed care. No further Lovenox, etc. per their instructions, which was confirmed after patient's arrival to this facility. (5) UTI (urinary tract infection) SNOMED Code(s): 19306362 ICD Code: N39.0 - URINARY TRACT INFECTION, SITE NOT SPECIFIED Status: Acute Priority: High Current Visit: Yes Onset Date: ~06/19/20 Problem Details: Responded to Macrobid. Recent UA shows that infection appears to have cleared. Qualifiers: Urinary tract infection type: acute cystitis Hematuria presence: without hematuria Qualified Code(s): N30.00 - Acute cystitis without hematuria (6) Hypertension SNOMED Code(s): 28136562 ICD Code: I10 - ESSENTIAL (PRIMARY) HYPERTENSION Status: Chronic Priority: Medium Current Visit: Yes Problem Details: Stable by history and during her swing bed care.. Continue to observe closely by her regular providers after discharge. Qualifiers: Hypertension type: essential hypertension Qualified Code(s): I10 - Essential (primary) hypertension (7) Hypokalemia SNOMED Code(s): 14096498 ICD Code: E87.6 - HYPOKALEMIA Status: Chronic Priority: Medium Current Visit: Yes Problem Details: Currently under therapy. Stable at this time. (8) Hypomagnesemia SNOMED Code(s): 211903289 ICD Code: E83.42 - HYPOMAGNESEMIA Status: Chronic Priority: Medium Current Visit: Yes Problem Details: Currently under therapy. (9) Hyponatremia SNOMED Code(s): 12786678 ICD Code: E87.1 - HYPO-OSMOLALITY AND HYPONATREMIA Status: Chronic Priority: Medium Current Visit: Yes Problem Details: High-dose oral supplementation therapy at this time with persistent stable moderate hyponatremia. Note previous 3% sodium chloride infusions were required during last swing bed care in this facility. Relatively nonsymptomatic at this time. Possibility of SIADH. (10) Iron deficiency anemia SNOMED Code(s): 49186595 ICD Code: D50.9 - IRON DEFICIENCY ANEMIA, UNSPECIFIED Status: Chronic Priority: Medium Current Visit: Yes Problem Details: Known history of iron deficiency anemia and postoperative anemia. Note persistent nonsymptomatic moderate anemia with continue close observation with PCP. Consider repeating iron studies in 4 weeks. Qualifiers: Iron deficiency anemia type: other iron deficiency Qualified Code(s): D50.8 - Other iron deficiency anemias (11) Mixed anxiety depressive disorder SNOMED Code(s): 256145035 ICD Code: F41.8 - OTHER SPECIFIED ANXIETY DISORDERS Status: Chronic Priority: Medium Current Visit: Yes Problem Details: Note history of alcohol abuse. Moderate control/overall stable at this time with anxiety component to patient's chest pain type symptoms during recent hospitalization at [place] as above, which the patient acknowledges. (12) Osteoarthritis SNOMED Code(s): 345635933 ICD Code: M19.90 - UNSPECIFIED OSTEOARTHRITIS, UNSPECIFIED SITE Status: Chronic Priority: Medium Current Visit: Yes Problem Details: Otherwise stable by history Qualifiers: Osteoarthritis location: multiple joints Osteoarthritis type: primary Qualified Code(s): M89.49 - Other hypertrophic osteoarthropathy, multiple sites - Patient Summary/Data Consults: Consultations 06/11/20 12:51 Consult to Case Management/Oil Analyst [CONS] Routine OT Evaluation and Treatment [CONS] Routine PT Evaluation and Treatment [CONS] Routine Consult Home Health Services Hospital Course: Patient received PT/OT. Noted to have repeated dislocations and ultimately required replacement of prosthesis when it broke. Much better after receiving second prosthetic procedure. Did have UTI earlier this month which cleared with Macrobid. Cleared by PT/OT to be discharged. Will be moving to assisted living facility. PT/OT and Home Health will be continued after discharge. - Patient Instructions Diet: Usual Diet as Tolerated Activity: As Tolerated Notify Provider of: Fever, Increased Pain, Swelling and Redness, Drainage Other/Special Instructions: Continue follow up with Orthopedics as scheduled. Arrange for follow up with Oncology for pulmonary nodule first available appointment. Recommend follow up with your primary provider within the next 1-2 weeks for recheck and to also touch base about Oncology follow up . - Discharge Plan *PRESCRIPTION DRUG MONITORING PROGRAM REVIEWED*: Not Applicable *COPY OF PRESCRIPTION DRUG MONITORING REPORT IN PATIENT JEFRY: Not Applicable Prescriptions/Med Rec: Omeprazole 20 mg PO DAILY #30 cap.cr Oxybutynin [Oxybutynin ER] 5 mg PO DAILY #30 Sodium Chloride 3 gm PO TID #300 Ondansetron [Zofran ODT] 4 mg PO QID PRN #60 PRN Reason: Nausea Home Medications: Home Meds Lisinopril [Prinivil] 5 mg PO DAILY #30 tablet 10/15/15 [Rx] Betamethasone Dipropionate [Diprosone 0.05% Crm] 0 gm TOP BID PRN 01/31/20 [History] Calcium Carbonate/Vitamin D3 [Caltrate 600 Plus D3 Tablet] 1 tab PO DAILY 01/31/20 [History] Cholecalciferol (Vitamin D3) [Vitamin D3] 2,000 unit PO DAILY 01/31/20 [History] Cyclobenzaprine [Flexeril] 10 mg PO TID PRN 01/31/20 [History] Erythromycin Base [Erythromycin] 1 dose EYEBOTH QID PRN 01/31/20 [History] Multivitamin with Minerals [Multiple Vitamin] 1 each PO DAILY 01/31/20 [History] [place]-3/DHA/Epa/Fish Oil [Fish Oil 1,000 mg Softgel] 1,000 mg PO DAILY 01/31/20 [History] Urea [Urea 20% Crm] 85 gm .XX BID PRN 01/31/20 [History] cephALEXin [Cephalexin] 500 mg PO TID 01/31/20 [History] Docusate Sodium/Sennosides [Senna Plus] 2 tab PO BID PRN tablet 03/02/20 [Rx] Aspirin 81 mg PO BID 05/22/20 [History] Bisacodyl [Laxative Suppository] 10 mg RC DAILY PRN 05/22/20 [History] Clobetasol [Clobetasol 0.05%] 1 applic TOP BID PRN 05/22/20 [History] LORazepam [Ativan] 0.5 mg PO Q6HR PRN 05/22/20 [History] Magnesium Hydroxide [Dulcolax] 30 ml PO BID PRN 05/22/20 [History] Nicotine [Nicotine Patch] 21 mg TD DAILY 05/22/20 [History] Polyethylene Glycol [Polyox Wsr-301] 17 gm PO DAILY 05/22/20 [History] oxyCODONE 5 mg PO Q4HR PRN 05/22/20 [History] Acetaminophen [Tylenol] 650 mg PO Q4H PRN 06/11/20 [History] Citalopram Hydrobromide [Celexa] 10 mg PO DAILY 06/11/20 [History] Ferrous Sulfate 325 mg PO BID 06/11/20 [History] Furosemide 20 mg PO DAILY 06/11/20 [History] Magnesium Hydroxide [Milk of Magnesia] 30 ml PO BID PRN 06/11/20 [History] Magnesium Oxide 500 mg PO DAILY 06/11/20 [History] Omeprazole 20 mg PO DAILY #30 cap.cr 01/19/21 [Rx] Ondansetron [Zofran ODT] 4 mg PO QID PRN #60 07/07/20 [Rx] Oxybutynin [Oxybutynin ER] 5 mg PO DAILY #30 07/07/20 [Rx] Sodium Chloride 3 gm PO TID #300 07/07/20 [Rx] Other Amb Orders: OT Evaluation and Treatment [CONS] Location: None Selected PT Evaluation and Treatment [CONS] Location: None Selected - Discharge Summary/Plan Comment DC Time >30 min.: No - General Info Date of Service: 07/07/20 Admission Dx/Problem (Free Text: Admission Diagnosis/Problem Admission Diagnosis/Problem Weakness/status-post hip replacement surgery Subjective Update: Patient feels well. No acute complaints. Functional Status: Reports: Pain Controlled, Tolerating Diet, Ambulating, Urina ting. Denies: New Symptoms - Review of Systems General: Denies: Fever, Weakness, Fatigue, Malaise, Chills HEENT: Denies: Sinus Congestion, Sore Throat, Rhinitis Pulmonary: Denies: Shortness of Breath, Pleuritic Chest Pain, Cough, Sputum, Hemoptysis, Wheezing Cardiovascular: Denies: Chest Pain, Palpitations, Edema, Lightheadedness Gastrointestinal: Denies: Abdominal Pain, Constipation, Decreased Appetite, Diarrhea, Difficulty Swallowing, Hematochezia, Nausea, Vomiting Genitourinary: Denies: Dysuria, Burning, Pain, Urgency, Hematuria, Flank Pain Musculoskeletal: Reports: Other (no acute changes from baseline) Skin: Reports: Other (no acute changes) Neurological: Reports: No Symptoms Psychiatric: Reports: No Symptoms - Patient Data Vitals - Most Recent: Last Vital Signs Temp 36.3 C 07/07/20 07:40 Pulse 78 07/07/20 07:40 Resp 16 07/07/20 07:40 BP 107/59 L 07/07/20 07:43 Pulse Ox 94 L 07/07/20 07:40 Weight - Most Recent: 56.835 kg I&O - Last 24 hours: Intake & Output 07/06/20 07/07/20 07/07/20 22:59 06:59 14:59 Intake Total 480 360 Balance 480 360 Med Orders - Current: Current Medications Acetaminophen (Tylenol) 650 mg PO Q4H PRN PRN Reason: Pain Last Admin: 07/07/20 07:40 Dose: 650 mg Documented by: Aspirin (Aspirin) 81 mg PO BID [facility] Stop: 07/23/20 08:01 Last Admin: 07/07/20 07:39 Dose: 81 mg Documented by: Bisacodyl (Dulcolax) 10 mg RECTAL DAILY PRN PRN Reason: Constipation Calcium Carbonate (Caltrate 600+D 1500 Mg-400 Units) 1 tab PO DAILY [facility] Last Admin: 07/07/20 07:42 Dose: 1 tab Documented by: Calcium Carbonate/Glycine (Tums Extra Strength) 750 mg PO Q2H PRN PRN Reason: Indigestion Last Admin: 06/25/20 19:18 Dose: 750 mg Documented by: Cephalexin (Keflex) 500 mg PO TID [facility] Last Admin: 07/07/20 07:38 Dose: 500 mg Documented by: Cholecalciferol (Vitamin D3) 50 mcg PO DAILY [facility] Last Admin: 07/07/20 07:48 Dose: 50 mcg Documented by: Citalopram Hydrobromide (Celexa) 10 mg PO DAILY [facility] Last Admin: 07/07/20 07:49 Dose: 10 mg Documented by: Clobetasol Propionate (Clobetasol Propionate 0.05%) 0 gm TOP BID PRN PRN Reason: Itching Cyclobenzaprine HCl (Flexeril) 10 mg PO TID PRN PRN Reason: Spasms Last Admin: 06/15/20 17:21 Dose: 10 mg Documented by: Erythromycin (Erythromycin 0.5% Ophth Oint) 0 gm EYEBOTH QID PRN PRN Reason: Other Ferrous Sulfate (Ferrous Sulfate) 325 mg PO BID [facility] Last Admin: 07/07/20 07:42 Dose: 325 mg Documented by: Fish Oil (Fish Oil) 1 gm PO DAILY [facility] Last Admin: 07/07/20 07:37 Dose: 1 gm Documented by: Furosemide (Lasix) 20 mg PO DAILY [facility] Last Admin: 07/07/20 07:50 Dose: 20 mg Documented by: Lisinopril (Prinivil) 5 mg PO DAILY [facility] Last Admin: 07/07/20 07:43 Dose: 5 mg Documented by: Lorazepam (Ativan) 0.5 mg PO Q6HR PRN PRN Reason: Anxiety Last Admin: 07/07/20 07:51 Dose: 0.5 mg Documented by: Magnesium Hydroxide (Milk Of Magnesia) 30 ml PO BID PRN PRN Reason: Constipation Magnesium Oxide (Magnesium Oxide) 400 mg PO DAILY [facility] Last Admin: 07/07/20 07:51 Dose: 400 mg Documented by: Multivitamins/Minerals/Vitamin C (Tab-A-Kayla) 1 tab PO DAILY [facility] Last Admin: 07/07/20 07:39 Dose: 1 tab Documented by: Non-Formulary Medication (Betamethasone Dipropionate [Diprosone 0.05% Crm]) 1 gm TOP BID PRN PRN Reason: Other Non-Formulary Medication (Urea [Urea 20% Crm]) 85 gm .XX BID PRN PRN Reason: Itching Omeprazole (Omeprazole) 20 mg PO DAILY [facility] Last Admin: 07/07/20 07:42 Dose: 20 mg Documented by: Ondansetron HCl (Zofran Odt) 4 mg PO QID PRN PRN Reason: Nausea Last Admin: 07/07/20 07:37 Dose: 4 mg Documented by: Oxybutynin Chloride (Oxybutynin Er) 5 mg PO DAILY [facility] Last Admin: 07/07/20 07:39 Dose: 5 mg Documented by: Oxycodone HCl (Oxycodone) 5 mg PO Q4HR PRN PRN Reason: Pain Last Admin: 06/15/20 17:21 Dose: 5 mg Documented by: Senna/Docusate Sodium (Senna Plus) 2 tab PO BID PRN PRN Reason: Constipation Sodium Chloride (Sodium Chloride) 3 gm PO TID [facility] Last Admin: 07/07/20 07:47 Dose: 3 gm Documented by: Discontinued Medications Ciprofloxacin (Ciprofloxacin Hcl) 500 mg PO BID [facility] Stop: 06/30/20 08:01 Last Admin: 06/30/20 08:05 Dose: 500 mg Documented by: Magnesium Hydroxide (Milk Of Magnesia) 30 ml PO BID PRN PRN Reason: Constipation Nicotine (Habitrol) 21 mg TOP DAILY [facility] Last Admin: 06/21/20 08:36 Dose: Not Given Documented by: Nitrofurantoin Macrocrystals (Macrobid) 100 mg PO QPM [facility] Last Admin: 06/22/20 17:22 Dose: 100 mg Documented by: Non-Formulary Medication (Magnesium Oxide [Magnesium Oxide]) 500 mg PO DAILY [facility] Polyethylene Glycol (Miralax) 17 gm PO DAILY [facility] Last Admin: 06/19/20 08:01 Dose: 17 gm Documented by: - Exam General: Reports: Alert, Oriented, Cooperative, No Acute Distress HEENT: Reports: Pupils Equal, Pupils Reactive, EOMI, Mucous Membr. Moist/[place] Neck: Reports: Supple Lungs: Reports: Clear to Auscultation, Normal Respiratory Effort Cardiovascular: Reports: Regular Rate, Regular Rhythm GI/Abdominal Exam: Normal Bowel Sounds, Soft, Non-Tender, No Distention (Female) Exam: Deferred Rectal (Female) Exam: Deferred Extremities: Non-Tender, Normal Capillary Refill Skin: Reports: Warm, Dry Neurological: Reports: No New Focal Deficit Psy/Mental Status: Reports: Alert, Normal Affect, Normal Mood
== END 2020-07-07 12:30 | disposition home or self-care (01) | DRG 560 ==
LOC: LL.MS 12:17
PROVIDERS: ADMIT Family Medicine; ATTEND Family Medicine
DX: Z47.1 Aftercare following joint replacement surgery (principal); E22.2 Syndrome of inappropriate secretion of antidiuretic hormone; Z96.642 Presence of left artificial hip joint; Z91.09 Other allergy status, other than to drugs and biological substances; Z88.8 Allergy status to other drugs, medicaments and biological substances; Z79.899 Other long term (current) drug therapy; H91.90 Unspecified hearing loss, unspecified ear; J30.9 Allergic rhinitis, unspecified; H91.13 Presbycusis, bilateral; I50.9 Heart failure, unspecified; E78.00 Pure hypercholesterolemia, unspecified; I11.0 Hypertensive heart disease with heart failure; J44.9 Chronic obstructive pulmonary disease, unspecified; K59.09 Other constipation; M19.90 Unspecified osteoarthritis, unspecified site; F41.9 Anxiety disorder, unspecified; F32.9 Major depressive disorder, single episode, unspecified; E87.6 Hypokalemia; E83.42 Hypomagnesemia; D50.9 Iron deficiency anemia, unspecified; Z85.828 Personal history of other malignant neoplasm of skin; Z90.89 Acquired absence of other organs; R91.1 Solitary pulmonary nodule; Z20.822 Contact with and (suspected) exposure to COVID-19
CPT/HCPCS: 36415; 71045; 80048; 80053; 81001; 82550; 82553; 83735; 83880; 84484; 85025; 87086; 87088; 87186; 93005; 97110-GP; 97163-GP; 97165-GO; 97530-GO; 97530-GP; 97535-GO; A9270-GY; U0002